=== PATIENT | female | born 1960 | race Caucasian/White ===

== ENCOUNTER 2024-05-30 23:39 | Outpatient (REF) | payer MEDICARE, SELFPAY ==
[2024-05-31 00:18] LABS: INR 1.21; Prothrombin Time 12.6 sec (9.0-11.6)
== END 2024-05-30 23:40 | disposition home or self-care (01) ==
LOC: LAB 23:39
PROVIDERS: Visit Provider Student in an Organized Health Care Education/Training Program
DX: Z79.01 Long term (current) use of anticoagulants (principal)
CPT/HCPCS: 36415; 85610

== ENCOUNTER 2024-06-17 12:08 | Outpatient (REF) | payer MEDICARE, SELFPAY ==
--- OUTSIDE RECORDS SUMMARY | 2024-06-17 12:13 | XMS_ITS | CCD ---
Author Organization [facility] Care Team Providers Care Final Expense Agent Name Role Phone Agustin, Robert Primary Care Provider DEJON BRUSH Referring Unavailable NARRA, ROBERT Primary Care Unavailable FRANNY APONTE Referring Unavailable NARRA, ROBERT Primary Care Unavailable Agustin CHOWDHURY, [facility] Primary Care Provider Agustin CHOWDHURY, Robert Primary Care Provider [phone] NARRA, ROBERT Primary Care Unavailable DYLAN, AFSER Admitting Unavailable DYLAN, AFSER Attending Unavailable DYLAN, AFSER Referring Unavailable NARRA, ROBERT Primary Care Unavailable CONSUELO MEDINA Attending Unavailable NARRA, ROBERT Referring Unavailable NARRA, ROBERT Primary Care Unavailable CONSUELO MEDINA Attending Unavailable NARRA, ROBERT Referring Unavailable NARRA, ROBERT Primary Care Unavailable Agustin CHOWDHURY, [facility] Primary Care Provider [phone] CONSUELO MEDINA Referring Unavailable NARRA, ROBERT Primary Care Unavailable NARRA, ROBERT Primary Care Unavailable DENIS CORBIN Attending Unavailable NARRA, ROBERT Admitting Unavailable DENISE SANTIAGO Consulting Unavailable DEANNE FORD Consulting Unavailable DENIS CORBIN Attending Unavailable DENIS CORBIN Referring Unavailable NARRA, ROBERT Primary Care Unavailable CONSUELO MEDINA Referring Unavailable NARRA, ROBERT Primary Care Unavailable CONSUELO MEDINA Referring Unavailable NARRA, ROBERT Primary Care Unavailable HAJA ALBA Attending Unavailable NARRA, ROBERT Referring Unavailable NARRA, ROBERT Primary Care Unavailable HAJA ALBA Referring Unavailable NARRA, ROBERT Primary Care Unavailable STEPHAN AGUILAR Attending Unavailable NARRA, ROBERT Referring Unavailable NARRA, ROBERT Primary Care Unavailable JOSE GUADALUPE MERCADO Referring Unavailable NARRA, ROBERT Primary Care Unavailable NARRA, ROBERT Referring Unavailable NARRA, ROBERT Primary Care Unavailable CHLOE KELLY Attending Unavailable HAYES WALSH Referring Unavailable NARRA, ROBERT Primary Care Unavailable NARRA, ROBERT Referring Unavailable NARRA, ROBERT Primary Care Unavailable NARRA, ROBERT Referring Unavailable NARRA, ROBERT Primary Care Unavailable NARRA, ROBERT Referring Unavailable NARRA, ROBERT Primary Care Unavailable HAYES WALSH Admitting Unavailable HAYSE WALSH Attending Unavailable NARRA, ROBERT Primary Care Unavailable SHUN PITTMAN Consulting Unavailable SERVICE, JOBST Referring Unavailable NARRA, ROBERT Primary Care Unavailable SERVICE, JOBST Referring Unavailable NARRA, ROBERT Primary Care Unavailable SERVICE, JOBST Referring Unavailable NARRA, ROBERT Primary Care Unavailable SERVICE, JOBST Referring Unavailable NARRA, ROBERT Primary Care Unavailable TYSON PANDA Referring Un available NARRA, ROBERT Primary Care Unavailable NARRA, ROBERT Referring Unavailable NARRA, ROBERT Primary Care Unavailable SERVICE, JOBST Referring Unavailable NARRA, ROBERT Primary Care Unavailable SERVICE, JOBST Referring Unavailable NARRA, ROBERT Primary Care Unavailable SERVICE, JOBST Referring Unavailable NARRA, ROBERT Primary Care Unavailable SERVICE, JOBST Referring Unavailable NARRA, ROBERT Primary Care Unavailable SERVICE, JOBST Referring Unavailable NARRA, ROBERT Primary Care Unavailable CONSUELO MEDINA Referring Unavailable NARRA, ROBERT Primary Care Unavailable SERVICE, JOBST Referring Unavailable NARRA, ROBERT Primary Care Unavailable SERVICE, JOBST Referring Unavailable NARRA, ROBERT Primary Care Unavailable YOSSI CHEATHAM Referring Unavailable NARRA, ROBERT Primary Care Unavailable NARRA, ROBERT Primary Care Unavailable LOTTIE FERNANDES Attending Unavailable MEKA MENDEZ Attending Unavailable MEKA MENDEZ Referring Unavailable NARRA, ROBERT Primary Care Unavailable SERVICE, JOBST Referring Unavailable NARRA, ROBERT Primary Care Unavailable SERVICE, JOBST Referring Unavailable NARRA, ROBERT Primary Care Unavailable SERVICE, JOBST Referring Unavailable NARRA, ROBERT Primary Care Unavailable SERVICE, JOBST Referring Unavailable NARRA, ROBERT Primary Care Unavailable SERVICE, JOBST Referring Unavailable NARRA, ROBERT Primary Care Unavailable SERVICE, JOBST Referring Unavailable NARRA, ROBERT Primary Care Unavailable SERVICE, JOBST Referring Unavailable NARRA, ROBERT Primary Care Unavailable SERVICE, JOBST Referring Unavailable NARRA, ROBERT Primary Care Unavailable NARRA, ROBERT Primary Care Unavailable SERGIO VILLALBA Attending Unavailable NARRA, ROBERT Primary Care Unavailable LOVELY PAZ Attending Unavailable SERVICE, JOBST Referring Unavailable NARRA, ROBERT Primary Care Unavailable ROBERT VELEZ Primary Care Unavailable DORITA MARINELLI Attending Unavailable YOUSUF OLIVA Consulting Unavailable TRISTIAN MARCH Admitting Unavailable ROBERT VELEZ Primary Care Unavailable LOTTIE ACOSTA Attending Unavailable DEVIN GOLDEN Consulting Unavailable MORGAN ARDON Admitting Unavailable BIB ODOM JR Consulting Unavailabl e Allergies Allergy Classification Reported Allergen(s) Allergy Type Date of Onset Reaction(s) Facility (3 sources) atorvastatin Drug Allergy 2 Other (See Comments) [place], [place] (20 sources) Cefaclor; Translations: [CEFACLOR] Drug Allergy 2 Rash, [place], [place] (3 sources) hydrOXYzine Drug Allergy 5 Itching [place], [place] (20 sources) Latex; Translations: [LATEX] Propensity to adverse reactions to drug 2 [place], [place] (6 sources) Penicillins; Translations: [PENICILLINS] Propensity to adverse reactions to drug 2 [place] (20 sources) Warfarin; Translations: [WARFARIN] Drug Allergy 2 Other (See Comments), [place] (3 sources) Clindamycin/Linc omycin Propensity to adverse reactions to drug 4 [place] (20 sources) Adhesive agent; Translations: [ADHESIVE] Propensity to adverse reactions to drug 6 Dermatitis [facility] (20 sources) atorvastatin; Translations: [ATORVASTATIN] Drug Allergy 6 [facility] (20 sources) Clindamycin; Translations: [CLINDAMYCIN] Drug Allergy 6 [facility] (20 sources) Dicloxacillin; Translations: [DICLOXACILLIN SODIUM] Drug Allergy 6 [facility] (20 sources) hydrOXYzine; Translations: [HYDROXYZINE HCL] Drug Allergy 6 Itching [facility] (20 sources) hydrOXYzine; Translations: [HYDROXYZINE PAMOATE] Drug Allergy 6 Itching [facility] (20 sources) Latex; Translations: [LATEX, NATURAL RUBBER] Propensity to adverse reactions to drug 6 Itching [facility] (20 sources) Lincomycin; Translations: [LINCOMYCIN HCL] Drug Allergy 6 Hives [facility] (20 sources) Penicillins Propensity to adverse reactions to drug 2 [facility] (1 source) Silicone adhesive tape Propensity to adverse reactions to drug 6 Dermatitis [facility] Medications Current Medications Medication Drug Class(es) Dates Sig (Normalized) Sig (Original) acetaminophen 500 mg oral tablet (1 source) Start: 06-02-2024 take 2 tablets by mouth every eight hours acetaminophen (TYLENOL EXTRA STRENGTH) 500 mg tablet Take 2 tablets (1,000 mg total) by mouth every 8 (eight) hours. 06/02/2024 Active acetaminophen 300 mg / codeine phosphate 30 mg oral tablet (9 sources) Opioid Agonist Start: 01-14-2024 End: 04-05-2024 take 1 tablet by mouth every four hours as needed for pain acetaminophen-code ine (TYLENOL #3) 300-30 mg per tablet Indications: Frequent falls Take 1 tablet by mouth every 4 (four) hours as needed for pain for up to 7 days. 20 tablet 03/29/2024 04/05/2024 Active amLODIPine 5 mg oral tablet (3 sources) Dihydropyridine Calcium Channel Shayy Start: 02-17-2016 take 1 tablet by mouth once daily amLODIPine (NORVASC) 5 MG tablet TAKE 1 TABLET BY MOUTH DAILY 90 tablet 2 02/17/2016 Active atorvastatin 40 mg oral tablet (20 sources) HMG-CoA Reductase Inhibitor Start: 12-27-2023 take 1 tablet by mouth once daily atorvastatin (LIPITOR) 40 mg tablet take 1 tablet by mouth every day 90 tablet 3 12/27/2023 Active Start: 08-26-2015 take 1 tablet by devin th once daily atorvastatin (LIPITOR) 40 mg tablet TAKE 1 TABLET BY MOUTH EVERY DAY 90 tablet 3 12/26/2022 Active betamethasone 1 mg/ml topical cream (3 sources) Corticosteroid Start: 04-27-2015 betamethasone valerate (VALISONE) 0.1 % cream Apply topically 2 times daily 45 g 4 04/27/2015 Active bisacodyl 5 mg delayed release oral tablet (1 source) Stimulant Laxative Start: 04-03-2019 bisacodyl ( DULCOLAX) 5 MG EC tablet TAKE 2 TABS AT 9 AM DAY PRIOR TO COLONOSCOPY 2 tablet 0 04/03/2019 Active Blood Glucose Monitoring Suppl (BLOOD GLUCOSE METER) KIT (3 sources) Start: 01-21-2014 Blood Glucose Monitoring Suppl (BLOOD GLUCOSE METER) KIT Indications: Diabetes type 2, uncontrolled Test daily. Dx. DM 2 1 kit 0 01/21/2014 Active Start: 01-21-2014 Blood Glucose Monitoring Suppl (BLOOD GLUCOSE METER) KIT Indications: Diabetes type 2, uncontrolled (HCC) Test daily. Dx. DM 2 1 kit 0 01/21/2014 Active budesonide 0.25 mg/ml inhalation suspension (1 source) Corticosteroid Start: 04-25-2023 budesonide (PULMICORT) 0.5 MG/2ML nebulizer suspension RINSE TWICE A DAY USING 1 VIAL INTO A SINUS RINSE BOTTLE. 0 04/25/2023 Active calcium citrate 950 mg oral tablet (1 source) Start: 06-02-2024 take 2 tablets by mouth three times daily calcium citrate (CALCITRATE) 200 mg (950 mg) tablet Take 2 tablets (400 mg total) by mouth 3 (three) times a day. 06/02/2024 Active calcium citrate 1500 mg / cholecalciferol 250 unt oral tablet (2 sources) Vitamin D take 1 tablet by mouth twice daily at mealtime calcium citrate-vitamin D (CITRICAL + D) 315-250 MG-UNIT TABS per tablet Take 1 tablet by mouth 2 times daily (with meals) 0 Active Calcium Citrate / Vitamin D (1 source) take 1 tablet by mouth twice daily at mealtime calcium citrate-vitamin D (CITRICAL + D) 315-250 MG-UNIT TABS per tablet Take 1 tablet by mouth 2 times daily (with meals) 0 Active calcium citrate/vitamin D3 (CALCIUM CITRATE + D ORAL) (20 sources) End: 03-29-2024 take 1 tablet by mouth once in the morning calcium citrate/vitamin D3 (CALCIUM CITRATE + D ORAL) Take 1 tablet by mouth in the morning and 1 tablet before bedtime. 03/29/2024 Discontinued (Stop Taking at Discharge) take 1 tablet by devin once in the morning calcium citrate/vitamin D3 (CALCIUM CITR ATE + D ORAL) Take 1 tablet by mouth in the morning and 1 tablet before bedtime. Suspended take 1 tablet by mouth once vega y calcium citrate/vitamin D3 (CALCIUM CITRATE + D ORAL) Take 1 tablet by mouth daily. 0 Active carvedilol 3.125 mg oral tablet (20 sources) alpha-Adrenergic Shayy, beta-Adrenergic Shayy Start: 11-08-2023 take 1 tablet by mouth in the morning, then take 1 tablet by mouth at bedtime carvediloL (COREG) 3.125 mg tablet TAKE 1 TABLET (3.125 MG TOTAL) BY MOUTH IN THE MORNING AND 1 TABLET (3.125 MG TOTAL) BEFORE BEDTIME. 180 tablet 1 11/08/2023 Active Start: 05-10-2023 take 1 tablet by devin th in the morning, then take 1 tablet by mouth at bedtime carvediloL (COREG) 3.125 mg tablet TAKE 1 TABLET (3.125 MG TOTAL) BY MOUTH IN THE MORNING AND 1 TABLET (3.125 MG TOTAL) BEFORE BEDTIME. 180 tablet 1 05/10/2023 Active cephalexin 500 mg oral capsule (1 source) Cephalosporin Antibacterial Start: 07-12-2023 End: 07-19-2023 CEPHalexin (KEFLEX) 500 mg capsule Take 1 capsule (500 mg total) by mouth in the morning and 1 capsule (500 mg total) at noon and 1 capsule (500 mg total) in the evening and 1 capsule (500 mg total) before bedtime. Do all this for 7 days. 28 capsule 0 07/12/2023 07/19/2023 Active cholecalciferol 0.025 mg oral capsule (1 source) Vitamin D Start: 06-02-2024 End: 06-02-2025 take 1 capsule by mouth in the morning, then take 1 capsule by mouth at mealtime cholecalciferol, vitamin D3, 25 mcg (1,000 unit) capsule Take 1 capsule (1,000 Units total) by mouth in the morning and 1 capsule (1,000 Units total) in the evening. Take with meals. 06/02/2024 06/02/2025 Active desoximetasone 2.5 mg/ml topical cream (3 sources) Corticosteroid Start: 02-22-2016 desoximetasone (TOPICORT) 0.25 % cream Apply topically 2 times daily. 15 g 1 02/22/2016 Active 1 ml diphenhydrAMINE hydrochloride 50 mg/ml cartridge (1 source) Histamine-1 Receptor Antagonist Start: 04-13-2019 End: 04-13-2019 diphenhydrAMINE (BENADRYL) injection 12.5 mg docosahexanoic acid/epa (FISH OIL ORAL) (20 sources) End: 03-29-2024 take 2 tablets by mouth once daily docosahexanoic acid/epa (FISH OIL ORAL) Take 2 tablets by mouth nightly. 03/29/2024 Discontinued (Stop Taking at Discharge) take 2 tablets by mouth once alondra ly docosahexanoic acid/epa (FISH OIL ORAL) Take 2 tablets by mouth nightly. Suspended take 2 tablets by mouth once alondra ly docosahexanoic acid/epa (FISH OIL ORAL) Take 2 tablets by mouth daily. 0 Active docusate sodium 50 mg / sennosides, half-way 8.6 mg oral tablet (1 source) Start: 06-03-2024 End: 07-03-2024 take 1 tablet by mouth once as needed sennosides-docusate sodium (SENOKOT-S) 8.6-50 mg Take 1 tablet by mouth every 12 (twelve) hours as needed for constipation for up to 30 days. 06/03/2024 07/03/2024 Active ergocalciferol 1.25 mg oral capsule (20 sources) Provitamin D2 Compound Start: 02-04-2024 ergocalciferol (DRISDOL) 1,250 mcg (50,000 unit) capsule Take 1 tablet two times weekly: on Saturday and Saturday 24 capsule 3 02/04/2024 Active Start: 05-08-2023 ergocalciferol (DRISDOL) 1,250 mcg (50,000 unit) capsule Take 1 capsule (50,000 Units total) by mouth as needed (Take on Saturday and Saturday). 24 capsule 3 05/08/2023 Active ferrous sulfate 325 mg oral tablet (20 sources) Start: 03-28-2024 take 325 mg by mouth once daily at breakfast 325 mg, oral, Daily with breakfast, First dose on 03/28/24 at 1000, Give ferrous sulfate 2 hours before or 4 hours after antacids. Start: 03-25-2024 End: 03-25-2024 take 1 tablet by mouth once daily in the morning 325 mg, oral, Daily with breakfast, First dose on Sat03/25/24 at 0800, TAKE 1 TABLET (325 MG TOTAL) BY MOUTH IN THE MORNING Give ferrous sulfate 2 hours before or 4 hours after antacids. Start: 09-06-2023 take 1 tablet by devin th in the morning ferrous sulfate 325 (65 FE) mg EC tablet Indications: Iron deficiency TAKE 1 TABLET (325 MG TOTAL) BY MOUTH IN THE MORNING 90 tablet 1 09/06/2023 Active Start: 02-15-2023 End: 03-24-2024 take 1 tablet by mouth every other day ferrous sulfate 325 (65 FE) mg tablet Indications: Iron deficiency TAKE 1 TABLET BY MOUTH EVERY OTHER DAY 45 tablet 2 02/15/2023 03/24/2024 Discontinued (Therapy completed) Start: 03-03-2020 take 1 tablet by devin th twice daily ferrous sulfate (IRON 325) 325 (65 Fe) MG tablet TAKE 1 TABLET BY MOUTH TWICE A DAY 180 tablet 1 03/03/2020 Active folic acid 1 mg oral tablet (20 sources) Start: 03-25-2024 take 1000 ug by mouth once daily 1,000 mcg, oral, Daily, First dose on Sat03/25/24 at 0900, Look-alike/sound-alike medication - verify indication for use. Start: 09-12-2015 End: 09-12-2023 take 1 tablet by mouth once daily folic acid (FOLVITE) 1 mg tablet take 1 tablet by mouth every day 90 tablet 1 09/12/2023 Active furosemide 20 mg oral tablet (20 sources) Loop Diuretic Start: 12-09-2023 take 1 tablet by mouth once daily furosemide (LASIX) 20 mg tablet take 1 tablet by mouth every day 90 tablet 1 12/09/2023 Active Start: 12-20-2022 End: 06-14-2023 take 1 tablet by mouth once daily furosemide (LASIX) 20 mg tablet TAKE 1 TABLET BY MOUTH EVERY DAY 90 tablet 1 06/14/2023 Active glucagon (rdna) 1 mg injecti on (1 source) Antihypoglycemic Agent Start: 03-24-2024 150 ml glucose 50 mg/ml inje ction (3 sources) Start: 03-24-2024 Start: 03-24-2024 Start: 10-01-2024 1 ml hydrALAZINE hydrochloride 20 mg/ml injection (1 source) Arteriolar Vasodilator Start: 04-13-2019 hydrALAZINE (APRESOLINE) injection 5 mg 3 ml insulin lispro 100 unt/ml pen injector (2 sources) Insulin Analog Start: 03-26-2024 inject 400 mg by subcutaneous injection once daily, then inject 2 [IU] by subcutaneous injection 15 minutes after mealtime 1-4 Units, subcutaneous, Nightly, First dose on [facility] 03/26/24 at 2200, Bedtime hyperglycemia dosing. For blood glucose 201-250 mg/dL, give 1 unit. For blood glucose 251-300 mg/dL, give 2 units. For blood glucose 301-350 mg/dL, give 3 units. For blood glucose 351-400 mg/dL, give 4 units. Give even if NPO or meals skipped. Do NOT give more often than every 4 hours when NPO. Notify prescriber if blood glucose greater than 400 mg/dL. Look-alike/sound-a like medication - verify indication for use. Prime with 2 units of insulin prior to administration. Prandial/supplemen ananya Insulin. Pre-filled pens stable 28 days at room temperature. Insulin lispro should be administered within 15 minutes before or immediately after a meal. Start: 03-26-2024 inject 400 mg by sub cutaneous injection three times daily at mealtime, then inject 2 [IU] by subcutaneous injection 15 minutes after mealtime 1-5 Units, subcutaneous, 3 times daily with meals, First dose (after last modification) on [facility] 03/26/24 at 1200, Daytime hyperglycemia dosing. For blood glucose 151-200 mg/dL, give 1 unit. For blood glucose 201-250 mg/dL, give 2 units. For blood glucose 251-300 mg/dL, give 3 units. For blood glucose 301-350 mg/dL, give 4 units. For blood glucose 351-400 mg/dL, give 5 units. Give even if NPO or meals skipped. Do NOT give more often than every 4 hours when NPO. Notify prescriber if blood glucose greater than 400 mg/dL. Look-alike/sound-alike medication - verify indication for use. Prime with 2 units of insulin prior to administration. Prandial/supplemental Insulin. Pre-filled pens stable 28 days at room temperature. Insulin lispro should be administered within 15 minutes before or immediately after a meal. labetalol (NORMODYNE;TRANDATE) injection syringe 5 mg (1 source) Start: 04-13-2019 labetalol (NORMODYNE;TRANDATE) injection syringe 5 mg levothyroxine sodium 0.075 m g oral tablet (20 sources) l-Thyrox ine Start: 03-25-2024 150 mcg, oral, Daily , First dose on Sat03/25/24 at 0600, Look-alike/sound-alike medication. Verify indication for use Administer on empty stomach at least ONE hour before or TWO hours after food Enteral Feeding: For 7 days or less of tube feeding- do NOT hold tube feedings, after 7 days- hold tube feedings ONE hour before and ONE hour after administration DOES NOT APPLY TO NEONATES Monitor thyroid function tests weekly Start: 01-10-2024 take 1 tablet by devin th once daily levothyroxine (SYNTHROID, LEVOTHROID) 150 MCG tablet Indications: Hypothyroidism, unspecified type take 1 tablet by mouth every day 90 tablet 1 01/10/2024 Active Start: 01-11-2023 End: 07-11-2023 take 1 tablet by mouth once daily levothyroxine (SYNTHROID, LEVOTHROID) 150 MCG tablet Indications: Hypothyroidism, unspecified type TAKE 1 TABLET BY MOUTH EVERY DAY 90 tablet 1 07/11/2023 Active Start: 06-14-2015 End: 06-19-2023 take 1 tablet by mouth once daily levothyroxine (SYNTHROID) 100 MCG tablet Take 1 tablet by mouth Daily 90 tablet 3 06/14/2015 06/19/2023 Discontinued (LIST CLEANUP) losartan potassium 25 mg oral tablet (20 sources) Angiotensin 2 Receptor Shayy Start: 03-26-2024 take 1 tablet by mouth in the morning losartan (COZAAR) 25 mg tablet Take 1 tablet (25 mg total) by mouth in the morning. 30 tablet 1 03/29/2024 Active Start: 01-20-2024 End: 03-29-2024 take 1 tablet by mouth in the morning losartan (COZAAR) 50 mg tablet Indications: Primary hypertension TAKE 1 TABLET (50 MG TOTAL) BY MOUTH IN THE MORNING 90 tablet 1 01/20/2024 03/29/2024 Discontinued (Stop Taking at Discharge) Start: 08-08-2023 End: 03-24-2024 take 1 tablet by mouth once daily losartan (COZAAR) 100 mg tablet Indications: Primary hypertension TAKE 1 TABLET BY MOUTH EVERY DAY 90 tablet 1 08/08/2023 03/24/2024 Discontinued (Therapy completed) Start: 06-14-2023 take 1 tablet by devin th in the morning losartan (COZAAR) 50 mg tablet Indications: Primary hypertension Take 1 tablet (50 mg total) by mouth in the morning. 30 tablet 3 06/14/2023 Active Start: 05-03-2023 take 0.5 tablet by m outh once daily losartan (COZAAR) 100 MG tablet Take 0.5 tablets by mouth daily 0 05/03/2023 Active metFORMIN hydrochloride 1000 mg oral tablet (20 sources) Biguanide Start: 03-27-2023 take 1 tablet by mouth in the morning, then take 1 tablet by mouth at bedtime metFORMIN (GLUCOPHAGE) 1000 mg tablet Indications: Type 2 diabetes mellitus with microalbuminuria, without long-term current use of insulin ([facility]) Take 1 tablet (1,000 mg total) by mouth in the morning and 1 tablet (1,000 mg total) before bedtime. 180 tablet 3 03/27/2023 Active Start: 11-16-2015 End: 06-19-2023 take 1 tablet by mouth twice daily at mealtime metFORMIN (GLUCOPHAGE) 500 MG tablet TAKE 1 TABLET BY MOUTH 2 TIMES DAILY (WITH MEALS) 180 tablet 1 11/16/2015 06/19/2023 Discontinued (LIST CLEANUP) omega 6-jrq-hlg-fish oil (Fish OiL) 300-1,000 mg capsule (6 sources) omega 3-dha-epa- fish oil (Fish OiL) 300-1,000 mg capsule Take 1,000 mg by mouth in the morning. Active omega-3 acid ethyl esters (half-way) 1000 mg oral capsule (1 source) take 1 capsule by mouth twice daily Kenner-3 Fatty Acids (FISH OIL) 1000 MG CAPS Take 1,000 mg by mouth 2 times daily. 0 Active Kenner-3 Fatty Acids (FISH OIL ULTRA) 1400 MG CAPS (1 source) take 1 capsule by mouth once daily Ken[place]-3 Fatty Acids (FISH OIL ULTRA) 1400 MG CAPS Take 1 capsule by mouth daily 0 Active 2 ml ondansetron 2 mg/ml injection (1 source) Serotonin-3 Receptor Antagonist Start: 04-13-20 End: 04-13-20 ondansetron (ZOFRAN) injection 4 mg oxyCODONE hydrochloride 5 mg oral tablet (2 sources) Opioid Agonist Start: 04-15-20 End: 04-22-20 take 1 tablet by mouth every six hours as needed for pain oxyCODONE (ROXICODONE) 5 mg immediate release tablet Indications: Closed displaced fracture of surgical neck of left humerus, unspecified fracture morphology, initial encounter Take 1 tablet (5 mg total) by mouth every 6 (six) hours as needed for pain for up to 7 days. Max Daily Amount: 20 mg 28 tablet 04/15/2024 04/22/2024 Active pantoprazole 40 mg delayed release oral tablet (16 sources) Proton Pump Inhibitor Start: 03-26-20 take 1 tablet by mouth in the morning, then take 1 tablet by mouth before mealtime pantoprazole (PROTONIX) 40 mg EC tablet Take 1 tablet (40 mg total) by mouth in the morning and 1 tablet (40 mg total) in the evening. Take before meals. 60 tablet 1 03/29/2024 Active Start: 03-25-2024 End: 03-26-2024 take 40 mg intravenously every twelve hours 40 mg, intravenous, Every 12 hours, First dose on Sat03/25/24 at 0600, Look-alike/sound-alike medication - verify indication for use., Indication: Upper GI bleed Start: 03-24-2024 End: 03-24-2024 80 mg, intravenous, Once, On Sat03/24/24 at 1650, For 1 dose, Look-alike/sound-alike medication - verify indication for use., Indication: Upper GI bleed polyethylene glycol 3350 46498 mg powder for oral solution (1 source) Osmotic Laxative Start: 04-06-2019 End: 05-06-2019 polyethylene glycol (GLYCOLAX) powder Use as directed by following your patient instructions given by office. 238 g 0 04/06/2019 05/06/2019 Active promethazine (PHENERGAN) 6.25 mg in sodium chloride 0.9 % 50 mL IVPB (1 source) Start: 04-13-2019 End: 04-13-2019 promethazine (PHENERGAN) 6.25 mg in sodium chloride 0.9 % 50 mL IVPB rOPINIRole 1 mg oral tablet (20 sources) Nonergot Dopamine Agonist Start: 03-24-2024 take 2 mg by mouth once daily 2 mg, oral, Nightly, First dose on Sat03/24/24 at 2200, Look-alike/sound-al kayla medication - verify indication for use. Start: 10-03-2018 take 2 tablets by mo uth once daily rOPINIRole (REQUIP) 1 mg tablet Take 2 tablets (2 mg total) by mouth nightly. 3 10/03/2018 Active Start: 10-03-2018 take 7 tablets by mo uth in the morning, then take 3 tablets by mouth in the morning, then take 4 tablets by mouth at bedtime rOPINIRole (REQUIP) 1 mg tablet Take 7 tablets (7 mg total) by mouth in the morning. Takes 3 in the am, 4 hs. 3 10/03/2018 Active Start: 11-02-2015 End: 06-19-2023 take 1 tablet by mouth twice daily rOPINIRole (REQUIP) 0.5 MG tablet Take 1 tablet by mouth 2 times daily 180 tablet 3 11/02/2015 06/19/2023 Discontinued (LIST CLEANUP) take 1 tablet by devin once daily rOPINIRole (REQUIP) 2 MG tablet Take 1 tablet by mouth nightly 0 Active sertraline 50 mg oral tablet (20 sources) Serotonin Reuptake Inhibitor Start: 03-25-2024 take 100 mg by mouth once daily 100 mg, oral, Daily, First dose on Sat03/25/24 at 0900, Look-alike/sound-alike medication - verify indication for use. Start: 01-28-2016 End: 06-24-2023 take 1 tablet by mouth once daily sertraline (ZOLOFT) 100 mg tablet TAKE 1 TABLET BY MOUTH EVERY DAY 90 tablet 2 06/24/2023 Active triamcinolone acetonide 0.001 mg/mg oral paste (14 sources) Corticosteroid Start: 03-12-2024 triamcinolone (KENALOG) 0.1 % paste Apply 1 Application to teeth in the morning and 1 Application before bedtime. 03/12/2024 Active TRUE METRIX GLUCOSE METER misc (20 sources) Start: 01-12-2021 TRUE METRIX GL UCOSE METER misc See Admin Instructions. 01/12/2021 Active Start: 01-12-2021 TRUE METRIX GL UCOSE METER misc See Admin Instructions. 01/12/2021 Start: 01-12-2021 TRUE METRIX GL UCOSE METER misc See Admin Instructions. 01/12/2021 Suspended Start: 01-12-2021 TRUE METRIX GL UCOSE METER misc See Admin Instructions. 0 01/12/2021 Active warfarin sodium 7.5 mg oral tablet (20 sources) Vitamin K Antagonist Start: 03-27-2024 7.5 mg, oral, User S pecified (Once per day on Saturday), First dose (after last modification) on Sat03/27/24 at 1600, To be given on SPECIFIC DAYS Food-Drug Interaction Education Required Look-alike/sound-alike medication - verify indication for use Avoid intake of foods with large amounts of vitamin K Enteral Feeding: If patient is on tube feedings, avoid formulas containing soy protein Transition to oral diet may require decrease in warfarin dose, Target INR: Other, Hold warfarin & notify prescriber if INR greater than: 3 Start: 02-19-2023 End: 03-25-2024 take 1-1.5 tablets by mouth in the evening JANTOVEN 5 mg tablet Indications: Cerebrovascular accident (CVA), unspecified mechanism (CMS-HCC) Take 1-1.5 tablets (5-7.5 mg total) by mouth in the evening. As directed by Aimee DALY. 135 tablet 1 03/25/2024 Active Start: 05-23-2015 End: 06-19-2023 COUMADIN 5 MG tablet As dire cted 90 tablet 3 05/23/2015 06/19/2023 Discontinued (LIST CLEANUP) Completed/Discontinued Medications Medication Drug Class(es) Dates Sig (Normalized) Sig (Original) [id number] 200 actuat albuterol 0.09 mg/actuat metered dose inhaler (20 sources) beta2-Adrenergic Agonist Start: 12-06-2022 End: 05-13-2024 take 2 puff(s) by inhalation every four hours as needed for wheezing albuterol (PROVENTIL HFA;VENTOLIN HFA) 90 mcg/actuation inhaler Indications: Bronchitis INHALE 2 PUFFS EVERY 4 HOURS NEEDED FOR WHEEZING OR SHORTNESS OF BREATH 8.5 g 3 12/06/2022 05/13/2024 Discontinued (Discontinued by another clinician) Start: 12-06-2022 take 2 puff(s) by inhalation every four hours as needed for wheezing albuterol sulfate HFA (PROVENTIL;VENTOLIN;PROAIR) 108 (90 Base) MCG/ACT inhaler INHALE 2 PUFFS EVERY 4 HOURS NEEDED FOR WHEEZING OR SHORTNESS OF BREATH 0 12/06/2022 Active alendronic acid 70 mg oral tablet (1 source) Bisphosphonate Start: 03-01-2015 End: 04-13-2019 alendronate (FOSAMAX) 70 MG tablet Take 70 mg by mouth every 7 days 9 03/01/2015 04/13/2019 Discontinued (DISCONTINUED BY ANOTHER CLINICIAN) ALPRAZolam 0.5 mg oral tablet (3 sources) Benzodiazepine Start: 03-22-2016 End: 06-19-2023 take 1 tablet by mouth three times daily as needed ALPRAZolam (XANAX) 0.5 MG tablet TAKE 1 TABLET BY MOUTH THREE TIMES DAILY NEEDED 90 tablet 1 03/22/2016 06/19/2023 Discontinued (LIST CLEANUP) aspirin 81 mg oral tablet (1 source) Platelet Aggregation Inhibitor, Nonsteroidal Anti-inflammatory Drug End: 04-13-2019 take 1 tablet by mouth once daily aspirin 81 MG tablet Take 81 mg by mouth daily. 0 04/13/2019 Discontinued (Patient Choice) barium sulfate (VARIBAR NECTAR) 40 % (w/v) suspension 10 mL (1 source) Start: 03-26-2024 End: 03-26-2024 10 mL, oral, Once in imaging, contrast, barium sulfate (VARIBAR NECTAR) 40 % (w/v) suspension, Starting on Mi 03/26/24 at 1329, For 1 dose barium sulfate (VARIBAR PUDDING) 40 % (w/v), 30% (w/w) oral paste 60 mL (1 source) Start: 03-26-2024 End: 03-26-2024 60 mL, oral, Once in imaging, contrast, barium sulfate (VARIBAR PUDDING) 40 % (w/v), 30% (w/w) oral paste, Starting on Mi 03/26/24 at 1329, For 1 dose barium sulfate (VARIBAR THIN HONEY) 40 %(w/v), 29% (w/w)(1500 CPS) suspension 20 mL (1 source) Start: 03-26-2024 End: 03-26-2024 take 20 mL by mouth once 20 mL, oral, Once in imaging, contrast, Radiology, Starting on Mi 03/26/24 at 1329, For 1 dose barium sulfate (VARIBAR THIN) 81 % (w/w) powder 148 g (1 source) Start: 03-26-2024 End: 03-26-2024 148 g, oral, Once in imaging, contrast, barium sulfate (VARIBAR THIN) 40 % (w/v) powder, Starting on Mi 03/26/24 at 1329, For 1 dose chlorhexidine gluconate 1.2 mg/ml mouthwash (4 sources) Start: 02-10-2024 End: 03-24-2024 take 15 mL by mouth in the morning chlorhexidine (PERIDEX) 0.12 % solution Apply 15 mL to the mouth or throat in the morning and 15 mL before bedtime. 02/10/2024 03/24/2024 Discontinued (Therapy completed) clindamycin 150 mg oral capsule (4 sources) Lincosamide Antibacterial Start: 02-10-2024 End: 03-24-2024 clindamycin (CLEOCIN) 150 mg capsule TAKE 1 CAP ONE HOUR PRIOR TO PROCEDURE THEN TAKE ONE CAP EVERY 8 HOURS UNTIL GONE. 02/10/2024 03/24/2024 Discontinued (Therapy completed) docosahexaenoic acid 120 mg / eicosapentaenoic acid 180 mg oral capsule (2 sources) End: 06-19-2023 take 1 capsule by mouth twice daily Kenner-3 Fatty Acids (FISH OIL) 1000 MG CAPS Take 1,000 mg by mouth 2 times daily. 0 06/19/2023 Discontinued (LIST CLEANUP) 1 ml enoxaparin sodium 100 mg/ml prefilled syringe (20 sources) Low Molecular Weight Heparin Start: 03-26-2024 End: 03-28-2024 100 mg (rounded from 102.4 mg = 1 mg/kg 102.4 kg), subcutaneous, Every 12 hours, First dose on Mi 03/26/24 at 1800, Discontinue when INR=2 or greater Look-alike/sound-a like medication - verify indication for use. 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 Patient to take 110 mg Q12 (not 111 mg); qty 10 pens = 1 box 8 mL 0 08/02/2023 Active enoxaparin (LOVE NOX) 30 mg/0.3 mL syringe Inject 0.3 mL (30 mg total) under the skin daily as needed. For INR less than 2 Active famotidine 20 mg oral tablet (20 sources) Histamine-2 Receptor Antagonist Start: 03-14-2023 End: 03-24-2024 take 1 tablet by mouth at bedtime famotidine (PEPCID) 20 mg tablet TAKE 1 TABLET (20 MG TOTAL) BY MOUTH IN THE MORNING AND BEFORE BEDTIME 180 tablet 1 09/12/2023 03/24/2024 Discontinued (Therapy completed) fenofibrate 48 mg oral tablet (20 sources) Peroxisome Proliferator Receptor alpha Agonist Start: 03-24-2023 End: 03-24-2024 take 1 tablet by mouth once daily fenofibrate (TRICOR) 48 mg tablet TAKE 1 TABLET BY MOUTH EVERY DAY 90 tablet 3 03/24/2023 03/24/2024 Discontinued (Therapy completed) Start: 09-20-2015 End: 04-13-2019 take 1 capsule by mouth once daily Choline Fenofibrate (FENOFIBRIC ACID) 135 MG CPDR Take 1 capsule by mouth Daily 90 capsule 1 09/20/2015 04/13/2019 Discontinued (Patient Choice) fluticasone propionate 0.05 mg/actuat metered dose nasal spray (20 sources) Corticosteroid Start: 02-06-2016 End: 03-24-2024 fluticasone propionate (FLONASE) 50 mcg/actuation nasal spray 04/01/2023 03/24/2024 Discontinued (Therapy completed) iohexoL (OMNIPAQUE) 300 mg iodine/mL 100 mL (1 source) Start: 03-24-2024 End: 03-24-2024 100 mL, intravenous, Once in imaging, contrast, Starting on Sat03/24/24 at 1711, For 1 dose, VESICANT (RED) iron sucrose (VENOFER) IVPB 200 mg/110 mL in sodium chloride 0.9% (CMPD premix) (1 source) Start: 03-25-2024 End: 03-29-2024 200 mg, intravenous, at 440 mL/hr, Administer over 15 Minutes, Daily, First dose on Sat03/25/24 at 1500, For 5 doses, Monitor patient for hypersensitivity reactions for at least 30 minutes after the infusion. AVOID the use of H1 antihistamines, such as diphenhydramine, as this may worsen hypersensitivity reactions. Have resuscitation equipment and medications available. 24 hr isosorbide mononitrate 30 mg extended release oral tablet (3 sources) Nitrate Vasodilator Start: 09-12-2015 End: 06-19-2023 take 1 tablet by mouth once daily isosorbide mononitrate (IMDUR) 30 MG CR tablet Take 1 tablet by mouth daily 90 tablet 3 09/12/2015 06/19/2023 Discontinued (LIST CLEANUP) nitroglycerin 0.4 mg/actuat mucosal spray (1 source) Nitrate Vasodilator Start: 02-17-2016 End: 04-13-2019 nitroGLYCERIN (NITROLINGUAL) 0.4 MG/SPRAY 0.[address] 1 SPRAY UNDER THE TONGUE EVERY 5 MINUTES NEEDED. 1 Bottle 0 02/17/2016 04/13/2019 Discontinued (DISCONTINUED BY ANOTHER CLINICIAN) nystatin [id number] unt/ml topical cream (20 sources) Polyene Antifungal Start: 03-27-2023 End: 03-24-2024 nystatin (MYCOSTATIN) cream Apply 1 Application topically in the morning and 1 Application before bedtime. 30 g 5 03/27/2023 03/24/2024 Discontinued (Therapy completed) Start: 10-20-2015 nystatin (MYCO STATIN) [id number] UNIT/GM powder Indications: Candidiasis of breast Apply 3 times daily. 60 g 1 10/20/2015 Active microencapsulated potassium chloride 20 meq extended release oral tablet (1 source) Start: 03-27-2024 End: 03-27-2024 40 mEq, oral, Once, On Sat03/27/24 at 1315, For 1 dose, Do not crush or chew. 1000 ml sodium chloride 9 mg/ml injection (7 sources) Start: 03-24-2024 End: 03-26-2024 take 100 mL intravenously every hour 100 mL/hr, intravenous, Continuous, Starting on Sat03/24/24 at 2045 Start: 03-24-2024 take 20 mL intraveno usly every hour as needed 20 mL/hr, intravenous, Continuous PRN, to maintain patency of lines, Starting on Sat03/24/24 at 2033 Start: 03-24-2024 take 25 mL intraveno usly every hour as needed 25 mL, intravenous, at 100 mL/hr, Administer over 15 Minutes, As needed, line care, line care after IVPB administration, Starting on Sat03/24/24 at 2033 Start: 03-24-2024 10 mL, intrave nous, As needed, line care, Starting on Sat03/24/24 at 1711 Start: 03-24-2024 End: 03-24-2024 80 mL, intravenous, Once in imaging, pre/post contrast, Starting on Sat03/24/24 at 1711, For 1 dose Start: 04-13-2019 End: 04-13-2019 0.9 % sodium chloride bolus Start: 04-13-2019 0.9 % sodium c hloride infusion Problems Active Problems Problem Classification Problem Date Documented Date Episodic/Chronic Acute cerebrovascular disease (20 sources) Cerebrovascular accident; Translations: [Cerebral infarction, unspecified] Onset: 9 07-01-2018 Chronic Coagulation and hemorrhagic disorders (20 sources) Hypercoagulability state; 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] Onset: 3 07-12-2014 Chronic Conditions associated with dizziness or vertigo (4 sources) Postural dizziness; Translations: [Dizziness and giddiness] Onset: 4 03-24-2024 Episodic Coronary atherosclerosis and other heart disease (20 sources) Old myocardial infarction; Translations: [Old myocardial infarction] 12-09-2017 Chronic Deficiency and other anemia (15 sources) Anemia due to blood loss; Translations: [Iron deficiency anemia secondary to blood loss (chronic)] Onset: 4 03-25-2024 Chronic Deficiency and other anemia (1 source) Iron deficiency anemia due to blood loss; Translations: [Iron deficiency anemia secondary to blood loss (chronic)] 03-25-2024 Chronic Deficiency and other anemia (1 source) Iron deficiency anemia secondary to blood loss (chronic); Translations: [Iron deficiency anemia secondary to blood loss (chronic)] Onset: 4 Chronic Diabetes mellitus without complication (20 sources) Type 2 diabetes mellitus; Translations: [Type 2 diabetes mellitus without complications] Onset: 4 Resolved: 4 02-18-2014 Chronic Disorders of lipid metabolism (20 sources) Hyperlipidemia; Translations: [Hyperlipidemia, unspecified] Onset: 3 07-12-2014 Chronic E Codes: Fall (12 sources) Fall in home; Translations: [Unspecified fall, initial encounter] Onset: 3 03-24-2024 Episodic E Codes: Fall (1 source) Fall Onset: 4 Essential hypertension (20 sources) Hypertensive disorder; Translations: [Essential (primary) hypertension] Onset: 3 07-12-2014 Chronic Fracture of upper limb (18 sources) Closed fracture of surgical neck of humerus; Translations: [Unspecified displaced fracture of surgical neck of left humerus, initial encounter for closed fracture] Onset: 4 04-13-2024 Episodic Fracture of upper limb (1 source) Other nondisplaced fracture of upper end of right humerus, initial encounter for closed fracture; Translations: [Other nondisplaced fracture of upper end of right humerus, initial encounter for closed fracture] Onset: 4 Episodic Gastrointestinal hemorrhage (20 sources) Melena; Translations: [Melena] Onset: 4 03-24-2024 Episodic Malaise and fatigue (20 sources) Fatigue; Translations: [Chronic fatigue, unspecified] Onset: 9 04-09-2019 Chronic Mood disorders (20 sources) Major depressive disorder, single episode, in full remission; Translations: [Chronic depression] Onset: 4 Resolved: 4 03-25-2024 Chronic Nutritional deficiencies (1 source) Iron deficiency; Translations: [Iron deficiency] 09-02-2023 Episodic Open wounds of head; neck; and trunk (10 sources) Facial laceration ; Translations: [Laceration without foreign body of other part of head, initial encounter] Onset: 4 04-13-2024 Episodic Osteoporosis (20 sources) Senile osteoporosis; Translations: [Age-related osteoporosis without current pathological fracture] Onset: 3 04-02-2023 Chronic Other aftercare (1 source) longterm (current) use of anticoagulants; Translations: [longterm (current) use of anticoagulants] Onset: 4 Episodic Other and ill-defined cerebrovascular disease (1 source) Other hereditary cerebrovascular disease; Translations: [Other hereditary cerebrovascular disease] Onset: 3 Chronic Other bone disease and musculoskeletal deformities (1 source) Disorder of bone; Translations: [Disorder of bone, unspecified] 05-11-2024 Episodic Other bone disease and musculoskeletal deformities (1 source) Disorder of bone, unspecified; Translations: [Disorder of bone, unspecified] Onset: 4 Episodic Other congenital anomalies (20 sources) Familial benign pemphigus; Translations: [Other specified congenital malformations of skin] Onset: 4 07-12-2014 Chronic Other connective tissue disease (15 sources) Recurrent falls ; Translations: [Repeated falls] Onset: 4 03-25-2024 Episodic Other connective tissue disease (1 source) Repeated falls; Translations: [Repeated falls] Onset: 4 Episodic Other diseases of veins and lymphatics (20 sources) Lymphedema; Translations: [Lymphedema, not elsewhere classified] Onset: 2 09-01-2021 Chronic Other gastrointestinal disorders (20 sources) Malabsorption - iron; Translations: [Intestinal malabsorption, unspecified] Onset: 1 02-10-2021 Chronic Other hereditary and degenerative nervous system conditions (20 sources) Cerebral atrophy; Translations: [Degenerative disease of nervous system, unspecified] Onset: 2 09-01-2021 Chronic Other lower respiratory disease (2 sources) Dyspnea; Translations: [Shortness of breath] Onset: 4 03-24-2024 Episodic Other lower respiratory disease (1 source) Shortness of breath; Translations: [Shortness of breath] Onset: 4 Episodic Other nervous system disorders (3 sources) Neuropathy of lower limb; Translations: [Unspecified mononeuropathy of unspecified lower limb] Onset: 4 07-12-2014 Chronic Other nervous system disorders (1 source) Other acute postprocedural pain; Translations: [Other acute postprocedural pain] Onset: 4 Episodic Other nutritional; endocrine; and metabolic disorders (3 sources) Morbid obesity; Translations: [Morbid (severe) obesity due to excess calories] Onset: 3 07-12-2014 Chronic Other nutritional; endocrine; and metabolic disorders (20 sources) Body mass index 40+ - severely obese; Translations: [Body mass index (BMI) 45.0-49.9, adult] Onset: 8 09-12-2020 Chronic Other screening for suspected conditions (not mental disorders or infectious disease) (4 sources) Raised TSH level; Translations: [Other specified abnormal findings of blood chemistry] Onset: 4 07-12-2014 Episodic Other upper respiratory disease (1 source) Nasal congestion; Translations: [Nasal congestion] Onset: 4 Episodic Other upper respiratory infections (5 sources) Chronic maxillary sinusitis; Translations: [Chronic frontal sinusitis] Onset: 3 Chronic Residual codes; unclassified (20 sources) Obstructive sleep apnea syndrome; Translations: [Obstructive sleep apnea (adult) (pediatric)] Onset: 1 Chronic Residual codes; unclassified (1 source) Obstructive sleep apnea (adult) (pediatric); Translations: [Obstructive sleep apnea (adult) (pediatric)] Onset: 7 Chronic Residual codes; unclassified (15 sources) H/O: respiratory disease; Translations: [Personal history of other specified conditions] Onset: 4 03-25-2024 Episodic Residual codes; unclassified (1 source) Pain; Translations: [Pain, unspecified] 05-08-2024 Episodic Residual codes; unclassified (1 source) Personal history of other specified conditions; Translations: [Personal history of other specified conditions] Onset: 4 Episodic Residual codes; unclassified (1 source) Pain, unspecified; Translations: [Pain, unspecified] Onset: 4 Episodic Syncope (1 source) Syncope and collapse; Translations: [Syncope and collapse] Onset: 4 Episodic Thyroid disorders (20 sources) Katelyn thyroiditis; Translations: [Autoimmune thyroiditis] Onset: 4 07-12-2014 Chronic Unclassified (1 source) Dizziness; Shortness of Breath Onset: 4 Unclassified (1 source) Pre-op Exam Onset: 3 Unclassified (1 source) Closed fracture of proximal end of left humerus with delayed healing, unspecified fracture morphology, subsequent encounter [S42.202G] Onset: 4 Unclassified (1 source) New Patient Onset: 4 Unclassified (1 source) Fall - major Onset: 4 Unclassified (1 source) Injection Onset: 4 Unclassified (1 source) Nose Bleed Onset: 4 Unclassified (1 source) EMS Onset: 4 Past or Other Problems Problem Classification Problem Date Documented Date Episodic/Chronic Abdominal hernia (3 sources) Hernia of anterior abdominal wall; Translations: [Ventral hernia without obstruction or gangrene] Onset: 01-21-2014 07-12-2014 Episodic Deficiency and other anemia (20 sources) Anemia; Translations: [Anemia, unspecified] Onset: 02-03-2021 04-13-2019 Episodic Deficiency and other anemia (20 sources) Iron deficiency anemia; Translations: [Iron deficiency anemia, unspecified] Onset: 02-10-2021 02-10-2021 Episodic Diabetes mellitus with complications (3 sources) Type II diabetes mellitus uncontrolled; Translations: [Type 2 diabetes mellitus with hyperglycemia] Onset: 01-26-2014 Resolved: 02-18-2014 02-18-2014 Chronic Mood disorders (20 sources) Mood disorders Onset: 03-27-2023 Resolved: 03-24-2024 03-27-2023 Nonspecific chest pain (20 sources) Chest pain; Translations: [Chest pain, unspecified] Resolved: 07-01-2018 07-01-2018 Episodic Other aftercare (20 sources) Long-term current use of anticoagulant; Translations: [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] Onset: 10-03-2016 10-03-2016 Episodic Other bone disease and musculoskeletal deformities (20 sources) Osteopenia; Translations: [Other specified disorders of bone density and structure, right thigh] Onset: 09-24-2022 09-24-2022 Episodic Other circulatory disease (20 sources) History of cerebrovascular accident; Translations: [Personal history of transient ischemic attack (TIA), and cerebral infarction without residual deficits] Onset: 01-21-2014 07-12-2014 Episodic Other circulatory disease (3 sources) Low blood pressure; Translations: [Hypotension, unspecified] Onset: 01-26-2014 Resolved: 02-18-2014 02-18-2014 Episodic Other injuries and conditions due to external causes (3 sources) Abrasion and/or friction burn of skin; Translations: [Other injury of unspecified body region, initial encounter] Onset: 01-26-2014 07-12-2014 Episodic Other lower respiratory disease (20 sources) Dyspnea on exertion; Translations: [Shortness of breath] Onset: 07-01-2018 07-01-2018 Episodic Other nervous system disorders (2 sources) Other abnormalities of gait and mobility; Translations: [Other abnormalities of gait and mobility] Onset: 11-20-2023 Episodic Other upper respiratory disease (1 source) Epistaxis; Translations: [Epistaxis] Onset: 07-04-2023 Episodic Peripheral and visceral atherosclerosis (20 sources) Atherosclerosis of aorta; Translations: [Atherosclerosis of aorta] Onset: 03-31-2008 Resolved: 08-21-2022 08-21-2022 Chronic Residual codes; unclassified (1 source) Other amnesia; Translations: [Other amnesia] Onset: 11-20-2023 Episodic Residual codes; unclassified (1 source) Other specified postprocedural states; Translations: [Other specified postprocedural states] Onset: 07-12-2023 Episodic Superficial injury; contusion (20 sources) Injury of buttock; Translations: [Contusion of lower back and pelvis, initial encounter] Onset: 02-07-2021 02-10-2021 Episodic Urinary tract infections (3 sources) Urinary tract infectious disease; Translations: [Urinary tract infection, site not specified] Onset: 01-26-2014 Resolved: 04-21-2018 04-21-2018 Episodic Results Test Name Value Interpretation Reference Range Facility CBC AND AUTO DIFFon 24-20 24 ABSOLUTE BASOPHIL 0.1 X10E9/L Normal 0.0-0.2 [facility] Comment on above: Performed By: #### 1 7861-6, 1750-12, , 1 #### [facility] ([id number]) [address] [place] [address] #### [id number] #### [facility] ([id number]) [address], [address] [place] [address] ABSOLUTE NEUTROPHIL 6.4 X10E9/L Normal 1.5-6.[address] [facility] Comment on above: Performed By: #### 1 7861-6, 1750-7, , 1 #### [facility] ([id number]) [address] [place] [address]1823 #### [id number] #### [facility] ([id number]) [address] [place] [address], [address] [place] [address] Basophils/100 WBC (Bld) 0.7 % Normal [facility] Comment on above: Performed By: #### 1 7861-6, 175-7, , 1 #### [facility] ([id number]) [address] [place] [address] 13347 #### [id number] #### [facility] ([id number]) [address] [place] [address], [address] [place] [address] Eosinophils (Bld) [#/Vol] 0.2 10*3/uL Normal 0.0-0.4 [facility] Comment on above: Performed By: #### 1 7861-6, 17506-30, , 1 #### [facility] ([id number]) [address] [place] [address] 41256 #### [id number] #### [facility] ([id number]) [address], [address] [place] [address] Eosinophils/100 WBC (Bld) 2.0 % Normal [facility] Comment on above: Performed By: #### 1 7861-6, 1751-7, 46775-6, 2777-1 #### [facility] ([id number]) [address] [place] [address] 61895 #### [id number] #### [facility] ([id number]) [address], [address] [place] [address] Erythrocyte distribution width (RBC) [Ratio] 19.8 % High 11.5-15.0 [facility] Comment on above: Performed By: #### 1 7861-6, 1751-7, , 2777-1 #### [facility] ([id number]) [address] [place] [address] 00516 #### [id number] #### [facility] ([id number]) [address], [address] [place] [address] Hematocrit (Bld) [Volume fraction] 29.1 % Low 35-47 [facility] Comment on above: Performed By: #### 1 7861-6, 1751-7, , 2777-1 #### [facility] ([id number]) [address] [place] [address] 55067 #### [id number] #### [facility] ([id number]) [address], [address] [place] [address] Hemoglobin (Bld) [Mass/Vol] 9.0 g/dL Low 11.7-15.5 [facility] Comment on above: Performed By: #### 1 7861-6, 1751-7, , 2777-1 #### [facility] ([id number]) [address] [place] [address] #### [id number] #### [facility] ([id number]) [address], [address] [place] [address] Lymphocytes (Bld) [#/Vol] 1.2 10*3/uL Normal 1.0-3.5 [facility] Comment on above: Performed By: #### 1 7861-6, 1751-7, 82812-0, 2777-1 #### [facility] ([id number]) [address] [place] [address] 90542 #### 77638-5 #### [facility] ([id number]) [address], [address] [place] [address] Lymphocytes/100 WBC (Bld) 13.6 % Normal [facility] Comment on above: Performed By: #### 1 7861-6, 1751-7, , 2777-1 #### [facility] ([id number]) [address] [place] [address] 59999 #### 50790-0 #### [facility] ([id number]) [address], [address] [place] [address] MCH (RBC) [Entitic mass] 19.6 pg Low 27-34 [facility] Comment on above: Performed By: #### 1 7861-6, 1751-7, 31048-2, 2777-1 #### [facility] ([id number]) [address] [place] [address] 46678 #### 61420-2 #### [facility] ([id number]) [address], [address] [place] [address] MCHC (RBC) [Mass/Vol] 30.9 g/dL Low 32-36 [facility] Comment on above: Performed By: #### 1 7861-6, 7, , 1 #### [facility] ([id number]) [address] [place] [address] 49227 #### 16979-9 #### [facility] ([id number]) [address], [address] [place] [address] MCV (RBC) [Entitic vol] 63 fL Low 80-100 [facility] Comment on above: Performed By: #### 1 7861-6, 1750-7, , 1 #### [facility] ([id number]) [address] [place] [address] 80477 #### 25600-5 #### [facility] ([id number]) [address], [address] [place] [address] Monocytes (Bld) [#/Vol] 0.8 10*3/uL Normal 0-0.9 [facility] Comment on above: Performed By: #### 1 7861-6, 1757, , 2771 #### [facility] ([id number]) [address] [place] [address] 74800 #### 09471-7 #### [facility] ([id number]) [address], [address] [place] [address] Monocytes/100 WBC (Bld) 9.7 % Normal [facility] Comment on above: Performed By: #### 1 7861-6, 1750-7, , 2771 #### [facility] ([id number]) [address] [place] [address] 42875 #### 89479-0 #### [facility] ([id number]) [address], [address] [place] [address] Neutrophils/100 WBC (Bld) 74.0 % Normal [facility] Comment on above: Performed By: #### 1 7861-6, 175-7, 07156-8, 2777-1 #### [facility] ([id number]) [address] [place] [address] 78035 #### 85767-9 #### [facility] ([id number]) [address], [address] [place] [address] OVALOCYTE 2+ Abnormal NONE [facility] Comment on above: Performed By: #### 1 7861-6, 1750-7, , 2777-1 #### [facility] ([id number]) [address] [place] [address] 34148 #### 34622-2 #### [facility] ([id number]) [address] [facility], [address] [place] [address] Platelet mean volume (Bld) [Entitic vol] 6.7 fL Low 7-12 [facility] Comment on above: Performed By: #### 1 7861-6, 175-7, , 2777-1 #### [facility] ([id number]) [address] [place] [address] 50770 #### 24028-4 #### [facility] ([id number]) [address], [address] [place] [address] Platelets (Bld) [#/Vol] 375 10*3/uL Normal 150-450 [facility] Comment on above: Performed By: #### 1 7861-6, 175-7, 48755-8, 2777-1 #### [facility] ([id number]) [address] [place] [address] 87280 #### 07373-8 #### [facility] ([id number]) [address], [address] [place] [address] POLYCHROMASIA 1+ Abnormal NONE [facility] Comment on above: Performed By: #### 1 7861-6, 7, , 2776-06 #### [facility] ([id number]) [address] [place] [address] 70156 #### 94541-4 #### [facility] ([id number]) [address], [address] [place] [address] RBC COUNT 4.58 X10E12/L Normal 3.80-5.20 [facility] Comment on above: Performed By: #### 1 7861-6, 1750-12, , 1 #### [facility] ([id number]) [address] [place] [address] 26938 #### 43048-7 #### [facility] ([id number]) [address] [facility], [address] [place] [address] WBC (Bld) [#/Vol] 8.6 10*3/uL Normal 4.0-11.0 [facility] Comment on above: Performed By: #### 1 7861-6, 1750-12, , 1 #### [facility] ([id number]) [address] [place] [address] 97438 #### 67646-2 #### [facility] ([id number]) [address], [address] [place] [address] COMPREHENSIVE METABOLIC PANE Wolfgang 06-16-2024 Albumin [Mass/Vol] 3.2 g/dL Normal 3.2-5.3 [facility] Comment on above: Performed By: #### 1 7861-6, 1750-7, , 2776-06 #### [facility] ([id number]) [address] [place] [address] 17190 #### 72602-6 #### [facility] ([id number]) [address], [address] [place] [address] ALP [Catalytic activity/Vol] 118 U/L Normal 39-130 [facility] Comment on above: Performed By: #### 1 7861-6, 1751-7, 34872-6, 2777-1 #### [facility] ([id number]) [address] [place] [address] 19064 #### 39206-5 #### [facility] ([id number]) [address] [facility], [address] [place] [address] ALT [Catalytic activity/Vol] 14 U/L Normal 0-31 [facility] Comment on above: Performed By: #### 1 7861-6, 1751-7, , 2777-1 #### [facility] ([id number]) [address] [place] [address] 78445 #### 12011-0 #### [facility] ([id number]) [address] [facility], [address] [place] [address] Anion gap [Moles/Vol] 10 mmol/L Normal 5-15 [facility] Comment on above: Performed By: #### 1 7861-6, 1751-7, 06155-3, 2777-1 #### [facility] ([id number]) [address] [place] [address] 33528 #### 74027-2 #### [facility] ([id number]) [address], [address] [place] [address] AST [Catalytic activity/Vol] 14 U/L Normal 0-41 [facility] Comment on above: Performed By: #### 1 7861-6, 175-7, 78755-6, 2777-1 #### [facility] ([id number]) [address] [place] [address] 63912 #### 86711-5 #### [facility] ([id number]) [address], [address] [place] [address] Bilirubin [Mass/Vol] 0.3 mg/dL Normal 0.3-1.[address] [facility] Comment on above: Performed By: #### 1 7861-6, 1751-7, 29404-0, 2777-1 #### [facility] ([id number]) [address] [place] [address] 59834 #### 30277-7 #### [facility] ([id number]) [address], [address] [place] [address] Calcium [Mass/Vol] 8.6 mg/dL Normal 8.5-10.5 [facility] Comment on above: Performed By: #### 1 7861-6, 175-7, , 2777-1 #### [facility] ([id number]) [address] [place] [address] 96784 #### 38995-2 #### [facility] ([id number]) [address], [address] [place] [address] Chloride [Moles/Vol] 101 mmol/L Normal 98-[address] [facility] Comment on above: Performed By: #### 1 7861-6, 1751-7, , 2777-1 #### [facility] ([id number]) [address] [place] [address] 39347 #### 93918-2 #### [facility] ([id number]) [address], [address] [place] [address] CO2 [Moles/Vol] 26 mmol/L Normal 22-32 [facility] Comment on above: Performed By: #### 1 7861-6, 1751-7, , 2777-1 #### [facility] ([id number]) [address] [place] [address] 23944 #### 40410-1 #### [facility] ([id number]) [address], [address] [place] [address] Creatinine [Mass/Vol] 0.76 mg/dL Normal 0.40-1.00 [facility] Comment on above: Result Comment: METH OD TRACEABLE TO IDMS STANDARD Performed By: #### 1 7861-6, 1750-7, , 1 #### [facility] ([id number]) [address] [place] [address] 96220 #### 08363-4 #### [facility] ([id number]) [address] [facility], [address] [place] [address] GFR/1.73 sq M.predicted among non-blacks MDRD (S/P/Bld) [Vol rate/Area] 87 mL/min/{1.73_m2} Normal >59 [facility] Comment on above: Result Comment: Reported eGFR is based on the CKD-EPI 2020 equation that does not use a race coefficient. Performed By: #### 1 7861-6, 1750-12, , 1 #### [facility] ([id number]) [address] [place] [address] 04253 #### 17629-4 #### [facility] ([id number]) [address], [address] [place] [address] Glucose [Mass/Vol] 145 mg/dL High 65-99 [facility] Comment on above: Performed By: #### 1 7861-6, 1750-7, , 1 #### [facility] ([id number]) [address] [place] [address] 61895 #### 82607-8 #### [facility] ([id number]) [address], [address] [place] [address] Potassium [Moles/Vol] 3.5 mmol/L Normal 3.5-5.0 [facility] Comment on above: Performed By: #### 1 7861-6, 1751-7, 98075-8, 2777-1 #### [facility] ([id number]) [address] [place] [address] 88049 #### 12578-6 #### [facility] ([id number]) [address], [address] [place] [address] Protein [Mass/Vol] 6.8 g/dL Normal 6.0-8.0 [facility] Comment on above: Performed By: #### 1 7861-6, 175-7, , 2777-1 #### [facility] ([id number]) [address] [place] [address] 04301 #### 89629-0 #### [facility] ([id number]) [address], [address] [place] [address] Sodium [Moles/Vol] 137 mmol/L Normal 134-146 [facility] Comment on above: Performed By: #### 1 7861-6, 1751-7, , 2777-1 #### [facility] ([id number]) [address] [place] [address] 05453 #### 54406-2 #### [facility] ([id number]) [address], [address] [place] [address] Urea nitrogen [Mass/Vol] 13 mg/dL Normal 5-27 [facility] Comment on above: Performed By: #### 1 7861-6, 175-7, , 2777-1 #### [facility] ([id number]) [address] [place] [address] 06152 #### 59550-4 #### [facility] ([id number]) [address], [address] [place] [address] Glucose Glucometer (BldC) [M ass/Vol]on 06-16-2024 Glucose [Mass/Vol] 183 mg/dL High 65-99 [facility] MAGNESIUMon 06-16-2024 Magnesium [Mass/Vol] 1.8 mg/dL Normal 1.8-2.[address] [facility] Comment on above: Performed By: #### 1 7861-6, 1750-7, , 2777-1 #### [facility] ([id number]) [address] [place] [address] 72094 #### 96108-1 #### [facility] ([id number]) [address], [address] [place] [address] PHOSPHORUSon 06-16-2024 Phosphate [Mass/Vol] 4.4 mg/dL Normal 2.4-4.[address] [facility] Comment on above: Performed By: #### 1 7861-6, 1750-7, , 2777-1 #### [facility] ([id number]) [address] [place] [address] 49660 #### 60674-8 #### [facility] ([id number]) [address], [address] [place] [address] PROTIME AND INRon 06-16-2024 INR Coag (PPP) [Relative time] 3.8 {INR} High 0.8-1.1 [facility] Comment on above: Performed By: #### 1 7861-6, 1750-7, , 2777-1 #### [facility] ([id number]) [address] [place] [address] 42658 #### 90319-2 #### [facility] ([id number]) [address] [place] [address], [address] [place] [address] PT Coag (PPP) [Time] 42.6 s High 9.8-13.[address] [facility] Comment on above: Result Comment: NEW REFERENCE RANGE Performed By: #### 1 7861-6, 1750-7, , 1 #### [facility] ([id number]) [address] [place] [address] #### 78674-8 #### [facility] ([id number]) [address] [facility], [address] [place] [address] Troponin I.cardiac High sens itivity method [Mass/Vol]on 06-16-2024 3 HOUR TROP I, HIGH SENSITIVITY 61 ng/L High <16 [facility] Comment on above: Result Comment: Elevations of hs-Troponin may be due to causes other than myocardial ischemia. Recommend serial hs-Troponin testing be performed. For the initial evaluation and management of chest pain patients, refer to the algorithms linked below. Emergency Patient: [email or web address] Inpatient: [email or web address] Performed By: #### 1 7861-6, 1750-7, , 2776-06 #### [facility] ([id number]) [address] [place] [address] 06078 #### 92954-6 #### [facility] ([id number]) [address] [facility] [facility] [address] [place] [address] CBC AND AUTO DIFFon 06-15-20 24 ABSOLUTE BASOPHIL 0.1 X10E9/L Normal 0.0-0.2 [facility] Comment on above: Performed By: #### 1 7861-6, 1750-7, , 2776-06 #### [facility] ([id number]) [address] [place] [address] 10603 #### 40477-4 #### [facility] ([id number]) [address], [address] [place] [address] ABSOLUTE NEUTROPHIL 9.9 X10E9/L High 1.5-6.[address] [facility] Comment on above: Performed By: #### 1 7861-6, 1751-7, 79728-8, 2777-1 #### [facility] ([id number]) [address] [place] [address] 66615 #### 74361-4 #### [facility] ([id number]) [address] [facility], [address] [place] [address] Basophils/100 WBC (Bld) 0.5 % Normal [facility] Comment on above: Performed By: #### 1 7861-6, 175-7, , 2777-1 #### [facility] ([id number]) [address] [place] [address] 17026 #### 84327-0 #### [facility] ([id number]) [address], [address] [place] [address] Eosinophils (Bld) [#/Vol] 0.3 10*3/uL Normal 0.0-0.4 [facility] Comment on above: Performed By: #### 1 7861-6, 1751-7, , 2777-1 #### [facility] ([id number]) [address] [place] [address] 97375 #### 68086-0 #### [facility] ([id number]) [address], [address] [place] [address] Eosinophils/100 WBC (Bld) 2.6 % Normal [facility] Comment on above: Performed By: #### 1 7861-6, 1750-7, , 7-1 #### [facility] ([id number]) [address] [place] [address] 56102 #### 20946-8 #### [facility] ([id number]) [address], [address] [place] [address] Erythrocyte distribution width (RBC) [Ratio] 19.9 % High 11.5-15.0 [facility] Comment on above: Performed By: #### 1 7861-6, 1750-7, , 2777-1 #### [facility] ([id number]) [address] [place] [address] 52835 #### 99640-8 #### [facility] ([id number]) [address], [address] [place] [address] Hematocrit (Bld) [Volume fraction] 33.2 % Low 35-47 [facility] Comment on above: Performed By: #### 1 7861-6, 175-7, , 2777-1 #### [facility] ([id number]) [address] [place] [address] 53660 #### 72142-7 #### [facility] ([id number]) [address], [address] [place] [address] Hemoglobin (Bld) [Mass/Vol] 9.6 g/dL Low 11.7-15.5 [facility] Comment on above: Performed By: #### 1 7861-6, 1750-7, , 2777-1 #### [facility] ([id number]) [address] [place] [address] 30859 #### 65314-4 #### [facility] ([id number]) [address], [address] [place] [address] HYPOCHROMIA 2+ Abnormal NONE [facility] Comment on above: Performed By: #### 1 7861-6, 7, , 1 #### [facility] ([id number]) [address] [place] [address] 23250 #### 94999-9 #### [facility] ([id number]) [address] [facility], [address] [place] [address] Lymphocytes (Bld) [#/Vol] 1.6 10*3/uL Normal 1.0-3.5 [facility] Comment on above: Performed By: #### 1 7861-6, 1750-12, , 2776-06 #### [facility] ([id number]) [address] [place] [address] 50682 #### 09264-1 #### [facility] ([id number]) [address] [place] [address], [address] [place] [address] Lymphocytes/100 WBC (Bld) 12.2 % Normal [facility] Comment on above: Performed By: #### 1 7861-6, 1750-12, , 2776-06 #### [facility] ([id number]) [address] [place] [address] 66889 #### 20429-1 #### [facility] ([id number]) [address] [facility], [address] [place] [address] MCH (RBC) [Entitic mass] 18.7 pg Low 27-34 [facility] Comment on above: Performed By: #### 1 7861-6, 1750-12, , 1 #### [facility] ([id number]) [address] [place] [address] 04504 #### 01232-6 #### [facility] ([id number]) [address], [address] [place] [address] MCHC (RBC) [Mass/Vol] 29.0 g/dL Low 32-36 [facility] Comment on above: Performed By: #### 1 7861-6, 1750-12, , 2776-06 #### [facility] ([id number]) [address] [place] [address] 03600 #### 78567-9 #### [facility] ([id number]) [address], [address] [place] [address] MCV (RBC) [Entitic vol] 65 fL Low 80-100 [facility] Comment on above: Performed By: #### 1 7861-6, 1750-12, , 2776-06 #### [facility] ([id number]) [address] [place] [address] 87709 #### 21082-9 #### [facility] ([id number]) [address], [address] [place] [address] Monocytes (Bld) [#/Vol] 1.0 10*3/uL High 0-0.9 [facility] Comment on above: Performed By: #### 1 7861-6, 1750-12, , 2776-06 #### [facility] ([id number]) [address] [place] [address] 20759 #### 88551-1 #### [facility] ([id number]) [address], [address] [place] [address] Monocytes/100 WBC (Bld) 7.8 % Normal [facility] Comment on above: Performed By: #### 1 7861-6, 1750-12, , 2776-06 #### [facility] ([id number]) [address] [place] [address] 94558 #### 07655-8 #### [facility] ([id number]) [address], [address] [place] [address] Neutrophils/100 WBC (Bld) 76.9 % Normal [facility] Comment on above: Performed By: #### 1 7861-6, 1751-7, 40241-3, 2777-1 #### [facility] ([id number]) [address] [place] [address] 69564 #### 81006-1 #### [facility] ([id number]) [address], [address] [place] [address] OVALOCYTE 1+ Abnormal NONE [facility] Comment on above: Performed By: #### 1 7861-6, 1750-7, , 2777-1 #### [facility] ([id number]) [address] [place] [address] 75339 #### 81297-7 #### [facility] ([id number]) [address], [address] [place] [address] Platelet mean volume (Bld) [Entitic vol] 6.8 fL Low 7-12 [facility] Comment on above: Performed By: #### 1 7861-6, 175-7, 33859-5, 2777-1 #### [facility] ([id number]) [address] [place] [address] 34562 #### 03306-5 #### [facility] ([id number]) [address], [address] [place] [address] Platelets (Bld) [#/Vol] 435 10*3/uL Normal 150-450 [facility] Comment on above: Performed By: #### 1 7861-6, 1750-7, 38117-1, 2777-1 #### [facility] ([id number]) [address] [place] [address] 07373 #### 16997-7 #### [facility] ([id number]) [address] [facility], [address] [place] [address] POLYCHROMASIA 1+ Abnormal NONE [facility] Comment on above: Performed By: #### 1 7861-6, 1751-7, 52073-0, 2777-1 #### [facility] ([id number]) [address] [place] [address] 76987 #### 78656-9 #### [facility] ([id number]) [address] [facility], [address] [place] [address] RBC COUNT 5.14 X10E12/L Normal 3.80-5.20 [facility] Comment on above: Performed By: #### 1 7861-6, 175-7, , 2777-1 #### [facility] ([id number]) [address] [place] [address] 89780 #### 34255-8 #### [facility] ([id number]) [address] [place] [address], [address] [place] [address] TEARDROP 1+ Abnormal NONE [facility] Comment on above: Performed By: #### 1 7861-6, 1751-7, , 2777-1 #### [facility] ([id number]) [address] [place] [address] #### 24355-4 #### [facility] ([id number]) [address] [facility], [address] [place] [address] WBC (Bld) [#/Vol] 12.8 10*3/uL High 4.0-11.0 [facility] Comment on above: Performed By: #### 1 7861-6, 1751-7, , 2777-1 #### [facility] ([id number]) [address] [place] [address]7074 #### 66070-1 #### [facility] ([id number]) [address], [address] [place] [address] COMPREHENSIVE METABOLIC PANE Wolfgang 06-15-2024 Albumin [Mass/Vol] 3.5 g/dL Normal 3.2-5.3 [facility] Comment on above: Performed By: #### [place], 18196-9, 20697-8, CBCA, PINR, 31279-8, 2777-1 ####[facility] ([id number])[address] [place] [address]90#### HA1C ####[facility] ([id number])[address], [address] [place] [address] ALP [Catalytic activity/Vol] 128 U/L Normal 39-130 [facility] Comment on above: Performed By: #### C MP, 00742-5, 23667-8, CBCA, PINR, 06851-9, 2777-1 ####[facility] ([id number])[address] [place] [address] 62184#### HA1C ####[facility] ([id number])[address], [address] [place] [address]671 ALT [Catalytic activity/Vol] 16 U/L Normal 0-31 [facility] Comment on above: Performed By: #### C MP, 77350-7, 69136-2, CBCA, PINR, 22276-0, 2777-1 ####[facility] ([id number])[address] [place] [address] 81320#### HA1C ####[facility] ([id number])[address], [address], [place] [address] Anion gap [Moles/Vol] 12 mmol/L Normal 5-15 [facility] Comment on above: Performed By: #### C MP, 52591-0, 73120-0, CBCA, PINR, 21788-0, 2776- ####[facility] ([id number])[address] [place] [address] 90624#### HA1C ####[facility] ([id number])[address], [address] [place] [address] AST [Catalytic activity/Vol] 18 U/L Normal 0-41 [facility] Comment on above: Performed By: #### C MP, 25173-5, 53159-7, CBCA, PINR, 48785-6, 277- ####[facility] ([id number])[address] [place] [address] 49638#### HA1C ####[facility] ([id number])[address] [facility], [address] [place] [address] Bilirubin [Mass/Vol] 0.6 mg/dL Normal 0.3-1.[address] [facility] Comment on above: Performed By: #### C MP, 96655-0, 13950-9, CBCA, PINR, 00926-1, 2776- ####[facility] ([id number])[address] [place] [address] 34487#### HA1C ####[facility] ([id number])[address], [address] [place] [address] Calcium [Mass/Vol] 9.4 mg/dL Normal 8.5-10.5 [facility] Comment on above: Performed By: #### [place], 32153-6, 61895-0, CBCA, PINR, 91695-8, 277-1 ####[facility] ([id number])[address] [place] [address] 55780#### HA1C ####[facility] ([id number])[address] [facility], [address] [place] [address] Chloride [Moles/Vol] 101 mmol/L Normal 98-[address] [facility] Comment on above: Performed By: #### C MP, 96333-1, 79630-1, CBCA, PINR, 24275-9, 2777-1 ####[facility] ([id number])[address] [place] [address] 15743#### HA1C ####[facility] ([id number])[address] [facility] [address] [place] [address] CO2 [Moles/Vol] 24 mmol/L Normal 22-32 [facility] Comment on above: Performed By: #### C MP, 75129-6, 36059-0, CBCA, PINR, 16445-3, 2777-1 ####[facility] ([id number])[address] [place] [address] 98194#### HA1C ####[facility] ([id number])[address] [address] Creatinine [Mass/Vol] 0.81 mg/dL Normal 0.40-1.00 [facility] Comment on above: Result Comment: METH OD TRACEABLE TO IDMS STANDARD Performed By: #### C MP, 91380-4, 73269-4, CBCA, PINR, 07065-1, 2777-1 ####[facility] ([id number])[address] [place] [address] 05883#### HA1C ####[facility] ([id number])[address] [address] GFR/1.73 sq M.predicted among non-blacks MDRD (S/P/Bld) [Vol rate/Area] 81 mL/min/{1.73_m2} Normal >59 [facility] Comment on above: Result Comment: Reported eGFR is based on the CKD-EPI 2020 equation that does not use a race coefficient. Performed By: #### C MOHIT, 40531-3, 39071-3, CBCA, PINR, 39160-0, 2776-1 ####[facility] ([id number])[address] [place] [address] 30550#### HA1C ####[facility] ([id number])[address], [address] [place] [address] Glucose [Mass/Vol] 173 mg/dL High 65-99 [facility] Comment on above: Performed By: #### C MOHIT, 56581-1, 44236-7, CBCA, PINR, 47300-0, 2776- ####[facility] ([id number])[address] [place] [address] 18234#### HA1C ####[facility] ([id number])[address], [address] [place] [address] Potassium [Moles/Vol] 4.2 mmol/L Normal 3.5-5.0 [facility] Comment on above: Performed By: #### C MOHIT, 58612-7, 01148-9, CBCA, PINR, 24170-9, 2777- ####[facility] ([id number])[address] [place] [address] 93768#### HA1C ####[facility] ([id number])[address], [address], [place] [address] Protein [Mass/Vol] 7.7 g/dL Normal 6.0-8.0 [facility] Comment on above: Performed By: #### C MOHIT, 23442-1, 13291-2, CBCA, PINR, 00841-5, 2777-1 ####[facility] ([id number])[address] [place] [address] 65653#### HA1C ####[facility] ([id number])[address], [address] [place] [address] Sodium [Moles/Vol] 137 mmol/L Normal 134-146 [facility] Comment on above: Performed By: #### C MP, 64521-2, 26143-4, CBCA, PINR, 82005-8, 2777-1 ####[facility] ([id number])[address] [place] [address] 84950#### HA1C ####[facility] ([id number])[address] [facility], [address] [address] Urea nitrogen [Mass/Vol] 14 mg/dL Normal 5-27 [facility] Comment on above: Performed By: #### C [place], 55155-4, 90415-4, CBCA, PINR, 55656-0, 2777-1 ####[facility] ([id number])[address] [place] [address] 28276#### HA1C ####[facility] ([id number])[address] [facility], [address] [place] [address] BRAIN WO CONTon CT BRAIN WO CONT CT BRAIN WO CONT CT HEAD WITHOUT IV CONTRAST CLINICAL STATEMENT: Syncope/presyncope, cerebrovascular cause suspected Comparison study: 04/13/2024 TECHNIQUE: Axial views were obtained at 2.5 mm interval through the head without IV contrast. Automatic dose exposure reduction technique utilized. FINDINGS: The midline structures are not deviated. The ventricular system is within normal limits. The aguilar and white matter show normal attenuation. The posterior fossa is unremarkable. No features of raised intracranial pressure.No intracranial bleed. The IACs are unremarkable. The cerebellopontine angles are unremarkable. The temporomandibular joints show no abnormality. The osseous structures in the skull base and in the calvarium show no definite abnormality. The orbits are normal. The paranasal sinuses are clear. The mastoid air cells are clear. IMPRESSION: 1. Unremarkable study. All CT scans at this facility use dose modulation, iterative reconstruction, and/or weight based dosing when appropriate to reduce radiation dose to as low as reasonably achievable. Finalized by Guy Rubio MD on 06/15/2024 4:01 PM Normal [facility] HGB A1C (GLYCO-HGB)on 2023 Glucose [Mass/Vol] 148 mg/dL Normal [facility] Comment on above: Performed By: #### 1 7861-6, 7, , 2776-06 #### [facility] ([id number]) [address] [place] [address] #### 11615-0 #### [facility] ([id number]) [address], [address] [place] [address] HbA1c (Bld) [Mass fraction] 6.8 % High 4.4-5.6 [facility] Comment on above: Result Comment: NOTE ADA Guidelines Result HgbA1c Normal : less than 5.7 % Prediabetes : 5.7 % to 6.4 % Diabetes : > 6.4 % Use with caution in patients with abnormal hemoglobin variants as the half-life of red blood cells and in vivo glycation rates are affected. Performed By: #### 1 7861-6, 7, , 1 #### [facility] ([id number]) [address] [place] [address] #### 95445-0 #### [facility] ([id number]) [address], [address] [place] [address] Lipid 1996 panelon 4 Cholesterol [Mass/Vol] 122 mg/dL Low 150-200 [facility] Comment on above: Performed By: #### 1 7861-6, 1750-12, , 2777-1 #### [facility] ([id number]) [address] [place] [address] 46249 #### 06771-8 #### [facility] ([id number]) [address], [address] [place] [address] Cholesterol in HDL [Mass/Vol] 31 mg/dL Low >39 [facility] Comment on above: Result Comment: HDL <40 mg/dL - High Risk HDL > or = 40mg/dL- Desirable HDL >60 mg/dL - Negative Risk Performed By: #### 1 7861-6, 1750-7, , 2777-1 #### [facility] ([id number]) [address] [place] [address] 87998 #### 76531-6 #### [facility] ([id number]) [address], [address] [place] [address] Cholesterol in LDL [Mass/Vol] 26 mg/dL Normal <130 [facility] Comment on above: Result Comment: LDL <100 mg/dL - Desirable LDL >160 mg/dL - High Risk Performed By: #### 1 7861-6, 1-7, 92742-7, 2777-1 #### [facility] ([id number]) [address] [place] [address]13 #### 77159-2 #### [facility] ([id number]) [address], [address] [place] [address] Cholesterol in VLDL [Mass/Vol] 65 mg/dL High 0-30 [facility] Comment on above: Performed By: #### 1 7861-6, 1751-7, 34257-7, 2777-1 #### [facility] ([id number]) [address] [place] [address] #### 18338-3 #### [facility] ([id number]) [address] [place] [address], [facility] [address] [place] [address] CHOLESTEROL:HDL 3.9 Normal 1.0-5.0 [facility] Comment on above: Performed By: #### 1 7861-6, 1751-7, 90713-4, 2777-1 #### [facility] ([id number]) [address] [place] [address] 44188 #### 24639-7 #### [facility] ([id number]) [address] [place] [address], [address] [address] Triglyceride [Mass/Vol] 325 mg/dL High 27-150 [facility] Comment on above: Performed By: #### 1 7861-6, 1751-7, , 2777-1 #### [facility] ([id number]) [address] [place] [address] 95496 #### 27440-1 #### [facility] ([id number]) [address] [place] [address], [facility] [address] [place] [address] MAGNESIUMon 06-15-2024 Magnesium [Mass/Vol] 1.8 mg/dL Normal 1.8-2.[address] [facility] Comment on above: Performed By: #### C MP, 36297-5, 65690-0, CBCA, PINR, 37184-9, 2777-1 ####[facility] ([id number])[address] [place] [address]#### HA1C ####[facility] ([id number])[address] [place] [address], [address], [place] [address] Natriuretic peptide B [Mass/ Vol]on 06-15-2024 Natriuretic peptide B (Bld) [Mass/Vol] 33 pg/mL Normal <100.0 [facility] Comment on above: Performed By: #### 1 7861-6, 175-7, 39155-4, 277-1 #### [facility] ([id number]) [address] [place] [address] #### 34124-0 #### [facility] ([id number]) [address], [address] [place] [address] PHOSPHORUSon 06-15-2024 Phosphate [Mass/Vol] 4.5 mg/dL Normal 2.4-4.[address] [facility] Comment on above: Performed By: #### 1 7861-6, 1750-7, , 1 #### [facility] ([id number]) [address] [place] [address] #### 42594-2 #### [facility] ([id number]) [address], [address] [place] [address] PROTIME AND INRon 06-15-2024 INR Coag (PPP) [Relative time] 4.1 {INR} Critically high 0.8-1.1 [facility] Comment on above: Performed By: #### 1 7861-6, 175-7, , 2771 #### [facility] ([id number]) [address] [place] [address] 33852 #### 61695-4 #### [facility] ([id number]) [address], [address] [place] [address] PT Coag (PPP) [Time] 45.2 s High 9.8-13.[address] [facility] Comment on above: Result Comment: NEW REFERENCE RANGE Performed By: #### 1 7861-6, 1751-7, 15556-0, 2777-1 #### [facility] ([id number]) [address] [place] [address] 23099 #### 59737-8 #### [facility] ([id number]) [address] [facility], [address] [place] [address] Troponin I.cardiac High sens itivity method [Mass/Vol]on 06-15-2024 3 HOUR TROP I, HIGH SENSITIVITY 194 ng/L High <16 [facility] Comment on above: Result Comment: Elevations of hs-Troponin may be due to causes other than myocardial ischemia. Recommend serial hs-Troponin testing be performed. For the initial evaluation and management of chest pain patients, refer to the algorithms linked below. Emergency Patient: https://www.1-4 All/dv/dl.aspx?[email or web address]&dh=1cc5a&a=73818&uh =acaea Inpatient: [email or web address]://www.[email or web address] All/dv/dl.aspx?z=[email or web address]&dh=f72e7&b=94084&uh =acaea Performed By: #### 1 7861-6, 1751-7, 77286-3, 2777-1 #### [facility] ([id number]) [address] [place] [address] 63502 #### 52173-5 #### [facility] ([id number]) [address], [address] [place] [address] 1 HOUR TROP I, HIGH SENSITIVITY 123 ng/L High <16 [facility] Comment on above: Result Comment: Elevations of hs-Troponin may be due to causes other than myocardial ischemia. Recommend serial hs-Troponin testing be performed. For the initial evaluation and management of chest pain patients, refer to the algorithms linked below. Emergency Patient: https://www.1-4 All/dv/dl.aspx?o=[email or web address]&dh=1cc5a&s=95428&uh =acaea Inpatient: https://www.1-4 All/dv/dl.aspx?i=9619893&dh=f72e7&g=68355&uh =acaea Performed By: #### 1 7861-6, 1751-7, 77189-4, 2777-1 #### [facility] ([id number]) [address] [place] [address] 11712 #### 41409-5 #### [facility] ([id number]) [address] [facility], [address] [place] [address] TROPONIN I, HIGH SENSITIVITY 34 ng/L High <16 [facility] Comment on above: Result Comment: Elevations of hs-Troponin may be due to causes other than myocardial ischemia. Recommend serial hs-Troponin testing be performed. For the initial evaluation and management of chest pain patients, refer to the algorithms linked below. Emergency Patient: https://www.iovation.com/dv/dl.aspx?c=[email or web address]&dh=1cc5a&p=96425&uh =acaea Inpatient: [email or web address]://www.iovation.com/dv/dl.aspx?n=7661806&dh=f72e7&w=88529&uh =acaea Performed By: #### 1 7861-6, 1751-7, 57164-2, 2777-1 #### [facility] ([id number]) [address] [place] [address] 50846 #### 05210-3 #### [facility] ([id number]) [address] [facility], [address] [place] [address] URINALYSISon 06-15-2024 Bilirubin Ql (U) Negative Normal NEG [facility] Comment on above: Performed By: #### U A ####[facility] ([id number])[address] [place] [address] BLOOD/HGB Negative Normal NEG [facility] Comment on above: Performed By: #### U A ####[facility] ([id number])[address] [place] [address], [place] [address] Color (U) YELLOW Normal YELLOW [facility] Comment on above: Performed By: #### U A ####[facility] ([id number])[address] [place] [address], [place] [address] Glucose Ql (U) Negative Normal NEG [facility] Comment on above: Performed By: #### U A ####[facility] ([id number])[address] [place] [address] [place] [address] Ketones Ql (U) Negative Normal NEG [facility] Comment on above: Performed By: #### U A ####[facility] ([id number])[address] [place] [address], [place] [address] Leukocyte esterase Test strip Ql (U) Negative Normal NEG [facility] Comment on above: Performed By: #### U A ####[facility] ([id number])[address] [place] [address] [place] [address] Nitrite Ql (U) Negative Normal NEG [facility] Comment on above: Performed By: #### U A ####[facility] ([id number])[address] [place] [address] [place] [address] pH (U) 6.0 [pH] Normal 5.0-8.5 [facility] Comment on above: Performed By: #### U A ####[facility] ([id number])[address] [place] [address] [place] [address] Protein Ql (U) Negative Normal NEG [facility] Comment on above: Performed By: #### U A ####[facility] ([id number])[address] [place] [address], [place] [address] Specific gravity (U) [Rel density] 1.015 Normal 1.003-1.035 [facility] Comment on above: Performed By: #### U A ####[facility] ([id number])[address] [place] [address] TURBIDITY CLEAR Normal CLEAR [facility] Comment on above: Performed By: #### U A ####[facility] ([id number])[address] [place] [address] Urobilinogen Qn (U) 0.2 {Ramona'U}/dL Normal <1.1 [facility] Comment on above: Performed By: #### U A ####[facility] ([id number])[address] [place] [address] XR SHOULDER RT MIN 2 VWSon 1 08-16-2023 XR SHOULDER RT MIN 2 VWS XR SHOULDER RT MIN 2 VWS HISTORY: A 63-year-old female with the history of the fall and complaining of the right shoulder pain. TECHNIQUE: Right shoulder: 3 views COMPARISON: No relevant prior studies are available for comparison. FINDINGS: There is a comminuted fracture of the neck of the right humerus with involvement of the greater tuberosity. There is a mild deformity at the fracture site. Glenohumeral and acromioclavicular joints are intact. IMPRESSION: * There is a comminuted fracture of the neck of the right humerus with involvement of the greater tuberosity. Mild deformity is seen. Finalized by Hilario Tsai MD on 06/15/2024 11:35 AM Normal [facility] aPTT Coag (PPP) [Time]on aPTT Coag (Bld) [Time] 43 s High 26-37 [facility] Comment on above: Result Comment: NEW REFERENCE RANGE Performed By: #### 1 7861-6, 1751-7, 99692-3, 2777-1 #### [facility] ([id number]) [address] [place] [address] 08476 #### 44868-2 #### [facility] ([id number]) [address] [facility], [address] [place] [address] Glucose Glucometer (BldC) [M ass/Vol]on 06-03-2024 Glucose [Mass/Vol] 162 mg/dL High 65-99 [facility] Glucose [Mass/Vol] 133 mg/dL High 65-99 [facility] Glucose [Mass/Vol] 132 mg/dL High 65-99 [facility] PROTIME AND INRon 06-03-2024 INR Coag (PPP) [Relative time] 1.2 {INR} High 0.8-1.1 [facility] Comment on above: Performed By: #### P INR #### [facility] ([id number]) [address], [address] [place] [address] PT Coag (PPP) [Time] 14.0 s High 9.8-13.2 [facility] Comment on above: Performed By: #### P INR #### [facility] ([id number]) [address], [address] [place] [address] Glucose Glucometer (BldC) [M ass/Vol]on 06-02-2024 Glucose [Mass/Vol] 276 mg/dL High 65-99 [facility] Glucose [Mass/Vol] 181 mg/dL High 65-99 [facility] Glucose [Mass/Vol] 164 mg/dL High 65-99 [facility] PORTABLE PROTIMEon PORTABLE INR 1.1 Normal 0.8-1.2 [facility] Comment on above: Performed By: #### I PRO #### [facility] ([id number]) [address] [place] [address] XR SHOULDER LT 1 VWon 2023 XR SHOULDER LT 1 VW XR SHOULDER LT 1 VW XR SHOULDER LT 1 VW HISTORY: Postoperative assessment, total shoulder arthroplasty COMPARISON: Shoulder radiograph 05/11/2024 IMPRESSION: * Expected post procedural changes following placement of left reverse shoulder arthroplasty. * No evidence of acute hardware complication or adjacent osseous abnormality given single view technique. Approved by Resident Tripp Waters DO on 06/02/2024 5:18 PM I, Deangelo Mendoza MD have personally reviewed the image(s) and agree with and/or edited the report Finalized by Deangelo Mendoza MD on 06/02/2024 5:39 PM Normal [facility] XR ELBOW LT 2 VWSon 05-12-20 24 XR ELBOW LT 2 VWS XR ELBOW LT 2 VWS XR ELBOW LT 2 VWS HISTORY: Pain. COMPARISON: 04/13/2024. IMPRESSION: Plate and screw fixation of distal humerus with multiple cannulated screws, well-corticated osseous irregularity is without acute fracture plane visualized. Sequelae nonacute radial head fracture with impaction. Degenerative changes of the elbow. Substantial soft tissue swelling about the dorsum of the forearm and visualized lower arm, possibly infectious. Finalized by Marvin Mathews MD on 05/12/2024 9:37 AM Normal [facility] XR SHOULDER LT MIN 2 VWSon 1 07-12-2023 XR SHOULDER LT MIN 2 VWS XR SHOULDER LT MIN 2 VWS XR SHOULDER LT MIN 2 VWS HISTORY: Pain. COMPARISON: 04/13/2024. IMPRESSION: Nonacute appearing comminuted proximal humeral fracture involving the intertubercular groove, surgical neck, substantial apex anterior angulation with one shaft width anteromedial displacement. Osseous resorption, minimal immature callus. Consider possibility for underlying pathologic fracture. Osteopenia. Congruent, clavicular joint. Finalized by Marvin Mathews MD on 05/12/2024 9:35 AM Normal [facility] Prothrombin Timeon 4 INR Coag (PPP) [Relative time] 2.2 {INR} Normal [facility] Comment on above: Order Comment: CALL doctor LB832 tel. [phone], FAX [phone] CALL doctor LB832 tel. [phone], FAX [phone] Performed By: #### P T #### [facility] [address] [place] [id number] PT Coag (PPP) [Time] 24.4 s Critically high 12.3-14.9 [facility] Comment on above: Order Comment: CALL doctor LB832 tel. [phone], FAX [phone] CALL doctor LB832 tel. [phone], FAX [phone] Performed By: #### P T #### [facility] [address] [place] [address] CBC AND AUTO DIFFon 20 24 ABSOLUTE BASOPHIL 0.0 X10E9/L Normal 0.0-0.2 [facility] Comment on above: Performed By: #### C RACHEL, CMP, , PINR ####[facility] ([id number])[address] [place] [address] ABSOLUTE NEUTROPHIL 6.8 X10E9/L High 1.5-6.[address] [facility] Comment on above: Performed By: #### Concha RAMOS, CMP, , PINR ####[facility] ([id number])[address] [place] [address]78[address] Anisocytosis Ql (Bld) 2+ Abnormal NONE [facility] Comment on above: Performed By: #### Concha RAMOS, CMP, , PINR ####[facility] ([id number])[address] [place] [address]692 Basophils/100 WBC (Bld) 0.5 % Normal [facility] Comment on above: Performed By: #### Concha BCA, CMP, , PINR ####[facility] ([id number])[address] [place] [address]05 Eosinophils (Bld) [#/Vol] 0.1 10*3/uL Normal 0.0-0.4 [facility] Comment on above: Performed By: #### Concha BCA, CMP, , PINR ####[facility] ([id number])[address] [place] [address] 13870 Eosinophils/100 WBC (Bld) 0.9 % Normal [facility] Comment on above: Performed By: #### Concha RAMOS CMP, , PINR ####[facility] ([id number])[address] [place] [address]3495 Erythrocyte distribution width (RBC) [Ratio] 28.7 % High 11.5-15.0 [facility] Comment on above: Performed By: #### Concha RAMOS CMP, , PINR ####[facility] ([id number])[address] [place] [address]4925 Hematocrit (Bld) [Volume fraction] 26.1 % Low 35-47 [facility] Comment on above: Performed By: #### Concha RAMOS CMP, , PINR ####[facility] ([id number])[address] [place] [address]32 Hemoglobin (Bld) [Mass/Vol] 7.9 g/dL Low 11.7-15.5 [facility] Comment on above: Performed By: #### Concha RAMOS CMP, , PINR ####[facility] ([id number])[address] [place] [address] 77334 Lymphocytes (Bld) [#/Vol] 1.6 10*3/uL Normal 1.0-3.5 [facility] Comment on above: Performed By: #### Concha RAMOS CMP, , PINR ####[facility] ([id number])[address] [place] [address] 91573 Lymphocytes/100 WBC (Bld) 16.6 % Normal [facility] Comment on above: Performed By: #### Concha RAMOS CMP, , PINR ####[facility] ([id number])[address] [place] [address]1983 MCH (RBC) [Entitic mass] 21.1 pg Low 27-34 [facility] Comment on above: Performed By: #### C JENNA RAMOS, , PINR ####[facility] ([id number])[address] [place] [address] 92461 MCHC (RBC) [Mass/Vol] 30.2 g/dL Low 32-36 [facility] Comment on above: Performed By: #### Concha RAMOS CMP, , PINR ####[facility] ([id number])[address] [place] [address] 66488 MCV (RBC) [Entitic vol] 70 fL Low 80-100 [facility] Comment on above: Performed By: #### Concha RAMOS CMP, , PINR ####[facility] ([id number])[address] [place] [address]9638 Monocytes (Bld) [#/Vol] 0.9 10*3/uL Normal 0-0.9 [facility] Comment on above: Performed By: #### Concha RAMOS CMP, , PINR ####[facility] ([id number])[address] [place] [address] 65154 Monocytes/100 WBC (Bld) 9.7 % Normal [facility] Comment on above: Performed By: #### Concha RAMOS CMP, , PINR ####[facility] ([id number])[address] [place] [address] 32495 Neutrophils/100 WBC (Bld) 72.3 % Normal [facility] Comment on above: Performed By: #### Concha RAMOS CMP, , PINR ####[facility] ([id number])[address] [place] [address] [place] [address] OVALOCYTE 2+ Abnormal NONE [facility] Comment on above: Performed By: #### Concha RAMOS CMP, , PINR ####[facility] ([id number])[address] [place] [address] 41324 Platelet mean volume (Bld) [Entitic vol] 7.7 fL Normal 7-12 [facility] Comment on above: Performed By: #### C BCA, CMP, , PINR ####[facility] ([id number])[address] [place] [address] 23571 Platelets (Bld) [#/Vol] 332 10*3/uL Normal 150-450 [facility] Comment on above: Performed By: #### C RACHEL, CMP, , PINR ####[facility] ([id number])[address] [place] [address] 57420 POLYCHROMASIA 1+ Abnormal NONE [facility] Comment on above: Performed By: #### Concha RAMOS, CMP, , PINR ####[facility] ([id number])[address] [place] [address] [id number] RBC COUNT 3.74 X10E12/L Low 3.80-5.20 [facility] Comment on above: Performed By: #### C RACHEL, CMP, , PINR ####[facility] ([id number])[address] [place] [address] [id number] WBC (Bld) [#/Vol] 9.4 10*3/uL Normal 4.0-11.0 [facility] Comment on above: Performed By: #### C BCA, CMP, , PINR ####[facility] ([id number])[address] [place] [address] 23838 COMPREHENSIVE METABOLIC PANE Wolfgang 04-15-2024 Albumin [Mass/Vol] 2.8 g/dL Low 3.2-5.3 [facility] Comment on above: Performed By: #### C BCA, CMP, , PINR ####[facility] ([id number])[address] [place] [address], [place] [address] ALP [Catalytic activity/Vol] 75 U/L Normal 39-130 [facility] Comment on above: Performed By: #### C BCA, CMP, , PINR ####[facility] ([id number])[address] [place] [address] [place] [address] ALT [Catalytic activity/Vol] 26 U/L Normal 0-31 [facility] Comment on above: Performed By: #### C BCA, CMP, , PINR ####[facility] ([id number])[address] [place] [address] 57[address] Anion gap [Moles/Vol] 7 mmol/L Normal 5-15 [facility] Comment on above: Performed By: #### C BCA, CMP, , PINR ####[facility] ([id number])[address] [place] [address] [place] [address] AST [Catalytic activity/Vol] 33 U/L Normal 0-41 [facility] Comment on above: Performed By: #### C BCA, CMP, , PINR ####[facility] ([id number])[address] [place] [address] [place] [address] Bilirubin [Mass/Vol] 0.3 mg/dL Normal 0.3-1.[address] [facility] Comment on above: Performed By: #### C BCA, CMP, , PINR ####[facility] ([id number])[address] [place] [address] [place] [address] Calcium [Mass/Vol] 8.5 mg/dL Normal 8.5-10.5 [facility] Comment on above: Performed By: #### C BCA, CMP, , PINR ####[facility] ([id number])[address] [place] [address] [place] [address] Chloride [Moles/Vol] 104 mmol/L Normal 98-[address] [facility] Comment on above: Performed By: #### C JENNA RAMOS, , PINR ####[facility] ([id number])[address] [place] [address] 32283 CO2 [Moles/Vol] 28 mmol/L Normal 22-32 [facility] Comment on above: Performed By: #### C JENNA RAMOS, , PINR ####[facility] ([id number])[address] [place] [address] 48977 Creatinine [Mass/Vol] 0.71 mg/dL Normal 0.40-1.00 [facility] Comment on above: Result Comment: METH OD TRACEABLE TO IDMS STANDARD Performed By: #### C JENNA RAMOS, , PINR ####[facility] ([id number])[address] [place] [address] 49094 eGFR (CKD-EPI) NON-RACE DEPENDENT >90 Normal >59 [facility] Comment on above: Result Comment: Reported eGFR is based on the CKD-EPI 2020 equation that does not use a race coefficient. Performed By: #### C JENNA RAMOS, , PINR ####[facility] ([id number])[address] [place] [address] 50807 Glucose [Mass/Vol] 186 mg/dL High 65-99 [facility] Comment on above: Performed By: #### C JENNA RAMOS, , PINR ####[facility] ([id number])[address] [place] [address] 40218 Potassium [Moles/Vol] 3.7 mmol/L Normal 3.5-5.0 [facility] Comment on above: Performed By: #### C JENNA RAMOS, , PINR ####[facility] ([id number])[address] [place] [address] 05737 Protein [Mass/Vol] 5.8 g/dL Low 6.0-8.0 [facility] Comment on above: Performed By: #### C JENNA RAMOS, , PINR ####[facility] ([id number])[address] [place] [address] 87998 Sodium [Moles/Vol] 139 mmol/L Normal 134-146 [facility] Comment on above: Performed By: #### C JENNA RAMOS, , PINR ####[facility] ([id number])[address] [place] [address] 38946 Urea nitrogen [Mass/Vol] 12 mg/dL Normal 5-27 [facility] Comment on above: Performed By: #### C JENNA RAMOS, , PINR ####[facility] ([id number])[address] [place] [address] 02862 Glucose Glucometer (BldC) [M ass/Vol]on 04-15-2024 Glucose [Mass/Vol] 194 mg/dL High 65-99 [facility] MAGNESIUMon 04-15-2024 Magnesium [Mass/Vol] 1.7 mg/dL Low 1.8-2.[address] [facility] Comment on above: Performed By: #### C JENNA RAMOS, , PINR ####[facility] ([id number])[address] [place] [address] 79403 PROTIME AND INRon 04-15-2024 INR Coag (PPP) [Relative time] 3.7 {INR} High 0.8-1.1 [facility] Comment on above: Performed By: #### C JENNA RAMOS, , PINR ####[facility] ([id number])[address] [place] [address] 84154 PT Coag (PPP) [Time] 40.7 s High 9.8-13.[address] [facility] Comment on above: Result Comment: NEW REFERENCE RANGE Performed By: #### C RACHEL, CMP, 60853-7, PINR ####[facility] ([id number])[address] [place] [address] 92062 CBC AND AUTO DIFFon 04-14-20 24 ABSOLUTE BASOPHIL 0.1 X10E9/L Normal 0.0-0.2 [facility] Comment on above: Performed By: #### C RACHEL, PINR, 03503-6, BMP #### [facility] ([id number]) [address] [place] [address] 34517 ABSOLUTE NEUTROPHIL 13.4 X10E9/L High 1.5-6.6 [facility] Comment on above: Performed By: #### Concha RAMOS, PINR, 04540-8, BMP #### [facility] ([id number]) [address] [place] [address] 18284 Anisocytosis Ql (Bld) 2+ Abnormal NONE [facility] Comment on above: Performed By: #### Concha RAMOS, PINR, 70440-6, BMP #### [facility] ([id number]) [address] [place] [address] 38278 Basophils/100 WBC (Bld) 0.4 % Normal [facility] Comment on above: Performed By: #### Concha RAMOS, PINR, 88194-4, BMP #### [facility] ([id number]) [address] [place] [address] 71484 Eosinophils (Bld) [#/Vol] 0.0 10*3/uL Normal 0.0-0.4 [facility] Comment on above: Performed By: #### Concha RAMOS, PINR, 62096-1, BMP #### [facility] ([id number]) [address] [place] [address] 49068 Eosinophils/100 WBC (Bld) 0.0 % Normal [facility] Comment on above: Performed By: #### JAIRO Kern BCA, 60031-4, BMP #### [facility] ([id number]) [address] [place] [address] 56347 Erythrocyte distribution width (RBC) [Ratio] 29.8 % High 11.5-15.0 [facility] Comment on above: Performed By: #### JAIRO Kern BCA, 83017-3, BMP #### [facility] ([id number]) [address] [place] [address] 93190 Hematocrit (Bld) [Volume fraction] 29.4 % Low 35-47 [facility] Comment on above: Performed By: #### JAIRO Kern BCA, 70447-6, BMP #### [facility] ([id number]) [address] [place] [address] 56473 Hemoglobin (Bld) [Mass/Vol] 8.7 g/dL Low 11.7-15.5 [facility] Comment on above: Performed By: #### JAIRO Kern BCA, 44780-1, BMP #### [facility] ([id number]) [address] [place] [address] 86847 Lymphocytes (Bld) [#/Vol] 1.0 10*3/uL Normal 1.0-3.5 [facility] Comment on above: Performed By: #### JUSTIN Kern BCAR, 07688-7, BMP #### [facility] ([id number]) [address] [place] [address] 28280 Lymphocytes/100 WBC (Bld) 6.4 % Normal [facility] Comment on above: Performed By: #### Concha RAMOS PINR, 85884-8, BMP #### [facility] ([id number]) [address] [place] [address] 65281 MCH (RBC) [Entitic mass] 20.4 pg Low 27-34 [facility] Comment on above: Performed By: #### C RACHEL, PINR, 33872-7, BMP #### [facility] ([id number]) [address] [place] [address] 52097 MCHC (RBC) [Mass/Vol] 29.6 g/dL Low 32-36 [facility] Comment on above: Performed By: #### Concha RAMOS, PINR, 79555-8, BMP #### [facility] ([id number]) [address] [place] [address] 39349 MCV (RBC) [Entitic vol] 69 fL Low 80-100 [facility] Comment on above: Performed By: #### Concha RAMOS, PINR, 20006-4, BMP #### [facility] ([id number]) [address] [place] [address] 21847 Monocytes (Bld) [#/Vol] 1.1 10*3/uL High 0-0.9 [facility] Comment on above: Performed By: #### Concha RAMOS, PINR, 41448-7, BMP #### [facility] ([id number]) [address] [place] [address] 04919 Monocytes/100 WBC (Bld) 7.2 % Normal [facility] Comment on above: Performed By: #### Concha RAMOS, PINR, 16416-8, BMP #### [facility] ([id number]) [address] [place] [address] 76942 Neutrophils/100 WBC (Bld) 86.0 % Normal [facility] Comment on above: Performed By: #### Concha RAMOS, PINR, 60261-9, BMP #### [facility] ([id number]) [address] [place] [address] [place] [address] OVALOCYTE 1+ Abnormal NONE [facility] Comment on above: Performed By: #### Concha RAMOS, PINR, 56684-6, BMP #### [facility] ([id number]) [address] [place] [address] 39975 Platelet mean volume (Bld) [Entitic vol] 7.8 fL Normal 7-12 [facility] Comment on above: Performed By: #### C RACHEL, PINR, 68626-6, BMP #### [facility] ([id number]) [address] [place] [address] 60470 Platelets (Bld) [#/Vol] 469 10*3/uL High 150-450 [facility] Comment on above: Performed By: #### C RACHEL PINR, 92113-9, BMP #### [facility] ([id number]) [address] [place] [address] 99516 RBC COUNT 4.27 X10E12/L Normal 3.80-5.20 [facility] Comment on above: Performed By: #### C RACHEL, PINR, 43747-0, BMP #### [facility] ([id number]) [address] [place] [address] 41616 WBC (Bld) [#/Vol] 15.6 10*3/uL High 4.0-11.0 [facility] Comment on above: Performed By: #### C RACHEL, PINR, 05222-3, BMP #### [facility] ([id number]) [address] [place] [address] 07671 COMPREHENSIVE METABOLIC PANE Wolfgang 04-14-2024 Albumin [Mass/Vol] 3.1 g/dL Low 3.2-5.3 [facility] Comment on above: Performed By: #### Concha RAMOS, PINR, 83755-0, BMP #### [facility] ([id number]) [address] [place] [address] 66603 ALP [Catalytic activity/Vol] 85 U/L Normal 39-130 [facility] Comment on above: Performed By: #### C RACHEL, PINR, 06381-7, BMP #### [facility] ([id number]) [address] [place] [address] 43426 ALT [Catalytic activity/Vol] 23 U/L Normal 0-31 [facility] Comment on above: Performed By: #### C BCA, PINR, 68615-0, BMP #### [facility] ([id number]) [address] [place] [address] 85656 Anion gap [Moles/Vol] 11 mmol/L Normal 5-15 [facility] Comment on above: Performed By: #### C BCA, PINR, 51671-4, BMP #### [facility] ([id number]) [address] [place] [address] 28964 AST [Catalytic activity/Vol] 26 U/L Normal 0-41 [facility] Comment on above: Performed By: #### C BCA, PINR, 19407-9, BMP #### [facility] ([id number]) [address] [place] [address] 79398 Bilirubin [Mass/Vol] 0.3 mg/dL Normal 0.3-1.[address] [facility] Comment on above: Performed By: #### C BCA, PINR, 14925-2, BMP #### [facility] ([id number]) [address] [place] [address] 90374 Calcium [Mass/Vol] 8.9 mg/dL Normal 8.5-10.5 [facility] Comment on above: Performed By: #### C BCA, PINR, 88956-8, BMP #### [facility] ([id number]) [address] [place] [address] 97616 Chloride [Moles/Vol] 105 mmol/L Normal 98-[address] [facility] Comment on above: Performed By: #### C BCA, PINR, 51485-1, BMP #### [facility] ([id number]) [address] [place] [address] 80381 CO2 [Moles/Vol] 25 mmol/L Normal 22-32 [facility] Comment on above: Performed By: #### C JAIRO RAMOS, 44942-8, BMP #### [facility] ([id number]) [address] [place] [address] 71382 Creatinine [Mass/Vol] 0.76 mg/dL Normal 0.40-1.00 [facility] Comment on above: Result Comment: METH OD TRACEABLE TO IDMS STANDARD Performed By: #### C JAIRO RAMOS, 13044-8, BMP #### [facility] ([id number]) [address] [place] [address] 49809 GFR/1.73 sq M.predicted among non-blacks MDRD (S/P/Bld) [Vol rate/Area] 87 mL/min/{1.73_m2} Normal >59 [facility] Comment on above: Result Comment: Reported eGFR is based on the CKD-EPI 2020 equation that does not use a race coefficient. Performed By: #### C JAIRO RAMOS, 55094-6, BMP #### [facility] ([id number]) [address] [place] [address] 94996 Glucose [Mass/Vol] 204 mg/dL High 65-99 [facility] Comment on above: Performed By: #### C JAIRO RAMOS, 72872-4, BMP #### [facility] ([id number]) [address] [place] [address] 87606 Potassium [Moles/Vol] 3.9 mmol/L Normal 3.5-5.0 [facility] Comment on above: Performed By: #### C JUSTIN RAMOSR, 65478-9, BMP #### [facility] ([id number]) [address] [place] [address] 70969 Protein [Mass/Vol] 6.3 g/dL Normal 6.0-8.0 [facility] Comment on above: Performed By: #### C RACHEL PINR, 47227-2, BMP #### [facility] ([id number]) [address] [place] [address] 63481 Sodium [Moles/Vol] 141 mmol/L Normal 134-146 [facility] Comment on above: Performed By: #### Concha RAMOS PINR, 78655-7, BMP #### [facility] ([id number]) [address] [place] [address] 95735 Urea nitrogen [Mass/Vol] 13 mg/dL Normal 5-27 [facility] Comment on above: Performed By: #### Concha RAMOS PINR, 56187-9, BMP #### [facility] ([id number]) [address] [place] [address] 36274 Glucose Glucometer (BldC) [M ass/Vol]on 04-14-2024 Glucose [Mass/Vol] 180 mg/dL High 65-99 [facility] Glucose [Mass/Vol] 198 mg/dL High 65-99 [facility] Glucose [Mass/Vol] 203 mg/dL High 65-99 [facility] Glucose [Mass/Vol] 193 mg/dL High 65-99 [facility] Glucose [Mass/Vol] 189 mg/dL High 65-99 [facility] HGB AND HCTon 04-14-2024 Hematocrit (Bld) [Volume fraction] 26.3 % Low 35-47 [facility] Comment on above: Performed By: #### Concha RAMOS, PINR, 89915-9, BMP #### [facility] ([id number]) [address] [place] [address] 34328 Hemoglobin (Bld) [Mass/Vol] 7.9 g/dL Low 11.7-15.5 [facility] Comment on above: Performed By: #### Concha RAMOS, PINR, 81754-2, BMP #### [facility] ([id number]) [address] [place] [address] 31717 Hematocrit (Bld) [Volume fraction] 29.6 % Low 35-47 [facility] Comment on above: Performed By: #### JAIRO Kern BCA, 22925-1, BMP #### [facility] ([id number]) [address] [place] [address] 39673 Hemoglobin (Bld) [Mass/Vol] 9.0 g/dL Low 11.7-15.5 [facility] Comment on above: Performed By: #### JAIRO Kern BCA, 95057-8, BMP #### [facility] ([id number]) [address] [place] [address] 56975 MAGNESIUMon 04-14-2024 Magnesium [Mass/Vol] 1.8 mg/dL Normal 1.8-2.[address] [facility] Comment on above: Performed By: #### JAIRO eKrn BCA, 78255-7, BMP #### [facility] ([id number]) [address] [place] [address] 09206 PROTIME AND INRon 04-14-2024 INR Coag (PPP) [Relative time] 3.6 {INR} High 0.8-1.1 [facility] Comment on above: Performed By: #### JAIRO Kern BCA, 74659-2, BMP #### [facility] ([id number]) [address] [place] [address] 77302 PT Coag (PPP) [Time] 39.8 s High 9.8-13.[address] [facility] Comment on above: Result Comment: NEW REFERENCE RANGE Performed By: #### JAIRO Kern BCA, 14827-3, BMP #### [facility] ([id number]) [address] [place] [address] 16233 CBC AND AUTO DIFFon 04-13-20 ABSOLUTE BASOPHIL 0.1 X10E9/L Normal 0.0-0.2 [facility] Comment on above: Performed By: #### JUSTIN Kern BCAR, 59451-0, BMP #### [facility] ([id number]) [address] [place] [address] 80813 ABSOLUTE NEUTROPHIL 11.4 X10E9/L High 1.5-6.6 [facility] Comment on above: Performed By: #### JAIRO Kern BCA, 01984-0, BMP #### [facility] ([id number]) [address] [place] [address] 05653 Anisocytosis Ql (Bld) 2+ Abnormal NONE [facility] Comment on above: Performed By: #### JAIRO Kern BCA, 70163-4, BMP #### [facility] ([id number]) [address] [place] [address] 53600 Basophils/100 WBC (Bld) 0.8 % Normal [facility] Comment on above: Performed By: #### JAIRO Kern BCA, 67537-4, BMP #### [facility] ([id number]) [address] [place] [address] 68748 Eosinophils (Bld) [#/Vol] 0.3 10*3/uL Normal 0.0-0.4 [facility] Comment on above: Performed By: #### JUSTIN Kern BCAR, 53000-5, BMP #### [facility] ([id number]) [address] [place] [address] 21900 Eosinophils/100 WBC (Bld) 2.1 % Normal [facility] Comment on above: Performed By: #### JUSTIN Kern BCAR, 77640-5, BMP #### [facility] ([id number]) [address] [place] [address] 66226 Erythrocyte distribution width (RBC) [Ratio] 29.7 % High 11.5-15.0 [facility] Comment on above: Performed By: #### Concha RAMOS PINR, 78407-8, BMP #### [facility] ([id number]) [address] [place] [address] 71085 Hematocrit (Bld) [Volume fraction] 34.3 % Low 35-47 [facility] Comment on above: Performed By: #### C RACHEL PINR, 91851-6, BMP #### [facility] ([id number]) [address] [place] [address] 71928 Hemoglobin (Bld) [Mass/Vol] 10.1 g/dL Low 11.7-15.5 [facility] Comment on above: Performed By: #### C JUSTIN RAMOSR, 03972-4, BMP #### [facility] ([id number]) [address] [place] [address] 54099 Lymphocytes (Bld) [#/Vol] 1.7 10*3/uL Normal 1.0-3.5 [facility] Comment on above: Performed By: #### JUSTIN Kern BCAR, 19813-4, BMP #### [facility] ([id number]) [address] [place] [address] 90995 Lymphocytes/100 WBC (Bld) 11.9 % Normal [facility] Comment on above: Performed By: #### JUSTIN eKrn BCAR, 62678-0, BMP #### [facility] ([id number]) [address] [place] [address] 53447 MCH (RBC) [Entitic mass] 20.2 pg Low 27-34 [facility] Comment on above: Performed By: #### Concha RAMOS PINR, 90075-1, BMP #### [facility] ([id number]) [address] [place] [address] 80515 MCHC (RBC) [Mass/Vol] 29.5 g/dL Low 32-36 [facility] Comment on above: Performed By: #### C RACHEL PINR, 74862-1, BMP #### [facility] ([id number]) [address] [place] [address] 07083 MCV (RBC) [Entitic vol] 68 fL Low 80-100 [facility] Comment on above: Performed By: #### C BCA, PINR, 98219-8, BMP #### [facility] ([id number]) [address] [place] [address] 64923 Monocytes (Bld) [#/Vol] 0.8 10*3/uL Normal 0-0.9 [facility] Comment on above: Performed By: #### C BCA, PINR, 30806-5, BMP #### [facility] ([id number]) [address] [place] [address] 33319 Monocytes/100 WBC (Bld) 5.9 % Normal [facility] Comment on above: Performed By: #### C BCA, PINR, 04782-0, BMP #### [facility] ([id number]) [address] [place] [address] 40815 Neutrophils/100 WBC (Bld) 79.3 % Normal [facility] Comment on above: Performed By: #### C BCA, PINR, 38518-2, BMP #### [facility] ([id number]) [address] [place] [address] 90603 OVALOCYTE 2+ Abnormal NONE [facility] Comment on above: Performed By: #### C BCA, PINR, 43256-7, BMP #### [facility] ([id number]) [address] [place] [address] 62700 Platelet mean volume (Bld) [Entitic vol] 7.4 fL Normal 7-12 [facility] Comment on above: Performed By: #### C BCA, PINR, 33467-5, BMP #### [facility] ([id number]) [address] [place] [address] 28182 Platelets (Bld) [#/Vol] 562 10*3/uL High 150-450 [facility] Comment on above: Performed By: #### C BCA, PINR, 53453-1, BMP #### [facility] ([id number]) [address] [place] [address] 25941 RBC COUNT 5.02 X10E12/L Normal 3.80-5.20 [facility] Comment on above: Performed By: #### C BCA, PINR, 61288-8, BMP #### [facility] ([id number]) [address] [place] [address] 44882 TEARDROP 1+ Abnormal NONE [facility] Comment on above: Performed By: #### C BCA, PINR, 19589-4, BMP #### [facility] ([id number]) [address] [place] [address] 67310 WBC (Bld) [#/Vol] 14.4 10*3/uL High 4.0-11.0 [facility] Comment on above: Performed By: #### C BCA, PINR, 69638-8, BMP #### [facility] ([id number]) [address] [place] [address] 90496 COMPREHENSIVE METABOLIC PANE Wolfgang 04-13-2024 Albumin [Mass/Vol] 3.2 g/dL Normal 3.2-5.3 [facility] Comment on above: Performed By: #### C BCA, PINR, 75827-9, BMP #### [facility] ([id number]) [address] [place] [address] 81055 ALP [Catalytic activity/Vol] 97 U/L Normal 39-130 [facility] Comment on above: Performed By: #### C BCA, PINR, 84624-6, BMP #### [facility] ([id number]) [address] [place] [address], [place] [address] ALT [Catalytic activity/Vol] 21 U/L Normal 0-31 [facility] Comment on above: Performed By: #### C RACHEL, PINR, 89695-4, BMP #### [facility] ([id number]) [address] [place] [address] 34688 Anion gap [Moles/Vol] 10 mmol/L Normal 5-15 [facility] Comment on above: Performed By: #### C BCA, PINR, 92122-9, BMP #### [facility] ([id number]) [address] [place] [address] 73897 AST [Catalytic activity/Vol] 20 U/L Normal 0-41 [facility] Comment on above: Performed By: #### C RACHEL, PINR, 27745-3, BMP #### [facility] ([id number]) [address] [place] [address] 56361 Bilirubin [Mass/Vol] 0.4 mg/dL Normal 0.3-1.[address] [facility] Comment on above: Performed By: #### C RACHEL, PINR, 00899-2, BMP #### [facility] ([id number]) [address] [place] [address] 47370 Calcium [Mass/Vol] 8.8 mg/dL Normal 8.5-10.5 [facility] Comment on above: Performed By: #### C RACHEL, PINR, 17894-2, BMP #### [facility] ([id number]) [address] [place] [address] 40806 Chloride [Moles/Vol] 105 mmol/L Normal 98-[address] [facility] Comment on above: Performed By: #### C BCA, PINR, 71842-2, BMP #### [facility] ([id number]) [address] [place] [address] 79643 CO2 [Moles/Vol] 24 mmol/L Normal 22-32 [facility] Comment on above: Performed By: #### C BCA, PINR, 01339-5, BMP #### [facility] ([id number]) [address] [place] [address] 20014 Creatinine [Mass/Vol] 0.79 mg/dL Normal 0.40-1.00 [facility] Comment on above: Result Comment: METH OD TRACEABLE TO IDMS STANDARD Performed By: #### C BCA, PINR, 41487-5, BMP #### [facility] ([id number]) [address] [place] [address] GFR/1.73 sq M.predicted among non-blacks MDRD (S/P/Bld) [Vol rate/Area] 83 mL/min/{1.73_m2} Normal >59 [facility] Comment on above: Result Comment: Reported eGFR is based on the CKD-EPI 2020 equation that does not use a race coefficient. Performed By: #### C BCA, PINR, 49220-7, BMP #### [facility] ([id number]) [address] [place] [address] Glucose [Mass/Vol] 262 mg/dL High 65-99 [facility] Comment on above: Performed By: #### C BCA, PINR, 70754-5, BMP #### [facility] ([id number]) [address] [place] [address] Potassium [Moles/Vol] 3.9 mmol/L Normal 3.5-5.0 [facility] Comment on above: Performed By: #### C BCA, PINR, 53726-6, BMP #### [facility] ([id number]) [address] [place] [address] Protein [Mass/Vol] 6.7 g/dL Normal 6.0-8.0 [facility] Comment on above: Performed By: #### C BCA, PINR, 20802-7, BMP #### [facility] ([id number]) [address] [place] [address] Sodium [Moles/Vol] 139 mmol/L Normal 134-146 [facility] Comment on above: Performed By: #### C BCA, PINR, 44408-6, BMP #### [facility] ([id number]) [address] [place] [address] Urea nitrogen [Mass/Vol] 9 mg/dL Normal 5-27 [facility] Comment on above: Performed By: #### C BCA, PINR, 24513-4, BMP #### [facility] ([id number]) [address] [place] [address] BRAIN WO CONTon CT BRAIN WO CONT CT BRAIN WO CONT Nonenhanced CT of the brain dated 04/13/2024 at 8:57 AM INDICATION: Head trauma, laceration in the head, pain. PROCEDURE: Automatic radiation exposure lowering techniques were utilized. All CT scans at this facility use dose modulation, iterative reconstruction, and/or weight based dosing when appropriate to reduce radiation dose to as low as reasonably achievable.. A nonenhanced CT of the brain and sagittal and coronal reformats obtained. FINDINGS: Comparison is 03/24/2024. The head is tilted. No intracranial bleed. No mass, mass effect, or midline shift. No abnormal extra-axial fluid collections. No depressed skull fractures. Mucosal thickening in the paranasal sinuses and left ethmoid air cells. IMPRESSION: 1. No acute intracranial abnormality seen. Finalized by Valentin Kendrick MD on 04/13/2024 9:16 AM Normal [facility] CT CERVICAL SPINE WO CONTon 04-13-2024 CT CERVICAL SPINE WO CONT CT CERVICAL SPINE WO CONT CLINICAL INFORMATION: Initial encounter for traumatic injury of the cervical spine. Laceration to head. Status post fall. Neck trauma, dangerous injury mechanism (Age 16-64y) TECHNIQUE: CT of the cervical spine without IV contrast. Sagittal, coronal, reformats were performed. Automated exposure control. All CT scans at this facility use dose modulation, iterative reconstruction, and/or weight based dosing when appropriate to reduce radiation dose to as low as reasonably achievable. COMPARISON: 02/20/2023 FINDINGS: There is preservation of the vertebral body heights. No fractures or dislocations are seen. The alignment of the cervical spine is normal. Multilevel degenerative changes. The craniocervical junction and atlantoaxial alignments are within normal limits. The prevertebral soft tissues are within normal limits. The paraspinous soft tissues are within normal limits. The lung apices are unremarkable. IMPRESSION: * No CT evidence of acute cervical spine injury. Finalized by Isaiah Dolan MD on 04/13/2024 9:17 AM Normal [facility] CT SHOULDER LT WO CONTon CT SHOULDER LT WO CONT CT SHOULDER LT WO CONT History: Shoulder trauma, fracture of humerus or scapula PROCEDURE: Automated exposure control was utilized. CT performed through the left shoulder Findings/Impression: * Severely comminuted fractures of left shoulder similar to x-ray from earlier today with 100% medial displacement. Fracture involves the humeral head and neck and spares the glenoid. Finalized by Jack Gonzalez MD on 04/13/2024 11:10 AM Normal [facility] Glucose Glucometer (BldC) [M ass/Vol]on 04-13-2024 Glucose [Mass/Vol] 202 mg/dL High 65-99 [facility] HGB AND HCTon 04-13-2024 Hematocrit (Bld) [Volume fraction] 31.8 % Low 35-47 [facility] Comment on above: Performed By: #### C JAIRO RAMOS, 93167-0, BMP #### [facility] ([id number]) [address] [place] [address] 98709 Hemoglobin (Bld) [Mass/Vol] 9.4 g/dL Low 11.7-15.5 [facility] Comment on above: Performed By: #### C JAIRO RAMOS, 63312-2, BMP #### [facility] ([id number]) [address] [place] [address] 34397 Hematocrit (Bld) [Volume fraction] 33.7 % Low 35-47 [facility] Comment on above: Performed By: #### JAIRO Kern BCA, 45421-5, BMP #### [facility] ([id number]) [address] [place] [address] 36807 Hemoglobin (Bld) [Mass/Vol] 9.9 g/dL Low 11.7-15.5 [facility] Comment on above: Performed By: #### JAIRO Kern BCA, 90980-6, BMP #### [facility] ([id number]) [address] [place] [address] 25811 LIVER PANELon 04-13-2024 Bilirubin.indirect [Mass/Vol] mg/dL Normal 0.0-0.4 [facility] Comment on above: Performed By: #### JAIRO Kern BCA, 17285-2, BMP #### [facility] ([id number]) [address] [place] [address] 29716 MAGNESIUMon 04-13-2024 Magnesium [Mass/Vol] 1.7 mg/dL Low 1.8-2.[address] [facility] Comment on above: Performed By: #### JAIRO Kern BCA, 43235-8, BMP #### [facility] ([id number]) [address] [place] [address] 25116 Natriuretic peptide B [Mass/ Vol]on 04-13-2024 Natriuretic peptide B (Bld) [Mass/Vol] 45 pg/mL Normal <100.0 [facility] Comment on above: Performed By: #### JAIRO Kern BCA, 69462-0, BMP #### [facility] ([id number]) [address] [place] [address] 99934 PROTIME AND INRon 04-13-2024 INR Coag (PPP) [Relative time] 3.6 {INR} High 0.8-1.1 [facility] Comment on above: Performed By: #### JAIRO Kern BCA, 37188-7, BMP #### [facility] ([id number]) [address] [place] [address] 39848 PT Coag (PPP) [Time] 39.6 s High 9.8-13.[address] [facility] Comment on above: Result Comment: NEW REFERENCE RANGE Performed By: #### C BCA, PINR, 61589-2, BMP #### [facility] ([id number]) [address] [place] [address] 98784 THYROID PROFILEon 04-13-2024 Free T4 [Mass/Vol] 1.18 ng/dL Normal 0.61-1.60 [facility] Comment on above: Performed By: #### C RACHEL, PINR, 56295-2, BMP #### [facility] ([id number]) [address] [place] [address] 84105 TSH 1.78 uIU/mL Normal 0.49-4.67 [facility] Comment on above: Performed By: #### C RACHEL, PINR, 91581-2, BMP #### [facility] ([id number]) [address] [place] [address] 27911 URN MACROSCOPIC NURon 2023 BILIRUBIN STEPH Negative Normal NEG [facility] Comment on above: Performed By: #### C BCA, PINR, 92278-5, BMP #### [facility] ([id number]) [address] [place] [address] [place] [address] BLOOD/HGB STEPH Negative Normal NEG [facility] Comment on above: Performed By: #### C BCA, PINR, 50001-5, BMP #### [facility] ([id number]) [address] [place] [address] 43480 GLUCOSE STEPH Negative Normal NEG [facility] Comment on above: Performed By: #### C BCA, PINR, 70225-1, BMP #### [facility] ([id number]) [address] [place] [address] 95608 KETONES STEPH Negative Normal NEG [facility] Comment on above: Performed By: #### C BCA, PINR, 23044-8, BMP #### [facility] ([id number]) [address] [place] [address] 16947 LEUKOCYTE ESTERASE STEPH Negative Normal NEG [facility] Comment on above: Performed By: #### C BCA, PINR, 52022-2, BMP #### [facility] ([id number]) [address] [place] [address] 50168 NITRITE STEPH Negative Normal NEG [facility] Comment on above: Performed By: #### C BCA, PINR, 30059-6, BMP #### [facility] ([id number]) [address] [place] [address] 07889 PH STEPH 5.5 Normal 5.0-8.5 [facility] Comment on above: Performed By: #### C RACHEL, PINR, 10802-8, BMP #### [facility] ([id number]) [address] [place] [address] 84360 PROTEIN STEPH Trace Abnormal NEG [facility] Comment on above: Performed By: #### C BCA, PINR, 34289-3, BMP #### [facility] ([id number]) [address] [place] [address] 96061 SPECIFIC GRAVITY STEPH 1.020 Normal 1.003-1.035 [facility] Comment on above: Performed By: #### C BCA, PINR, 44833-3, BMP #### [facility] ([id number]) [address] [place] [address] 07577 UROBILINOGEN STEPH 0.2 eu/dL Normal <1.1 [facility] Comment on above: Performed By: #### C BCA, PINR, 05263-9, BMP #### [facility] ([id number]) [address] [facility], [place] [address] XR CHEST 1 VWon 04-13-2024 XR CHEST 1 VW XR CHEST 1 VW XR CHEST 1 VW CLINICAL INDICATION: fall COMPARISON STUDY: None available IMPRESSION: 1. No focal consolidation. 2. No pleural effusion or pneumothorax. 3. Normal cardiomediastinal silhouette. 4. Displaced left humerus fracture, incompletely evaluated. Old right rib fractures. Finalized by Jesus Alberto Humphries on 04/13/2024 9:39 AM Normal [facility] XR ELBOW LT MIN 3 VWSon 03-25 XR ELBOW LT MIN 3 VWS XR ELBOW LT MIN 3 VWS CLINICAL HISTORY: Injury Comparison: 07/09/2013 Views: 2 views FINDINGS: * Prior ORIF of the distal humerus and epicondylar region. There are severe osteopenia likely from disuse. There is deformity of the radial head likely from prior injury. Suspect small anterior joint effusion. IMPRESSION: * Severe chronic deformity as above. Finalized by Ramiro Alvarado MD on 04/13/2024 9:38 AM Normal [facility] XR PELVIS 1 OR 2 VWSon 04-13 XR PELVIS 1 OR 2 VWS XR PELVIS 1 OR 2 VW S CLINICAL HISTORY: Fall and injury Comparison: None Views: 1 view FINDINGS: * No fracture, dislocation, erosion, nor periostitis. * Alignment satisfactory. * No radiopaque foreign body * Pelvic alignment satisfactory IMPRESSION: * Unremarkable single view pelvis Finalized by Ramiro Alvarado MD on 04/13/2024 9:39 AM Normal [facility] XR SHOULDER LT MIN 2 VWSon 1 XR SHOULDER LT MIN 2 VWS XR SHOULDER LT MIN 2 VWS HISTORY: Pain, fall, decreased range of motion COMPARISON: None FINDINGS: Multiple views of the left shoulder were obtained. Comminuted fracture of the proximal humerus with significant inferior and medial displacement of the dominant distal fracture fragment. There also appears to be subluxation of the humeral head. IMPRESSION: * Comminuted fracture of the surgical neck of the humerus with significant displacement and suspected subluxation/dislocatio n of the humeral head. 1 Finalized by Deangelo Mendoza MD on 04/13/2024 9:35 AM Normal [facility] aPTT Coag (PPP) [Time]on aPTT Coag (Bld) [Time] 40 s High 26-37 [facility] Comment on above: Result Comment: NEW REFERENCE RANGE Performed By: #### C BCA, PINR, 72849-4, BMP #### [facility] ([id number]) [address] [place] [address], [place] [address] Glucose Glucometer (BldC) [M ass/Vol]on 03-29-2024 Glucose [Mass/Vol] 186 mg/dL High 65 - 99 mg/dL [facility] Interpretation and review of laboratory results Abnormal [facility] Glucose [Mass/Vol] 186 mg/dL High 65-99 [facility] Glucose [Mass/Vol] 129 mg/dL High 65 - 99 mg/dL [facility] Interpretation and review of laboratory results Abnormal [facility] Glucose [Mass/Vol] 129 mg/dL High 65-99 [facility] BASIC METABOLIC PANLon 03-28 Anion gap [Moles/Vol] 6 mmol/L Normal 5-15 [facility] Comment on above: Performed By: #### P INR, BMP, 72984-2, 90527-8, CBCA #### [facility] ([id number]) [address] [place] [address] Calcium [Mass/Vol] 8.4 mg/dL Low 8.5-10.5 [facility] Comment on above: Performed By: #### P INR, BMP, 49598-4, 19963-3, CBCA #### [facility] ([id number]) [address] [place] [address] Chloride [Moles/Vol] 110 mmol/L High 98-109 [facility] Comment on above: Performed By: #### P INR, BMP, 54839-3, 78437-4, CBCA #### [facility] ([id number]) [address] [place] [address] CO2 [Moles/Vol] 22 mmol/L Normal 22-32 [facility] Comment on above: Performed By: #### P INR, BMP, 11774-9, 87096-9, CBCA #### [facility] ([id number]) [address] [place] [address] Creatinine [Mass/Vol] 0.87 mg/dL Normal 0.40-1.00 [facility] Comment on above: METHOD TRACEABLE TO IDMS STANDARD Result Comment: METH OD TRACEABLE TO IDMS STANDARD Performed By: #### P INR, BMP, 80574-7, 11279-7, CBCA #### [facility] ([id number]) [address] [place] [address] Glucose [Mass/Vol] 158 mg/dL High 65-99 [facility] Comment on above: Performed By: #### P INR, BMP, 72840-0, 25312-3, CBCA #### [facility] ([id number]) [address] [place] [address] Potassium [Moles/Vol] 3.9 mmol/L Normal 3.5-5.0 [facility] Comment on above: Performed By: #### P INR, BMP, 27097-9, 86319-6, CBCA #### [facility] ([id number]) [address] [place] [address] Sodium [Moles/Vol] 138 mmol/L Normal 134-146 [facility] Comment on above: Performed By: #### P INR, BMP, 03450-2, 74224-9, CBCA #### [facility] ([id number]) [address] [place] [address] Urea nitrogen [Mass/Vol] 6 mg/dL Normal 5-27 [facility] Comment on above: Performed By: #### P INR, BMP, 36465-5, 62438-8, CBCA #### [facility] ([id number]) [address] [place] [address] GFR/1.73 sq M.predicted among non-blacks MDRD (S/P/Bld) [Vol rate/Area] 74 mL/min/{1.73_m2} Normal >59 [facility] Comment on above: Result Comment: Reported eGFR is based on the CKD-EPI 2020 equation that does not use a race coefficient. Performed By: #### P INR, BMP, 32361-4, 20731-2, CBCA #### [facility] ([id number]) [address] [place] [address] Basic Metabolic Panelon eGFR (CKD-EPI)non-race dependent 74 - PINF [facility] Comment on above: Reported eGFR is based on the CKD-EPI 2020 equation that does not use a race coefficient. Interpretation and review of laboratory results Abnormal [facility] CBC without diffon Interpretation and review of laboratory results Abnormal [facility] RBC (Bld) [#/Vol] 4.11 10*6/uL [facility] WBC corrected for nucl RBC Auto (Bld) [#/Vol] 8.3 [facility] COMPLETE BLOOD COUNTon 03-28 Erythrocyte distribution width (RBC) [Ratio] 19.6 % High 11.5-15.0 [facility] Comment on above: Performed By: #### P INR, BMP, 83201-7, 06807-0, CBCA #### [facility] ([id number]) [address] [place] [address] Hematocrit (Bld) [Volume fraction] 24.9 % Low 35-47 [facility] Comment on above: Performed By: #### P INR, BMP, 34799-0, 47500-9, CBCA #### [facility] ([id number]) [address] [place] [address] Hemoglobin (Bld) [Mass/Vol] 7.6 g/dL Low 11.7-15.5 [facility] Comment on above: Performed By: #### P INR, BMP, 65283-9, 69561-9, CBCA #### [facility] ([id number]) [address] [place] [address] MCH (RBC) [Entitic mass] 18.4 pg Low 27-34 [facility] Comment on above: Performed By: #### P INR, BMP, 15926-8, 59371-2, CBCA #### [facility] ([id number]) [address] [facility] [place] [address] MCHC (RBC) [Mass/Vol] 30.4 g/dL Low 32-36 [facility] Comment on above: Performed By: #### P INR, BMP, 77999-2, 68215-0, CBCA #### [facility] ([id number]) [address] [facility] [place] [address] MCV (RBC) [Entitic vol] 61 fL Low 80-100 [facility] Comment on above: Performed By: #### P INR, BMP, 02864-0, 74197-7, CBCA #### [facility] ([id number]) [address] [place] [address] Platelet mean volume (Bld) [Entitic vol] 8.3 fL Normal 7-12 [facility] Comment on above: Performed By: #### P INR, BMP, 23346-0, 61741-1, CBCA #### [facility] ([id number]) [address] [facility] [place] [address] Platelets (Bld) [#/Vol] 249 10*3/uL Normal 150-450 [facility] Comment on above: Performed By: #### P INR, BMP, 03119-7, 17402-8, CBCA #### [facility] ([id number]) [address] [facility] [place] [address] RBC COUNT 4.11 X10E12/L Normal 3.80-5.20 [facility] Comment on above: Performed By: #### P INR, BMP, 01687-4, 87619-4, CBCA #### [facility] ([id number]) [address] [facility] [place] [address] WBC (Bld) [#/Vol] 8.3 10*3/uL Normal 4.0-11.0 [facility] Comment on above: Performed By: #### P INR, BMP, 91593-9, 03219-2, CBCA #### [facility] ([id number]) [address] [place] [address] Glucose Glucometer (dC) [M ass/Vol]on 03-28-2024 Glucose [Mass/Vol] 162 mg/dL High 65 - 99 mg/dL [facility] Interpretation and review of laboratory results Abnormal [facility] Glucose [Mass/Vol] 162 mg/dL High 65-99 [facility] Glucose [Mass/Vol] 153 mg/dL High 65 - 99 mg/dL [facility] Interpretation and review of laboratory results Abnormal [facility] Glucose [Mass/Vol] 153 mg/dL High 65-99 [facility] Glucose [Mass/Vol] 160 mg/dL High 65 - 99 mg/dL [facility] Interpretation and review of laboratory results Abnormal [facility] Glucose [Mass/Vol] 160 mg/dL High 65-99 [facility] Glucose [Mass/Vol] 147 mg/dL High 65 - 99 mg/dL [facility] Interpretation and review of laboratory results Abnormal [facility] Glucose [Mass/Vol] 147 mg/dL High 65-99 [facility] PROTIME AND INRon 03-28-2024 INR Coag (PPP) [Relative time] 2.0 {INR} High 0.8-1.1 [facility] Comment on above: Performed By: #### P INR, BMP, 62227-7, 58262-9, CBCA #### [facility] ([id number]) [address] [place] [address] PT Coag (PPP) [Time] 22.3 s High 9.8-13.2 [facility] Comment on above: Performed By: #### P INR, BMP, 56186-4, 12414-3, CBCA #### [facility] ([id number]) [address] [place] [address] Protime & INRon 03-28-2024 Interpretation and review of laboratory results Abnormal [facility] BASIC METABOLIC PANLon 03-27 Anion gap [Moles/Vol] 7 mmol/L Normal 5-15 [facility] Comment on above: Performed By: #### P INR, BMP, 17578-8, 24808-3, CBCA #### [facility] ([id number]) [address] [place] [address] Calcium [Mass/Vol] 8.7 mg/dL Normal 8.5-10.5 [facility] Comment on above: Performed By: #### P INR, BMP, 69902-2, 02706-7, CBCA #### [facility] ([id number]) [address] [place] [address] Chloride [Moles/Vol] 109 mmol/L Normal 98-109 [facility] Comment on above: Performed By: #### P INR, BMP, 47338-6, 53217-1, CBCA #### [facility] ([id number]) [address] [place] [address] CO2 [Moles/Vol] 23 mmol/L Normal 22-32 [facility] Comment on above: Performed By: #### P INR, BMP, 37165-1, 63764-5, CBCA #### [facility] ([id number]) [address] [place] [address] Creatinine [Mass/Vol] 0.76 mg/dL Normal 0.40-1.00 [facility] Comment on above: Result Comment: METH OD TRACEABLE TO IDMS STANDARD Performed By: #### P INR, BMP, 09640-0, 44590-0, CBCA #### [facility] ([id number]) [address] [place] [address] GFR/1.73 sq M.predicted among non-blacks MDRD (S/P/Bld) [Vol rate/Area] 87 mL/min/{1.73_m2} Normal >59 [facility] Comment on above: Result Comment: Reported eGFR is based on the CKD-EPI 2021 equation that does not use a race coefficient. Performed By: #### P INR, BMP, 25560-9, 37893-6, CBCA #### [facility] ([id number]) [address] [place] [address] Glucose [Mass/Vol] 169 mg/dL High 65-99 [facility] Comment on above: Performed By: #### P INR, BMP, 74278-9, 08782-2, CBCA #### [facility] ([id number]) [address] [place] [address] Potassium [Moles/Vol] 3.2 mmol/L Low 3.5-5.0 [facility] Comment on above: Performed By: #### P INR, BMP, 27905-9, 01999-8, CBCA #### [facility] ([id number]) [address] [place] [address] Sodium [Moles/Vol] 139 mmol/L Normal 134-146 [facility] Comment on above: Performed By: #### P INR, BMP, 19230-4, 26327-8, CBCA #### [facility] ([id number]) [address] [place] [address] Urea nitrogen [Mass/Vol] 6 mg/dL Normal 5-27 [facility] Comment on above: Performed By: #### P INR, BMP, 27156-6, 97102-0, CBCA #### [facility] ([id number]) [address] [place] [address] Basic Metabolic Panelon 10-0 Anion gap [Moles/Vol] 7 mmol/L 5 - 15 mmol/L [facility] Calcium [Mass/Vol] 8.7 mg/dL 8.5 - 10. 5 mg/dL [facility] Chloride [Moles/Vol] 109 mmol/L 98 - 10 9 mmol/L [facility] CO2 [Moles/Vol] 23 mmol/L 22 - 32 mmol/L [facility] Creatinine [Mass/Vol] 0.76 mg/dL 0.40 - 1.00 mg/dL [facility] Comment on above: METHOD TRACEABLE TO IDSD STANDARD eGFR (CKD-EPI)non-race dependent 87 - PINF [facility] Comment on above: Reported eGFR is based on the CKD-EPI 2020 equation that does not use a race coefficient. Glucose [Mass/Vol] 169 mg/dL High 65 - 99 mg/dL [facility] Interpretation and review of laboratory results Abnormal [facility] Potassium [Moles/Vol] 3.2 mmol/L Low 3.5 - 5.0 mmol/L [facility] Sodium [Moles/Vol] 139 mmol/L 134 - 146 mmol/L [facility] Urea nitrogen [Mass/Vol] 6 mg/dL 5 - 27 mg/dL [facility] CBC AND AUTO DIFFon 03-27-20 24 ABSOLUTE BASOPHIL 0.1 X10E9/L Normal 0.0-0.2 [facility] Comment on above: Performed By: #### P INR, BMP, 50307-0, 84216-6, CBCA #### [facility] ([id number]) [address] [place] [address] ABSOLUTE NEUTROPHIL 5.1 X10E9/L Normal 1.5-6.6 [facility] Comment on above: Performed By: #### P INR, BMP, 93886-7, 14184-1, CBCA #### [facility] ([id number]) [address] [place] [address] Basophils/100 WBC (Bld) 0.7 % Normal [facility] Comment on above: Performed By: #### P INR, BMP, 56873-9, 57035-1, CBCA #### [facility] ([id number]) [address] [place] [address] Eosinophils (Bld) [#/Vol] 0.3 10*3/uL Normal 0.0-0.4 [facility] Comment on above: Performed By: #### P INR, BMP, 48113-0, 92309-1, CBCA #### [facility] ([id number]) [address] [place] [address] Eosinophils/100 WBC (Bld) 4.4 % Normal [facility] Comment on above: Performed By: #### P INR, BMP, 97340-5, 86149-2, CBCA #### [facility] ([id number]) [address] [place] [address] Erythrocyte distribution width (RBC) [Ratio] 19.3 % High 11.5-15.0 [facility] Comment on above: Performed By: #### P INR, BMP, 86999-4, 72500-3, CBCA #### [facility] ([id number]) [address] [place] [address] Hematocrit (Bld) [Volume fraction] 24.3 % Low 35-47 [facility] Comment on above: Performed By: #### P INR, BMP, 73335-8, 92668-3, CBCA #### [facility] ([id number]) [address] [place] [address] Hemoglobin (Bld) [Mass/Vol] 7.4 g/dL Low 11.7-15.5 [facility] Comment on above: Performed By: #### P INR, BMP, 78697-7, 24618-3, CBCA #### [facility] ([id number]) [address] [place] [address] HYPOCHROMIA 1+ Abnormal NONE [facility] Comment on above: Performed By: #### P INR, BMP, 28946-0, 92066-5, CBCA #### [facility] ([id number]) [address] [place] [address] Lymphocytes (Bld) [#/Vol] 1.3 10*3/uL Normal 1.0-3.5 [facility] Comment on above: Performed By: #### P INR, BMP, 35868-4, 59307-5, CBCA #### [facility] ([id number]) [address] [place] [address] Lymphocytes/100 WBC (Bld) 17.6 % Normal [facility] Comment on above: Performed By: #### P INR, BMP, 75810-4, 32005-5, CBCA #### [facility] ([id number]) [address] [facility] [place] [address] MCH (RBC) [Entitic mass] 18.2 pg Low 27-34 [facility] Comment on above: Performed By: #### P INR, BMP, 87817-6, 75009-9, CBCA #### [facility] ([id number]) [address] [facility] [place] [address] MCHC (RBC) [Mass/Vol] 30.6 g/dL Low 32-36 [facility] Comment on above: Performed By: #### P INR, BMP, 65027-4, 81541-6, CBCA #### [facility] ([id number]) [address] [facility] [place] [address] MCV (RBC) [Entitic vol] 59 fL Low 80-100 [facility] Comment on above: Performed By: #### P INR, BMP, 86189-4, 76731-0, CBCA #### [facility] ([id number]) [address] [facility] [place] [address] Monocytes (Bld) [#/Vol] 0.6 10*3/uL Normal 0-0.9 [facility] Comment on above: Performed By: #### P INR, BMP, 74339-0, 85812-1, CBCA #### [facility] ([id number]) [address] [place] [address] Monocytes/100 WBC (Bld) 8.3 % Normal [facility] Comment on above: Performed By: #### P INR, BMP, 98436-0, 68376-4, CBCA #### [facility] ([id number]) [address] [place] [address] Neutrophils/100 WBC (Bld) 69.0 % Normal [facility] Comment on above: Performed By: #### P INR, BMP, 67855-0, 46831-2, CBCA #### [facility] ([id number]) [address] [place] [address] Platelet mean volume (Bld) [Entitic vol] 8.2 fL Normal 7-12 [facility] Comment on above: Performed By: #### P INR, BMP, 94235-7, 17585-1, CBCA #### [facility] ([id number]) [address] [place] [address] Platelets (Bld) [#/Vol] 274 10*3/uL Normal 150-450 [facility] Comment on above: Performed By: #### P INR, BMP, 20840-5, 69544-9, CBCA #### [facility] ([id number]) [address] [place] [address] RBC COUNT 4.09 X10E12/L Normal 3.80-5.20 [facility] Comment on above: Performed By: #### P INR, BMP, 53766-1, 08594-1, CBCA #### [facility] ([id number]) [address] [place] [address] WBC (Bld) [#/Vol] 7.4 10*3/uL Normal 4.0-11.0 [facility] Comment on above: Performed By: #### P INR, BMP, 03350-2, 83206-3, CBCA #### [facility] ([id number]) [address] [place] [address] CBC auto differentialon 10-0 -2023 Basophils (Bld) [#/Vol] 0.1 10*3/uL [facility] Basophils/100 WBC (Bld) 0.7 % [facility] Eosinophils (Bld) [#/Vol] 0.3 10*3/uL [facility] Eosinophils/100 WBC (Bld) 4.4 % [facility] Erythrocyte distribution width (RBC) [Ratio] 19.3 % High 11.5 - 15.0 % [facility] Hematocrit (Bld) [Volume fraction] 24.3 % Low 35 - 47 % [facility] Hemoglobin (Bld) [Mass/Vol] 7.4 g/dL Low 11.7 - 15.5 g/dL [facility] Hypochromia Ql (Bld) 1+ Abnormal NONE^NONE [facility] System Interpretation and review of laboratory results Abnormal [facility] Lymphocytes (Bld) [#/Vol] 1.3 10*3/uL [facility] Lymphocytes/100 WBC (Bld) 17.6 % [facility] MCH (RBC) [Entitic mass] 18.2 pg Low 27 - 34 pg [facility] MCHC (RBC) [Mass/Vol] 30.6 g/dL Low 32 - 36 g/dL [facility] MCV (RBC) [Entitic vol] 59 fL Low 80 - 100 fL [facility] Monocytes (Bld) [#/Vol] 0.6 10*3/uL [facility] Monocytes/100 WBC (Bld) 8.3 % [facility] Neutrophils (Bld) [#/Vol] 5.1 10*3/uL [facility] Neutrophils/100 WBC (Bld) 69.0 % [facility] Platelet mean volume (Bld) [Entitic vol] 8.2 fL 7 - 12 fL [facility] Platelets (Bld) [#/Vol] 274 10*3/uL [facility] RBC (Bld) [#/Vol] 4.09 10*6/uL [facility] WBC corrected for nucl RBC Auto (Bld) [#/Vol] 7.4 [facility] Glucose Glucometer (dC) [M ass/Vol]on 03-27-2024 Glucose [Mass/Vol] 146 mg/dL High 65 - 99 mg/dL [facility] Interpretation and review of laboratory results Abnormal [facility] Glucose [Mass/Vol] 199 mg/dL High 65 - 99 mg/dL [facility] Interpretation and review of laboratory results Abnormal [facility] Glucose [Mass/Vol] 146 mg/dL High 65-99 [facility] Glucose [Mass/Vol] 199 mg/dL High 65-99 [facility] Glucose [Mass/Vol] 186 mg/dL High 65 - 99 mg/dL [facility] Interpretation and review of laboratory results Abnormal [facility] Glucose [Mass/Vol] 186 mg/dL High 65-99 [facility] Glucose [Mass/Vol] 146 mg/dL High 65 - 99 mg/dL [facility] Interpretation and review of laboratory results Abnormal [facility] Glucose [Mass/Vol] 146 mg/dL High 65-99 [facility] Glucose [Mass/Vol] 148 mg/dL High 65 - 99 mg/dL [facility] Interpretation and review of laboratory results Abnormal [facility] Glucose [Mass/Vol] 148 mg/dL High 65-99 [facility] HGB AND HCTon 03-27-2024 Hematocrit (Bld) [Volume fraction] 25.1 % Low 35-47 [facility] Comment on above: Performed By: #### P INR, BMP, 96185-8, 95770-2, CBCA #### [facility] ([id number]) [address] [facility] [place] [address] Hemoglobin (Bld) [Mass/Vol] 7.7 g/dL Low 11.7-15.5 [facility] Comment on above: Performed By: #### P INR, BMP, 13699-9, 23595-6, CBCA #### [facility] ([id number]) [address] [facility] [place] [address] Hemoglobin and hematocrit, b loodon 03-27-2024 Hematocrit (Bld) [Volume fraction] 25.1 % Low 35 - 47 % [facility] Hemoglobin (Bld) [Mass/Vol] 7.7 g/dL Low 11.7 - 15.5 g/dL [facility] Interpretation and review of laboratory results Abnormal [facility] PROTIME AND INRon 03-27-2024 INR Coag (PPP) [Relative time] 1.9 {INR} High 0.8-1.1 [facility] Comment on above: Performed By: #### P INR, BMP, 75419-6, 66660-6, CBCA #### [facility] ([id number]) [address] [facility] [place] [address] PT Coag (PPP) [Time] 21.1 s High 9.8-13.2 [facility] Comment on above: Performed By: #### P INR, BMP, 83908-8, 59173-7, CBCA #### [facility] ([id number]) [address] [facility] [place] [address] Protime & INRon 03-27-2024 INR Coag (PPP) [Relative time] 1.9 {INR} High [facility] Interpretation and review of laboratory results Abnormal [facility] PT Coag (PPP) [Time] 21.[address] [facility] [employer] FFP setup:Number of Units: 1 on 03-26-2024 Blood component type [id number] [facility] Blood component type [id number] [facility] Status of unit /RELEASED [facility] [employer] Status of unit [facility]SF[facility] Unit number [id number] Unit number [id number] [facility] FL SWALLOW MOTILITY FUNCTION on 03-26-2024 FL SWALLOW MOTILITY FUNCTION FL SWALLOW MOTILITY FUNCTION History: difficulty swallowing. dysphagia Oral pharyngeal dysphagia flouro time Chief complaint: dysphagia Pertinent Cancers and Surgical Hx: na Tech Note: dysphagia Number of Images: 7 cine runs Fluoro Time: 0.9 minutes Dose: 4.10 mGy dose in mGy reference air kerma Exam: Dynamic swallowing study under fluoroscopy. Procedure: Patient was examined under fluoroscopy while speech pathology gave contrast of varying consistencies. . Impression: No aspiration or significant penetration into the airway was seen 1 transient episode of penetration was noted with thin liquid contrast but not on a repetitive testing Thin and thick liquids, puree, fruit and crackers tested Please refer to the speech pathologist report regarding formal recommendations Finalized by Justino Eldridge MD on 03/26/2024 3:23 PM Normal [facility] Glucose Glucometer (BldC) [M ass/Vol]on 03-26-2024 Glucose [Mass/Vol] 151 mg/dL High 65 - 99 mg/dL [facility] Interpretation and review of laboratory results Abnormal [facility] Glucose [Mass/Vol] 151 mg/dL High 65-99 [facility] Glucose [Mass/Vol] 148 mg/dL High 65 - 99 mg/dL [facility] Interpretation and review of laboratory results Abnormal [facility] Glucose [Mass/Vol] 148 mg/dL High 65-99 [facility] Glucose [Mass/Vol] 224 mg/dL High 65 - 99 mg/dL [facility] Interpretation and review of laboratory results Abnormal [facility] Glucose [Mass/Vol] 224 mg/dL High 65-99 [facility] Glucose [Mass/Vol] 143 mg/dL High 65 - 99 mg/dL [facility] Interpretation and review of laboratory results Abnormal [facility] Glucose [Mass/Vol] 143 mg/dL High 65-99 [facility] Glucose [Mass/Vol] 139 mg/dL High 65 - 99 mg/dL [facility] Interpretation and review of laboratory results Abnormal [facility] Glucose [Mass/Vol] 139 mg/dL High 65-99 [facility] HGB AND HCTon 03-26-2024 Hematocrit (Bld) [Volume fraction] 25.0 % Low 35-47 [facility] Comment on above: Performed By: #### P INR, BMP, 88630-2, 83832-1, CBCA #### [facility] ([id number]) [address] [place] [address] Hemoglobin (Bld) [Mass/Vol] 7.6 g/dL Low 11.7-15.5 [facility] Comment on above: Performed By: #### P INR, BMP, 89047-7, 48731-7, CBCA #### [facility] ([id number]) [address] [place] [address] Hematocrit (Bld) [Volume fraction] 25.4 % Low 35-47 [facility] Comment on above: Performed By: #### P INR, BMP, 40205-2, 82773-2, CBCA #### [facility] ([id number]) [address] [place] [address] Hemoglobin (Bld) [Mass/Vol] 7.8 g/dL Low 11.7-15.5 [facility] Comment on above: Performed By: #### P INR, BMP, 61972-5, 68184-7, CBCA #### [facility] ([id number]) [address] [place] [address] Hematocrit (Bld) [Volume fraction] 24.7 % Low 35-47 [facility] Comment on above: Performed By: #### P INR, BMP, 39707-3, 20496-6, CBCA #### [facility] ([id number]) [address] [address] Hemoglobin (Bld) [Mass/Vol] 7.5 g/dL Low 11.7-15.5 [facility] Comment on above: Performed By: #### P INR, BMP, 47982-3, 84369-2, CBCA #### [facility] ([id number]) [address] [place] [address] Hemoglobin and hematocrit, b [facility] 03-26-2024 Hematocrit (Bld) [Volume fraction] 25.0 % Low 35 - 47 % [facility] Hemoglobin (Bld) [Mass/Vol] 7.6 g/dL Low 11.7 - 15.5 g/dL [facility] Interpretation and review of laboratory results Abnormal [facility] Hematocrit (Bld) [Volume fraction] 25.4 % Low 35 - 47 % [facility] Hemoglobin (Bld) [Mass/Vol] 7.8 g/dL Low 11.7 - 15.5 g/dL [facility] Interpretation and review of laboratory results Abnormal [facility] Hematocrit (Bld) [Volume fraction] 24.7 % Low 35 - 47 % [facility] Hemoglobin (Bld) [Mass/Vol] 7.5 g/dL Low 11.7 - 15.5 g/dL [facility] Interpretation and review of laboratory results Abnormal [facility] No Panel Informationon 03-26 BB Type Barcode 7300 [facility] Expiration Date [facility] Unit ABO B [facility] Unit RH Positive [facility] PROTIME AND INRon 03-26-2024 INR Coag (PPP) [Relative time] 1.8 {INR} High 0.8-1.1 [facility] Comment on above: Performed By: #### P INR, BMP, 94902-5, 57985-5, CBCA #### [facility] ([id number]) [address] [facility] [place] [address] PT Coag (PPP) [Time] 20.6 s High 9.8-13.2 [facility] Comment on above: Performed By: #### P INR, BMP, 85494-9, 86027-3, CBCA #### [facility] ([id number]) [address] [facility] [place] [address] Protime & INRon 03-26-2024 INR Coag (PPP) [Relative time] 1.8 {INR} High [facility] Interpretation and review of laboratory results Abnormal [facility] PT Coag (PPP) [Time] 20.6 s High [facility] RF videography Hypopharynx a nd Esophagus Viewson 03-26-2024 History: difficulty swallowing. dysphagia Oral pharyngeal dysphagia flouro time Chief complaint: dysphagia Pertinent Cancers and Surgical Hx: na Tech Note: dysphagia Number of Images: 7 cine runs Fluoro Time: 0.9 minutes Dose: 4.10 mGy dose in mGy reference air kerma Exam: Dynamic swallowing study under fluoroscopy. Procedure: Patient was examined under fluoroscopy while speech pathology gave contrast of varying consistencies. . Impression: No aspiration or significant penetration into the airway was seen 1 transient episode of penetration was noted with thin liquid contrast but not on a repetitive testing Thin and thick liquids, puree, fruit and crackers tested Please refer to the speech pathologist report regarding formal recommendations Finalized by Justino Eldridge MD on 03/26/2024 3:23 PM SECTRAPA Justino Eldridge MD - 03/26/2024 History: difficulty swallowing. dysphagia Oral pharyngeal dysphagia flouro time Chief complaint: dysphagia Pertinent Cancers and Surgical Hx: na Tech Note: dysphagia Number of Images: 7 cine runs Fluoro Time: 0.9 minutes Dose: 4.10 mGy dose in mGy reference air kerma Exam: Dynamic swallowing study under fluoroscopy. Procedure: Patient was examined under fluoroscopy while speech pathology gave contrast of varying consistencies. . Impression: No aspiration or significant penetration into the airway was seen 1 transient episode of penetration was noted with thin liquid contrast but not on a repetitive testing Thin and thick liquids, puree, fruit and crackers tested Please refer to the speech pathologist report regarding formal recommendations --------- - Finalized by Justino Eldridge MD on 03/26/2024 3:23 PM [facility] Study observation (narrative) [facility] RF videography Hypopharynx a nd Esophagus ViewsOrdered By: Justino Eldridge on 03-26-2024 [facility] Work Phone: APTTon 03-25-2024 aPTT Coag (PPP) [Time] 33 s [facility] BASIC METABOLIC PANLon 03-25 Anion gap [Moles/Vol] 6 mmol/L Normal 5-15 [facility] Comment on above: Performed By: #### P INR, BMP, 46762-4, 46290-3, CBCA #### [facility] ([id number]) [address] [place] [address] Calcium [Mass/Vol] 8.4 mg/dL Low 8.5-10.5 [facility] Comment on above: Performed By: #### P INR, BMP, 31279-3, 07764-1, CBCA #### [facility] ([id number]) [address] [place] [address] Chloride [Moles/Vol] 107 mmol/L Normal 98-109 [facility] Comment on above: Performed By: #### P INR, BMP, 97345-5, 87595-9, CBCA #### [facility] ([id number]) [address] [place] [address] CO2 [Moles/Vol] 25 mmol/L Normal 22-32 [facility] Comment on above: Performed By: #### P INR, BMP, 93228-4, 28642-7, CBCA #### [facility] ([id number]) [address] [place] [address] Creatinine [Mass/Vol] 0.90 mg/dL Normal 0.40-1.00 [facility] Comment on above: Result Comment: METH OD TRACEABLE TO IDMS STANDARD Performed By: #### P INR, BMP, 96961-1, 53097-9, CBCA #### [facility] ([id number]) [address] [place] [address] GFR/1.73 sq M.predicted among non-blacks MDRD (S/P/Bld) [Vol rate/Area] 71 mL/min/{1.73_m2} Normal >59 [facility] Comment on above: Result Comment: Reported eGFR is based on the CKD-EPI 2020 equation that does not use a race coefficient. Performed By: #### P INR, BMP, 00719-5, 34670-8, CBCA #### [facility] ([id number]) [address] [place] [address] Glucose [Mass/Vol] 151 mg/dL High 65-99 [facility] Comment on above: Performed By: #### P INR, BMP, 27369-9, 84806-0, CBCA #### [facility] ([id number]) [address] [place] [address] Potassium [Moles/Vol] 3.5 mmol/L Normal 3.5-5.0 [facility] Comment on above: Performed By: #### P INR, BMP, 87495-0, 64525-4, CBCA #### [facility] ([id number]) [address] [place] [address] Sodium [Moles/Vol] 138 mmol/L Normal 134-146 [facility] Comment on above: Performed By: #### P INR, BMP, 84407-4, 81944-9, CBCA #### [facility] ([id number]) [address] [place] [address] Urea nitrogen [Mass/Vol] 11 mg/dL Normal 5-27 [facility] Comment on above: Performed By: #### P INR, BMP, 02753-7, 65690-1, CBCA #### [facility] ([id number]) [address] [place] [address] Basic Metabolic Panelon 10-0 Anion gap [Moles/Vol] 6 mmol/L 5 - 15 mmol/L [facility] Calcium [Mass/Vol] 8.4 mg/dL Low 8.5 - 10. 5 mg/dL [facility] Chloride [Moles/Vol] 107 mmol/L 98 - 10 9 mmol/L [facility] CO2 [Moles/Vol] 25 mmol/L 22 - 32 mmol/L [facility] Creatinine [Mass/Vol] 0.90 mg/dL 0.40 - 1.00 mg/dL [facility] Comment on above: METHOD TRACEABLE TO IDMS STANDARD eGFR (CKD-EPI)non-race dependent 71 - PINF [facility] Comment on above: Reported eGFR is based on the CKD-EPI 2020 equation that does not use a race coefficient. Glucose [Mass/Vol] 151 mg/dL High 65 - 99 mg/dL [facility] Interpretation and review of laboratory results Abnormal [facility] Potassium [Moles/Vol] 3.5 mmol/L 3.5 - 5.0 mmol/L [facility] Sodium [Moles/Vol] 138 mmol/L 134 - 146 mmol/L [facility] Urea nitrogen [Mass/Vol] 11 mg/dL 5 - 27 mg/dL [facility] CBC AND AUTO DIFFon 03-25-20 24 ABSOLUTE BASOPHIL 0.1 X10E9/L Normal 0.0-0.2 [facility] Comment on above: Performed By: #### P INR, BMP, 07617-9, 48934-9, CBCA #### [facility] ([id number]) [address] [facility] [place] [address] ABSOLUTE NEUTROPHIL 6.1 X10E9/L Normal 1.5-6.6 [facility] Comment on above: Performed By: #### P INR, BMP, 88784-0, 28571-7, CBCA #### [facility] ([id number]) [address] [facility] [place] [address] Basophils/100 WBC (Bld) 0.6 % Normal [facility] Comment on above: Performed By: #### P INR, BMP, 37749-3, 36867-2, CBCA #### [facility] ([id number]) [address] [facility] [place] [address] Eosinophils (Bld) [#/Vol] 0.3 10*3/uL Normal 0.0-0.4 [facility] Comment on above: Performed By: #### P INR, BMP, 75033-4, 05025-1, CBCA #### [facility] ([id number]) [address] [facility] [place] [address] Eosinophils/100 WBC (Bld) 3.6 % Normal [facility] Comment on above: Performed By: #### P INR, BMP, 02870-9, 97966-8, CBCA #### [facility] ([id number]) [address] [facility] [place] [address] Erythrocyte distribution width (RBC) [Ratio] 19.2 % High 11.5-15.0 [facility] Comment on above: Performed By: #### P INR, BMP, 66157-1, 87374-5, CBCA #### [facility] ([id number]) [address] [address] Hematocrit (Bld) [Volume fraction] 24.6 % Low 35-47 [facility] Comment on above: Performed By: #### P INR, BMP, 84205-1, 85559-4, CBCA #### [facility] ([id number]) [address] [facility] [place] [address] Hemoglobin (Bld) [Mass/Vol] 7.4 g/dL Low 11.7-15.5 [facility] Comment on above: Performed By: #### P INR, BMP, 05995-0, 58038-8, CBCA #### [facility] ([id number]) [address] [facility] [place] [address] HYPOCHROMIA 1+ Abnormal NONE [facility] Comment on above: Performed By: #### P INR, BMP, 32312-6, 18432-1, CBCA #### [facility] ([id number]) [address] [address] Lymphocytes (Bld) [#/Vol] 1.4 10*3/uL Normal 1.0-3.5 [facility] Comment on above: Performed By: #### P INR, BMP, 25929-8, 18891-2, CBCA #### [facility] ([id number]) [address] [place] [address] Lymphocytes/100 WBC (Bld) 16.9 % Normal [facility] Comment on above: Performed By: #### P INR, BMP, 07767-8, 12218-2, CBCA #### [facility] ([id number]) [address] [place] [address] MCH (RBC) [Entitic mass] 17.9 pg Low 27-34 [facility] Comment on above: Performed By: #### P INR, BMP, 64808-5, 87556-2, CBCA #### [facility] ([id number]) [address] [place] [address] MCHC (RBC) [Mass/Vol] 30.2 g/dL Low 32-36 [facility] Comment on above: Performed By: #### P INR, BMP, 80833-6, 50022-8, CBCA #### [facility] ([id number]) [address] [place] [address] MCV (RBC) [Entitic vol] 59 fL Low 80-100 [facility] Comment on above: Performed By: #### P INR, BMP, 72930-6, 66693-2, CBCA #### [facility] ([id number]) [address] [facility] [place] [address] Monocytes (Bld) [#/Vol] 0.7 10*3/uL Normal 0-0.9 [facility] Comment on above: Performed By: #### P INR, BMP, 37903-0, 27149-3, CBCA #### [facility] ([id number]) [address] [place] [address] Monocytes/100 WBC (Bld) 7.8 % Normal [facility] Comment on above: Performed By: #### P INR, BMP, 49640-5, 70528-2, CBCA #### [facility] ([id number]) [address] [place] [address] Neutrophils/100 WBC (Bld) 71.1 % Normal [facility] Comment on above: Performed By: #### P INR, BMP, 36130-5, 86736-9, CBCA #### [facility] ([id number]) [address] [place] [address] Platelet mean volume (Bld) [Entitic vol] 8.1 fL Normal 7-12 [facility] Comment on above: Performed By: #### P INR, BMP, 57894-2, 21527-8, CBCA #### [facility] ([id number]) [address] [facility] [place] [address] Platelets (Bld) [#/Vol] 270 10*3/uL Normal 150-450 [facility] Comment on above: Performed By: #### P INR, BMP, 15613-0, 06574-4, CBCA #### [facility] ([id number]) [address] [facility] [place] [address] RBC COUNT 4.16 X10E12/L Normal 3.80-5.20 [facility] Comment on above: Performed By: #### P INR, BMP, 58986-4, 90154-9, CBCA #### [facility] ([id number]) [address] [place] [address] WBC (Bld) [#/Vol] 8.5 10*3/uL Normal 4.0-11.0 [facility] Comment on above: Performed By: #### P INR, BMP, 25056-6, 07340-9, CBCA #### [facility] ([id number]) [address] [place] [address] CBC auto differentialon 10-0 2 Basophils (Bld) [#/Vol] 0.1 10*3/uL [facility] Basophils/100 WBC (Bld) 0.6 % [facility] Eosinophils (Bld) [#/Vol] 0.3 10*3/uL [facility] Eosinophils/100 WBC (Bld) 3.6 % [facility] Erythrocyte distribution width (RBC) [Ratio] 19.2 % High 11.5 - 15.0 % [facility] Hematocrit (Bld) [Volume fraction] 24.6 % Low 35 - 47 % [facility] Hemoglobin (Bld) [Mass/Vol] 7.4 g/dL Low 11.7 - 15.5 g/dL [facility] Hypochromia Ql (Bld) 1+ Abnormal NONE^NONE [facility] Interpretation and review of laboratory results Abnormal [facility] Lymphocytes (Bld) [#/Vol] 1.4 10*3/uL [facility] Lymphocytes/100 WBC (Bld) 16.9 % [facility] MCH (RBC) [Entitic mass] 17.9 pg Low 27 - 34 pg [facility] MCHC (RBC) [Mass/Vol] 30.2 g/dL Low 32 - 36 g/dL [facility] MCV (RBC) [Entitic vol] 59 fL Low 80 - 100 fL [facility] Monocytes (Bld) [#/Vol] 0.7 10*3/uL [facility] Monocytes/100 WBC (Bld) 7.8 % [facility] Neutrophils (Bld) [#/Vol] 6.1 10*3/uL [facility] Neutrophils/100 WBC (Bld) 71.1 % [facility] Platelet mean volume (Bld) [Entitic vol] 8.1 fL 7 - 12 fL [facility] Platelets (Bld) [#/Vol] 270 10*3/uL [facility] RBC (Bld) [#/Vol] 4.16 10*6/uL [facility] WBC corrected for nucl RBC Auto (Bld) [#/Vol] 8.5 [facility] FERRITINon 03-25-2024 Ferritin [Mass/Vol] 4 ng/mL Low 11-307 [facility] Comment on above: Performed By: #### P INR, BMP, 25541-2, 77801-3, CBCA #### [facility] ([id number]) [address] [facility] [place] [address] Ferritinon 03-25-2024 Ferritin [Mass/Vol] 4 ng/mL Low 11 - 307 ng/mL [facility] Ferritin [Mass/Vol]on 2023 Interpretation and review of laboratory results Abnormal [facility] System Glucose Glucometer (BldC) [M ass/Vol]on 03-25-2024 Glucose [Mass/Vol] 140 mg/dL High 65 - 99 mg/dL [facility] Interpretation and review of laboratory results Abnormal [facility] Glucose [Mass/Vol] 140 mg/dL High 65-99 [facility] Glucose [Mass/Vol] 154 mg/dL High 65 - 99 mg/dL [facility] Interpretation and review of laboratory results Abnormal [facility] Glucose [Mass/Vol] 154 mg/dL High 65-99 [facility] Glucose [Mass/Vol] 158 mg/dL High 65 - 99 mg/dL [facility] Interpretation and review of laboratory results Abnormal [facility] Glucose [Mass/Vol] 158 mg/dL High 65-99 [facility] Glucose [Mass/Vol] 137 mg/dL High 65 - 99 mg/dL [facility] Glucose [Mass/Vol] 137 mg/dL High 65-99 [facility] HGB AND HCTon 03-25-2024 Hematocrit (Bld) [Volume fraction] 23.4 % Low 35-47 [facility] Comment on above: Performed By: #### P INR, BMP, 58021-2, 37971-3, CBCA #### [facility] ([id number]) [address] [facility] [place] [address] Hemoglobin (Bld) [Mass/Vol] 7.1 g/dL Low 11.7-15.5 [facility] Comment on above: Performed By: #### P INR, BMP, 95675-7, 76160-8, CBCA #### [facility] ([id number]) [address] [place] [address] Hematocrit (Bld) [Volume fraction] 25.0 % Low 35-47 [facility] Comment on above: Performed By: #### P INR, BMP, 87462-9, 20890-4, CBCA #### [facility] ([id number]) [address] [facility] [place] [address] Hemoglobin (Bld) [Mass/Vol] 7.6 g/dL Low 11.7-15.5 [facility] Comment on above: Performed By: #### P INR, BMP, 35649-3, 62386-3, CBCA #### [facility] ([id number]) [address] [place] [address] Hemoglobin and hematocrit, b loodon 03-25-2024 Hematocrit (Bld) [Volume fraction] 23.4 % Low 35 - 47 % [facility] Hemoglobin (Bld) [Mass/Vol] 7.1 g/dL Low 11.7 - 15.5 g/dL [facility] Interpretation and review of laboratory results Abnormal [facility] Hematocrit (Bld) [Volume fraction] 25.0 % Low 35 - 47 % [facility] Hemoglobin (Bld) [Mass/Vol] 7.6 g/dL Low 11.7 - 15.5 g/dL [facility] Interpretation and review of laboratory results Abnormal [facility] IRON PROFILEon 03-25-2024 Iron [Mass/Vol] ug/dL Low 50-170 [facility] Comment on above: Performed By: #### P INR, BMP, 31468-9, 86336-7, CBCA #### [facility] ([id number]) [address] [place] [address] IRON BINDING 524 ug/dL High 250-425 [facility] Comment on above: Performed By: #### P INR, BMP, 59866-9, 29232-7, CBCA #### [facility] ([id number]) [address] [place] [address] IRON SATURATION <2 Low 15-50 [facility] Comment on above: Performed By: #### P INR, BMP, 57465-6, 18973-0, CBCA #### [facility] ([id number]) [address] [place] [address] Iron and TIBCon 03-25-2024 Interpretation and review of laboratory results Abnormal [facility] Iron [Mass/Vol] ug/dL Low 50 - 170 ug/dL [facility] Iron binding capacity [Mass/Vol] 524 ug/dL High 250 - 425 ug/dL [facility] Iron saturation [Mass fraction] Low [facility] Lactate (P manuela) [Moles/Vol]o n 03-25-2024 [facility] LACTATE W/REFLEX 1.2 mmol/L Normal 0.4-2.0 [facility] Comment on above: Result Comment: Result did not trigger repeat Lactate, re-order if needed. Performed By: #### P INR, BMP, 33455-7, 13120-2, CBCA #### [facility] ([id number]) [address] [place] [address] Lactate w/ Reflexon 03-25-20 24 Lactate (P manuela) [Moles/Vol] 1.2 mmol/L 0.4 - 2.0 mmol/L [facility] Comment on above: Result did not trigger repeat Lactate, re-order if needed. No Panel Informationon 03-25 [facility] Interpretation and review of laboratory results Abnormal [facility] PROTIME AND INRon 03-25-2024 INR Coag (PPP) [Relative time] 1.9 {INR} High 0.8-1.1 [facility] Comment on above: Performed By: #### P INR, BMP, 30152-4, 56199-1, CBCA #### [facility] ([id number]) [address] [place] [address] PT Coag (PPP) [Time] 21.1 s High 9.8-13.2 [facility] Comment on above: Performed By: #### P INR, BMP, 41679-6, 09043-5, CBCA #### [facility] ([id number]) [address] [place] [address] INR Coag (PPP) [Relative time] 2.2 {INR} High 0.8-1.1 [facility] Comment on above: Performed By: #### P INR, BMP, 77740-6, 04322-3, CBCA #### [facility] ([id number]) [address] [place] [address] PT Coag (PPP) [Time] 24.9 s High 9.8-13.2 [facility] Comment on above: Performed By: #### P INR, BMP, 67564-9, 51925-7, CBCA #### [facility] ([id number]) [address] [place] [address] Protime & INRon 03-25-2024 INR Coag (PPP) [Relative time] 1.9 {INR} High [facility] Interpretation and review of laboratory results Abnormal [facility] PT Coag (PPP) [Time] 21.1 s High [facility] INR Coag (PPP) [Relative time] 2.2 {INR} High [facility] Interpretation and review of laboratory results Abnormal [facility] PT Coag (PPP) [Time] 24.9 s High [facility][note 3] System XR CHEST 2 VWSon 03-25-2024 XR CHEST 2 VWS XR CHEST 2 VWS CLINICAL HISTORY: Shortness of breath Comparison: 01/28/2023 Views: 2 view FINDINGS: * No acute infiltrate. No volume loss nor consolidation. There is no pleural effusion, pneumothorax, nor volume loss. Heart and mediastinal structures are unremarkable. Pulmonary vasculature stable. Degenerative changes thoracic spine. Old right rib fractures. IMPRESSION: * No active disease nor significant interval change Finalized by Ramiro Alvarado MD on 03/25/2024 5:38 AM Normal [facility] XR Chest PA and Lateralon CLINICAL HISTORY: Shortness of breath Comparison: 01/28/2023 Views: 2 view FINDINGS: * No acute infiltrate. No volume loss nor consolidation. There is no pleural effusion, pneumothorax, nor volume loss. Heart and mediastinal structures are unremarkable. Pulmonary vasculature stable. Degenerative changes thoracic spine. Old right rib fractures. IMPRESSION: * No active disease nor significant interval change Finalized by Ramiro Alvarado MD on 03/25/2024 5:38 AM SE[facility] Ramiro Alvarado MD - 03/25/2024 CLINICAL HISTORY: Shortness of breath Comparison: 01/28/2023 Views: 2 view FINDINGS: * No acute infiltrate. No volume loss nor consolidation. There is no pleural effusion, pneumothorax, nor volume loss. Heart and mediastinal structures are unremarkable. Pulmonary vasculature stable. Degenerative changes thoracic spine. Old right rib fractures. IMPRESSION: * No active disease nor significant interval change Finalized by Ramiro Alvarado MD on 03/25/2024 5:38 AM [facility] Radiology Study observation (narrative) [facility] XR Chest PA and LateralOrder ed By: Ramiro Alvarado on 03-25-2024 [facility] Work Phone: aPTT Coag (PPP) [Time]on aPTT Coag (Bld) [Time] 33 s Normal 26-37 [facility] Comment on above: Performed By: #### P INR, BMP, 48417-8, 89940-3, CBCA #### [facility] ([id number]) [address] [facility] [place] [address] ABO Rh Repeaton 03-24-2024 ABO B [facility] Rh Nom (Bld) Positive [facility] BASIC METABOLIC PANLon 03-24 Anion gap [Moles/Vol] 10 mmol/L Normal 5-15 [facility] Comment on above: Performed By: #### P INR, BMP, 10823-0, 11377-4, CBCA #### [facility] ([id number]) [address] [place] [address] Calcium [Mass/Vol] 9.2 mg/dL Normal 8.5-10.5 [facility] Comment on above: Performed By: #### P INR, BMP, 37838-6, 30489-7, CBCA #### [facility] ([id number]) [address] [place] [address] Chloride [Moles/Vol] 105 mmol/L Normal 98-109 [facility] Comment on above: Performed By: #### P INR, BMP, 19682-6, 48316-4, CBCA #### [facility] ([id number]) [address] [place] [address] CO2 [Moles/Vol] 22 mmol/L Normal 22-32 [facility] Comment on above: Performed By: #### P INR, BMP, 33582-9, 52665-4, CBCA #### [facility] ([id number]) [address] [place] [address] Creatinine [Mass/Vol] 0.99 mg/dL Normal 0.40-1.00 [facility] Comment on above: Result Comment: METH OD TRACEABLE TO IDMS STANDARD Performed By: #### P INR, BMP, 57857-7, 21452-0, CBCA #### [facility] ([id number]) [address] [facility] [place] [address] GFR/1.73 sq M.predicted among non-blacks MDRD (S/P/Bld) [Vol rate/Area] 64 mL/min/{1.73_m2} Normal >59 [facility] Comment on above: Result Comment: Reported eGFR is based on the CKD-EPI 2020 equation that does not use a race coefficient. Performed By: #### P INR, BMP, 53027-9, 55435-5, CBCA #### [facility] ([id number]) [address] [place] [address] Glucose [Mass/Vol] 157 mg/dL High 65-99 [facility] Comment on above: Performed By: #### P INR, BMP, 61885-7, 78228-2, CBCA #### [facility] ([id number]) [address] [place] [address] Potassium [Moles/Vol] 3.8 mmol/L Normal 3.5-5.0 [facility] Comment on above: Performed By: #### P INR, BMP, 23268-1, 60508-4, CBCA #### [facility] ([id number]) [address] [place] [address] Sodium [Moles/Vol] 137 mmol/L Normal 134-146 [facility] Comment on above: Performed By: #### P INR, BMP, 19785-1, 12102-4, CBCA #### [facility] ([id number]) [address] [place] [address] Urea nitrogen [Mass/Vol] 12 mg/dL Normal 5-27 [facility] Comment on above: Performed By: #### P INR, BMP, 67173-2, 77118-8, CBCA #### [facility] ([id number]) [address] [facility] [place] [address] Basic Metabolic Panelon 10-0 Anion gap [Moles/Vol] 10 mmol/L 5 - 15 mmol/L [facility] Calcium [Mass/Vol] 9.2 mg/dL 8.5 - 10. 5 mg/dL [facility] Chloride [Moles/Vol] 105 mmol/L 98 - 10 9 mmol/L [facility] CO2 [Moles/Vol] 22 mmol/L 22 - 32 mmol/L [facility] Creatinine [Mass/Vol] 0.99 mg/dL 0.40 - 1.00 mg/dL [facility] Comment on above: METHOD TRACEABLE TO IDSD STANDARD eGFR (CKD-EPI)non-race dependent 64 - PINF [facility] Comment on above: Reported eGFR is based on the CKD-EPI 2020 equation that does not use a race coefficient. Glucose [Mass/Vol] 157 mg/dL High 65 - 99 mg/dL [facility] Potassium [Moles/Vol] 3.8 mmol/L 3.5 - 5.0 mmol/L [facility] Sodium [Moles/Vol] 137 mmol/L 134 - 146 mmol/L [facility] Urea nitrogen [Mass/Vol] 12 mg/dL 5 - 27 mg/dL [facility] CBC AND AUTO DIFFon 03-24-20 24 Eosinophils (Bld) [#/Vol] 0.4 10*3/uL Normal 0.0-0.4 [facility] Comment on above: Performed By: #### P INR, BMP, 86510-7, 52883-0, CBCA #### [facility] ([id number]) [address] [facility] [place] [address] Eosinophils/100 WBC (Bld) 3.8 % Normal [facility] Comment on above: Performed By: #### P INR, BMP, 38230-9, 46958-8, CBCA #### [facility] ([id number]) [address] [place] [address] Erythrocyte distribution width (RBC) [Ratio] 19.7 % High 11.5-15.0 [facility] Comment on above: Performed By: #### P INR, BMP, 38688-2, 34965-1, CBCA #### [facility] ([id number]) [address] [place] [address] Hematocrit (Bld) [Volume fraction] 28.1 % Low 35-47 [facility] Comment on above: Performed By: #### P INR, BMP, 80622-6, 95688-3, CBCA #### [facility] ([id number]) [address] [place] [address] Hemoglobin (Bld) [Mass/Vol] 8.6 g/dL Low 11.7-15.5 [facility] Comment on above: Performed By: #### P INR, BMP, 01075-7, 62743-4, CBCA #### [facility] ([id number]) [address] [place] [address] HYPOCHROMIA 1+ Abnormal NONE [facility] Comment on above: Performed By: #### P INR, BMP, 17660-4, 62592-5, CBCA #### [facility] ([id number]) [address] [place] [address] Lymphocytes (Bld) [#/Vol] 2.2 10*3/uL Normal 1.0-3.5 [facility] Comment on above: Performed By: #### P INR, BMP, 72329-8, 67460-2, CBCA #### [facility] ([id number]) [address] [place] [address] Lymphocytes/100 WBC (Bld) 19.2 % Normal [facility] Comment on above: Performed By: #### P INR, BMP, 61290-5, 62478-5, CBCA #### [facility] ([id number]) [address] [place] [address] MCH (RBC) [Entitic mass] 18.1 pg Low 27-34 [facility] Comment on above: Performed By: #### P INR, BMP, 72200-9, 65405-8, CBCA #### [facility] ([id number]) [address] [place] [address] MCHC (RBC) [Mass/Vol] 30.5 g/dL Low 32-36 [facility] Comment on above: Performed By: #### P INR, BMP, 41460-0, 15804-0, CBCA #### [facility] ([id number]) [address] [place] [address] MCV (RBC) [Entitic vol] 60 fL Low 80-100 [facility] Comment on above: Performed By: #### P INR, BMP, 40793-5, 05654-7, CBCA #### [facility] ([id number]) [address] [place] [address] Neutrophils (Bld) [#/Vol] 8.6 10*3/uL High 1.5-6.6 [facility] Comment on above: Performed By: #### P INR, BMP, 33250-6, 04400-6, CBCA #### [facility] ([id number]) [address] [place] [address] Platelet mean volume (Bld) [Entitic vol] 8.2 fL Normal 7-12 [facility] Comment on above: Performed By: #### P INR, BMP, 86167-5, 95598-2, CBCA #### [facility] ([id number]) [address] [place] [address] Platelets (Bld) [#/Vol] 361 10*3/uL Normal 150-450 [facility] Comment on above: Performed By: #### P INR, BMP, 12493-1, 58700-8, CBCA #### [facility] ([id number]) [address] [place] [address] POLYCHROMASIA 1+ Abnormal NONE [facility] Comment on above: Performed By: #### P INR, BMP, 08275-7, 36224-0, CBCA #### [facility] ([id number]) [address] [place] [address] RBC COUNT 4.71 X10E12/L Normal 3.80-5.20 [facility] Comment on above: Performed By: #### P INR, BMP, 30026-5, 54047-6, CBCA #### [facility] ([id number]) [address] [place] [address] SEG NEUTROPHIL 77.0 % Normal [facility] Comment on above: Performed By: #### P INR, BMP, 71599-3, 40614-6, CBCA #### [facility] ([id number]) [address] [place] [address] WBC (Bld) [#/Vol] 11.2 10*3/uL High 4.0-11.0 [facility] Comment on above: Performed By: #### P INR, BMP, 28201-6, 53837-1, CBCA #### [facility] ([id number]) [address] [place] [address] CBC auto differentialon 10-0 Eosinophils (Bld) [#/Vol] 0.4 10*3/uL [facility] Eosinophils/100 WBC (Bld) 3.8 % [facility] Erythrocyte distribution width (RBC) [Ratio] 19.7 % High 11.5 - 15.0 % [facility] Hematocrit (Bld) [Volume fraction] 28.1 % Low 35 - 47 % [facility] Hemoglobin (Bld) [Mass/Vol] 8.6 g/dL Low 11.7 - 15.5 g/dL [facility] Hypochromia Ql (Bld) 1+ Abnormal NONE^NONE [facility] Lymphocytes (Bld) [#/Vol] 2.2 10*3/uL [facility] Lymphocytes/100 WBC (Bld) 19.2 % [facility] MCH (RBC) [Entitic mass] 18.1 pg Low 27 - 34 pg [facility] MCHC (RBC) [Mass/Vol] 30.5 g/dL Low 32 - 36 g/dL [facility] MCV (RBC) [Entitic vol] 60 fL Low 80 - 100 fL [facility] Neutrophils (Bld) [#/Vol] 8.6 10*3/uL High [facility] Platelet mean volume (Bld) [Entitic vol] 8.2 fL 7 - 12 fL [facility] Platelets (Bld) [#/Vol] 361 10*3/uL [facility] Polychromasia LM Ql (Bld) 1+ Abnormal NONE^NONE [facility] RBC (Bld) [#/Vol] 4.71 10*6/uL [facility] Segmented neutrophils/100 WBC (Bld) 77.0 % [facility] WBC corrected for nucl RBC Auto (Bld) [#/Vol] 11.2 High [facility] ABD[facility]EN AND PELVIS W CONT on 03-24-2024 CT ABDOMEN AND PELVIS W CONT CT ABDOMEN AND PELVIS W CONT CLINICAL HISTORY: Lower GI bleeding. CT ABDOMEN AND PELVIS WITH CONTRAST: 03/24/2024 COMPARISON: 10/20/2015 PROCEDURE: Axial images were obtained through the abdomen and pelvis after oral contrast ingestion and 100 mL Omnipaque 300 intravenously. Coronal and sagittal reconstructions were performed. All CT scans at this facility use dose modulation, iterative reconstruction, and/or weight based dosing when appropriate to reduce radiation dose to as low as reasonably achievable. FINDINGS : The visualized lower lungs and pleural spaces are clear. No focal hepatic or splenic abnormality is evident. The pancreas, gallbladder, and biliary tree are within normal limits. The kidneys enhance symmetrically. A right superior pole lesion contains fat and is compatible with an angiomyolipoma. This measures up to 1.8 cm. There is no ureteral dilation or urinary bladder irregularity. No dilated bowel loops are present. Diverticula are present within the descending colon and sigmoid region with no acute inflammatory changes. There is some heterogeneous density within the cecum with areas of slightly hyperdense appearance at the lateral cecum on axial image 46 and coronal image 45. This is near the ileocecal valve. No focal bowel lesion is evident. Vascular structures enhance normally. Mild atherosclerotic calcification is present within the abdominal aorta. L4 superior endplate fracture appears subacute. Degenerative changes are present throughout the [place] spine. Some narrowing of the spinal canal is present at the thoracolumbar region with ossification of posterior longitudinal ligament. IMPRESSION: No definite cause of GI bleeding is present but there is some hyperdensity in the cecal region which could represent acute intra-abdominal contrast/blood. No other acute intra-abdominal or pelvic abnormality on CT evaluation. Lumbar degenerative and posttraumatic findings without a definite acute abnormality. 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 Finalized by Ulysses Pérez MD on 03/24/2024 6:12 PM Normal [facility] CT Abdomen and Pelvis W cont rast [place] 03-24-2024 CLINICAL HISTORY: Lower GI bleeding. CT ABDOMEN AND PELVIS WITH CONTRAST: 03/24/2024 COMPARISON: 10/20/2015 PROCEDURE: Axial images were obtained through the abdomen and pelvis after oral contrast ingestion and 100 mL Omnipaque 300 intravenously. Coronal and sagittal reconstructions were performed. All CT scans at this facility use dose modulation, iterative reconstruction, and/or weight based dosing when appropriate to reduce radiation dose to as low as reasonably achievable. FINDINGS : The visualized lower lungs and pleural spaces are clear. No focal hepatic or splenic abnormality is evident. The pancreas, gallbladder, and biliary tree are within normal limits. The kidneys enhance symmetrically. A right superior pole lesion contains fat and is compatible with an angiomyolipoma. This measures up to 1.8 cm. There is no ureteral dilation or urinary bladder irregularity. No dilated bowel loops are present. Diverticula are present within the descending colon and sigmoid region with no acute inflammatory changes. There is some heterogeneous density within the cecum with areas of slightly hyperdense appearance at the lateral cecum on axial image 46 and coronal image 45. This is near the ileocecal valve. No focal bowel lesion is evident. Vascular structures enhance normally. Mild atherosclerotic calcification is present within the abdominal aorta. L4 superior endplate fracture appears subacute. Degenerative changes are present throughout the [place] spine. Some narrowing of the spinal canal is present at the thoracolumbar region with ossification of posterior longitudinal ligament. IMPRESSION: No definite cause of GI bleeding is present but there is some hyperdensity in the cecal region which could represent acute intra-abdominal contrast/blood. No other acute intra-abdominal or pelvic abnormality on CT evaluation. Lumbar degenerative and posttraumatic findings without a definite acute abnormality. 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 Finalized by Ulysses Pérez MD on 03/24/2024 6:12 PM [facility] Ulysses Pérez MD - 03/24/2024 CLINICAL HISTORY: Lower GI bleeding. CT ABDOMEN AND PELVIS WITH CONTRAST: 03/24/2024 COMPARISON: 10/20/2015 PROCEDURE: Axial images were obtained through the abdomen and pelvis after oral contrast ingestion and 100 mL Omnipaque 300 intravenously. Coronal and sagittal reconstructions were performed. All CT scans at this facility use dose modulation, iterative reconstruction, and/or weight based dosing when appropriate to reduce radiation dose to as low as reasonably achievable. FINDINGS : The visualized lower lungs and pleural spaces are clear. No focal hepatic or splenic abnormality is evident. The pancreas, gallbladder, and biliary tree are within normal limits. The kidneys enhance symmetrically. A right superior pole lesion contains fat and is compatible with an angiomyolipoma. This measures up to 1.8 cm. There is no ureteral dilation or urinary bladder irregularity. No dilated bowel loops are present. Diverticula are present within the descending colon and sigmoid region with no acute inflammatory changes. There is some heterogeneous density within the cecum with areas of slightly hyperdense appearance at the lateral cecum on axial image 46 and coronal image 45. This is near the ileocecal valve. No focal bowel lesion is evident. Vascular structures enhance normally. Mild atherosclerotic calcification is present within the abdominal aorta. L4 superior endplate fracture appears subacute. Degenerative changes are present throughout the [place] spine. Some narrowing of the spinal canal is present at the thoracolumbar region with ossification of posterior longitudinal ligament. IMPRESSION: No definite cause of GI bleeding is present but there is some hyperdensity in the cecal region which could represent acute intra-abdominal contrast/blood. No other acute intra-abdominal or pelvic abnormality on CT evaluation. Lumbar degenerative and posttraumatic findings without a definite acute abnormality. 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 Finalized by Ulysses Pérez MD on 03/24/2024 6:[address] [facility] [facility] (narrative) [facility] Abdomen and Pelvis W cont rast IVOrdered By: Ulysses Pérez on 03-24-2024 [facility] Work Phone: CT BRAIN WO CONTon CT BRAIN WO CONT CT BRAIN WO CONT CT BRAIN WITHOUT CONTRAST COMPARISON: 07/12/2023 HISTORY: Transient alteration of awareness. Dizziness TECHNIQUE: Unenhanced axial images of the brain were obtained. Automatic exposure control (AEC) was utilized. FINDINGS: There is no evidence for acute intracranial hemorrhage. There is no hydrocephalus, mass effect, or midline shift. Aguilar-white differentiation is preserved with no CT evidence for an acute infarct. IMPRESSION: No evidence for an acute intracranial process. All CT scans at this facility use dose modulation, iterative reconstruction, and/or weight based dosing when appropriate to reduce radiation dose to as low as reasonably achievable. Finalized by Kori Robert DO on 03/24/2024 5:54 PM Normal [facility] CT Head WO contraston 2023 CT BRAIN WITHOUT CONTRAST COMPARISON: 07/12/2023 HISTORY: Transient alteration of awareness. Dizziness TECHNIQUE: Unenhanced axial images of the brain were obtained. Automatic exposure control (AEC) was utilized. FINDINGS: There is no evidence for acute intracranial hemorrhage. There is no hydrocephalus, mass effect, or midline shift. Aguilar-white differentiation is preserved with no CT evidence for an acute infarct. IMPRESSION: No evidence for an acute intracranial process. All CT scans at this facility use dose modulation, iterative reconstruction, and/or weight based dosing when appropriate to reduce radiation dose to as low as reasonably achievable. Finalized by Kori Robert DO on 03/24/2024 5:54 PM SE[facility]RAPACS Kori Robert DO - 03/24/2024 CT BRAIN WITHOUT CONTRAST COMPARISON: 07/12/2023 HISTORY: Transient alteration of awareness. Dizziness TECHNIQUE: Unenhanced axial images of the brain were obtained. Automatic exposure control (AEC) was utilized. FINDINGS: There is no evidence for acute intracranial hemorrhage. There is no hydrocephalus, mass effect, or midline shift. Aguilar-white differentiation is preserved with no CT evidence for an acute infarct. IMPRESSION: No evidence for an acute intracranial process. All CT scans at this facility use dose modulation, iterative reconstruction, and/or weight based dosing when appropriate to reduce radiation dose to as low as reasonably achievable. Finalized by Kori Robert DO on 03/24/2024 5:54 PM [facility] Radiology Study observation (narrative) [facility] CT Head WO contrastOrdered B y: Kori Robert on 03-24-2024 [facility] Work Phone: Er Extra Urineon 03-24-2024 Urine collection device ER EXTRA URINE ORDER IN PROCESS [facility] HGB AND HCTon 03-24-2024 Hematocrit (Bld) [Volume fraction] 25.1 % Low 35-47 [facility] Comment on above: Performed By: #### P INR, BMP, 54167-7, 64752-3, CBCA #### [facility] ([id number]) [address] [place] [address] Hemoglobin (Bld) [Mass/Vol] 7.6 g/dL Low 11.7-15.5 [facility] Comment on above: Performed By: #### P INR, BMP, 12890-3, 37386-7, CBCA #### [facility] ([id number]) [address] [place] [address] Hemoglobin and hematocrit, b loodon 03-24-2024 Hematocrit (Bld) [Volume fraction] 25.1 % Low 35 - 47 % [facility] Hemoglobin (Bld) [Mass/Vol] 7.6 g/dL Low 11.7 - 15.5 g/dL [facility] Lactateon 03-24-2024 Lactate (P manuela) [Moles/Vol] 2.9 mmol/L High 0.4 - 2.0 mmol/L [facility] Lactate (P manuela) [Moles/Vol]o n 03-24-2024 Lactate [Moles/Vol] 2.9 mmol/L High 0.4-2.0 [facility] Comment on above: Performed By: #### P INR, BMP, 15122-9, 62159-6, CBCA #### [facility] ([id number]) [address] [place] [address] LACTATE W/REFLEX 3.7 mmol/L High 0.4-2.0 [facility] Comment on above: Performed By: #### P INR, BMP, 03786-5, 85309-0, CBCA #### [facility] ([id number]) [address] [place] [address] Lactate w/ Reflexon 03-24-20 24 Lactate (P manuela) [Moles/Vol] 3.7 mmol/L High 0.4 - 2.0 mmol/L [facility] Natriuretic peptide B [Mass/ Vol]on 03-24-2024 Natriuretic peptide B (Bld) [Mass/Vol] 51 pg/mL NINF - 100.0 pg/mL [facility] Natriuretic peptide B (Bld) [Mass/Vol] 51 pg/mL Normal <100.0 [facility] Comment on above: Performed By: #### 3 0934-4 #### [facility] ([id number]) [address] [place] [address] POCT Nursing Urine Macroscop ic UAon 03-24-2024 Bilirubin Ql (U) Negative Negative^Ne ga tive [facility] Glucose [Mass/Vol] Negative Negative^ Nega tive mg/dL [facility] Hemoglobin Ql (U) Negative Negative^N ega tive [facility] Ketones (U) [Mass/Vol] Negative Negative^Nega tive mg/dL [facility] Leukocyte esterase Test strip Ql (U) Trace Abnormal Negative^Nega tive [facility] Nitrite Ql (U) Negative Negative^Nega tive [facility] pH (U) 5.5 [pH] 5.0 - 8.5 [facility] Protein Ql (U) Negative Negative^Nega tive mg/dL [facility] Specific gravity (U) [Rel density] 1.020 1.003 - 1.035 [facility] Urobilinogen Qn (U) 0.2 NINF [facility] POCT Protime / INRon 024 INR Coag (PPP) [Relative time] 1.9 {INR} Abnormal 0.8 - 1.2 [facility] PROTIME AND INRon 03-24-2024 INR Coag (PPP) [Relative time] 2.0 {INR} High 0.8-1.1 [facility] Comment on above: Performed By: #### P INR, BMP, 06395-3, 80208-9, CBCA #### [facility] ([id number]) [address] [place] [address] PT Coag (PPP) [Time] 22.7 s High 9.8-13.2 [facility] Comment on above: Performed By: #### P INR, BMP, 93871-8, 31458-3, CBCA #### [facility] ([id number]) [address] [place] [address] Protime & INRon 03-24-2024 INR Coag (PPP) [Relative time] 2.0 {INR} High [facility] PT Coag (PPP) [Time] 22.7 s High [facility] Troponin I, High Sensitivity on 03-24-2024 Troponin I.cardiac High sensitivity method [Mass/Vol] 3 ng/L [facility] ng/L [facility] Troponin I, High Sensitivity 1 Houron 03-24-2024 Troponin I.cardiac High sensitivity method [Mass/Vol] 3 ng/L [facility] - 16 ng/L [facility] Troponin I.cardiac High sens itivity method [Mass/Vol]on 03-24-2024 1 HOUR TROP I, HIGH SENSITIVITY 3 ng/L Normal <16 [facility] Comment on above: Performed By: #### 8 9579-7 #### [facility] ([id number]) [address] [place] [address] TROPONIN I, HIGH SENSITIVITY 3 ng/L Normal <16 [facility] Comment on above: Performed By: #### P INR, BMP, 07392-5, 77900-2, CBCA #### [facility] ([id number]) [address] [place] [address] Type and screen(includes ind irect armen)on 03-24-2024 ABO B [facility] Rh Nom (Bld) Positive [facility] URINE CULTUREon 03-24-2024 Bacteria identified Cx Nom (U) CULTURE RESULTS 50,000 to 100,000 ORGANISMS/mL NORMAL URO GENITAL ELVIN Normal [facility] Comment on above: Performed By: #### P INR, BMP, 61951-8, 00582-7, CBCA #### [facility] ([id number]) [address] [place] [address] URN MACROSCOPIC NURon 2023 BILIRUBIN STEPH Negative Normal NEG [facility] Comment on above: Performed By: #### N UM #### [facility] ([id number]) [address] [place] [address] BLOOD/HGB STEPH Negative Normal NEG [facility] Comment on above: Performed By: #### N UM #### [facility] ([id number]) [address] [place] [address] GLUCOSE STEPH Negative Normal NEG [facility] Comment on above: Performed By: #### N UM #### [facility] ([id number]) [address] [place] [address] KETONES STEPH Negative Normal NEG [facility] Comment on above: Performed By: #### N UM #### [facility] ([id number]) [address] [place] [address] LEUKOCYTE ESTERASE STEPH Trace Abnormal NEG [facility] Comment on above: Performed By: #### N UM #### [facility] ([id number]) [address] [place] [address] NITRITE STEPH Negative Normal NEG [facility] Comment on above: Performed By: #### N UM #### [facility] ([id number]) [address] [place] [address] PH STEPH 5.5 Normal 5.0-8.5 [facility] Comment on above: Performed By: #### N UM #### [facility] ([id number]) [address] [place] [address] PROTEIN STEPH Negative Normal NEG [facility] Comment on above: Performed By: #### N UM #### [facility] ([id number]) [address] [place] [address] SPECIFIC GRAVITY STEPH 1.020 Normal 1.003-1.035 [facility] Comment on above: Performed By: #### N UM #### [facility] ([id number]) [address] [place] [address] UROBILINOGEN STEPH 0.2 eu/dL Normal <1.1 [facility] Comment on above: Performed By: #### N UM #### [facility] ([id number]) [address] [place] [address] Urine collection deviceon ER EXTRA URINES ER EXTRA URINE ORDER IN PROCESS Normal [facility] Comment on above: Performed By: #### P INR, BMP, 26791-8, 39947-1, CBCA #### [facility] ([id number]) [address] [place] [address] BASIC METABOLIC PANLon 03-03 Anion gap [Moles/Vol] 8 mmol/L Normal 5-15 [facility] Comment on above: Performed By: #### C BCA, PINR, 23612-5, BMP #### [facility] ([id number]) [address] [place] [address] Calcium [Mass/Vol] 8.9 mg/dL Normal 8.5-10.5 [facility] Comment on above: Performed By: #### C BCA, PINR, 68681-2, BMP #### [facility] ([id number]) [address] [place] [address]25 Chloride [Moles/Vol] 105 mmol/L Normal 98-[address] [facility] Comment on above: Performed By: #### C BCA, PINR, 16107-3, BMP #### [facility] ([id number]) [address] [place] [address] 67878 CO2 [Moles/Vol] 25 mmol/L Normal 22-32 [facility] Comment on above: Performed By: #### C BCA, PINR, 60430-0, BMP #### [facility] ([id number]) [address] [place] [address] 27325 Creatinine [Mass/Vol] 0.76 mg/dL Normal 0.40-1.00 [facility] Comment on above: Result Comment: METH OD TRACEABLE TO IDMS STANDARD Performed By: #### C BCA, PINR, 34861-6, BMP #### [facility] ([id number]) [address] [place] [address] 55249 GFR/1.73 sq M.predicted among non-blacks MDRD (S/P/Bld) [Vol rate/Area] 87 mL/min/{1.73_m2} Normal >59 [facility] Comment on above: Result Comment: Reported eGFR is based on the CKD-EPI 2020 equation that does not use a race coefficient. Performed By: #### C BCA, PINR, 04793-3, BMP #### [facility] ([id number]) [address] [place] [address]1319 Glucose [Mass/Vol] 183 mg/dL High 65-99 [facility] Comment on above: Performed By: #### C BCA, PINR, 21201-6, BMP #### [facility] ([id number]) [address] [place] [address] 81785 Potassium [Moles/Vol] 3.4 mmol/L Low 3.5-5.0 [facility] Comment on above: Performed By: #### C BCA, PINR, 20069-3, BMP #### [facility] ([id number]) [address] [place] [address] 32107 Sodium [Moles/Vol] 138 mmol/L Normal 134-146 [facility] Comment on above: Performed By: #### C BCA, PINR, 15549-7, BMP #### [facility] ([id number]) [address] [place] [address] 57586 Urea nitrogen [Mass/Vol] 7 mg/dL Normal 5-27 [facility] Comment on above: Performed By: #### Concha RAMOS, PINR, 72053-2, BMP #### [facility] ([id number]) [address] [place] [address] 95545 CBC AND AUTO DIFFon 03-03-20 24 ABSOLUTE BASOPHIL 0.1 X10E9/L Normal 0.0-0.2 [facility] Comment on above: Performed By: #### Concha RAMOS, PINR, 82287-9, BMP #### [facility] ([id number]) [address] [place] [address] 10364 ABSOLUTE NEUTROPHIL 6.0 X10E9/L Normal 1.5-6.[address] [facility] Comment on above: Performed By: #### Concha RAMOS, PINR, 11260-1, BMP #### [facility] ([id number]) [address] [place] [address] 70661 Basophils/100 WBC (Bld) 0.9 % Normal [facility] Comment on above: Performed By: #### Concha RAMOS, PINR, 23143-7, BMP #### [facility] ([id number]) [address] [place] [address] 88385 Eosinophils (Bld) [#/Vol] 0.4 10*3/uL Normal 0.0-0.4 [facility] Comment on above: Performed By: #### Concha BCA, PINR, 35897-2, BMP #### [facility] ([id number]) [address] [place] [address] 10259 Eosinophils/100 WBC (Bld) 4.6 % Normal [facility] Comment on above: Performed By: #### Concha RAMOS, PINR, 65766-1, BMP #### [facility] ([id number]) [address] [place] [address] 29602 Erythrocyte distribution width (RBC) [Ratio] 20.4 % High 11.5-15.0 [facility] Comment on above: Performed By: #### JUSTIN Kern BCAR, 11063-4, BMP #### [facility] ([id number]) [address] [place] [address] 71686 Hematocrit (Bld) [Volume fraction] 33.2 % Low 35-47 [facility] Comment on above: Performed By: #### Concha RAMOS PINR, 35669-7, BMP #### [facility] ([id number]) [address] [place] [address] 47584 Hemoglobin (Bld) [Mass/Vol] 10.2 g/dL Low 11.7-15.5 [facility] Comment on above: Performed By: #### JUSTIN Kern BCAR, 72180-0, BMP #### [facility] ([id number]) [address] [place] [address] 95100 Lymphocytes (Bld) [#/Vol] 2.3 10*3/uL Normal 1.0-3.5 [facility] Comment on above: Performed By: #### Concha RAMOS, PINR, 90553-9, BMP #### [facility] ([id number]) [address] [place] [address] 16861 Lymphocytes/100 WBC (Bld) 24.0 % Normal [facility] Comment on above: Performed By: #### Concha RAMOS PINR, 97880-8, BMP #### [facility] ([id number]) [address] [place] [address] 00829 MCH (RBC) [Entitic mass] 18.7 pg Low 27-34 [facility] Comment on above: Performed By: #### Concha RAMOS, PINR, 32112-2, BMP #### [facility] ([id number]) [address] [place] [address] 08359 MCHC (RBC) [Mass/Vol] 30.7 g/dL Low 32-36 [facility] Comment on above: Performed By: #### JAIRO Kern BCA, 51993-4, BMP #### [facility] ([id number]) [address] [place] [address] 48874 MCV (RBC) [Entitic vol] 61 fL Low 80-100 [facility] Comment on above: Performed By: #### JAIRO Kern BCA, 76982-6, BMP #### [facility] ([id number]) [address] [place] [address] 47131 Monocytes (Bld) [#/Vol] 0.7 10*3/uL Normal 0-0.9 [facility] Comment on above: Performed By: #### JAIRO Kern BCA, 38639-7, BMP #### [facility] ([id number]) [address] [place] [address] 62048 Monocytes/100 WBC (Bld) 7.5 % Normal [facility] Comment on above: Performed By: #### JUSITN Kern BCAR, 66246-6, BMP #### [facility] ([id number]) [address] [place] [address] 58579 Neutrophils/100 WBC (Bld) 63.0 % Normal [facility] Comment on above: Performed By: #### JSUTIN Kern BCAR, 64166-5, BMP #### [facility] ([id number]) [address] [place] [address] 29608 Platelet mean volume (Bld) [Entitic vol] 8.3 fL Normal 7-12 [facility] Comment on above: Performed By: #### JUSTIN Kern BCAR, 71969-1, BMP #### [facility] ([id number]) [address] [place] [address] 35357 Platelets (Bld) [#/Vol] 332 10*3/uL Normal 150-450 [facility] Comment on above: Performed By: #### JAIRO Kern BCA, 98899-9, BMP #### [facility] ([id number]) [address] [place] [address] 17019 POLYCHROMASIA 1+ Abnormal NONE [facility] Comment on above: Performed By: #### JAIRO Kern BCA, 81744-8, BMP #### [facility] ([id number]) [address] [place] [address] 78056 RBC COUNT 5.45 X10E12/L High 3.80-5.20 [facility] Comment on above: Performed By: #### JAIRO Kern BCA, 45866-0, BMP #### [facility] ([id number]) [address] [place] [address] 00987 WBC (Bld) [#/Vol] 9.6 10*3/uL Normal 4.0-11.0 [facility] Comment on above: Performed By: #### JAIRO Kern BCA, 59419-2, BMP #### [facility] ([id number]) [address] [place] [address] 42923 HEMOGLOBINon 03-03-2024 Hemoglobin (Bld) [Mass/Vol] 9.5 g/dL Low 11.7-15.5 [facility] Comment on above: Performed By: #### JUSTIN Kern BCAR, 87851-2, BMP #### [facility] ([id number]) [address] [place] [address] 73251 Hematocrit Auto (Bld) [Volum e fraction]on 03-03-2024 Hematocrit (Bld) [Volume fraction] 31.1 % Low 35-47 [facility] Comment on above: Performed By: #### JUSTIN Kern BCAR, 15020-4, BMP #### [facility] ([id number]) [address] [place] [address], [place] [address] PROTIME AND INRon 03-03-2024 INR Coag (PPP) [Relative time] 2.4 {INR} High 0.8-1.1 [facility] Comment on above: Performed By: #### C BCA, PINR, 56306-3, BMP #### [facility] ([id number]) [address] [place] [address] 90041 PT Coag (PPP) [Time] 26.9 s High 9.8-13.[address] [facility] Comment on above: Result Comment: NEW REFERENCE RANGE Performed By: #### C RACHEL, PINR, 63943-5, BMP #### [facility] ([id number]) [address] [place] [address] 27705 INR Coag (PPP) [Relative time] 1.9 {INR} High 0.8-1.1 [facility] Comment on above: Performed By: #### C BCA, PINR, 44835-4, BMP #### [facility] ([id number]) [address] [place] [address] 45170 PT Coag (PPP) [Time] 21.3 s High 9.8-13.[address] [facility] Comment on above: Result Comment: NEW REFERENCE RANGE Performed By: #### C BCA, PINR, 97759-7, BMP #### [facility] ([id number]) [address] [place] [address] 75113 aPTT Coag (PPP) [Time]on aPTT Coag (Bld) [Time] 39 s High 26-37 [facility] Comment on above: Result Comment: NEW REFERENCE RANGE Performed By: #### C BCA, PINR, 99040-8, BMP #### [facility] ([id number]) [address] [place] [address] 61306 aPTT Coag (Bld) [Time] 47 s High 26-37 [facility] Comment on above: Result Comment: NEW REFERENCE RANGE Performed By: #### C BCA, PINR, 28129-5, [facility] #### [facility] ([id number]) [address] [place] [address], [place] [address] XR SPINE CERVICAL FLEXION/EX TENSION ONLYon 12-24-2023 XR SPINE CERVICAL FLEXION/EXTENSION ONLY XR SPINE CERVICAL FLEXION/EXTENSION ONLY XR SPINE CERVICAL FLEXION/EXTENSION ONLY Clinical history:Imbalance cervical neck pain Comparison: 01/14/2017 Findings: Evaluation is compromise by underpenetration. The cervical spine is not fully visualized. There is multilevel degenerative disc disease. No synovial flexion or extension. Impression: Multilevel degenerative disc disease without definitive acute process identified. Incomplete visualization of the cervical spine. Finalized by Yousuf Rabago MD on 12/24/2023 11:53 AM Normal [facility] MR CERVICAL SPINE W WO CONTo n 10-29-2023 MR CERVICAL SPINE W WO CONT MR CERVICAL SPINE W WO CONT STUDY: MR CERVICAL SPINE W WO CONT HISTORY: Imbalance; Frequent falls; Ataxia TECHNIQUE: * Routine multiplanar multisequence MR imaging of the cervical spine was performed with and without intravenous contrast. FINDINGS: Vertebral body heights and alignment are maintained. Minimal intervertebral disc space narrowing at C5-C6 and C6-C7 with minimal degenerative endplate changes. Overall this is not significantly disproportionate for age. Otherwise no suspicious marrow signal changes. No pathologic enhancement. Mild mucosal thickening of the maxillary and sphenoid sinuses. C2-C3: Mild bilateral facet arthropathy and minimal central disc osteophyte complex without significant spinal canal narrowing. Minimal neuroforaminal narrowing bilaterally. C3-C4: No significant spinal canal or neural foraminal narrowing. C4-C5: Mild diffuse disc osteophyte complex and mild facet arthropathy results in [id number]-[id number] bilateral neuroforaminal narrowing. No significant spinal canal narrowing. C5-C6: Mild broad-based disc osteophyte complex and facet and uncovertebral arthropathy results in moderate right and mild to moderate left neuroforaminal narrowing. No significant spinal canal narrowing. C6-C7: Mild to moderate broad-based disc osteophyte complex and facet arthropathy results in moderate spinal canal narrowing. Moderate right and severe left neuroforaminal narrowing. C7-T1: No significant spinal canal or neural foraminal narrowing. IMPRESSION: * Multilevel degenerative changes most significant at C6-C7 where there is moderate spinal canal narrowing with moderate right and severe left neuroforaminal narrowing. * No convincing cord signal abnormality. * Paranasal sinus mucosal thickening. Finalized by Flash Herzog on 10/29/2023 11:28 AM Normal [facility] ALBUMINon 10-15-2023 Albumin [Mass/Vol] 3.8 g/dL Normal 3.2-5.3 [facility] Comment on above: Performed By: #### 1 7861-6, 1751-7, 20724-4, 2777-1 #### [facility] ([id number]) [address] [place] [address] 89393 #### 55415-4 #### [facility] ([id number]) [address], [address] [place] [address] CALCIUMon 10-15-2023 Calcium [Mass/Vol] 8.9 mg/dL Normal 8.5-10.5 [facility] Comment on above: Performed By: #### 1 7861-6, 1751-7, 18456-8, 2777-1 #### [facility] ([id number]) [address] [place] [address] 84113 #### 27178-1 #### [facility] ([id number]) [address], [address] [place] [address] Collagen crosslinked N-telop eptide/Creatinine (U) [Molar ratio]on 10-15-2023 CREATININE,UR,VOL 133 mg/dL Normal [facility] Comment on above: Result Comment: NOTE Performed By: [employer] [address] [place] [address] [employer]: Justino Collier MD, PhD CLIA Number: [id number] Performed By: #### C BCA, PINR, 35780-2, BMP #### [facility] ([id number]) [address] [place] [address] 10304 NTX,URINE 61 Normal [facility] Comment on above: Result Comment: NOTE Normal adult female: Premenopausal: 17-94 nM BCE/mM creatinine Postmenopausal: 26-124 nM BCE/mM creatinine INTERPRETIVE INFORMATION: N-Telopeptide, Cross Linked, Urine NTx Units = nM BCE/mM creatinine A decrease of 30-40% from the NTx baseline after 3 months of therapy is a typical response to anti-resorptive therapy. NTx = Cross-linked N-telopeptide of Type I Collagen BCE = Bone Collagen Equivalent Access complete set of age- and/or gender-specific reference intervals for this test in the [email or web address] [facility] Test Directory ([employer]). Performed By: #### C BCA, PINR, 81901-0, BMP #### [facility] ([id number]) [address] [place] [address] 72833 MAGNESIUMon 10-15-2023 Magnesium [Mass/Vol] 1.9 mg/dL Normal 1.8-2.[address] [facility] Comment on above: Performed By: #### 1 7861-6, 1751-7, 07517-2, 2777-1 #### [facility] ([id number]) [address] [place] [address] 31103 #### 35306-7 #### [facility] ([id number]) [address], [address] [place] [address] PHOSPHORUSon 10-15-2023 Phosphate [Mass/Vol] 3.6 mg/dL Normal 2.4-4.[address] [facility] Comment on above: Performed By: #### 1 7861-6, 1751-7, 62801-3, 2777-1 #### [facility] ([id number]) [address] [place] [address] 92210 #### 68501-0 #### [facility] ([id number]) [address], [address] [place] [address] Vitamin D+Metabolites [Mass/ Vol]on 10-15-2023 VITAMIN D 25 HYD TOT 88.7 ng/mL Normal 30-[address] [facility] Comment on above: Result Comment: Vitamin D status 25 [place] Vitamin D Deficiency <20 ng/mL Insufficiency 20-29 ng/mL Sufficiency 30-100 ng/mL Toxicity >100 ng/mL NOTE: A pediatric reference range has not been established by the sole leveling machine operator of this kit. The [place] [employer] recommends a Vitamin D level of = or >20ng/mL in infants and children. Performed By: #### C JAIRO RAMOS, 99899-1, [facility] #### [facility] ([id number]) [address] [place] [address], [place] [address] POCT Protime / INRon 09-05-2 024 INR Coag (PPP) [Relative time] 3.0 {INR} Abnormal 0.8 - 1.2 [facility] Interpretation and review of laboratory results Abnormal [facility] POCT Protime / INRon 08-14-2 024 INR Coag (PPP) [Relative time] 2.2 {INR} Abnormal 0.8 - 1.2 [facility] Interpretation and review of laboratory results Abnormal [facility] POCT Protime / INRon 08-05-2 024 INR Coag (PPP) [Relative time] 1.9 {INR} Abnormal 0.8 - 1.2 [facility] Interpretation and review of laboratory results Abnormal [facility] POCT Protime / INRon 08-02-2 024 INR Coag (PPP) [Relative time] 1.5 {INR} Abnormal 0.8 - 1.2 [facility] Interpretation and review of laboratory results Abnormal [facility] POCT Protime / INRon 07-22-2 024 INR Coag (PPP) [Relative time] 1.5 {INR} Abnormal 0.8 - 1.2 [facility] Interpretation and review of laboratory results Abnormal [facility] BASIC METABOLIC PANLon 07-12 Anion gap [Moles/Vol] 8 mmol/L Normal 5-15 [facility] Comment on above: Performed By: #### C BCA, PINR, 00649-3, BMP #### [facility] ([id number]) [address] [place] [address] 18421 Calcium [Mass/Vol] 9.1 mg/dL Normal 8.5-10.5 [facility] Comment on above: Performed By: #### C BCA, PINR, 26891-8, BMP #### [facility] ([id number]) [address] [place] [address] 13833 Chloride [Moles/Vol] 103 mmol/L Normal 98-[address] [facility] Comment on above: Performed By: #### C BCA, PINR, 21589-5, BMP #### [facility] ([id number]) [address] [place] [address] 29231 CO2 [Moles/Vol] 26 mmol/L Normal 22-32 [facility] Comment on above: Performed By: #### C BCA, PINR, 02418-5, BMP #### [facility] ([id number]) [address] [place] [address] 53647 Creatinine [Mass/Vol] 1.13 mg/dL High 0.40-1.00 [facility] Comment on above: Result Comment: METH OD TRACEABLE TO IDMS STANDARD Performed By: #### C BCA, PINR, 72221-2, BMP #### [facility] ([id number]) [address] [place] [address] 90696 GFR/1.73 sq M.predicted among non-blacks MDRD (S/P/Bld) [Vol rate/Area] 55 mL/min/{1.73_m2} Low >59 [facility] Comment on above: Result Comment: Reported eGFR is based on the CKD-EPI 2020 equation that does not use a race coefficient. Performed By: #### C RACHEL, PINR, 43528-3, BMP #### [facility] ([id number]) [address] [place] [address] 05587 Glucose [Mass/Vol] 144 mg/dL High 65-99 [facility] Comment on above: Performed By: #### C RACHEL, PINR, 34937-4, BMP #### [facility] ([id number]) [address] [place] [address] 76197 Potassium [Moles/Vol] 3.6 mmol/L Normal 3.5-5.0 [facility] Comment on above: Performed By: #### C RACHEL, PINR, 48797-8, BMP #### [facility] ([id number]) [address] [place] [address] 96070 Sodium [Moles/Vol] 137 mmol/L Normal 134-146 [facility] Comment on above: Performed By: #### C RACHEL, PINR, 20473-6, BMP #### [facility] ([id number]) [address] [place] [address] 30962 Urea nitrogen [Mass/Vol] 15 mg/dL Normal 5-27 [facility] Comment on above: Performed By: #### C RACHEL, PINR, 61261-9, BMP #### [facility] ([id number]) [address] [place] [address] 21075 CBC AND AUTO DIFFon 07-12-19 24 ABSOLUTE BASOPHIL 0.1 X10E9/L Normal 0.0-0.2 [facility] Comment on above: Performed By: #### C RACHEL, PINR, 35317-7, BMP #### [facility] ([id number]) [address] [place] [address] 06549 ABSOLUTE NEUTROPHIL 11.7 X10E9/L High 1.5-6.6 [facility] Comment on above: Performed By: #### C RACHEL, PINR, 38280-1, BMP #### [facility] ([id number]) [address] [place] [address] 66117 Basophils/100 WBC (Bld) 0.6 % Normal [facility] Comment on above: Performed By: #### C RACHEL, PINR, 83718-9, BMP #### [facility] ([id number]) [address] [place] [address] 55662 Eosinophils (Bld) [#/Vol] 0.2 10*3/uL Normal 0.0-0.4 [facility] Comment on above: Performed By: #### C RACHEL, PINR, 33945-7, BMP #### [facility] ([id number]) [address] [place] [address] 01866 Eosinophils/100 WBC (Bld) 1.2 % Normal [facility] Comment on above: Performed By: #### C RACHEL, PINR, 40719-2, BMP #### [facility] ([id number]) [address] [place] [address] 21436 Erythrocyte distribution width (RBC) [Ratio] 18.8 % High 11.5-15.0 [facility] Comment on above: Performed By: #### Concha RAMOS, PINR, 38980-9, BMP #### [facility] ([id number]) [address] [place] [address] 94385 Hematocrit (Bld) [Volume fraction] 38.4 % Normal 35-47 [facility] Comment on above: Performed By: #### C RACHEL, PINR, 23564-5, BMP #### [facility] ([id number]) [address] [place] [address] 75916 Hemoglobin (Bld) [Mass/Vol] 11.9 g/dL Normal 11.7-15.5 [facility] Comment on above: Performed By: #### C RACHEL, PINR, 13617-2, BMP #### [facility] ([id number]) [address] [place] [address] 79273 Lymphocytes (Bld) [#/Vol] 1.4 10*3/uL Normal 1.0-3.5 [facility] Comment on above: Performed By: #### C RACHEL, PINR, 34794-3, BMP #### [facility] ([id number]) [address] [place] [address] 60544 Lymphocytes/100 WBC (Bld) 10.1 % Normal [facility] Comment on above: Performed By: #### C RACHEL, PINR, 14875-6, BMP #### [facility] ([id number]) [address] [place] [address] 97943 MCH (RBC) [Entitic mass] 21.5 pg Low 27-34 [facility] Comment on above: Performed By: #### C RACHEL, PINR, 59700-7, BMP #### [facility] ([id number]) [address] [place] [address] [place] [address] MCHC (RBC) [Mass/Vol] 31.0 g/dL Low 32-36 [facility] Comment on above: Performed By: #### C RACHEL, PINR, 61413-4, BMP #### [facility] ([id number]) [address] [place] [address] [place] [address] MCV (RBC) [Entitic vol] 70 fL Low 80-100 [facility] Comment on above: Performed By: #### C RACHEL, PINR, 40280-6, BMP #### [facility] ([id number]) [address] [place] [address] 95848 Monocytes (Bld) [#/Vol] 0.9 10*3/uL Normal 0-0.9 [facility] Comment on above: Performed By: #### C RACHEL, PINR, 12563-9, BMP #### [facility] ([id number]) [address] [place] [address] 01830 Monocytes/100 WBC (Bld) 6.5 % Normal [facility] Comment on above: Performed By: #### Concha RAMOS, PINR, 12452-2, BMP #### [facility] ([id number]) [address] [place] [address] 81966 Neutrophils/100 WBC (Bld) 81.6 % Normal [facility] Comment on above: Performed By: #### C RACHEL, PINR, 10946-1, BMP #### [facility] ([id number]) [address] [place] [address] 10537 OVALOCYTE 1+ Abnormal NONE [facility] Comment on above: Performed By: #### Concha RAMOS, PINR, 92711-8, BMP #### [facility] ([id number]) [address] [place] [address] 59891 Platelet mean volume (Bld) [Entitic vol] 7.6 fL Normal 7-12 [facility] Comment on above: Performed By: #### Concha RAMOS, PINR, 39967-4, BMP #### [facility] ([id number]) [address] [place] [address] 44431 Platelets (Bld) [#/Vol] 298 10*3/uL Normal 150-450 [facility] Comment on above: Performed By: #### Concha RAMOS, PINR, 96894-1, BMP #### [facility] ([id number]) [address] [place] [address] 90080 RBC COUNT 5.53 X10E12/L High 3.80-5.20 [facility] Comment on above: Performed By: #### Concha RAMOS, PINR, 43006-7, BMP #### [facility] ([id number]) [address] [place] [address] 44071 WBC (Bld) [#/Vol] 14.4 10*3/uL High 4.0-11.0 [facility] Comment on above: Performed By: #### C JAIRO RAMOS, 75552-6, [facility] #### [facility] ([id number]) [address] [place] [address], [place] [address] CT BRAIN WO CONTon CT BRAIN WO CONT CT BRAIN WO CONT CT BRAIN WO CONT 07/12/2023 11:54 AM INDICATION: Headache, new or worsening (Age >= 50y), nosebleed COMPARISON: None TECHNIQUE: Noncontrast CT images of the head were obtained. All CT scans at this facility use dose modulation, iterative reconstruction, and/or weight based dosing when appropriate to reduce radiation dose to as low as reasonably achievable. FINDINGS: BRAIN: No intraparenchymal or extra-axial hemorrhage. Patent basal cisterns. No mass effect or midline shift. Aguilar-white differentiation is preserved. Mild prominent extra-axial spaces over the anterior cerebral convexities, similar compared to prior. VENTRICLES: No hydrocephalus. VASCULATURE: No hyperdense major artery or major dural venous sinus. PARANASAL SINUSES: Opacification of the maxillary sinuses with some high attenuation secretions. Heterogeneous material within the nasal passages with questionable pledgets in place. Similar absence of the middle nasal turbinates. Near complete opacification of sphenoid sinuses. Partial opacification of frontal sinuses. Near-complete opacification of remnant ethmoidal air cells. TEMPORAL BONE: Well-aerated middle ears and visualized mastoid air cells. ORBITS: Unremarkable. SOFT TISSUES: Heterogeneous material within the nasopharynx. OSSEOUS STRUCTURES: No displaced facture. Unremarkable skull base. Dental caries and periapical lucencies present. IMPRESSION: 1. No definite acute intracranial abnormality. 2. Heterogeneous material within the nasopharynx and nasal passages, possibly due to nosebleed and pledgets. 3. Paranasal sinus disease as described. Finalized by Lottie Whatley DO on 07/12/2023 12:17 PM Normal [facility] PROTIME AND INRon 07-12-2023 INR Coag (PPP) [Relative time] 1.3 {INR} High 0.8-1.1 [facility] Comment on above: Performed By: #### C RACHEL, PINR, 61302-4, BMP #### [facility] ([id number]) [address] [place] [address] 22650 PT Coag (PPP) [Time] 15.2 s High 9.8-13.[address] [facility] Comment on above: Result Comment: NEW REFERENCE RANGE Performed By: #### C RACHEL, PINR, 82323-2, BMP #### [facility] ([id number]) [address] [place] [address] 82603 aPTT Coag (PPP) [Time]on aPTT Coag (Bld) [Time] 40 s High 26-37 [facility] Comment on above: Result Comment: NEW REFERENCE RANGE Performed By: #### C RACHEL, PINR, 93013-6, BMP #### [facility] ([id number]) [address] [place] [address] 36950 APTTon 07-05-2023 aPTT Coag (Bld) [Time] 29.1 s Normal 23.9-33.8 [facility] Comment on above: Result Comment: IV Heparin Therapy Range: 62.0-94.0 Performed By: #### P T, PTT #### [facility] [address] [place] [address] Fryer Line Helper: Drake Mancia MD PTon 07-05-2023 INR Coag (PPP) [Relative time] 1.1 {INR} Normal [facility] Comment on above: Result Comment: Therapeutic Range: Moderate Anticoagulant Intensity: INR = 2.0-3.0 High Anticoagulant Intensity: INR = 2.5-3.5 Performed By: #### P T, PTT #### [facility] [address] [place] [address] Fryer Line Helper: Drake Mancia MD PT Coag (PPP) [Time] 13.5 s Normal 11.5-14.2 [facility] Comment on above: Performed By: #### P T, PTT #### [facility] [address] [place] [address] Fryer Line Helper: Drake Mancia MD Surgical Pathology Reporton 07-05-2023 Surgical Pathology Report (NOTE) Path Number: [id number] -- Diagnosis -- Sinus contents, bilateral, sinusectomy: Fragments of bone and respiratory mucosa with histologic changes of chronic sinusitis. Jean Gaston. Electronically Signed Out sf/07/09/2023 Clinical Information Pre-Op Diagnosis: CHRONIC MAXILLARY SINUSITIS; CHRONIC FRONTAL SINUSITIS; CHRONIC PANSINUSITIS; NASAL CONGESTION Operative Findings: BILATERAL SINUS CONTENTS Operation Performed: FESS W/ VINNIE ETHMOIDECTOMY, MAX ANT, FRONTAL SINUS, SPHENOIDOTOMY kb Source of Specimen A: SINUS CONTENTS BILATERAL Gross Description ROBB CRYSTAL, BILATERAL SINUS CONTENTS Received in formalin is a 5.5 x 3.0 x 1.5 cm aggregate of red, frothy material. Senior Research Associate sections 1c. tm SM/kb2:07/05/2023 Microscopic Description 1 QUINCY reviewed. Microscopic examination performed. Processing Lab: [address] [address] Interpretation Performed at [facility] [address] [place] [address] SURGICAL PATHOLOGY CONSULTATION Patient Name: ROBB CRYSTAL [facility] Rec: [id number] [facility] [employer] [facility] ANATOMIC PATHOLOGY [address]. [place], [place] [address] Normal [facility] PROTIME AND INRon 07-04-2023 INR Coag (PPP) [Relative time] 1.1 {INR} Normal 0.8-1.1 [facility] Comment on above: Performed By: #### P INR #### [facility] ([id number]) [address], [address] [place] [address] PT Coag (PPP) [Time] 13.0 s Normal 9.8-13.[address] [facility] Comment on above: Performed By: #### P INR #### [facility] ([id number]) [address], [address] [place] [address] POCT Protime / INRon 024 INR Coag (PPP) [Relative time] 2.3 {INR} Abnormal 0.8 - 1.2 [facility] Interpretation and review of laboratory results Abnormal [facility] Basic Metabolic Panelon -2 Anion gap [Moles/Vol] 13 mmol/L 9 - 17 mmol/L [employer] Calcium [Mass/Vol] 9.3 mg/dL 8.6 - 10. 4 mg/dL [facility] Chloride [Moles/Vol] 100 mmol/L 98 - 10 7 mmol/L [employer] CO2 [Moles/Vol] 25 mmol/L 20 - 31 mmol/L [employer] [facility] Creatinine [Mass/Vol] 0.8 mg/dL 0.5 - 0.9 mg/dL [employer] [facility] GFR/1.73 sq M.predicted MDRD (S/P/Bld) [Vol rate/Area] - PINF [facility] Comment on above: These results are not intended for use in patients <18 years of age. eGFR results are calculated without a race factor using the 2020 CKD-EPI equation. Careful clinical correlation is recommended, particularly when comparing to results calculated using previous equations. The CKD-EPI equation is less accurate in patients with extremes of muscle mass, extra-renal metabolism of creatine, excessive creatine ingestion, or following therapy that affects renal tubular secretion. Glucose [Mass/Vol] 105 mg/dL High 70 - 99 mg/dL [facility] Interpretation and review of laboratory results Abnormal [facility] Potassium [Moles/Vol] 4.0 mmol/L 3.7 - 5.3 mmol/L [facility] [facility] Sodium [Moles/Vol] 138 mmol/L 135 - 144 mmol/L [facility] Urea nitrogen [Mass/Vol] 14 mg/dL 8 - 23 mg/dL [employer] Urea nitrogen/Creatinine [Mass ratio] 18 mg/mg 9 - 20 [facility] Basic Metabolic Profon 06-19 Anion gap [Moles/Vol] 13 mmol/L Normal - [facility] Comment on above: Performed By: #### G LYHGB #### [facility] [address] [place] [address] Fryer Line Helper: Merrick Osei MD #### BMP, CBC #### [facility] [address] [place] [address] Fryer Line Helper: Drake Mancia MD BUN/CRE Ratio 18 Normal - [facility] Comment on above: Performed By: #### G LYHGB #### [address] [address] Fryer Line Helper: Merrick Osei MD #### BMP, CBC #### [facility] [address] [place] [address] Fryer Line Helper: Drake Mancia MD Calcium [Mass/Vol] 9.3 mg/dL Normal 8.6-10.4 [facility] Comment on above: Performed By: #### G LYHGB #### [address] [address] Fryer Line Helper: Merrick Osei MD #### BMP, CBC #### [facility] [address] [place] [address] Fryer Line Helper: Drake Mancia MD Chloride [Moles/Vol] 100 mmol/L Normal 98-107 [facility] Comment on above: Performed By: #### G LYHGB #### [address] [address] Fryer Line Helper: Merrick Osei MD #### BMP, CBC #### [facility] [address] [place] [address] Fryer Line Helper: Drake Mancia MD CO2 [Moles/Vol] 25 mmol/L Normal 20-31 [facility] Comment on above: Performed By: #### G LYHGB #### [place] [address] [place] [address] Fryer Line Helper: Merrick Osei MD #### BMP, CBC #### [facility] [address] [place] [address] Fryer Line Helper: Drake Mancia MD Creatinine [Mass/Vol] 0.8 mg/dL Normal 0.5-0.9 [facility] Comment on above: Performed By: #### G LYHGB #### [address] [address] Fryer Line Helper: Merrick Osei MD #### BMP, CBC #### [facility] [address] [place] [address] Fryer Line Helper: Drake Mancia MD GFR/1.73 sq M.predicted among non-blacks MDRD (S/P/Bld) [Vol rate/Area] mL/min/{1.73_m2} Normal >60 [facility] Comment on above: Result Comment: These results are not intended for use in patients <18 years of age. eGFR results are calculated without a race factor using the 2020 CKD-EPI equation. Careful clinical correlation is recommended, particularly when comparing to results calculated using previous equations. The CKD-EPI equation is less accurate in patients with extremes of muscle mass, extra-renal metabolism of creatine, excessive creatine ingestion, or following therapy that affects renal tubular secretion. Performed By: #### G LYHGB #### [address] [address] Fryer Line Helper: Merrick Osei MD #### BMP, CBC #### [facility] [address] [place] [address] Fryer Line Helper: Drake Mancia MD Glucose [Mass/Vol] 105 mg/dL High 70-99 [facility] Comment on above: Performed By: #### G LYHGB #### [address] [address] Fryer Line Helper: Merrick Osei MD #### BMP, CBC #### [facility] [address] [place] [address] Fryer Line Helper: Drake Mancia MD Potassium [Moles/Vol] 4.0 mmol/L Normal 3.7-5.3 [facility] Comment on above: Performed By: #### G LYHGB #### [address] [address] Fryer Line Helper: Merrick Osei MD #### BMP, CBC #### [facility] [address] [place] [address] Fryer Line Helper: Drake Mancia MD Sodium [Moles/Vol] 138 mmol/L Normal 135-144 [facility] Comment on above: Performed By: #### G LYHGB #### [address] [address] Fryer Line Helper: Merrick Osei MD #### BMP, CBC #### [facility] [address] [place] [address] Fryer Line Helper: Drake Mancia MD Urea nitrogen [Mass/Vol] 14 mg/dL Normal 8-23 [facility] Comment on above: Performed By: #### G LYHGB #### [address] [address] Fryer Line Helper: Merrick Osei MD #### BMP, CBC #### [facility] [address] [place] [address] Fryer Line Helper: Drake Mancia MD CBCon 06-19-2023 Erythrocyte distribution width (RBC) [Ratio] 18.3 % High 11.8-14.4 [facility] Comment on above: Performed By: #### G LYHGB #### [address] [address] Fryer Line Helper: Merrick Osei MD #### BMP, CBC #### [facility] [address] [place] [address] Fryer Line Helper: Drake Mancia MD Hematocrit (Bld) [Volume fraction] 45.5 % Normal 36.3-47.1 [facility] Comment on above: Performed By: #### G LYHGB #### [address] [address] Fryer Line Helper: Merrick Osei MD #### BMP, CBC #### [facility] [address] [place] [address] Fryer Line Helper: Drake Mancia MD Hemoglobin (Bld) [Mass/Vol] 13.5 g/dL Normal 11.9-15.1 [facility] Comment on above: Performed By: #### G LYHGB #### [address] [address] Fryer Line Helper: Merrick Osei MD #### BMP, CBC #### [facility] [address] [place] [address] Fryer Line Helper: Drake Mancia MD MCH (RBC) [Entitic mass] 21.5 pg Low 25.2-33.5 [facility] Comment on above: Performed By: #### G LYHGB #### [address] [address] Fryer Line Helper: Merrick Osei MD #### BMP, CBC #### [facility] [address] [place] [address] Fryer Line Helper: Drake Mancia MD MCHC (RBC) [Mass/Vol] 29.7 g/dL Normal 28.4-34.8 [facility] Comment on above: Performed By: #### G LYHGB #### [address] [address] Fryer Line Helper: Merrick Osei MD #### BMP, CBC #### [facility] [address] [place] [address] Fryer Line Helper: Drake Mancia MD MCV (RBC) [Entitic vol] 72.5 fL Low 82.6-102.9 [facility] Comment on above: Performed By: #### G LYHGB #### [address] [id number] Fryer Line Helper: Merrick Osei MD #### BMP, CBC #### [facility] [address] [place] [address] Fryer Line Helper: Drake Mancia MD NRBC Automated 0.0 per 100 WBC Normal 0.0 [facility] Comment on above: Performed By: #### G LYHGB #### [address] [id number] Fryer Line Helper: Merrick Osei MD #### BMP, CBC #### [facility] [address] [place] [address] Fryer Line Helper: Drake Mancia MD Platelet mean volume (Bld) [Entitic vol] 9.0 fL Normal 8.1-13.5 [facility] Comment on above: Performed By: #### G LYHGB #### [address] [phone] Fryer Line Helper: Merrick Osei MD #### BMP, CBC #### [facility] [address] [place] [address] Fryer Line Helper: Drake Mancia MD Platelets (Bld) [#/Vol] 325 10*3/uL Normal 138-453 [facility] Comment on above: Performed By: #### G LYHGB #### [address] [address] Fryer Line Helper: Merrick Osei MD #### BMP, CBC #### [facility] [address] [place] [address] Fryer Line Helper: Drake Mancia MD RBC (Bld) [#/Vol] 6.28 10*6/uL High 3.95-5.11 [facility] Comment on above: Performed By: #### G LYHGB #### [address] [address] Fryer Line Helper: Merrick Osei MD #### BMP, CBC #### [facility] [address] [place] [address] Fryer Line Helper: Drake Mancia MD WBC (Bld) [#/Vol] 11.6 10*3/uL High 3.5-11.3 [facility] Comment on above: Performed By: #### G LYHGB #### [address] [address] Fryer Line Helper: Merrick Osei MD #### BMP, CBC #### [facility] [address] [place] [address] Fryer Line Helper: Drake Mancia MD Erythrocyte distribution width (RBC) [Ratio] 18.3 % High 11.8 - 14.4 % [facility] Hematocrit (Bld) [Volume fraction] 45.5 % 36.3 - 47.1 % [facility] Hemoglobin (Bld) [Mass/Vol] 13.5 g/dL 11.9 - 15.1 g/dL [facility] Interpretation and review of laboratory results Abnormal [facility] MCH (RBC) [Entitic mass] 21.5 pg Low 25.2 - 33.5 pg [facility] MCHC (RBC) [Mass/Vol] 29.7 g/dL 28.4 - 34.8 g/dL [facility] MCV (RBC) [Entitic vol] 72.5 fL Low 82.6 - 102.9 fL [facility] Nucleated RBC/100 WBC (Bld) [Ratio] 0.0 % 0.0 per 100 WBC [facility] Platelet mean volume (Bld) [Entitic vol] 9.0 fL 8.1 - 13.5 fL [facility] Platelets (Bld) [#/Vol] 325 10*3/uL [facility] RBC (Bld) [#/Vol] 6.28 10*6/uL High 3.95 - 5.1 1 m/uL [facility] WBC other (Bld) [#/Vol] 11.6 High [facility] Hemoglobin A1Con 06-19-2023 Glucose [Mass/Vol] 157 mg/dL Normal [facility] Comment on above: Result Comment: The ADA and AACC recommend providing the estimated average glucose result to permit better patient understanding of their HBA1c result. Performed By: #### G LYHGB #### [facility] [employer] [facility] [place], [place] [id number] Fryer Line Helper: Merrick Osei MD #### BMP, CBC #### [facility] [address] [place], [place] [id number] Fryer Line Helper: Drake Mancia MD HbA1c (Bld) [Mass fraction] 7.1 % High 4.0-6.0 [facility] Comment on above: Performed By: #### G LYHGB #### [facility] [employer] [address] [place] [address] Fryer Line Helper: Merrick Osei MD #### BMP, CBC #### [facility] [address] [place], [place] [id number] Fryer Line Helper: Drake Mancia MD Average glucose Estimated from glycated hemoglobin (Bld) [Mass/Vol] 157 mg/dL [facility] Comment on above: The ADA and AACC rec ommend providing the estimated average glucose result to permit better patient understanding of their HBA1c result. HbA1c (Bld) [Mass fraction] 7.1 % High 4.0 - 6.0 % [facility] Interpretation and review of laboratory results Abnormal [facility] [id number] 04-22-2021 SARS-CoV-2 (COVID-19) RNA RAFAEL+probe Ql (Unsp spec) Normal [facility] Comment on above: Performed By: #### C OVID #### [facility] [address] [place], [place] [id number] Fryer Line Helper: Merrick Osei MD SARS-CoV-2 (COVID-19) RNA RAFAEL+probe Ql (Unsp spec) Not detected Normal NOTDET [facility] Comment on above: Result Comment: The specimen is NEGATIVE for SARS-CoV-2, the novel coronavirus associated with COVID-19. A negative result does not rule out COVID-19. Javy SARS-CoV-2 for use on the Javy 6800/8800 Systems is a real-time RT-PCR test intended for the qualitative detection of nucleic acids from SARS-CoV-2 in clinician-collected nasal, nasopharyngeal, and oropharyngeal swab specimens from individuals who meet COVID-19 clinical and/or epidemiological criteria. Javy SARS-CoV-2 is for use only under Emergency Use Authorization (EUA) in laboratories certified under Clinical Laboratory Improvement Amendments of 1988 (CLIA), 42 U.S.C. ?263a, that meet requirements to perform high or moderate complexity tests. An individual without symptoms of COVID-19 and who is not shedding SARS-CoV-2 virus would expect to have a negative (not detected) result in this assay. Fact sheet for Healthcare Providers: https://www.fda.gov/media/929792/download Fact sheet for Patients: https://www.fda.gov/media/231857/download METHODOLOGY: RT-PCR Performed By: #### C OVID #### [facility] [address] [place] [address] Fryer Line Helper: Merrick Osei MD [id number] 04-21-2021 SARS-CoV-2 (COVID-19) RNA RAFAEL+probe Ql (Unsp spec) .NASOPHARYNGEAL SWAB Normal [facility] Comment on above: Performed By: #### C OVID #### [facility] [address] [place] [address] Fryer Line Helper: Merrick Osei MD POC Glucose Fingerstickon Glucose [Mass/Vol] 111 mg/dL High 65 - 105 mg/dL [place], [place] Interpretation and review of laboratory results Abnormal [place] Glucose [Mass/Vol] 113 mg/dL High 65 - 105 mg/dL [place] Interpretation and review of laboratory results Abnormal [place] Protime-INRon 04-13-2019 INR Coag (PPP) [Relative time] 1.0 {INR} [place], [place] Comment on above: Non-therapeutic Range: INR = 0.9-1.2 Therapeutic Range: Moderate Anticoagulant Intensity: INR = 2.0-3.0 High Anticoagulant Intensity: INR = 2.5-3.5 PT Coag (PPP) [Time] 12.9 s [place] Reticulocyteson 04-13-2019 Absolute Retic # [id number] [place], [place] Immature Retic Fract NOT REPORTED % Me [place], [place] Retic % 1.3 % 0.5 - 2 % [place], [place] Retic Hemoglobin NOT REPORTED 28.2 - 35.7 pg [place], [place] Vital Signs Date Time Vital Sign Value Performing Clinician Facility 05-29-2024 14:26-0500 Body height 162.[address] 05-29-2024 14:22-0500 Body mass index (BMI) [Ratio] 38.48 kg/m2 [address] 05-29-2024 14:22-0500 Body weight 101.7 kg [facility] Comment on above: 05/26/2024 05-13-2024 12:13-0500 Body height 162.6 cm Stephan Aguilar SUPERVISOR SMOKE CONTROL-INSTALLATION SERVICE REPRESENTATIVE Work Phone: [facility] [employer] [facility] 05-13-2024 12:13-0500 Body mass index (BMI) [Ratio] 37.42 kg/m2 Stephan Aguilar SUPERVISOR SMOKE CONTROL-INSTALLATION SERVICE REPRESENTATIVE Work Phone: [facility] 05-13-2024 12:13-0500 Body weight 98.88 kg Stephan Aguilar SUPERVISOR SMOKE CONTROL-INSTALLATION SERVICE REPRESENTATIVE Work Phone: [facility] [employer] [facility] 05-13-2024 12:13-0500 Diastolic blood pressure 76 mm[Hg] Stephan Aguilar SUPERVISOR SMOKE CONTROL-INSTALLATION SERVICE REPRESENTATIVE Work Phone: [facility] [employer] [facility] 05-13-2024 12:13-0500 Heart rate 77 /min Stephan Aguilar SUPERVISOR SMOKE CONTROL-INSTALLATION SERVICE REPRESENTATIVE Work Phone: [facility] [employer] [facility] 05-13-2024 12:13-0500 Systolic blood pressure 124 mm[Hg] Stephan Aguilar SUPERVISOR SMOKE CONTROL-INSTALLATION SERVICE REPRESENTATIVE Work Phone: [facility] [employer] [facility] 05-11-2024 15:06-0500 Body height 162.6 cm Chloe Kelly PA-C Work Phone: [facility] [employer] [facility] 05-11-2024 15:06-0500 Body mass index (BMI) [Ratio] 37.56 kg/m2 Chloe Kelly PA-C Work Phone: [facility] [employer] [facility] 05-11-2024 15:06-0500 Body temperature 97.3 [degF] Chloe Kelly PA-C Work Phone: [facility] [employer] [facility] 05-11-2024 15:06-0500 Body weight 99.25 kg Chloe Kelly PA-C Work Phone: [facility] [employer] [facility] 03-29-2024 08:49-0400 Body temperature 97.81 [degF] Robert Velez MD Work Phone: [facility] 03-29-2024 08:49-0400 Diastolic blood pressure 77 mm[Hg] Robert Velez MD Work Phone: [facility] 03-29-2024 08:49-0400 Heart rate 66 /min Robert Velez MD Work Phone: [facility] 03-29-2024 08:49-0400 Respiratory rate 16 /min Robert Velez MD Work Phone: [facility] 03-29-2024 08:49-0400 SaO2% (BldA) [Mass fraction] 97 % Robert Velez MD Work Phone: [facility] 03-29-2024 08:49-0400 Systolic blood pressure 157 mm[Hg] Robert Velez MD Work Phone: [facility] 03-28-2024 05:00-0400 Body mass index (BMI) [Ratio] 38.45 kg/m2 Robert Velez MD Work Phone: [facility] 03-28-2024 05:00-0400 Body weight 101.61 kg Robert Velez MD Work Phone: [facility] 03-24-2024 20:26-0400 Body height 162.6 cm Robert Velez MD Work Phone: [facility] 03-24-2024 14:07-0400 Body height 162.6 cm Consuelo Medina SUPERVISOR SMOKE CONTROL-INSTALLATION SERVICE REPRESENTATIVE Work Phone: [facility] 03-24-2024 14:07-0400 Body mass index (BMI) [Ratio] 38.28 kg/m2 Consuelo Medina APRN-INSTALLATION SERVICE REPRESENTATIVE Work Phone: [facility] 03-24-2024 14:07-0400 Body temperature 98.1 [degF] Consuelo Medina APRN-INSTALLATION SERVICE REPRESENTATIVE Work Phone: [facility] 03-24-2024 14:07-0400 Body weight 101.15 kg Consuelo LUCIANO Work Phone: [employer] 03-24-2024 14:07-0400 Diastolic blood pressure 74 mm[Hg] Consuelo LUCIANO Work Phone: [facility] 03-24-2024 14:07-0400 Heart rate 96 /min Consuelo LUCIANO Work Phone: [facility] 03-24-2024 14:07-0400 Respiratory rate 18 /min Consuelo LUCIANO Work Phone: [facility] 03-24-2024 14:07-0400 SaO2% (BldA) [Mass fraction] 97 % Consuel[facility]ANO [facility] 03-24-2024 14:07-0400 Systolic blood pressure 120 mm[Hg] Consuelo Medina APRNCopiunINSTALLATION SERVICE REPRESENTATIVE Work Phone: [facility] [employer] [facility] 06-19-2023 15:42-0500 Body height 162.6 cm [employer] [facility] [employer] 06-19-2023 15:42-0500 Body mass index (BMI) [Ratio] 40.51 kg/m2 [employer] 06-19-2023 15:42-0500 Body temperature 98.2 [degF] Sta 2 [facility] [employer] 06-19-2023 15:42-0500 Body weight 107.05 kg Sta 2 [employer] 06-19-2023 15:42-0500 Diastolic blood pressure 85 mm[Hg] Sta 2 [facility] [employer] 06-19-2023 15:42-0500 Heart rate 78 /min Sta 2 [employer] 06-19-2023 15:42-0500 Respiratory rate 14 /min Sta 2 [facility] [employer] 06-19-2023 15:42-0500 SaO2% (BldA) [Mass fraction] 99 % [employer] 06-19-2023 15:42-0500 Systolic blood pressure 170 mm[Hg] Sta [employer] 04-26-2021 05:50-0400 Body height 162.6 cm [facility] [employer] Phone: 04-26-2021 05:50-0400 Body mass index (BMI) [Ratio] 44.63 kg/m2 [facility] [employer] Phone: 04-26-2021 05:50-0400 Body weight 117.94 kg [facility] [employer] Phone: 04-26-2021 05:50-0400 Heart rate 66 /min [facility] [employer] Phone: 04-26-2021 05:50-0400 Respiratory rate 22 /min [facility] [employer] Phone: 04-26-2021 05:50-0400 SaO2% (BldA) [Mass fraction] 95 % [facility] [employer] Phone: 04-13-2019 09:50-0400 BP Diastolic 81 mm[Hg] [facility] 04-13-2019 09:50-0400 BP Systolic 142 mm[Hg] [facility] 04-13-2019 09:50-0400 Pulse (Heart Rate) 79 /min [facility] 04-13-2019 09:50-0400 Pulse Oximetry 95 % [facility] 04-13-2019 09:50-0400 Respiratory Rate 19 /min [facility] 04-13-2019 09:40-0400 Body Temperature 97.81 [degF] [facility] 04-13-2019 07:01-0400 BMI (Body Mass Index) 42.23 kg/m2 [facility] 04-13-2019 07:01-0400 Body weight 111.58 kg [facility] 04-13-2019 07:01-0400 Height 162.6 cm [facility] [place] Encounters Encounter Date Encounter Type Care Provider Facility Start: 06-15-2024 End: 06-15-2024 Orders Only Rory Sanderson RN [facility] Comment on above: Closed fracture of p roximal end of left humerus with delayed healing, unspecified fracture morphology, subsequent encounter (Primary Dx) Start: 06-15-2024 End: 06-16-2024 Evaluation and management of inpatient [facility] Start: 06-02-2024 End: 06-03-2024 ambulatory [facility] Start: 05-29-2024 End: 05-29-2024 ambulatory [facility] Start: 05-29-2024 End: 05-29-2024 Admission to [facility] Phone Call Provider 5 [facility] Start: 05-26-2024 End: 05-26-2024 Telephone encounter [facility] Cruz [facility]Robert Velez [facility] Start: 05-18-2024 End: 05-18-2024 ambulatory [facility] Start: 05-13-2024 End: 05-13-2024 Office outpatient visit 15 minutes Stephan Aguilar SUPERVISOR SMOKE CONTROL-INSTALLATION SERVICE REPRESENTATIVE Work Phone: [facility] Comment on above: Essential hypertensi on (Primary Dx); Hypercholesteremia Start: 05-13-2024 End: 05-13-2024 ambulatory STEPHAN AGUILAR [facility] Start: 05-12-2024 End: 05-12-2024 Telephone encounter Kristina Mcdowell CMA [facility] Start: 05-11-2024 End: 05-11-2024 ambulatory [facility] Start: 05-11-2024 Encounter for other preprocedural examination CHLOE Sims [facility] Start: 05-11-2024 End: 05-11-2024 Office outpatient new 60 minutes Chloe Kelly PA-C Work Phone: [facility] Comment on above: Other closed displac ed fracture of proximal end of left humerus, initial encounter (Primary Dx); Disorder of bone; Pre-op testing; Type 2 diabetes mellitus without complication, unspecified whether truck terminal manager insulin use ([facility]) Start: 05-11-2024 End: 05-11-2024 Patient encounter status Chloe Bethany Kelly PA-C Work Phone: [facility] Start: 05-08-2024 End: 05-08-2024 Orders Only Rory Sanderson RN [facility] Comment on above: Pain (Primary Dx) Start: 04-21-2024 End: 04-21-2024 ambulatory JOSE GUADALUPE Agrawal [facility] Start: 04-16-2024 End: 04-16-2024 Documentation procedure Consuelo Arreola [facility] Work Phone: [facility] Medication Therapy Management Start: 04-15-2024 End: 04-15-2024 Telephone encounter Jyothi pisano [facility] Start: 04-13-2024 Preoperative state Jyothi [facility] Start: 04-13-2024 End: 04-15-2024 ambulatory [facility] Start: 03-31-2024 End: 03-31-2024 Documentation procedure Christen asher [facility] Start: 03-30-2024 End: 03-30-2024 Follow-up encounter Consuelo Arreola [facility] Work Phone: [facility] Medication Therapy Management Comment on above: 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 [Z79.01] (Primary Dx) Start: 03-26-2024 End: 03-30-2024 Evaluation and management of inpatient [facility] Start: 03-25-2024 End: 03-30-2024 ambulatory [facility] Start: 03-24-2024 End: 03-30-2024 [facility] Start: 03-24-2024 End: 03-29-2024 Evaluation and management of inpatient Denis Corbin DO Work Phone: [facility] Comment on above: Melena (Primary Dx); Iron deficiency anemia due to chronic blood loss; History of epistaxis; Frequent falls; Blood loss anemia Start: 03-24-2024 End: 03-24-2024 Office outpatient visit 40 minutes [facility] SUPERVISOR SMOKE CONTROL-INSTALLATION SERVICE REPRESENTATIVE Work Phone: [facility]/Robert Velez MD Comment on above: Melena (Primary Dx); Orthostatic dizziness; Shortness of breath; Fall in home, initial encounter; Factor V Leiden [place] Current use of longterm anticoagulation Start: 03-24-2024 End: 03-25-2024 Telephone encounter Lakeshia Marinelli [facility] Call Tyreee r Start: 03-24-2024 End: 03-24-2024 ambulatory [facility] Start: 03-24-2024 End: 03-24-2024 Follow-up encounter [facility] Jonelle [facility] 1 [facility] Medication Therapy Management Comment on above: longterm (current) use of anticoagulants [Z79.01] (Primary Dx); Cerebrovascular accident (CVA), unspecified mechanism ([facility]) Start: 03-24-2024 End: 03-24-2024 ambulatory [facility] Start: 03-03-2024 End: 03-03-2024 Emergency department patient visit [facility] Start: 03-03-2024 End: 03-03-2024 Emergency department patient visit [facility] Start: 02-05-2024 End: 02-05-2024 ambulatory [facility] Start: 01-20-2024 End: 01-20-2024 ambulatory [facility] Start: 01-17-2024 End: 01-17-2024 ambulatory [facility] Start: 12-20-2023 End: 12-20-2023 ambulatory [facility] Start: 11-20-2023 End: 11-20-2023 ambulatory [facility] Start: 11-15-2023 End: 11-15-2023 ambulatory [facility] Start: 11-08-2023 End: 11-23-2023 [facility] Start: 10-28-2023 End: 10-28-2023 ambulatory [facility] Start: 2023 End: 2023 ambulatory [facility] Start: 10-15-2023 End: 10-15-2023 ambulatory TYSON METZ [facility] Start: 10-11-2023 End: 10-11-2023 [facility] Start: 10-04-2023 End: 10-23-2023 ambulatory [facility] Start: 09-18-2023 Telephone encounter Consuelo rao SUPERVISOR SMOKE CONTROL-INSTALLATION SERVICE REPRESENTATIVE Work Phone: [facility]/Robert Velez MD Start: 09-10-2023 Refill Consuelo DUCKWORTH RN-INSTALLATION SERVICE REPRESENTATIVE Work Phone: [facility]/Robert Velez MD Start: 09-06-2023 End: 09-06-2023 [facility] Start: 09-06-2023 End: 09-06-2023 Follow-up encounter [facility] [facility] Medication Therapy Management Comment on above: longterm (current) use of anticoagulants [Z79.01] (Primary Dx) Start: 09-04-2023 End: 09-23-2023 ambulatory [facility] Start: 09-02-2023 Refill Consuelo DUCKWORTH RN-INSTALLATION SERVICE REPRESENTATIVE Work Phone: [facility]/Robert Velez MD Comment on above: Iron deficiency Start: 08-24-2023 Refill Trey Bautista MD Work Phone: [facility] Comment on above: Med Refill Start: 08-14-2023 End: 08-14-2023 Follow-up encounter [facility] 1 [facility] Medication Therapy Management Comment on above: longterm (current) use of anticoagulants [Z79.01] (Primary Dx) Start: 08-14-2023 End: 08-14-2023 ambulatory [facility] Start: 08-05-2023 End: 08-05-2023 Follow-up encounter [facility] 1 [facility] Medication Therapy Management Comment on above: longterm (current) use of anticoagulants [Z79.01] (Primary Dx) Start: 08-05-2023 End: 08-05-2023 ambulatory [facility] Start: 08-03-2023 Refill Consuelo DUCKWORTH RN-INSTALLATION SERVICE REPRESENTATIVE Work Phone: [facility]/Robert Velez MD Comment on above: Primary hypertension Start: 08-02-2023 End: 08-02-2023 [facility] Start: 08-02-2023 End: 08-02-2023 [facility] Med[facility] Therapy Management Comment on above: 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 [Z79.01] (Primary Dx); CVA (cerebral vascular accident) ([facility]) 1994 - [place] Start: 07-31-2023 End: 08-23-2023 ambulatory [facility] Start: 07-24-2023 End: 07-24-2023 ambulatory [facility] Start: 07-22-2023 End: 07-22-2023 ambulatory [facility] Start: 07-22-2023 End: 07-22-2023 Follow-up encounter [facility] 1 [facility] Medication Therapy Management Comment on above: 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 [Z79.01] (Primary Dx) Start: 07-17-2023 End: 07-25-2023 ambulatory [facility] Start: 07-15-2023 Telephone encounter Gin Kern MA [facility]/Robert Velez MD Comment on above: Er Follow-up Start: 07-15-2023 End: 07-25-2023 [facility] Start: 07-12-2023 Documentation procedure Elizabeth Stephens MD Work Phone: [facility] Start: 07-12-2023 End: 07-13-2023 Emergency department patient visit MEKA MENDEZ [facility] Start: 07-12-2023 End: 07-12-2023 Emergency department patient visit [facility] Start: 07-05-2023 End: 07-05-2023 ambulatory [facility] Start: 07-04-2023 End: 07-04-2023 [facility] Start: 06-28-2023 End: 06-28-2023 ambulatory [facility] Start: 06-28-2023 End: 06-28-2023 Follow-up encounter [facility]elle [facility]tm 1 [facility] Medication Therapy Management Comment on above: longterm (current) use of anticoagulants [Z79.01] (Primary Dx) Start: 06-27-2023 Telephone encounter [facility] Work Phone: [facility] Medication Therapy Management Start: 06-19-2023 End: 06-24-2023 ambulatory [facility] Start: 06-19-2023 End: 06-23-2023 Subsequent hospital visit by physician Delfino Wong 2 [facility] Start: 06-19-2023 Telephone encounter Consuelo rao SUPERVISOR SMOKE CONTROL-INSTALLATION SERVICE REPRESENTATIVE Work Phone: [facility]/Robert Velez MD Start: 06-14-2023 Preoperative state Consuelo Medina SUPERVISOR SMOKE CONTROL-INSTALLATION SERVICE REPRESENTATIVE Work Phone: [facility] [employer] [facility] Start: 06-14-2023 Refill Consuelo DUCKWORTH RN-INSTALLATION SERVICE REPRESENTATIVE Work Phone: [facility]/Robert Velez MD Start: 06-14-2023 End: 07-17-2023 ambulatory [facility] Start: 06-14-2023 Encounter for preprocedural cardiovascular examination [facility] Start: 04-25-2021 End: 04-28-2021 ambulatory FRANNY APONTE [facility] Start: 04-25-2021 End: 04-27-2021 Subsequent hospital visit by physician Fariha Sleep Rm 3 [facility] Comment on above: IMELDA (obstructive sle ep apnea) (Primary Dx) Start: 04-21-2021 End: 04-22-2021 ambulatory R[facility] Start: 04-13-2019 End: 04-13-2019 Subsequent hospital visit by physician Arthur Renteria Work Phone: [facility] Start: 07-01-2018 End: 10-14-2020 Patient encounter status Consuelo Medina APRN-INSTALLATION SERVICE REPRESENTATIVE Work Phone: [facility] Procedures Date Procedure Procedure Detail Performing Clinician Start: 03-29-2024 Gluc bld gluc mntr d ev cleared fda spec home use Robert Velez MD Work Phone: Start: 03-29-2024 Gluc bld gluc mntr d ev cleared fda spec home use Robert Velez MD Work Phone: Start: 03-28-2024 End: 03-28-2024 Basic metabolic panel calcium total Robert Velez MD Work Phone: Start: 03-27-2024 Gluc bld gluc mntr d ev cleared fda spec home use Robert Velez MD Work Phone: Start: 03-27-2024 Gluc bld gluc mntr d ev cleared fda spec home use Robert Velez MD Work Phone: Start: 03-27-2024 Gluc bld gluc mntr d ev cleared fda spec home use Robert Velez MD Work Phone: Start: 03-27-2024 Blood count hematocrit Robert Velez MD Work Phone: Start: 03-27-2024 Gluc bld gluc mntr d ev cleared fda spec home use Robert Velez MD Work Phone: Start: 03-27-2024 Gluc bld gluc mntr d ev cleared fda spec home use Robert Velez MD Work Phone: Start: 03-27-2024 Basic metabolic pane l calcium total Consuelo Medina SUPERVISOR SMOKE CONTROL-INSTALLATION SERVICE REPRESENTATIVE Work Phone: Start: 03-26-2024 End: 03-26-2024 Gluc bld gluc mntr dev cleared fda spec home use Robert Velez MD Work Phone: Start: 03-26-2024 Gluc bld gluc mntr d ev cleared fda spec home use Robert Velez MD Work Phone: Start: 03-26-2024 Radiologic exam swal low function contrast study Consuelo Medina SUPERVISOR SMOKE CONTROL-INSTALLATION SERVICE REPRESENTATIVE Work Phone: Start: 03-26-2024 End: 03-26-2024 Gluc bld gluc mntr dev cleared fda spec home use Robert Velez MD Work Phone: Start: 03-26-2024 Gluc bld gluc mntr d ev cleared fda spec home use Robert Velez MD Work Phone: Start: 03-26-2024 Prothrombin time Consuelo Medina SUPERVISOR SMOKE CONTROL-INSTALLATION SERVICE REPRESENTATIVE Work Phone: Start: 03-26-2024 Plasma, frz between 8-24hour Consuelo Medina SUPERVISOR SMOKE CONTROL-INSTALLATION SERVICE REPRESENTATIVE Work Phone: Start: 7 End: 03-26-2024 Gluc bld gluc mntr dev cleared fda spec home use Robert Velez MD Work Phone: Start: 03-25-2024 Gluc bld gluc mntr d ev cleared fda spec home use Robert Velez MD Work Phone: Start: 03-25-2024 Prothrombin time Consuelo LUCIANO Work Phone: Start: 03-25-2024 End: 03-25-2024 TRANSFUSE FRESH FROZEN PLASMA Consuelo LUCIANO Work Phone: Start: 03-25-2024 Gluc bld gluc mntr d ev cleared fda spec home use Robert Velez MD Work Phone: Start: 03-25-2024 Assay of lactate Consuelo ARCHERINSTALLATION SERVICE REPRESENTATIVE Work Phone: Start: 03-25-2024 Gluc bld gluc mntr d ev cleared fda spec home use Robert Velez MD Work Phone: Start: 03-25-2024 Radiologic exam ches t 2 views Consuelo ARCHERINSTALLATION SERVICE REPRESENTATIVE Work Phone: Start: 03-25-2024 Basic metabolic pane l calcium total Consuelo ARCHERINSTALLATION SERVICE REPRESENTATIVE Work Phone: Start: 03-24-2024 Antibody screen Robert quinonez MD Work Phone: Start: 03-24-2024 Ct abdomen & pelvis w/contrast material Denis Corbin DO Work Phone: Start: 03-24-2024 Ct head/brain w/o co ntrast material Denis Corbin DO Work Phone: Start: 03-24-2024 Urnls dip stick/tabl et rgnt auto w/o microscopy Denis Corbin DO Work Phone: Start: 03-24-2024 Culture bacterial quanttative colony count urine Consuelo LUCIANO Work Phone: Start: 03-24-2024 ER EXTRA URINE Denis Corbin DO Work Phone: Start: 03-24-2024 Blood typing serologic abo Denis Corbin DO Work Phone: Start: 03-24-2024 REPEATED JESSICA Corbin DO Work Phone: Start: 03-24-2024 End: 03-24-2024 Prothrombin time Jobst Service Work Phone: Start: 03-24-2024 Adult depression scr eening assessment Consuelo Medina SUPERVISOR SMOKE CONTROL-INSTALLATION SERVICE REPRESENTATIVE Work Phone: Start: 11-20-2023 Follow-up visit Follow-up CONSUELO MEDINA Start: 09-06-2023 Prothrombin time Jobst Service Work Phone: Start: 08-14-2023 Prothrombin time Jobst Service Work Phone: Start: 08-05-2023 Prothrombin time Jobst Service Work Phone: Start: 08-02-2023 Prothrombin time Jobst Service Work Phone: Start: 07-22-2023 Prothrombin time Jobst Service Work Phone: Start: 06-28-2023 Prothrombin time Jobst Service Work Phone: Start: 06-19-2023 Basic metabolic pane l calcium total Ndal M Charles CHOWDHURY Work Phone: Start: 03-27-2023 Adult depression scr eening assessment Consuelo Medina SUPERVISOR SMOKE CONTROL-[facility] Work Phone: Start: 08-06-2022 Microalbumin [Mass/v olume] in Urine by Test strip Consuelo Medina [facility] Work Phone: Start: 04-13-2019 Blood count reticulo cyte automated Arthur N Pangulur Work Phone: Start: 04-13-2019 Glucose blood reagen t strip Arthur N Pangulur Work Phone: Start: 04-13-2019 Glucose blood reagen t strip Arthur N Pangulur Work Phone: Start: 04-13-2019 Prothrombin time Sudhak ar N Pangulur Work Phone: Start: 04-13-2019 Colonoscopy Sta 2 Plan of Treatment Date Care Activity Detail Author Start: 04-13-2029 Colon cancer screen colonoscopy Colon cancer [facility] [place] Start: 04-13-2029 Screening for malignant neoplasm of colon Printed Piece Start: 06-03-2028 Pneumococcal 0-64 years Vaccine (3 - PPSV23 or PCV20) Pneumococcal 0-64 years Vaccine (3 - PPSV23 or PCV20) [facility] [employer] Start: 06-02-2025 Tobacco Screening Tobacco Screening [facility] Start: 05-29-2025 Adult BMI Screening Adult BMI Screening [facility] Start: 05-13-2025 Adult BMI Screening Adult BMI Screening [facility] Start: 05-13-2025 Tobacco Screening Tobacco Screening [facility] Start: 05-11-2025 Adult BMI Screening Adult BMI Screening [facility] Start: 04-15-2025 Adult BMI Screening Adult BMI Screening [facility] Start: 04-13-2025 Tobacco Screening Tobacco Screening [facility] Start: 03-28-2025 Adult BMI Screening Adult BMI Screening [facility] Start: 03-24-2025 Adult BMI Screening Adult BMI Screening [facility] Start: 03-24-2025 Depression Screening Depression Screening [facility] Start: 03-24-2025 Tobacco Screening Tobacco Screening [facility] Start: 10-15-2024 Pneumococcal 0-64 years Vaccine (2 of 2 - PPSV23) Pneumococcal 0-64 years Vaccine (2 of 2 - PPSV23) [employer] Work Phone: Start: 07-12-2024 Tobacco Screening Tobacco Screening [facility] Start: 06-22-2024 End: 06-22-2024 Patient encounter procedure [facility] Start: 06-19-2024 GFR test (Diabetes, CKD 3-4, OR last GFR 15-59) GFR test (Diabetes, CKD 3-4, OR last GFR 15-59) Printed Piece Start: 06-19-2024 Hemoglobin A1c measurement A1C test (Diabetic or Prediabetic) [facility] [employer] Start: 06-15-2024 End: 06-15-2025 XR Shoulder - left 2 Views X-ray shoulder left minimum 2 views Imaging Routine Closed fracture of proximal end of left humerus with delayed healing, unspecified fracture morphology, subsequent encounter Expected: 06/15/2024, Expires: 06/15/2025 [employer] Work Phone: Comment on above: Expected: 06/15/2024, Expires: Start: 06-14-2024 Adult BMI Screening Adult BMI Screening [facility] Start: 06-14-2024 Tobacco Screening Tobacco Screening [facility] Start: 06-02-2024 End: 06-02-2024 Admission to same day surgery center 06/02/2024 7:30 AM EST - 06/02/2024 11:00 AM EST Surgery [facility] Surgery [address] [place] [phone] Hayes Walsh MD [address] [place] [address] REPLACEMENT TOTAL JOINT SHOULDER [47586 (CPT )] [facility] Comment on above: REPLACEMENT TOTAL JOINT SHOULDER [05282 (CPT )] Start: 06-02-2024 End: 06-02-2024 Arthroplasty glenohumeral joint total shoulder REPLACEMENT TOTAL JOINT SHOULDER Closed fracture of proximal end of left humerus with delayed healing, unspecified fracture morphology, subsequent encounter 06/02/2024 7:30 AM EST [facility] Start: 06-02-2024 Subsequent hospital visit by physician 06/02/2024 7:30 AM EST Hospital Encounter [facility] Surgery [address] [place] [phone] Hayes Walsh MD [address] [place] [address] [facility] Start: 05-29-2024 End: 05-29-2024 Admission to establishment 05/29/2024 8:00 AM EST Support Visit [facility] [place] [address] [place] [address] [facility] Start: 05-13-2024 End: 05-13-2024 Patient encounter procedure 05/13/2024 12:30 PM EST Office Visit [facility] [address] [place] [address] Stephan Aguilar, SUPERVISOR SMOKE CONTROL-INSTALLATION SERVICE REPRESENTATIVE [address] [place] [address] [facility] Start: 05-11-2024 End: 05-11-2024 Patient encounter procedure 05/11/2024 1:45 PM EST Office Visit [facility] [address] [place] [phone] Hayes Walsh MD [address] [place] [address] [facility] Start: 05-08-2024 End: 05-08-2025 XR Elbow - left 2 Views X-ray elbow left 2 views Imaging Routine Pain Expected: 05/08/2024, Expires: 05/08/2025 [facility] [employer] [facility] Comment on above: Expected: 05/08/2024, Expires: Start: 05-08-2024 End: 05-08-2025 XR Shoulder - left 2 Views X-ray shoulder left minimum 2 views Imaging Routine Pain Expected: 05/08/2024, Expires: 05/08[facility] Work Phone: Comment on above: Expected: 05/08/2024, Expires: Start: 04-21-2024 End: 04-21-2024 Follow-up encounter 04/21/2024 11:00 AM EDT Follow Up Anticoagulation [facility] Medication Therapy Management [address] [place] [address] [facility] Start: 04-16-2024 End: 04-16-2024 Patient encounter procedure 04/16/2024 2:30 PM EDT Office Visit Kaitlyn Cunha [facility] - Medical Oncology [address] [place] [phone] Raul Escobar MD [address] [facility] [address] [place] [phone] Kaitlyn C[facility] Start: 04-09-2024 End: 04-09-2024 Patient encounter procedure 04/09/2024 10:45 AM EDT Office Visit [facility] Adult Endocrinology [address] [place] [phone] Deedee Ferrara, SUPERVISOR SMOKE CONTROL-INSTALLATION SERVICE REPRESENTATIVE [address] [place] [address] [facility] Start: 03-27-2024 [facility] Start: 02-23-2024 Influenza vaccination Influenza Vaccine [facility] Start: 02-19-2024 DTaP,Tdap and Td Vaccines (3 - Td or Tdap) DTaP,Tdap and Td Vaccines (3 - Td or Tdap) [facility] Start: 2023 End: 2023 ambulatory 2023 1:00 PM EDT Infusion Kaitlyn Cunha [facility] - [facility] Oncology [address] [place] [phone] Kaitlynana lilia Cunha [facility] Start: 10-15-2023 End: 10-15-2023 ambulatory 10/15/2023 2:30 PM EDT Support Visit Kaitlyn Cunha [facility] - [facility] Oncology [address] [place] [phone] Kaitlynana lilia Cunha [facility] Start: 10-04-2023 End: 10-04-2023 Follow-up encounter 10/04/2023 1:30 PM EDT Follow Up Anticoagulation [facility] Medication Therapy Management [address] [place] [address] [facility] Therapy Management Start: 10-02-2023 End: 10-02-2023 Patient encounter procedure 10/02/2023 11:30 AM EDT Office Visit [facility] [address] [place] [address] Tyson Panda MD [address] [place] [address] [facility] Start: 10-01-2023 End: 10-01-2023 Patient encounter procedure 10/01/2023 10:30 AM EDT Office Visit [facility] [address] [facility] [address] [place] [address] Trey Bautista MD [address] [facility] [place] [address] [facility] Start: 09-19-2023 End: 09-19-2023 Patient encounter procedure 09/19/2023 11:20 AM EDT Office Visit [facility]/Robert Velez MD [address] [place] [phone] Consuelo Medina, PETE-INSTALLATION SERVICE REPRESENTATIVE [address] [facility] [address] [place] [address] [facility]/Robert Velez MD Start: 09-16-2023 End: 09-16-2023 Patient encounter procedure 09/16/2023 6:45 PM EDT Appointment [facility] [address] [place] [phone] [facility] Start: 09-06-2023 End: 09-06-2023 Follow-up encounter 09/06/2023 1:30 PM EDT Follow Up Anticoagulation [facility] Medication Therapy Management [address] [place] [address] [facility] Start: 09-04-2023 End: 09-04-2023 Follow-up encounter 09/04/2023 11:45 AM EDT Follow Up Anticoagulation [facility] Medication Therapy Management [address] [place] [address] [facility] Start: 09-02-2023 End: 09-02-2023 Patient encounter procedure 09/02/2023 9:20 AM EDT Office Visit [facility]/Robert Velez MD [address] [place] [phone] Consuelo Medina APRN-INSTALLATION SERVICE REPRESENTATIVE [address] [facility] [address] [place] [address] [facility]/Robert Velez MD Start: 08-15-2023 End: 08-15-2023 Patient encounter procedure 08/15/2023 12:00 PM EST Office Visit [facility] [address] [facility] [address] [place] [phone] Trey Bautista MD [address] [facility] [place], [place] [phone] [facility] Start: 08-14-2023 End: 08-14-2023 Follow-up encounter 08/14/2023 11:45 AM EST Follow Up Anticoagulation [facility] Medication Therapy Management [address] [place] [address] [facility] Start: 08-06-2023 Urine screening for protein Urine Microalbumin [facility] Start: 08-05-2023 End: 08-05-2023 Follow-up encounter 08/05/2023 11:00 AM EST Follow Up Anticoagulation [facility] Medication Therapy Management [address] [place] [address] [facility] Start: 07-24-2023 End: 07-24-2023 Follow-up encounter 07/24/2023 11:00 AM EST Follow Up Anticoagulation [facility] Medication Therapy Management [address] [place] [address] [facility] Start: 07-17-2023 End: 07-17-2023 Follow-up encounter 07/17/2023 10:30 AM EST Follow Up Anticoagulation [facility] Medication Therapy Management [address] [place] [address] [facility] Start: 07-15-2023 End: 07-15-2023 Follow-up encounter 07/15/2023 10:30 AM EST Follow Up Anticoagulation [facility] Medication Therapy Management [address] [place] [address] [facility] Start: 07-05-2023 End: 07-05-2023 Admission to same day surgery center 07/05/2023 10:00 AM EST - 07/05/2023 11:55 AM EST Surgery [facility] [address] [phone] Yossi Cheatham MD [address] [place] [address] FESS- W/ VINNIE ETHMOIDECTOMY, MAX ANT, FRONTAL SINUS, SPHENOIDOTOMY [facility] Comment on above: FESS- W/ VINNIE ETHMOIDECTOMY, MAX ANT, FRO NTAL SINUS, SPHENOIDOTOMY Start: 07-05-2023 End: 07-05-2023 Nasal/sinus ndsc surg w/bx polypect/dbrdmt spx SINUS ENDOSCOPY FUNCTIONAL SURGERY IMAGE GUIDED Chronic maxillary sinusitis Chronic frontal sinusitis Chronic pansinusitis Nasal congestion 07/05/2023 10:00 AM EST [facility] Start: 07-05-2023 Subsequent hospital visit by physician 07/05/2023 10:00 AM EST Hospital Encounter [facility] [address] [place] [address] Yossi Cheatham MD [address] [place] [address] [facility] Start: 06-28-2023 End: 06-28-2023 Follow-up encounter 06/28/2023 9:45 AM EST Follow Up Anticoagulation [facility] Medication Therapy Management [address] [place] [address] [facility] Start: 06-19-2023 Annual Wellness Visit (AWV) Annual Wellness Visit (AWV) [facility] Start: 02-22-2021 Influenza vaccination Flu vaccine (#1) [facility] Work Phone: Start: 2019 Respiratory Syncytial Virus (RSV) or age 60 yrs+ (1 - 1-dose 60+ series) Respiratory Syncytial Virus (RSV) or age 60 yrs+ (1 - 1-dose 60+ series) [facility] Start: 07-12-2019 Cervical cancer screen Cervical cancer screen [place], [place] Start: 07-12-2019 Screening for malignant neoplasm of breast Breast cancer screen [facility] Start: 05-11-2019 End: 05-11-2019 Office Visit 05/11/2019 Office Visit Gastroenterology Arthur Renteria MD [address] [address] [phone] [facility] G[facility]enterology Start: 04-03-2019 Annual Wellness Visit (AWV) Annual Wellness Visit (AWV) [place], [place] Start: 02-22-2019 Influenza vaccination Flu vaccine (#1) [place] Start: 08-27-2015 A1C test (Diabetic or Prediabetic) A1C test (Diabetic or Prediabetic) [place] Start: 08-27-2015 Hemoglobin A1c measurement A1C test (Diabetic or Prediabetic) [facility] Phone: Start: 05-07-2015 [facility] Start: 05-07-2015 Lipid screen Lipid screen [place], [place] Start: 02-18-2015 [object Object] Diabetic foot exam [place], [place] Start: 02-18-2015 Diabetic foot examination Diabetic foot exam [facility] Start: 02-19-2014 DTaP/Tdap/Td vaccine (1 - Tdap) DTaP/Tdap/Td vaccine (1 - Tdap) [facility] [employer] [facility] Start: 10-15-2009 Administration of varicella zoster vaccine Zoster (Shingles) Vaccine (1 of 2) [facility] Start: 10-15-2009 Breast cancer screen Breast cancer screen [place], [place] Start: 10-15-2009 Screening for malignant neoplasm of breast Breast cancer screen [facility] Phone: Start: 10-15-2009 Shingles Vaccine (1 of 2) Shingles Vaccine (1 of 2) [facility] Start: 10-15-2004 Screening for malignant neoplasm of colon [facility] Start: 10-15-1978 Hepatitis B Vaccine (1 of 3 - Risk 3-dose series) Hepatitis B Vaccine (1 of 3 - Risk 3-dose series) [place] Start: 10-15-1977 Adult BMI Follow Up Plan Adult BMI Follow [facility] Plan [facility] Start: 10-15-1977 Diabetic foot examination Diabetic Foot Exam [facility] Start: 10-15-1977 Diabetic microalbuminuria test Diabetic microalbuminuria test [place], [place] Start: 10-15-1977 Glaucoma screening Diabetic retinal exam [facility] Start: 10-15-1977 Hepatitis C screening Hepatitis C screen [facility] [employer] Start: 10-15-1977 Urine screening for protein Diabetic Alb to Cr ratio (uACR) test [facility] Start: 10-15-1974 HIV screen HIV screen [place], [place] Start: 10-15-1974 HIV screening HIV screen [facility] [employer] Start: 1971 COVID-19 Vaccine (1) COVID-19 Vaccine (1) [employer] Phone: Start: 1971 Depression Screen Depression Screen [facility] [employer] Start: 10-15-1969 Diabetic retinal exam Diabetic retinal exam [place], [place] Start: 04-16-1960 COVID-19 Vaccine (#1) COVID-19 Vaccine (#1) [facility] Start: 1959 Glaucoma screening Diabetic Ophthalmology Exam [facility] Start: 1959 Hepatitis C screen Hepatitis C screen [place], [place] Start: 1959 Hepatitis C screening Hepatitis C screen [facility] Phone: Bacteria identified in Urine by Culture Urine culture Microbiology Routine 03/24/2024 5:20 PM EDT [facility] End: 03-29-2025 Basic metabolic 2000 panel - Serum or Plasma Basic Metabolic Panel Lab Routine Blood loss anemia 1 Occurrences starting 03/29/2024 until 03/29/2025 [facility] Comment on above: 1 Occurrences starting 03/29/2024 until 03/29/2025 Bedside Glucose *Place/Obtain serum glucose if >500(>600 [facility]) per glucometer. Bedside Glucose *Place/Obtain serum glucose if >500(>600 [facility]) per glucometer. Point of Care Testing Routine 4X Daily (AC and at bedtime) until discontinued starting 03/26/2024, 13 completed [facility] Comment on above: 4X Daily (AC and at bedtime) until disco ntinued starting 03/26/2024, 13 completed End: 03-29-2025 CBC panel - Blood by Automated count CBC without diff Lab Routine Blood loss anemia 1 Occurrences starting 03/29/2024 until 03/29/2025 [employer] Phone: Comment on above: 1 Occurrences starting 03/29/2024 until 03/29/2025 End: 05-11-2025 Hemoglobin A1c/Hemoglobin.total in Blood Hemoglobin A1c Lab Routine Type 2 diabetes mellitus without complication, unspecified whether truck terminal manager insulin use ([facility]) 1 Occurrences starting 05/11/2024 until 05/11/2025 [facility] Comment on above: 1 Occurrences starting 05/11/2024 until 05/11/2025 Initiate Oxygen Ther apy Protocol Initiate Oxygen Therapy Protocol Respiratory Care Routine Daily until discontinued starting 04/13/[address] [facility] [place] Comment on above: Daily until discontinued starting 2018 End: 04-13-2019 Iron and TIBC Iron and TIBC Lab Routine One Time for 1 Occurrences starting 04/13/2019 until 04/13/[address] [facility] [place] Comment on above: One Time for 1 Occurrences starting 03/25 until 04/13/2019 Iron and TIBC Iron and TIBC La b Routine 04/13/2019 9:25 AM EDT [place], [place] End: 03-29-2025 Magnesium [Mass/volume] in Serum or Plasma Magnesium Lab Routine Blood loss anemia 1 Occurrences starting 03/29/2024 until 03/29/2025 [facility] Comment on above: 1 Occurrences starting 03/29/2024 until 03/29/2025 End: 03-25-2024 Occult blood x 1, stool Occult blood x 1, stool Lab Routine Once for 1 Occurrences starting 03/25/2024 until 03/25/2024 [facility] Comment on above: Once for 1 Occurrences starting 03/25/20 24 until 03/25/2024 Oxygen Therapy - Maintain SpO2: 90%; *ELECTRIC MELT OPERATOR Guidelines for O2: Yes; Document: \[email or web address]\epi c\EPIC_Reference\Orders\ Respiratory Care Guidelines\CPG Oxygen 2022.pdf Oxygen Therapy - Maintain SpO2: 90%; *ELECTRIC MELT OPERATOR Guidelines for O2: Yes; Document: \[email or web address]\ep ic\EPIC_Reference\Order s\Respiratory Care Guidelines\CPG Oxygen 2022.pdf Respiratory Care Routine As Needed until discontinued starting 03/24/2024 [facility] Comment on above: As Needed until discontinued starting Phase I & II - meter ed glucose Phase I & II - metered glucose Point of Care Testing Routine As Needed until discontinued starting 04/13/2019 [place], [place] Comment on above: As Needed until discontinued starting End: 03-24-2024 Pulse oximetry, spot On current oxygen flow Pulse oximetry, spot On current oxygen flow Respiratory Care Routine Once for 1 Occurrences starting 03/24/2024 until 03/24/2024 [employer] Work Phone: Comment on above: Once for 1 Occurrences starting 03/24/20 24 until 03/24/2024 End: 04-25-2021 Sleep Study with PAP Titration Sleep Study with PAP Titration Sleep Center Routine IMELDA (obstructive sleep apnea) One Time for 1 Occurrences starting 04/25/2021 until 04/25/2021 [employer] Work Phone: Comment on above: One Time for 1 Occurrences starting 07/2020 until 04/25/2021 End: 04-13-2019 Tissue Transglutaminase, IgA Tissue Transglutaminase, IgA Lab Routine One Time for 1 Occurrences starting 04/13/2019 until 04/13/2019 [place] Comment on above: One Time for 1 Occurrences starting 03/25 until 04/13/2019 Tissue Transglutamin ase, IgA Tissue Transglutaminase, IgA Lab Routine 04/13/2019 9:25 AM EDT [place] End: 03-24-2024 Type and screen Type and screen Blood Bank Routine Once for 1 Occurrences starting 03/24/2024 until 03/24/2024 [facility] Comment on above: Once for 1 Occurrences starting 03/24/20 24 until 03/24/2024 End: 05-11-2025 Vitamin D 25 hydroxy Vitamin D 25 hydroxy Lab Routine Disorder of bone 1 Occurrences starting 05/11/2024 until 05/11/2025 [employer] Work Phone: Comment on above: 1 Occurrences starting 05/11/2024 until 05/11/2025 Immunizations Immunization Date Immunization Notes Care Provider Madison townsend 06-03-2023 pneumococcal polysaccharide vaccine, 23 valent Consuelo Medina SUPERVISOR SMOKE CONTROL-INSTALLATION SERVICE REPRESENTATIVE Work Phone: [facility] 03-27-2023 influenza, injectabl e, quadrivalent, preservative free Consuelo Medina SUPERVISOR SMOKE CONTROL-INSTALLATION SERVICE REPRESENTATIVE Work Phone: [facility] 03-27-2023 influenza virus vacc ine, unspecified formulation Consuelo Medina SUPERVISOR SMOKE CONTROL-INSTALLATION SERVICE REPRESENTATIVE Work Phone: [facility] 05-29-2018 influenza, injectabl e, quadrivalent, contains preservative Consuelo Medina SUPERVISOR SMOKE CONTROL-INSTALLATION SERVICE REPRESENTATIVE Work Phone: [facility] 05-24-2017 influenza, seasonal, injectable Consuelo Medina SUPERVISOR SMOKE CONTROL-INSTALLATION SERVICE REPRESENTATIVE Work Phone: [facility] 05-24-2017 pneumococcal conjuga te vaccine, 13 valent Consuelo Medina SUPERVISOR SMOKE CONTROL-INSTALLATION SERVICE REPRESENTATIVE Work Phone: [facility] 05-20-2017 influenza, injectabl e, quadrivalent, preservative free Consuelo Medina SUPERVISOR SMOKE CONTROL-INSTALLATION SERVICE REPRESENTATIVE Work Phone: [facility] 05-20-2017 pneumococcal polysaccharide vaccine, 23 valent Consuelo Medina SUPERVISOR SMOKE CONTROL-INSTALLATION SERVICE REPRESENTATIVE Work Phone: [facility] 02-18-2014 TD(adult) unspecifie d formulation Consuelo Medina SUPERVISOR SMOKE CONTROL-INSTALLATION SERVICE REPRESENTATIVE Work Phone: [facility] 02-18-2014 Td, unspecified formulation [place], [place] 02-18-2014 tetanus and diphther ia toxoids, adsorbed, preservative free, for adult use (5 Lf of tetanus toxoid and 2 Lf of diphtheria toxoid) Consuelo Medina SUPERVISOR SMOKE CONTROL-INSTALLATION SERVICE REPRESENTATIVE Work Phone: [facility] 04-03-2013 tetanus toxoid, adsorbed Quincy Medina SUPERVISOR SMOKE CONTROL-INSTALLATION SERVICE REPRESENTATIVE Work Phone: [facility] 03-30-2010 influenza, seasonal, injectable Consuelo Medina SUPERVISOR SMOKE CONTROL-INSTALLATION SERVICE REPRESENTATIVE Work Phone: [facility] Payers Date Payer Category Payer Private Health Insurance [id number] 2021 Private Health Insurance [id number] 2020 Managed Care Other (unspecified) [facility] [id number] 2020 Private Health Insurance [facility] [id number] 2020-Present [phone] [address] [address] [place] [address] [id number] .[id number] 2020 Private Health Insurance [id number] 2014 Medicare xxxxxxxxxx [id number] 2014 Private Health Insurance [id number] 2012 Medicare [id number]. [id number] .[id number] 2012 Medicare [id number] 1.2.840.237098.1.13.239.2 .7.3.431519.315 1959 Unknown [id number] 2.16.840.1.968832.3.579.2 .176 1959 Unknown [id number] 2.16.840.1.836297.3.579.2 .176 1959 Unknown [id number] 2.16.840.1.869600.3.579.2 .177 1959 Unknown [id number] 2.16.840.1.418489.3.579.2 .177 1959 Unknown [id number] 2.16.840.1.323163.3.579.2 .1285 1959 Unknown [id number] 2.16.840.1.433677.3.579.2 .1285 1959 Unknown [id number] 2.16.840.1.673951.3.579.2 .1285 1959 Unknown [id number] 2.16.840.1.885961.3.579.2 .1285 1959 Unknown [id number] 2.16.840.1.831390.3.579.2 .1285 1959 Unknown [id number] 2.16.840.1.628635.3.579.2 .1285 1959 Unknown [id number] 2.16.840.1.351086.3.579.2 .1285 1959 Unknown [id number] 2.16.840.1.275558.3.579.2 .1285 1959 Unknown [id number] 2.16.840.1.117979.3.579.2 .1285 1959 Unknown [id number] 2.16.840.1.549877.3.579.2 .1285 1959 Unknown [id number] 2.16.840.1.870233.3.579.2 .1285 1959 Unknown [id number] 2.16.840.1.749493.3.579.2 .1285 1959 Unknown [id number] 2.16.840.1.330409.3.579.2 .1285 1959 Unknown [id number] 2.16.840.1.995580.3.579.2 .1285 1959 Unknown [id number] 2.16.840.1.252104.3.579.2 .1285 1959 Unknown [id number] 2.16.840.1.317652.3.579.2 .1285 1959 Unknown [id number] 2.16.840.1.076621.3.579.2 .1285 1959 Unknown [id number] 2.16.840.1.563917.3.579.2 .1285 1959 Unknown [id number] 2.16.840.1.853278.3.579.2 .1285 1959 Unknown [id number] 2.16.840.1.943556.3.579.2 .1285 1959 Unknown [id number] 2.16.840.1.800874.3.579.2 .1285 1959 Unknown [id number] 2.16.840.1.418036.3.579.2 .1285 1959 Unknown [id number] 2.16.840.1.791075.3.579.2 .1285 1959 Unknown [id number] 2.840.1.783311.3.579.2 .1285 1959 Unknown [id number] 2.16.840.1.468951.3.579.2 .1285 1959 Unknown [id number] 2.16.840.1.625936.3.579.2 .1285 1959 Unknown [id number] 2.16.840.1.353299.3.579.2 .1285 1959 Unknown [id number] 2.16.840.1.466692.3.579.2 .1285 1959 Unknown [id number] 2.16.840.1.473920.3.579.2 .1285 1959 Unknown [id number] 2.16.840.1.880856.3.579.2 .1285 1959 Unknown [id number] 2.16.840.1.640608.3.579.2 .1285 1959 Unknown [id number] 2.16.840.1.097823.3.579.2 .1285 1959 Unknown [id number] 2.16.840.1.280915.3.579.2 .1285 1959 Unknown [id number] 2.16840.1.281422.3.579.2 .1285 1959 Unknown [id number] 2.16.840.1.807064.3.579.2 .1285 1959 Unknown [id number] 2.16840.1.354047.3.579.2 .1285 1959 Unknown [id number] 2.16840.1.547104.3.579.2 .1285 1959 Unknown [id number] 2.840.1.512311.3.579.2 .1285 1959 Unknown [id number] 2.840.1.776643.3.579.2 .1285 1959 Unknown [id number] 2.840.1.732386.3.579.2 .1285 1959 Unknown [id number] 2.840.1.685197.3.579.2 .1285 1959 Unknown [id number] 2.840.1.799200.3.579.2 .1285 1959 Unknown [id number] 2.840.1.754996.3.579.2 .1285 1959 Unknown [id number] 2.840.1.665374.3.579.2 .1285 1959 Unknown [id number] 2.840.1.015004.3.579.2 .1285 1959 Unknown [id number] 2.16840.1.030958.3.579.2 .1285 1959 Unknown [id number] 2.16840.1.562670.3.579.2 .1285 1959 Unknown [id number] 2.16840.1.144859.3.579.2 .1286 Social History Date Type Detail Facility Start: 04-13-2019 End: 09-24-2022 Tobacco smoking status NHIS Never smoker [facility] [employer] [facility] Start: 04-13-2019 End: 07-08-2020 Alcohol intake No [place], [place] Start: 1960 Sex Assigned At Not on file M [place], [place] Start: 05-11-2019 End: 09-24-2022 [facility] use and exposure [facility] Start: 05-11-2019 Alcohol intake Current non-dr borematic operator of alcohol (finding) [facility] Start: 05-11-2019 End: 07-08-2020 [facility]: Exposure to SARS-CoV -2 (event) Not sure [facility] Start: 06-14-2023 End: 07-12-2023 Alcohol intake Current drinker of alcohol (finding) [facility] Adolescent depressio n screening assessment 0 [facility] Start: 09-24-2022 Tobacco Comment Been around [place] never have smoked [facility] Start: 06-08-2020 Alcohol Comment occ [facility] Start: 06-19-2023 Alcohol Comment rarely [facility] [employer] Start: 03-24-2024 End: 06-03-2024 Alcoholic beverage intake Ex-drinker (finding) [facility] Has the [employer], [employer], [employer], or water [employer] threatened to shut off services in your home in past 12Mo No [facility] How often to you hav e a drink containing alcohol? Never [facility] Start: 1960 Sex assigned at Female P [facility] Start: 03-24-2024 Gender identity Identifies as female gender (finding) [facility] Start: 01-27-2015 Sex Female (finding) [facility] Medical Equipment Procedure Code Equipment Code Equipment Origin al Text Equipment Identifier Dates Diagnosis code = 250.00 .Fluctuating blood sugars. Test 3 times daily [id number] Start: 03-23-2015 Using one touch ultra glucometer. [id number] Start: 01-22-2014 Check daily and prn E11.9 [id number] Start: 09-17-2022 Check BID [id number] Start: 03-16-2024 End: 03-29-2024 Bearing Hum 36mm Cmprh Std Shldr Prlng Rvrs - [id number] Start: 06-02-2024 Baseplate Dakota C mprh 25mm Mn Shldr Tpr Adpr Rvrs Sys - [id number] Start: 06-02-2024 Component Dakota 3 6mm Std Glenosphere Clr Cd Cmprh Versa-Dial - [id number] Start: 06-02-2024 Stem Hum 83mm 12 mm Cmprh Por Mn Shldr Rvrs Sys - [id number] Start: 06-02-2024 Tray Hum Cmprh + 3mm Std Shldr Rvrs - [id number] Start: 06-02-2024 Screw Bn 30mm 6. 5mm Cntr Hx Hd Ti Cmprh 3.5mm Strl Rvrs - [id number] Start: 06-02-2024 Screw Bn 20mm 4. 75mm Va Hx Hd Ti Cmprh 3.5mm Strl Rvrs Shldr - [id number] Start: 06-02-2024 Screw Bn 20mm 4. 75mm Va Hx Hd Ti Cmprh 3.5mm Strl Rvrs Shldr - [id number] Start: 06-02-2024 Screw Bn 15mm 4. 75mm Lck Fx Ang Hx Hd Ti Cmprh 3.5mm Strl - [id number] Start: 06-02-2024 Screw Bn 15mm 4. 75mm Lck Fx Ang Hx Hd Ti Cmprh 3.5mm Strl - [id number] Start: 06-02-2024 Goals Date Patient Goal Desired Activity /State Personal health goal Comment on above: Formatting of this n ote might be different from the original. Evaluation of progress towards goal: Pt plans on returning home with Home care. Personal health goal Comment on above: Formatting of this n ote might be different from the original. Evaluation of progress towards goal: safe transition to SNF Personal health goal Comment on above: Formatting of this n ote might be different from the original. Evaluation of progress towards goal: Patient and spouse coal to DC to SNF for rehab and eventually return home. Functional Status Date Assessment Result Facility [facility] Clinical Notes 04-26-2021 to 05-29-2024 Pre-Procedure Instructions - Kenya Chery RN - 05/29/2024 8:00 AM ESTPerioperative Nursing Note - Kenya Chery RN - 05/29/2024 8:00 AM ANKITA Finley - 05/13/2024 12:30 PM ESTInstructions Note Date & Type Note Facility 05-29-2024 Instructions Formatting of th is note might be different from the original. Your surgery/procedure is scheduled at [facility] on June 02 at 730 am Arrival Time 530 am [facility] Address: [address] [place] [address] in [address] Parking lot located on [facility]. Report to the Entrance B. Check in at the information desk the surgery. The waiting room located on the second floor. If you have any questions prior to surgery, please call Pre-Admission Clinic at [phone] between 7:30 am and 4:30 pm Saturday through Saturday. If you have questions the morning of surgery, please call the Pre-op Department at [phone]. Notify your SURGEON if you develop any illness such as a cold, cough, fever, sore throat, vomiting or are hospitalized between now and your surgery. Medication Instructions (Do not stop your medications without consulting the prescribing physician). Take the following medications the morning of surgery with a sip of water: carvedilol, zoloft Diabetic or Weight loss medications: HOLD n/a LAST DOSE n/a Take inhalers as prescribed the morning of surgery. Due to the risk associated with these medications. If these medications are not held per instruction below, your surgery is at an increased risk for cancellation. SGLT2 Medications- Hold 3 days prior to surgery: Jardiance, Empagliflozin, Farxiga, Dapagliflozin, Invokana, Canagliflozin, Trijardy, Synjardy GLP-1 Medications (Injection or Pill)- If taken daily hold day of surgery. If taken weekly, hold 1 week prior to surgery: Adlyxin, Byetta, Bydureon, Ozempic, Rybelsus,Trulicity, Victoza, Wegovy, Lixisenatide, Exenatide, Semaglutide, Dulaglutide, Liraglutide GIP/GLP-1(Injection or Pill)- If taken daily hold day of surgery. If taken weekly, hold 1 week prior to surgery: Raj . Blood thinners: Please contact your prescribing physician regarding a stop/hold date for these medications. Medications such as Jantoven Coumadin, Heparin, Aspirin, Plavix, Eliquis, Pradaxa Diabetics: If you take insulin, contact your prescribing doctor for instructions on how to manage this the night before and the morning of surgery. Non-steriodal Anti-Inflammatory Drugs (NSAIDS)- Hold 7 days prior to surgery unless otherwise directed by your surgeon. Vitamins/Herbal Products: You may continue to take your prescribed vitamins such as potassium, iron, vitamin B, vitamin C, or multivitamin unless specifically instructed by your surgeon to hold. STOP taking all herbal products/teas one week prior to your surgery. Marijuana: Stop marijuana 72 hours prior to surgery, stop CBD oil 48 hours prior to surgery. If you have been given bowel prep instructions by your surgeon, please call the surgeon's office with any questions about these instructions. What do I do the day of Surgery? Age 2 through adult - Stop all solids by midnight, You may have clear liquids up to 2 hours before surgery, unless otherwise instructed by your surgeon. Clear liquids are: water, sports drinks such as Gatorade or G2, or apple juice. You may NOT have: tube feedings, dairy products, alcoholic beverages, orange juice, or any liquids with solids or pulp in it. If applicable, shower again with CHG soap the morning of your surgery. If you received a green plastic bracelet, bring it with you the day of surgery and your nurse will put it on you. In order to help prevent infection post-operatively, you may be asked to use a CHG mouthwash when you arrive to the Pre-op area. Your nurse will provide instruction the morning of. What do I need to do to prepare for surgery? If you will be going home the same day as your surgery, arrange for an adult over [address] Riding in a bus or taxi by yourself is not permitted. You should not smoke or drink alcohol 24 hours before your surgery. Alcohol thins the blood and may cause bleeding problems during surgery. Smoking increases the risk of breathing problems after surgery. Do not use lotions, creams, powders, perfume, make up, cologne or after-shaves day of surgery. Remove ALL jewelry including wedding rings, body piercings (including dermal piercings ,hair extensions that contain metal, nail finnish, make-up, and contact lens. You may brush your teeth the morning of surgery, but do not swallow the water. Wear your dentures and partial plates to the hospital (no adhesive). Shower the night the before please use an antibacterial soap such as Dial. What should I bring to the hospital? If you received a green plastic bracelet, bring it with you the day of surgery and your nurse will put it on you. Eyeglass or contact lens case If you will be spending the night, please bring personal care items and leave them in the car until you are taken to your room after surgery. Leave ALL valuables at home. If any of these instructions conflict with those you received from the surgeon, please seek clarification from your surgeon's office. DEEP BREATHING EXERCISES This exercise helps promote good air exchange and helps to prevent pneumonia after surgery. Breathe in slowly and deeply through the nose. Hold your breath for a few seconds and then exhale slowly through the mouth. Repeat this three times and then cough.Coughing helps to clear your lungs. If you have had a surgery with an incision into your abdomen or chest, press gently against your incision with a pillow or a folded blanket when you cough. Please be aware - it may not be corcoran to cough following some types of surgeries involving the eyes, ears, sinuses and throat. Always follow your doctor's instructions. LEG EXERCISE These exercises help promote good circulation and help to prevent blood clots after surgery. Point your toes to the ceiling and then point them to the wall. Do this slowly about 15-20 times. You may also move your feet in circles. Do the exercise that is most comfortable for you. If you have had surgery involving your shoulder or arm, we recommend you move your fingers. PRACTICING We ask that you begin practicing these exercises before your surgery. After surgery try to do both exercises at least every 2 hours during the day and early evening. SURGICAL SITE INFECTION PREVENTION What is a Surgical Site Infection? Infection can happen to the area of the body where surgery is done. This is called a surgical site infection (SSI). A SSI does not happen very often. Can SSIs be treated? Antibiotics are used to treat SSI. Some patients may need another surgery to treat the infection. The doctor will discuss treatment options with you. What are some of the things that hospitals are doing to prevent SSIs? Soap and water or alcohol hand rub are used before and after caring for each patient. Special soap is used to clean surgery workers hands and arms just before the surgery. Masks, gowns, gloves and hair covers are worn during the surgery to keep the area clean. Hair in the surgery area may be removed with clippers (not razors). A special soap that kills germs is used to clean the skin at the surgery site. Antibiotics may be given before the surgery starts. What can you do to prevent SSIs? Before surgery: You may be asked to shower or bathe with a special soap that kills germs the night before and the day of surgery. Use the soap as you were told. If you smoke, stop or cut down. Ask your doctor about ways to quit. Do not shave near where you will have surgery. Shaving can irritate the skin and make it easier to get and infection. After surgery: Be sure that the doctors and nurses clean their hands before and after touching you. Be sure your family and friends clean their hands before and after visiting you. Do not be afraid to remind them. * Care for your wound at home as told by your doctor or nurse * Call your doctor right away if you have fever, redness, increased pain, or drainage at the surgery site. Further questions? Contact the doctor, nurse or the Infection Prevention and Control department if you have any questions. PATIENT RIGHTS AND RESPONSIBILITIES As a patient at [facility], you have the right to: Receive medical care and be informed of who is taking care of you Be treated with dignity and respect Have a family member/sales representative gas service of choice and your physician notified of your admission Receive information and actively participate in decisions about your care and treatment Refuse care, treatment and services Decide who may provide your support and speak for you Access hindu and spiritual services Participate in ethical issues and questions about your care Receive private and confidential care Have appropriate assessment and management of your pain Know guest visitation restrictions or limitations Have an advance directive Access protective services Consent or refuse to participate in research studies or production or recordings, films or other images Have resolution of your complaints Receive information of hospital charges and payment methods Patient/patient sales representative gas service responsibilities are to: Provide information about health status to facilitate care, treatment and services Follow the treatment, plan, keep appointments and speak up when you do not understand the plan Respect the rights of other patients and healthcare personnel Follow organizational rules and regulations that support quality care and a safe environment Fulfill financial obligations as promptly as possible [facility] 05-29-2024 Miscellaneous Notes Preadmission testing fax request of info to facility for surgery on 06/02/2024 at [facility] with confirmation received. Preadmission testing instructions fax to facility for procedure on 06/02/2024 at [facility], with confirmation received. Your surgery/procedure is scheduled at [facility] on June 02 at 730 am Arrival Time 530 am [facility] Address: [address] [place] [address]. [address] Parking lot located on [facility]. Report to the Entrance B. Check in at the information desk the surgery. The waiting room located on the second floor. If you have any questions prior to surgery, please call Pre-Admission Clinic at [phone] between 7:30 am and 4:30 pm Saturday through Saturday. If you have questions the morning of surgery, please call the Pre-op Department at [phone]. Notify your SURGEON if you develop any illness such as a cold, cough, fever, sore throat, vomiting or are hospitalized between now and your surgery. Medication Instructions (Do not stop your medications without consulting the prescribing physician). Take the following medications the morning of surgery with a sip of water: carvedilol, zoloft Diabetic or Weight loss medications: HOLD n/a LAST DOSE n/a Take inhalers as prescribed the morning of surgery. Due to the risk associated with these medications. If these medications are not held per instruction below, your surgery is at an increased risk for cancellation. SGLT2 Medications- Hold 3 days prior to surgery: Jardiance, Empagliflozin, Farxiga, Dapagliflozin, Invokana, Canagliflozin, Trijardy, Synjardy GLP-1 Medications (Injection or Pill)- If taken daily hold day of surgery. If taken weekly, hold 1 week prior to surgery: Adlyxin, Byetta, Bydureon, Ozempic, Rybelsus,Trulicity, Victoza, Wegovy, Lixisenatide, Exenatide, Semaglutide, Dulaglutide, Liraglutide GIP/GLP-1(Injection or Pill)- If taken daily hold day of surgery. If taken weekly, hold 1 week prior to surgery: Mounjaro . Blood thinners: Please contact your prescribing physician regarding a stop/hold date for these medications. Medications such as Jantoven Coumadin, Heparin, Aspirin, Plavix, Eliquis, Pradaxa Diabetics: If you take insulin, contact your prescribing doctor for instructions on how to manage this the night before and the morning of surgery. Non-steriodal Anti-Inflammatory Drugs (NSAIDS)- Hold 7 days prior to surgery unless otherwise directed by your surgeon. Vitamins/Herbal Products: You may continue to take your prescribed vitamins such as potassium, iron, vitamin B, vitamin C, or multivitamin unless specifically instructed by your surgeon to hold. STOP taking all herbal products/teas one week prior to your surgery. Marijuana: Stop marijuana 72 hours prior to surgery, stop CBD oil 48 hours prior to surgery. If you have been given bowel prep instructions by your surgeon, please call the surgeon's office with any questions about these instructions. What do I do the day of Surgery? Age 2 through adult - Stop all solids by midnight, You may have clear liquids up to 2 hours before surgery, unless otherwise instructed by your surgeon. Clear liquids are: water, sports drinks such as Gatorade or G2, or apple juice. You may NOT have: tube feedings, dairy products, alcoholic beverages, orange juice, or any liquids with solids or pulp in it. If applicable, shower again with CHG soap the morning of your surgery. If you received a green plastic bracelet, bring it with you the day of surgery and your nurse will put it on you. In order to help prevent infection post-operatively, you may be asked to use a CHG mouthwash when you arrive to the Pre-op area. Your nurse will provide instruction the morning of. What do I need to do to prepare for surgery? If you will be going home the same day as your surgery, arrange for an adult over [address] Riding in a bus or taxi by yourself is not permitted. You should not smoke or drink alcohol 24 hours before your surgery. Alcohol thins the blood and may cause bleeding problems during surgery. Smoking increases the risk of breathing problems after surgery. Do not use lotions, creams, powders, perfume, make up, cologne or after-shaves day of surgery. Remove ALL jewelry including wedding rings, body piercings (including dermal piercings ,hair extensions that contain metal, nail finnish, make-up, and contact lens. You may brush your teeth the morning of surgery, but do not swallow the water. Wear your dentures and partial plates to the hospital (no adhesive). Shower the night the before please use an antibacterial soap such as Dial. What should I bring to the hospital? If you received a green plastic bracelet, bring it with you the day of surgery and your nurse will put it on you. Eyeglass or contact lens case If you will be spending the night, please bring personal care items and leave them in the car until you are taken to your room after surgery. Leave ALL valuables at home. If any of these instructions conflict with those you received from the surgeon, please seek clarification from your surgeon's office. DEEP BREATHING EXERCISES This exercise helps promote good air exchange and helps to prevent pneumonia after surgery. Breathe in slowly and deeply through the nose. Hold your breath for a few seconds and then exhale slowly through the mouth. Repeat this three times and then cough.Coughing helps to clear your lungs. If you have had a surgery with an incision into your abdomen or chest, press gently against your incision with a pillow or a folded blanket when you cough. Please be aware - it may not be corcoran to cough following some types of surgeries involving the eyes, ears, sinuses and throat. Always follow your doctor's instructions. LEG EXERCISE These exercises help promote good circulation and help to prevent blood clots after surgery. Point your toes to the ceiling and then point them to the wall. Do this slowly about 15-20 times. You may also move your feet in circles. Do the exercise that is most comfortable for you. If you have had surgery involving your shoulder or arm, we recommend you move your fingers. PRACTICING We ask that you begin practicing these exercises before your surgery. After surgery try to do both exercises at least every 2 hours during the day and early evening. SURGICAL SITE INFECTION PREVENTION What is a Surgical Site Infection? Infection can happen to the area of the body where surgery is done. This is called a surgical site infection (SSI). A SSI does not happen very often. Can SSIs be treated? Antibiotics are used to treat SSI. Some patients may need another surgery to treat the infection. The doctor will discuss treatment options with you. What are some of the things that hospitals are doing to prevent SSIs? Soap and water or alcohol hand rub are used before and after caring for each patient. Special soap is used to clean surgery workers hands and arms just before the surgery. Masks, gowns, gloves and hair covers are worn during the surgery to keep the area clean. Hair in the surgery area may be removed with clippers (not razors). A special soap that kills germs is used to clean the skin at the surgery site. Antibiotics may be given before the surgery starts. What can you do to prevent SSIs? Before surgery: You may be asked to shower or bathe with a special soap that kills germs the night before and the day of surgery. Use the soap as you were told. If you smoke, stop or cut down. Ask your doctor about ways to quit. Do not shave near where you will have surgery. Shaving can irritate the skin and make it easier to get and infection. After surgery: Be sure that the doctors and nurses clean their hands before and after touching you. Be sure your family and friends clean their hands before and after visiting you. Do not be afraid to remind them. * Care for your wound at home as told by your doctor or nurse * Call your doctor right away if you have fever, redness, increased pain, or drainage at the surgery site. Further questions? Contact the doctor, nurse or the Infection Prevention and Control department if you have any questions. PATIENT RIGHTS AND RESPONSIBILITIES As a patient at [facility], you have the right to: Receive medical care and be informed of who is taking care of you Be treated with dignity and respect Have a family member/sales representative gas service of choice and your physician notified of your admission Receive information and actively participate in decisions about your care and treatment Refuse care, treatment and services Decide who may provide your support and speak for you Access hindu and spiritual services Participate in ethical issues and questions about your care Receive private and confidential care Have appropriate assessment and management of your pain Know guest visitation restrictions or limitations Have an advance directive Access protective services Consent or refuse to participate in research studies or production or recordings, films or other images Have resolution of your complaints Receive information of hospital charges and payment methods Patient/patient sales representative gas service responsibilities are to: Provide information about health status to facilitate care, treatment and services Follow the treatment, plan, keep appointments and speak up when you do not understand the plan Respect the rights of other patients and healthcare personnel Follow organizational rules and regulations that support quality care and a safe environment Fulfill financial obligations as promptly as possible documented in this encounter [facility] 05-29-2024 Nurse Note Preadmission testing fax request of info to facility for surgery on 06/02/2024 at [facility] with confirmation received. [facility] 05-29-2024 Nurse Note Preadmission testing instructions fax to facility for procedure on 06/02/2024 at [facility], with confirmation received. [facility] 05-26-2024 Miscellaneous Notes PC to patient, spoke with spouse. Advised that patient needs to stop Jantoven three days prior to surgery and hold metformin and losartan morning of surgery. He voiced understanding. documented in this encounter [facility] 05-26-2024 Telephone encounter Note PC to patient, spoke with spouse. Advised that patient needs to stop Jantoven three days prior to surgery and hold metformin and losartan morning of surgery. He voiced understanding. [facility] 05-13-2024 History of Present illness Narrative Robb Crystal Date of visit: 05/13/2024 Date of : 1960 Age: 63 y.o. Patient Active Problem List Diagnosis longterm (current) use of anticoagulants [Z79.01] Essential hypertension History of stroke 1993 Obstructive sleep apnea syndrome CVA (cerebral vascular accident) ([facility]) 1993 - ON [place] WARFARIN Type 2 diabetes mellitus with microalbuminuria, without long-term current use of insulin [place] Hypercholesteremia [place] (myocardial infarction) BMI 45.0-49.9, adult [place] IMELDA on CPAP SOB (shortness of breath) on exertion Deepthi-deepthi disease Chronic fatigue Absolute anemia Chronic lymphocytic thyroiditis Traumatic hematoma of buttock Iron deficiency anemia, unspecified Iron malabsorption Lymphedema Cerebral atrophy [place] 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[facility] Osteopenia of both hips Acquired hypothyroidism Age-related osteoporosis without current pathological fracture Pre-operative clearance Melena Blood loss anemia Frequent falls Chronic depression History of epistaxis Fall, initial encounter Closed displaced fracture of surgical neck of left humerus Facial laceration Allergies Allergen Reactions Adhesive Dermatitis Dicloxacillin Sodium Hives Lincomycin Hcl Hives Lipitor [Atorvastatin] Elevated LFT's Penicillins Hives Atarax [Hydroxyzine Hcl] Itching Exacerbated previous condition Ceclor [Cefaclor] Rash Clindamycin Rash Hydroxyzine Pamoate Itching Severe itching, exacerbated previous condition. No swelling, hives Latex Rash Latex, Natural Rubber Itching Warfarin Hives FATIGUE,CONSTIPATION Current Outpatient Medications Medication Sig Dispense Refill atorvastatin (LIPITOR) 40 mg tablet take 1 tablet by mouth every day 90 tablet 3 carvediloL (COREG) 3.125 mg tablet TAKE 1 TABLET (3.125 MG TOTAL) BY MOUTH IN THE MORNING AND 1 TABLET (3.125 MG TOTAL) BEFORE BEDTIME. 180 tablet 1 ergocalciferol (DRISDOL) 1,250 mcg (50,000 unit) capsule Take 1 tablet two times weekly: on Saturday and Saturday 24 capsule 3 ferrous sulfate 325 (65 FE) mg EC tablet TAKE 1 TABLET (325 MG TOTAL) BY MOUTH IN THE MORNING 90 tablet 1 folic acid (FOLVITE) 1 mg tablet take 1 tablet by mouth every day 90 tablet 1 furosemide (LASIX) 20 mg tablet take 1 tablet by mouth every day 90 tablet 1 JANTOVEN 5 mg tablet Take 1-1.5 tablets (5-7.5 mg total) by mouth in the evening. As directed by Aimee DALY. 135 tablet 1 levothyroxine (SYNTHROID, LEVOTHROID) 150 MCG tablet take 1 tablet by mouth every day 90 tablet 1 losartan (COZAAR) 25 mg tablet Take 1 tablet (25 mg total) by mouth in the morning. 30 tablet 1 metFORMIN (GLUCOPHAGE) 1000 mg tablet Take 1 tablet (1,000 mg total) by mouth in the morning and 1 tablet (1,000 mg total) before bedtime. 180 tablet 3 omega 1-tqu-eeb-fish oil (Fish OiL) 300-1,000 mg capsule Take 1,000 mg by mouth in the morning. pantoprazole (PROTONIX) 40 mg EC tablet Take 1 tablet (40 mg total) by mouth in the morning and 1 tablet (40 mg total) in the evening. Take before meals. 60 tablet 1 rOPINIRole (REQUIP) 1 mg tablet Take 2 tablets (2 mg total) by mouth nightly. 3 sertraline (ZOLOFT) 100 mg tablet TAKE 1 TABLET BY MOUTH EVERY DAY 90 tablet 2 triamcinolone (KENALOG) 0.1 % paste Apply 1 Application to teeth in the morning and 1 Application before bedtime. TRUE METRIX GLUCOSE METER [facility] See Admin Instructions. No current facility-administered medications for this visit. Chief Complaint Patient presents with Pre-op Exam Holter Monitor History of Present Illness Low risk stress test 10/02/2017 Preserved LVEF 55-60% on TTE 09/08/2020 Essential hypertension Dyslipidemia DM II AT III deficiency On Warfarin H/o stroke IMELDA/CPAP Pateint was last seen by Haja Alba APRN on 06/14/2023 for follow up and preop. At that time, there was concern for falls. She denied syncope. Her Losartan was decreased and a 3 week monitor was ordered which showed sinus rhythm, heart rate ranging between 50 and 117. Average heart rate 75. Rare PACs and PVCs were noted. Notably, patient was hospitalized from 04/13/2024 to 04/15/2024 for a fall. She sustained a left shoulder fracture and head lacerations. She f/u with orthopedics outpatient with plans for total left shoulder surgery. Today in the office, patient is accompanied by her . She is in a wheelchair and currently at [facility] for inpatient rehab. Initially patient was sent to inpatient rehab for lower extremity weakness. While there, she fell injuring her left shoulder. She denies a syncopal episode when she fell. States she weak in the legs and fell. She is requesting cardiac clearance for left shoulder surgery. Date has yet to be determined. She denies any chest pain/pressure, new or worsening shortness of breath, palpitations, dizziness, syncope or near syncopal episodes. Patient will intermittently experience lightheadedness upon position changes. This is not new. She has functional limitations from lower extremity weakness. Patient will need bridged with Lovenox since she was on Jantoven for AT III deficiency. Past Medical History: Diagnosis Date Anemia 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 Anxiety Arrhythmia Irregular HB Arthritis Spine Cataract States early Chest pain Chronic lymphocytic thyroiditis CVA (cerebral vascular accident) [place] Left side-mild weakness DDD (degenerative disc disease), lumbar Deep vein thrombosis ([facility] LLE Dental disease Poor teeth Depression Diabetes mellitus type 2, controlled ([facility] Checks glucose [id number] Disease of thyroid gland Diverticulitis of colon Dizziness HARRIS (dyspnea on exertion) Facial weakness Fractures Right wrist, left elbow GERD (gastroesophageal reflux disease) Deepthi-deepthi disease Katelyn's thyroiditis Hypercoagulable state [place] Hyperlipidemia Hypertension Hypothyroidism Memory loss Short + longterm memory problems r/t stroke [place] (myocardial infarction) [place]) Silent-in past Migraine Morbid obesity ([facility] MRSA (methicillin resistant Staphylococcus aureus) 2000s Posterior left neck-treated Neuropathy Feet Numbness Osteoporosis Pneumonia Rash bilat legs lower belly Restless leg syndrome Sinusitis, chronic Sleep apnea CPAP Stress incontinence Stroke ([facility] TIA (transient ischemic attack) Several UTI (urinary tract infection) Years ago Ventral hernia Visual impairment Wears corrective lenses Past Surgical History: Procedure Laterality Date SECTION 1979 + 1980 CHOLECYSTECTOMY 2011 COLONOSCOPY 2015 COLONOSCOPY N/A 10/30/2018 Performed by Lottie Martinez DO at [facility] SURGERY ELBOW SURGERY Left 04/27/2013 Fracture repair has hardware- ORIF distal humeral condylar fx EXAM UNDER ANESTHESIA/EXCISION VUVLAR CYST N/A 06/15/2020 Performed by Rich Montalvo MD at [facility] EXCISION CYST ARM Right 10/30/2018 Performed by Lottie Martinez DO at [facility] FESS (FUNCTIONAL ENDOSCOPIC SINUS SURGERY) WITH NAVIGATION SYSTEM NASAL, FRONTAL SINSUSOTOMY, SPHENEIDOTOMY Bilateral 06/27/2016 Performed by Yossi Cheatham MD at [facility] HERNIA REPAIR 2012 2 seperate surgeries/ abd hernias HYSTERECTOMY 1981 States still has at least one ovary INCISION DRAINAGE BUTTOCKS Left 02/10/2021 Performed by Xiomara Huffman MD at [facility] SURGERY NECK SURGERY 2000s MRSA spot on back of neck OVARIAN CYST REMOVAL Right TUBAL LIGATION 1980 WRIST SURGERY Right 04/27/2013 Has hardware- ORIF distal radius fx Family History Problem Relation Age of Onset Diabetes Mother Hypertension Mother Heart disease Mother Stroke Mother COPD Father Cancer Father Cancer Sister Heart disease Sister Hypertension Sister Diabetes Sister Anesthesia problems Sister Stroke Sister Migraines Sister Cancer Sister Rheumatic fever Brother Social History Socioeconomic History Marital status: Spouse name: Not on file Number of children: Not on file Years of education: Not on file Highest education level: Not on file Occupational History Not on file Tobacco Use Smoking status: Never Smokeless tobacco: Never Tobacco comments: Been around smokers never have smoked Vaping Use Vaping status: Never Used Substance and Sexual Activity Alcohol use: Not Currently Comment: occ Drug use: No Sexual activity: Defer Partners: Male control/protection: None Comment: , Hyst Other Topics Concern Caffeine Use Yes Social History Narrative Not on file Social Drivers of Health Financial Resource Strain: Not on file Food Insecurity: No Food Insecurity (05/13/2024) Hunger Screening Food Insecurity - Worry: Never True Food Insecurity - Inability: Never True Transportation Needs: No Transportation Needs (04/13/2024) PRAPARE - Transportation Lack of Transportation (Medical): No Lack of Transportation (Non-Medical): No Physical Activity: Not on file Stress: Not on file Social Connections: Not on file Interpersonal Safety: Not At Risk (04/13/2024) Humiliation, Afraid, Rape, and Kick questionnaire Fear of Current or Ex-Partner: No Emotionally Abused: No Physically Abused: No Sexually Abused: No Housing Instability: Low Risk (04/13/2024) Housing Instability Housing Instability: No Review of Systems Review of Systems Cardiovascular: Positive for dyspnea on exertion. Negative for chest pain and leg swelling. Respiratory: Negative for cough, shortness of breath and wheezing. Skin: Negative for itching and rash. Musculoskeletal: Positive for arthritis, joint pain and stiffness. Gastrointestinal: Negative for constipation and diarrhea. Neurological: Negative for dizziness, headaches and light-headedness. CARDIOVASCULAR: Please review HPI. Physical Examination General appearance: Alert, oriented and cooperative. In no acute distress. Skin: Warm and dry to touch. Head: Normocephalic, without obvious abnormality, atraumatic. Eyes: Conjunctivae unremarkable, EOM intact. Neck: No JVD, neck supple, trachea midline. Respiratory: Clear to auscultation bilaterally, no use of accessory muscles. Cardiovascular: RRR with normal S1 and S2 with no murmurs. Gastrointestinal: Soft, non-tender. Bowel sounds normal. Musculoskeletal: No peripheral edema. Neurologic: Oriented to time, person and place, affect appropriate. No focal/major motor defects noted. Psychiatric: Appropriate mood, memory and judgement. VITAL SIGNS: BP 124/76 Pulse 77 Ht 162.6 cm (5' 4 ) Wt 98.9 kg (218 lb) BMI 37.42 kg/m No orders of the defined types were placed in this encounter. Medications Discontinued During This Encounter Medication Reason albuterol (PROVENTIL HFA;VENTOLIN HFA) 90 mcg/actuation inhaler Discontinued by another clinician IMPRESSIONS/PLAN 1. Essential hypertension 2. 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 She will need to be bridged with Lovenox prior. She would be an elevated risk Have her return in 3-4 months Patient was evaluated in the office with Dr. Crockett immediately available TODAYS ORDERS No orders of the defined types were placed in this encounter. FOLLOW UP Return in about 3 months (around 08/13/2024). PCP: Robert Velez MD Referring Physician: Robert Velez MD [address] [facility] [address] [place] [id number] ANKITA Coyne 05/13/24 1313 Detailed surgery clearance instructions written for [facility] which is where pt currently is living so they can arrange Lovenox bridging when surgery date is scheduled. This was given to pt and family member to give back to facility. Clearance letter also created and sent to [facility] at [phone]. documented in this encounter [facility] 05-12-2024 Miscellaneous Notes Left message for patient to remind them to bring their most current medication list with them to their appointment. documented in this encounter [facility] 05-12-2024 Telephone encounter Note Left message for patient to remind them to bring their most current medication list with them to their appointment. [facility] 05-11-2024 History of Present illness Narrative CC: Left proximal humerus fracture Subjective: HPI Date of injury: 04/13/2024 Robb Crystal is a 63 y.o. female presents for evaluation of her left proximal humerus fracture. Patient states that she was at a rehab facility recovering from bilateral leg weakness when she fell and sustained a left proximal humerus fracture. Patient was admitted at [facility] where she was seen by an orthopedic physician who discussed operative versus non operative management patient elected to proceed with non operative management. Patient states since then she has been in a swath. Patient states they have not come out of that since the injury. Patient states she continues to have pain in the left shoulder. Patient also reports pain in the left elbow which she reports a history of ORIF over 10 years ago. Patient states that she has numbness and tingling to left upper extremity and feels that her hand is not functioning like it was prior to this injury. Patient is on Coumadin for treatment of DVT. Patient is a diabetic. Patient is a nonsmoker. Past Medical, Surgical, and Family Histories: were reviewed during this visit. Social History Occupational History Not on file Tobacco Use Smoking status: Never Smokeless tobacco: Never Tobacco comments: Been around smokers never have smoked Vaping Use Vaping status: Never Used Substance and Sexual Activity Alcohol use: Not Currently Comment: occ Drug use: No Sexual activity: Defer Partners: Male control/protection: None Comment: , Hyst The patient is not a smoker She was not counseled on smoking cessation Medications & allergies: were reviewed at during this visit. Review of Systems: Negative for Fever/Chills, Numbness/Tingling, Skin changes Objective: Vitals: 05/11/24 1506 Temp: 36.3 C (97.3 F) Body mass index is 37.56 kg/m . Physical Exam General: Well-nourished, Well-developed and Age appropriate LOC: awake and alert Orientation: oriented to person, place, time, and recent events Psych: Pleasant and Cooperative Station: Seated in chair Musculoskeletal: Left Upper Extremity: skin intact, skin irritation from shoulder immobilizer strap present, diminished sensation along the radial nerve, sensation intact over ulnar nerve, patient unable to extend wrist or thumb Compartments soft and compressible Palpable radial pulse with [id number] Imaging: I personally viewed X-ray and CT images of left shoulder which demonstrate comminuted 100% displaced fracture of the left proximal humeral head X-ray left elbow personally reviewed and identify history of ORIF with no acute fracture or bony abnormality Data reviewed ER and orthopedic note CT scan left shoulder and x-ray left shoulder x2 X-ray left elbow x2 Diagnosis: Other closed displaced fracture of proximal end of left humerus, initial encounter Disorder of bone Pre-op testing Type 2 diabetes mellitus without complication, 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 which is likely secondary to her displacement of her fracture Discussed that in his case she may benefit from reverse total shoulder to improve alignment and long-term functional outcome Patient agreeable and elects to proceed with reverse total shoulder Patient will need medical clearance prior to the OR Informed consent obtained today Patient to remain nonweightbearing to left upper extremity Patient was supplied with a simple sling today in the office and orders provided for the facility to obtain a cuff and collar and apply Patient may come out of the sling/cuff and collar to perform elbow range of motion and hygiene Encouraged patient to continue to work on finger and wrist range of motion Will follow up with the patient postoperatively Chloe Kelly PA-C LEVEL OF SERVICE: Ortho MDM Diagnosis Complexity -: [4] MODERATE: 1 NEW problem, uncertain prognosis Ortho Data Level: [5] Ortho Data Moderate/Extensive Level category 1 (need 3): review of external notes and review of results Ortho Tx/Test Risk Level (highest): [5] Ortho High Risk Options: Major Surgery (elective) (90d Global): WITH RISKS LEVEL OF MDM -: [5] HIGH level based on above criteria. Chloe Kelly PA-C 05/11/24 1616 documented in this encounter [facility] 04-16-2024 History of Present illness Narrative Patient admitted to [facility] 04/13/24-04/15/24 after presenting following a fall at [facility]. Imaging revealed L shoulder fracture and patient required stitching for multiple lacerations. Patient was evaluated by ortho team and no surgical intervention recommended. Patent was discharged by to [facility] [facility] [place]. INR was elevated upon admission at 3.6. Warfarin was held but not reversed due to conservative management of fracture vs surgery. [facility] previously noted patient's admission to SNF and had faxed facility requesting our team be notified upon patient discharge home. No change in plan at this time. Anticoagulation episode remains resolved. Consuelo Arreola [facility] 04/16/24 1140 Electronically signed by Consuelo Arreola [facility] at 04/16/2024 11:40 AM EDT documented in this encounter [facility] 04-15-2024 Miscellaneous Notes [facility] WILL CALL BACK TO RESCHEDULED HOSPITAL DISCHARGE FOLLOW UP WITH DR. ESCOBAR AFTER SHE HAS SURGERY FOR HER ARM documented in this encounter [facility] 04-15-2024 Telephone encounter Note [facility] WILL CALL BACK TO RESCHEDULED HOSPITAL DISCHARGE FOLLOW UP WITH DR. ESCOBAR AFTER SHE HAS SURGERY FOR HER ARM [facility] 03-31-2024 History of Present illness Narrative Images from the original note were not included. Lori Cruz, PETE-MICAELA [facility] On[facility] Nurses; P [facility] Onc Scheduling Cc: Raul Escobar MD Patient was admitted with severe epistaxis, melena, sosa with history of antithrombin 3 deficiency with anticoagulation (warfarin) managed by [facility]. Patient will need follow up at our [facility] location to monitor hemoglobin, and establish care. Thank you. Lori Cruz documented in this encounter [facility] 03-30-2024 History of Present illness Narrative Patient admitted to [facility] 03/24/24-03/29/24 after presenting to ED with CC dizziness, SOB, and fatigue. Patient also noted she had been experiencing black stools x 2 days. Hemoglobin in ED resulted low at 8.6 and continued to trend down inpatient (7.4 on 03/25/24). INR 2.0 upon admission. GI consulted and deemed melena, anemia likely d/t recent severe nasal bleeding requiring nasal packing. Patient was not interested in colonoscopy/EGD inpatient and warfarin cleared to be resumed by GI and hematology. Warfarin home regimen resumed on 03/26/24 along with Lovenox bridge. INR back to goal range at 2.0 on 03/28/24. Patient instructed to begin pantoprazole 40 mg BID at discharge. Patient discharged to [facility], [facility] on 03/29/24. Fax sent to facility requesting [facility] receive notification upon patient discharge home. Anticoagulation episode temporarily resolved. Consuelo Arreola RPH 03/30/24 [id number] documented in this encounter [facility] 03-29-2024 Nurse Note Patient discharged per Robert Velez MD , .. Patient will be transported by family, Discharge Instructions reviewed with patient including medications and follow-up appointments. Patient verbalizes understanding. Patients lab work and prescriptions need to be filled by the rehab center in [place] . Belongings were inventoried and returned to patient. Patient signature obtained. Patient denies any {BH Denies Suicidal/Homicidal: thoughts, and mood is stable. Patient safety maintained and escorted off unit by staff. [facility] 03-29-2024 Nurse Note Patient discharged per Robert Velez MD, MD.. Patient will be transported by family, Discharge Instructions reviewed with patient including medications and follow-up appointments. Patient verbalizes understanding. Patients lab work and prescriptions need to be filled by the rehab center in [place] . Belongings were inventoried and returned to patient. Patient signature obtained. Patient denies any {BH Denies Suicidal/Homicidal: thoughts, and mood is stable. Patient safety maintained and escorted off unit by staff. documented in this encounter [facility] 03-29-2024 Hospital course Narrative Images from the original note were not included. 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 Has extensive PMHx above. 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 Has been on longterm coumadin for hx. Of CVA several years ago, and antithrombin III deficiency. INR only 2.0 on admission. Admitted, given IVF's. Started on IV PPI. Warfarin held, and given FFP x 1. Pt. Did stabilize. Hematology also eval'd pt. For appropriateness of longterm A/C. Plan was to resume warfarin, and bridge her until INR back to 2.0. given IV venofer here. no further melena. H/H stabilized. Taking PO. Seen by PT/OT. SNF recommended. Eating breakfast this AM. Looks good, in good spirits. R.O.S. Review of Systems HENT: Positive for nosebleeds. Gastrointestinal: Melena Vital Signs BP 157/77 Pulse 66 Temp 36.6 C (97.8 F) (Oral) Resp 16 Ht 162.6 cm (5' 4 ) Wt 101.6 kg (224 lb) SpO2 97% BMI 38.45 kg/m O2 Device: None (Room air) Physical Exam: Physical Exam Constitutional She is oriented to person, place, and time. She appears well-developed and well-nourished. No distress. Nursing note and vitals reviewed. HENT Head Normocephalic and atraumatic. Mouth/Throat Throat: Oropharynx: oropharynx clear and moist Oropharynx negative for exudate. Eyes: EOM are normal. Pupils are equal, round, and reactive to light. Conjunctiva: Negative for scleral icterus. Neck Normal range of motion. Neck supple. No tracheal deviation present. Negative for thyromegaly. Cardiovascular: Normal rate and regular rhythm. No murmur heard. Heart Sounds: normal heart sounds. no JVDno friction rub and no gallop Pulmonary/Chest: Effort normal and breath sounds normal. She has no wheezes. She has no rales. She exhibits no tenderness. No respiratory distress. Abdominal: Bowel sounds are normal. She exhibits no distension. Soft. There is no abdominal tenderness. Musculoskeletal: General: No tenderness or edema. Normal range of motion. Cervical back: Normal range of motion and neck supple. Neurological She is alert and oriented to person, place, and time. No cranial nerve deficit. She exhibits normal muscle tone. Coordination normal. Skin: Skin is warm and dry. No rash noted. No erythema. There is pallor (improved). Psychiatric: She has a normal mood and affect. Her behavior is normal. Judgment and thought content normal. 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 Collection Time: 03/27/24 11:20 AM Result Value Ref Range Bedside glucose 146 (H) 65 - 99 mg/dL Hemoglobin and hematocrit, blood Collection Time: 03/27/24 1:53 PM Result Value Ref Range Hemoglobin 7.7 (L) 11.7 - 15.5 g/dL Hematocrit 25.1 (L) 35 - 47 % Bedside Glucose *Place/Obtain serum glucose if >500(>600 MRH) per glucometer. Collection Time: 03/27/24 3:28 PM Result Value Ref Range Bedside glucose 186 (H) 65 - 99 mg/dL Bedside Glucose *Place/Obtain serum glucose if >500(>600 MRH) per glucometer. Collection Time: 03/27/24 5:31 PM Result Value Ref Range Bedside glucose 199 (H) 65 - 99 mg/dL Bedside Glucose *Place/Obtain serum glucose if >500(>600 MRH) per glucometer. Collection Time: 03/27/24 9:19 PM Result Value Ref Range Bedside glucose 146 (H) 65 - 99 mg/dL CBC without diff Collection Time: 03/28/24 5:00 AM Result Value Ref Range White Blood Cells 8.3 4.0 - 11.0 X10E9/L RBC count 4.11 3.80 - 5.20 X10E12/L Hemoglobin 7.6 (L) 11.7 - 15.5 g/dL Hematocrit 24.9 (L) 35 - 47 % MCV 61 (L) 80 - 100 fL MCH 18.4 (L) 27 - 34 pg MCHC 30.4 (L) 32 - 36 g/dL RDW 19.6 (H) 11.5 - 15.0 % Platelets 249 150 - 450 X10E9/L MPV 8.3 7 - 12 fL Basic Metabolic Panel Collection Time: 03/28/24 5:00 AM Result Value Ref Range Sodium 138 134 - 146 mmol/L Potassium, Bld 3.9 3.5 - 5.0 mmol/L Chloride 110 (H) 98 - 109 mmol/L CO2 22 22 - 32 mmol/L Anion gap 6 5 - 15 mmol/L BUN 6 5 - 27 mg/dL Creatinine 0.87 0.40 - 1.00 mg/dL Glucose 158 (H) 65 - 99 mg/dL Calcium 8.4 (L) 8.5 - 10.5 mg/dL eGFR (CKD-EPI)non-race dependent 74 >59 ml/min/1.73sq.m Protime & INR Collection Time: 03/28/24 5:00 AM Result Value Ref Range Protime 22.3 (H) 9.8 - 13.2 sec Inr 2.0 (H) 0.8 - 1.1 Bedside Glucose *Place/Obtain serum glucose if >500(>600 MRH) per glucometer. Collection Time: 03/28/24 7:52 AM Result Value Ref Range Bedside glucose 147 (H) 65 - 99 mg/dL Bedside Glucose *Place/Obtain serum glucose if >500(>600 MRH) per glucometer. Collection Time: 03/28/24 11:28 AM Result Value Ref Range Bedside glucose 160 (H) 65 - 99 mg/dL Bedside Glucose *Place/Obtain serum glucose if >500(>600 MRH) per glucometer. Collection Time: 03/28/24 4:35 PM Result Value Ref Range Bedside glucose 153 (H) 65 - 99 mg/dL Bedside Glucose *Place/Obtain serum glucose if >500(>600 MRH) per glucometer. Collection Time: 03/28/24 9:27 PM Result Value Ref Range Bedside glucose 162 (H) 65 - 99 mg/dL Bedside Glucose *Place/Obtain serum glucose if >500(>600 MRH) per glucometer. Collection Time: 03/29/24 8:45 AM Result Value Ref Range Bedside glucose 129 (H) 65 - 99 mg/dL Fluoroscopy swallow motility function Result Date: 03/26/2024 Narrative: History: difficulty swallowing. dysphagia Oral pharyngeal dysphagia flouro time Chief complaint: dysphagia Pertinent Cancers and Surgical Hx: na Tech Note: dysphagia Number of Images: 7 cine runs Fluoro Time: 0.9 minutes Dose: 4.10 mGy dose in mGy reference air kerma Exam: Dynamic swallowing study under fluoroscopy. Procedure: Patient was examined under fluoroscopy while speech pathology gave contrast of varying consistencies. . Impression: No aspiration or significant penetration into the airway was seen 1 transient episode of penetration was noted with thin liquid contrast but not on a repetitive testing Thin and thick liquids, puree, fruit and crackers tested Please refer to the speech pathologist report regarding formal recommendations ------ Finalized by Justino Eldridge MD on 03/26/2024 3:23 PM X-ray chest 2 views Result Date: 03/25/2024 Narrative: CLINICAL HISTORY: Shortness of breath Comparison: 01/28/2023 Views: 2 view FINDINGS: * No acute infiltrate. No volume loss nor consolidation. There is no pleural effusion, pneumothorax, nor volume loss. Heart and mediastinal structures are unremarkable. Pulmonary vasculature stable. Degenerative changes thoracic spine. Old right rib fractures. IMPRESSION: * No active disease nor significant interval change Finalized by Ramiro Alvarado MD on 03/25/2024 5:[address] abdomen and pelvis with contrast Result Date: 03/24/2024 Narrative: CLINICAL HISTORY: Lower GI bleeding. CT ABDOMEN AND PELVIS WITH CONTRAST: 03/24/2024 COMPARISON: 10/20/2015 PROCEDURE: Axial images were obtained through the abdomen and pelvis after oral contrast ingestion and 100 mL Omnipaque 300 intravenously. Coronal and sagittal reconstructions were performed. All CT scans at this facility use dose modulation, iterative reconstruction, and/or weight based dosing when appropriate to reduce radiation dose to as low as reasonably achievable. FINDINGS : The visualized lower lungs and pleural spaces are clear. No focal hepatic or splenic abnormality is evident. The pancreas, gallbladder, and biliary tree are within normal limits. The kidneys enhance symmetrically. A right superior pole lesion contains fat and is compatible with an angiomyolipoma. This measures up to 1.8 cm. There is no ureteral dilation or urinary bladder irregularity. No dilated bowel loops are present. Diverticula are present within the descending colon and sigmoid region with no acute inflammatory changes. There is some heterogeneous density within the cecum with areas of slightly hyperdense appearance at the lateral cecum on axial image 46 and coronal image 45. This is near the ileocecal valve. No focal bowel lesion is evident. Vascular structures enhance normally. Mild atherosclerotic calcification is present within the abdominal aorta. L4 superior endplate fracture appears subacute. Degenerative changes are present throughout the [place] spine. Some narrowing of the spinal canal is present at the thoracolumbar region with ossification of posterior longitudinal ligament. IMPRESSION: No definite cause of GI bleeding is present but there is some hyperdensity in the cecal region which could represent acute intra-abdominal contrast/blood. No other acute intra-abdominal or pelvic abnormality on CT evaluation. Lumbar degenerative and posttraumatic findings without a definite acute abnormality. 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 Finalized by Ulysses Pérez MD on 03/24/2024 6:[address] brain without contrast Result Date: 03/24/2024 Narrative: CT BRAIN WITHOUT CONTRAST COMPARISON: 07/12/2023 HISTORY: Transient alteration of awareness. Dizziness TECHNIQUE: Unenhanced axial images of the brain were obtained. Automatic exposure control (AEC) was utilized. FINDINGS: There is no evidence for acute intracranial hemorrhage. There is no hydrocephalus, mass effect, or midline shift. Aguilar-white differentiation is preserved with no CT evidence for an acute infarct. IMPRESSION: No evidence for an acute intracranial process. All CT scans at this facility use dose modulation, iterative reconstruction, and/or weight based dosing when appropriate to reduce radiation dose to as low as reasonably achievable. Finalized by Kori Robert DO on 03/24/2024 5:54 PM PLAN: D/C to SNF today, for strengthening. Cont. PPI BID. Keep INR down near 2.0. Lower dose of losartan. Check labs in 3 days. F/U our office after D/C. Watch for any recurrent melena. Cont. Fe. Discharge Medications: Medication List START taking these medications Instructions Last Dose Given Next Dose Due pantoprazole 40 mg EC tablet Commonly known as: PROTONIX Take 1 tablet (40 mg total) by mouth in the morning and 1 tablet (40 mg total) in the evening. Take before meals. CHANGE how you take these medications Instructions Last Dose Given Next Dose Due acetaminophen-codeine 300-30 mg per tablet Commonly known as: TYLENOL #3 What changed: See the new instructions. Take 1 tablet by mouth every 4 (four) hours as needed for pain for up to 7 days. albuterol 90 mcg/actuation inhaler Commonly known as: PROVENTIL HFA;VENTOLIN HFA What changed: See the new instructions. INHALE 2 PUFFS EVERY 4 HOURS NEEDED FOR WHEEZING OR SHORTNESS OF BREATH JANTOVEN 5 mg tablet Generic drug: warfarin What changed: additional instructions Take 1-1.5 tablets (5-7.5 mg total) by mouth in the evening. As directed by Aimee DALY. losartan 25 mg tablet Commonly known as: COZAAR What changed: medication strength how much to take Take 1 tablet (25 mg total) by mouth in the morning. CONTINUE taking these medications Instructions Last Dose Given Next Dose Due atorvastatin 40 mg tablet Commonly known as: LIPITOR take 1 tablet by mouth every day carvediloL 3.125 mg tablet Commonly known as: COREG TAKE 1 TABLET (3.125 MG TOTAL) BY MOUTH IN THE MORNING AND 1 TABLET (3.125 MG TOTAL) BEFORE BEDTIME. ergocalciferol 1,250 mcg (50,000 unit) capsule Commonly known as: DRISDOL Take 1 tablet two times weekly: on Saturday and Saturday ferrous sulfate 325 (65 FE) mg EC tablet TAKE 1 TABLET (325 MG TOTAL) BY MOUTH IN THE MORNING folic acid 1 mg tablet Commonly known as: FOLVITE take 1 tablet by mouth every day furosemide 20 mg tablet Commonly known as: LASIX take 1 tablet by mouth every day levothyroxine 150 MCG tablet Commonly known as: SYNTHROID, LEVOTHROID take 1 tablet by mouth every day metFORMIN 1000 mg tablet Commonly known as: GLUCOPHAGE Take 1 tablet (1,000 mg total) by mouth in the morning and 1 tablet (1,000 mg total) before bedtime. rOPINIRole 1 mg tablet Commonly known as: REQUIP Take 2 tablets (2 mg total) by mouth nightly. sertraline 100 mg tablet Commonly known as: ZOLOFT TAKE 1 TABLET BY MOUTH EVERY DAY triamcinolone 0.1 % paste Commonly known as: KENALOG Apply 1 Application to teeth in the morning and 1 Application before bedtime. TRUE METRIX GLUCOSE METER [facility] [place] drug: blood-glucose meter See Admin Instructions. STOP taking these medications CALCIUM CITRATE + D ORAL FISH OIL ORAL glucose blood test strip Generic drug: blood sugar diagnostic Where to Get Your Medications These medications were sent to [facility]/pharmacy #[id number] [facility], [place] - [address] [id number] JANTOVEN 5 mg tablet You can get these medications from any pharmacy Bring a paper prescription for each of these medications acetaminophen-codeine 300-30 mg per tablet losartan 25 mg tablet pantoprazole 40 mg EC tablet documented in this encounter [facility] 03-29-2024 Plan of care note Problem: Pain Goal: Patient goal is pain score less than 4, able to rest, and participant in treatment plan as appropriate Description: INTERVENTIONS: 1. Encourage patient or legal sales representative gas service to report early pain and ask for pain medicine when needed 2. Assess pain using appropriate pain scale and include the scale used when documenting 3. Administer analgesics based on type and severity of pain and evaluate response within appropriate time frame 4. Implement non-pharmacological measures as appropriate and evaluate response 5. Consider cultural and social influences on pain and pain management 6. Notify LIP if interventions ineffective or patient reports new pain 7. Monitor vital signs including pulse ox, end-tidal CO2 based on pain intervention 8. Reassess pain per policy 9. Teach patient or legal sales representative gas service interventions for comforting Outcome: Progressing Note: Evaluation of progress towards goal: pain verbalized acceptable pain. medicate prn Problem: Safety Goal: Patient will be injury free during hospitalization Description: INTERVENTIONS: 1. Assess patient's risk for falls and implement fall prevention plan of care per policy 2. Provide and maintain a safe environment 3. Proper use of double Identifiers 4. Medication administration using the 5 rights 5. Hand hygiene 6. Specimens are labeled at the bedside 7. Instruct patient/ patient sales representative gas service about use of safety devices 8. Include patient/ patient sales representative gas service in decisions related to safety Outcome: Progressing Note: Evaluation of progress towards goal: Free from falls. Call light in reach. Bed low and locked. Problem: Infection Goal: Absence of infection during hospitalization Description: Interventions: 1. Assess and monitor for signs and symptoms of infection 2. Monitor lab/diagnostic results 3. Monitor all insertion sites i.e., indwelling lines, tubes and drains 4. Monitor endotracheal (as able) and nasal secretions for changes in amount and color 5. Administer medications as ordered 6. Instruct and encourage patient and family to use good hand hygiene technique 7. Identify and instruct patient/patient sales representative gas service in use of appropriate isolation precautions for identified infection/symptoms 8. Provide and discuss with patient/patient sales representative gas service on educational MDRO sheet 9. Encourage and monitor nutritional status daily and consult nurses director if indicated 10. Implement neutropenic guidelines as needed 11. Review exposure to history of communicable disease and recent travel history on admission 12. Encourage annual influenza vaccine 13. Encourage pneumonia vaccine Outcome: Progressing Note: Evaluation of progress towards goal: Pt aferbrile.iv antibiotics as ordered. Iv without redness or swelling. Will continue to monitor. Problem: Knowledge Deficit Goal: Patient/patient sales representative gas service demonstrates understanding of disease process, treatment plan, medications, and discharge instructions Description: INTERVENTIONS 1. Complete learning assessment and assess knowledge base 2. Provide teaching at level of understanding 3. Provide teaching via preferred learning method(s) Outcome: Progressing Note: Evaluation of progress towards goal: Updated on plan of care. Fall prevention education reinforced. Continue to monitor Problem: Discharge Planning Goal: Discharge to post-acute care, other facility, or home with appropriate resources Description: Patient's goal is: INTERVENTIONS 1. Conduct assessment to determine patient/family and health care team treatment goals, and need for post-acute services based on payer coverage, community resources, and patient preferences, and barriers to discharge 2. Coordinate with Social work, Care Navigation, and Utilization Review to arrange appropriate level of services according to patient's needs based on patient preference and payer coverage in collaboration with the physician and health care team 3. Address psychosocial, clinical, and financial barriers to discharge as identified in assessment in conjunction with the patient/family and health care team 4. Consult appropriate ancillary services (i.e.. PT/OT/ST, etc) as needed 5. Communicate with and update the patient/family, physician, and health care team regarding progress on the discharge plan 6. Identify discharge learning needs (meds, wound care, etc). 7. Arrange for needed discharge transportation as appropriate Outcome: Progressing Note: Evaluation of progress towards goal: Not ready for discharge. Currently assessing for discharge needs. Continue to monitor [facility] [employer] 03-29-2024 Miscellaneous Notes Problem: Pain Goal: Patient goal is pain score less than 4, able to rest, and participant in treatment plan as appropriate Description: INTERVENTIONS: 1. Encourage patient or legal sales representative gas service to report early pain and ask for pain medicine when needed 2. Assess pain using appropriate pain scale and include the scale used when documenting 3. Administer analgesics based on type and severity of pain and evaluate response within appropriate time frame 4. Implement non-pharmacological measures as appropriate and evaluate response 5. Consider cultural and social influences on pain and pain management 6. Notify LIP if interventions ineffective or patient reports new pain 7. Monitor vital signs including pulse ox, end-tidal CO2 based on pain intervention 8. Reassess pain per policy 9. Teach patient or legal sales representative gas service interventions for comforting Outcome: Progressing Note: Evaluation of progress towards goal: pain verbalized acceptable pain. medicate prn Problem: Safety Goal: Patient will be injury free during hospitalization Description: INTERVENTIONS: 1. Assess patient's risk for falls and implement fall prevention plan of care per policy 2. Provide and maintain a safe environment 3. Proper use of double Identifiers 4. Medication administration using the 5 rights 5. Hand hygiene 6. Specimens are labeled at the bedside 7. Instruct patient/ patient sales representative gas service about use of safety devices 8. Include patient/ patient sales representative gas service in decisions related to safety Outcome: Progressing Note: Evaluation of progress towards goal: Free from falls. Call light in reach. Bed low and locked. Problem: Infection Goal: Absence of infection during hospitalization Description: Interventions: 1. Assess and monitor for signs and symptoms of infection 2. Monitor lab/diagnostic results 3. Monitor all insertion sites i.e., indwelling lines, tubes and drains 4. Monitor endotracheal (as able) and nasal secretions for changes in amount and color 5. Administer medications as ordered 6. Instruct and encourage patient and family to use good hand hygiene technique 7. Identify and instruct patient/patient sales representative gas service in use of appropriate isolation precautions for identified infection/symptoms 8. Provide and discuss with patient/patient sales representative gas service on educational MDRO sheet 9. Encourage and monitor nutritional status daily and consult nurses director if indicated 10. Implement neutropenic guidelines as needed 11. Review exposure to history of communicable disease and recent travel history on admission 12. Encourage annual influenza vaccine 13. Encourage pneumonia vaccine Outcome: Progressing Note: Evaluation of progress towards goal: Pt aferbrile.iv antibiotics as ordered. Iv without redness or swelling. Will continue to monitor. Problem: Knowledge Deficit Goal: Patient/patient sales representative gas service demonstrates understanding of disease process, treatment plan, medications, and discharge instructions Description: INTERVENTIONS 1. Complete learning assessment and assess knowledge base 2. Provide teaching at level of understanding 3. Provide teaching via preferred learning method(s) Outcome: Progressing Note: Evaluation of progress towards goal: Updated on plan of care. Fall prevention education reinforced. Continue to monitor Problem: Discharge Planning Goal: Discharge to post-acute care, other facility, or home with appropriate resources Description: Patient's goal is: INTERVENTIONS 1. Conduct assessment to determine patient/family and health care team treatment goals, and need for post-acute services based on payer coverage, community resources, and patient preferences, and barriers to discharge 2. Coordinate with Social work, Care Navigation, and Utilization Review to arrange appropriate level of services according to patient's needs based on patient preference and payer coverage in collaboration with the physician and health care team 3. Address psychosocial, clinical, and financial barriers to discharge as identified in assessment in conjunction with the patient/family and health care team 4. Consult appropriate ancillary services (i.e.. PT/OT/ST, etc) as needed 5. Communicate with and update the patient/family, physician, and health care team regarding progress on the discharge plan 6. Identify discharge learning needs (meds, wound care, etc). 7. Arrange for needed discharge transportation as appropriate Outcome: Progressing Note: Evaluation of progress towards goal: Not ready for discharge. Currently assessing for discharge needs. Continue to monitor Problem: Pain Goal: Patient goal is pain score less than 4, able to rest, and participant in treatment plan as appropriate Description: INTERVENTIONS: 1. Encourage patient or legal sales representative gas service to report early pain and ask for pain medicine when needed 2. Assess pain using appropriate pain scale and include the scale used when documenting 3. Administer analgesics based on type and severity of pain and evaluate response within appropriate time frame 4. Implement non-pharmacological measures as appropriate and evaluate response 5. Consider cultural and social influences on pain and pain management 6. Notify LIP if interventions ineffective or patient reports new pain 7. Monitor vital signs including pulse ox, end-tidal CO2 based on pain intervention 8. Reassess pain per policy 9. Teach patient or legal sales representative gas service interventions for comforting Outcome: Progressing Note: Evaluation of progress towards goal: Pt denies pain at this time, will continue to monitor Problem: Safety Goal: Patient will be injury free during hospitalization Description: INTERVENTIONS: 1. Assess patient's risk for falls and implement fall prevention plan of care per policy 2. Provide and maintain a safe environment 3. Proper use of double Identifiers 4. Medication administration using the 5 rights 5. Hand hygiene 6. Specimens are labeled at the bedside 7. Instruct patient/ patient sales representative gas service about use of safety devices 8. Include patient/ patient sales representative gas service in decisions related to safety Outcome: Progressing Note: Evaluation of progress towards goal: Pt safety maintained, pt free from falls at this time Problem: Infection Goal: Absence of infection during hospitalization Description: Interventions: 1. Assess and monitor for signs and symptoms of infection 2. Monitor lab/diagnostic results 3. Monitor all insertion sites i.e., indwelling lines, tubes and drains 4. Monitor endotracheal (as able) and nasal secretions for changes in amount and color 5. Administer medications as ordered 6. Instruct and encourage patient and family to use good hand hygiene technique 7. Identify and instruct patient/patient sales representative gas service in use of appropriate isolation precautions for identified infection/symptoms 8. Provide and discuss with patient/patient sales representative gas service on educational MDRO sheet 9. Encourage and monitor nutritional status daily and consult nurses director if indicated 10. Implement neutropenic guidelines as needed 11. Review exposure to history of communicable disease and recent travel history on admission 12. Encourage annual influenza vaccine 13. 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 Complete learning assessment and assess knowledge base 2. Provide teaching at level of understanding 3. Provide teaching via preferred learning method(s) Outcome: Progressing Note: Evaluation of progress towards goal: Pt states verbal understanding of poc Problem: Discharge Planning Goal: Discharge to post-acute care, other facility, or home with appropriate resources Description: Patient's goal is: INTERVENTIONS 1. Conduct assessment to determine patient/family and health care team treatment goals, and need for post-acute services based on payer coverage, community resources, and patient preferences, and barriers to discharge 2. Coordinate with Social work, Care Navigation, and Utilization Review to arrange appropriate level of services according to patient's needs based on patient preference and payer coverage in collaboration with the physician and health care team 3. Address psychosocial, clinical, and financial barriers to discharge as identified in assessment in conjunction with the patient/family and health care team 4. Consult appropriate ancillary services (i.e.. PT/OT/ST, etc) as needed 5. Communicate with and update the patient/family, physician, and health care team regarding progress on the discharge plan 6. Identify discharge learning needs (meds, wound care, etc). 7. Arrange for needed discharge transportation as appropriate Outcome: Progressing Note: Evaluation of progress towards goal: discharge planning is ongoing DISCHARGE PLANNING NOTE Patient's POC discussed in DTR's with RN .CN met with the patient at the bedside. Patient is working with PT this am. Per Dr Velez, patient will be ready for discharge tomorrow 03/29. [place] [facility]. Patient's spouse will be providing transportation to SNF. - Lovely Hennessy RN 03/28/24 10:07 AM Per Gabi at [facility] patient can be admitted on Saturday03/29/24 at 1:00pm. CN left VM for patient's spouse to cotton picker operator patient at 12:00pm on Saturday and transport to [facility]. - Lovely Hennessy RN 03/28/24 1:31 PM Cn confirmed with spouse Roland that he can cotton picker operator the patient on Saturday at 12:00pm. - Lovely Hennessy RN 03/28/24 2:49 PM Problem: Pain Goal: Patient goal is pain score less than 4, able to rest, and participant in treatment plan as appropriate Description: INTERVENTIONS: 1. Encourage patient or legal sales representative gas service to report early pain and ask for pain medicine when needed 2. Assess pain using appropriate pain scale and include the scale used when documenting 3. Administer analgesics based on type and severity of pain and evaluate response within appropriate time frame 4. Implement non-pharmacological measures as appropriate and evaluate response 5. Consider cultural and social influences on pain and pain management 6. Notify LIP if interventions ineffective or patient reports new pain 7. Monitor vital signs including pulse ox, end-tidal CO2 based on pain intervention 8. Reassess pain per policy 9. Teach patient or legal sales representative gas service interventions for comforting Outcome: Progressing Note: Evaluation of progress towards goal: pain verbalized acceptable pain. medicate prn Problem: Safety Goal: Patient will be injury free during hospitalization Description: INTERVENTIONS: 1. Assess patient's risk for falls and implement fall prevention plan of care per policy 2. Provide and maintain a safe environment 3. Proper use of double Identifiers 4. Medication administration using the 5 rights 5. Hand hygiene 6. Specimens are labeled at the bedside 7. Instruct patient/ patient sales representative gas service about use of safety devices 8. Include patient/ patient sales representative gas service in decisions related to safety Outcome: Progressing Note: Evaluation of progress towards goal: Free from falls. Call light in reach. Bed low and locked. Problem: Infection Goal: Absence of infection during hospitalization Description: Interventions: 1. Assess and monitor for signs and symptoms of infection 2. Monitor lab/diagnostic results 3. Monitor all insertion sites i.e., indwelling lines, tubes and drains 4. Monitor endotracheal (as able) and nasal secretions for changes in amount and color 5. Administer medications as ordered 6. Instruct and encourage patient and family to use good hand hygiene technique 7. Identify and instruct patient/patient sales representative gas service in use of appropriate isolation precautions for identified infection/symptoms 8. Provide and discuss with patient/patient sales representative gas service on educational MDRO sheet 9. Encourage and monitor nutritional status daily and consult nurses director if indicated 10. Implement neutropenic guidelines as needed 11. Review exposure to history of communicable disease and recent travel history on admission 12. Encourage annual influenza vaccine 13. Encourage pneumonia vaccine Outcome: Progressing Note: Evaluation of progress towards goal: Pt aferbrile.iv antibiotics as ordered. Iv without redness or swelling. Will continue to monitor. Problem: Knowledge Deficit Goal: Patient/patient sales representative gas service demonstrates understanding of disease process, treatment plan, medications, and discharge instructions Description: INTERVENTIONS 1. Complete learning assessment and assess knowledge base 2. Provide teaching at level of understanding 3. Provide teaching via preferred learning method(s) Outcome: Progressing Note: Evaluation of progress towards goal: Updated on plan of care. Fall prevention education reinforced. Continue to monitor Problem: Discharge Planning Goal: Discharge to post-acute care, other facility, or home with appropriate resources Description: Patient's goal is: INTERVENTIONS 1. Conduct assessment to determine patient/family and health care team treatment goals, and need for post-acute services based on payer coverage, community resources, and patient preferences, and barriers to discharge 2. Coordinate with Social work, Care Navigation, and Utilization Review to arrange appropriate level of services according to patient's needs based on patient preference and payer coverage in collaboration with the physician and health care team 3. Address psychosocial, clinical, and financial barriers to discharge as identified in assessment in conjunction with the patient/family and health care team 4. Consult appropriate ancillary services (i.e.. PT/OT/ST, etc) as needed 5. Communicate with and update the patient/family, physician, and health care team regarding progress on the discharge plan 6. Identify discharge learning needs (meds, wound care, etc). 7. Arrange for needed discharge transportation as appropriate Outcome: Progressing Note: Evaluation of progress towards goal: Not ready for discharge. Currently assessing for discharge needs. Continue to monitor Occupational Therapy Treatment Discharge Recommendations OT Recommendations : [facility] Comments: Patient may benefit from skilled OT services to address weakness, decreased balance and decreased activity tolerance to maximize safety and independence with ADLs 6 Clicks: Daily Activity Putting on and taking off regular lower body clothing?: A lot Bathing (including washing, rinsing, drying)?: A lot Toileting, which includes using toilet, bedpan or urinal?: A lot Putting on and taking off regular upper body clothing?: A lot Taking care of personal grooming such as brushing teeth?: A lot Eating meals?: None Scoring Daily Activity Raw Score: 14 [facility] G Code Modifier: CK Past Medical History: Diagnosis Date 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 [place]xiety Arrhythmia Irregular HB Arthritis Spine Cataract States early Chest pain Chronic lymphocytic thyroiditis [place]cerebral vascular [place] [place] Left side-mild weakness DDD (degenerative disc disease), lumbar Deep vein [place] [place] LLE Dental disease Poor teeth Depression Diabetes mellitus type 2, controlled [place] [place] Checks glucose [id number] Disease of thyroid gland Diverticulitis of colon Dizziness HARRIS (dyspnea on exertion) Facial weakness Fractures Right wrist, left elbow GERD (gastroesophageal reflux disease) Deepthi-deepthi disease Katelyn's thyroiditis Hypercoagulable state [place] [place] Hyperlipidemia Hypertension Hypothyroidism 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 [place] (myocardial infarction[place] [place] Silent-in past Migraine Morbid obesity [place] [place] MRSA (methicillin resistant Staphylococcus aureus) 2000s Posterior left neck-treated Neuropathy Feet Numbness Osteoporosis Pneumonia Rash bilat legs lower belly Restless leg syndrome Sinusitis, chronic Sleep apnea CPAP Stress incontinence St[place] [place] TIA (transient ischemic attack) Several UTI (urinary tract infection) Years ago Ventral hernia Visual impairment Wears corrective lenses Past Surgical History: Procedure Laterality Date SECTION 1979 + 1980 CHOLECYSTECTOMY 2011 COLONOSCOPY 2016 COLONOSCOPY N/A 10/30/2018 Performed by Lottie Martinez DO at [facility] ELBOW SURGERY Left 04/27/2013 Fracture repair has hardware- ORIF distal humeral condylar fx EXAM UNDER ANESTHESIA/EXCISION VUVLAR CYST N/A 06/15/2020 Performed by Rich Montalvo MD at [facility] EXCISION CYST ARM Right 10/30/2018 Performed by Lottie Martinez DO at [facility] FESS (FUNCTIONAL ENDOSCOPIC SINUS SURGERY) WITH NAVIGATION SYSTEM NASAL, FRONTAL SINSUSOTOMY, SPHENEIDOTOMY Bilateral 06/27/2016 Performed by Yossi Cheatham MD at [facility] HERNIA REPAIR 2012 2 seperate surgeries/ abd hernias HYSTERECTOMY 1982 States still has at least one ovary INCISION DRAINAGE BUTTOCKS Left 02/10/2021 Performed by Xiomara Huffman MD at [facility] NECK SURGERY 2000s MRSA spot on back of neck OVARIAN CYST REMOVAL Right TUBAL LIGATION 1981 WRIST SURGERY Right 04/27/2013 Has hardware- ORIF distal radius fx Therapy Plan Need for skilled Occupational Therapy to address deficits in ADL independence and functional mobility due to a status decline resulting from current medical status. OT Treatment/Interventions: ADL retraining, Functional transfer training, UE strengthening/ROM, Endurance training, Balance OT Frequency: 4-5days/week OT Duration: 14 visits Assessment Patient Assessment Therapy Problem List: Decreased ADL status, Decreased balance, Decreased endurance, Decreased mobility, Decreased high-level ADLs, Decreased safe judgement during ADL, Decreased self-care trans, Decreased UE strength Patient Response to Treatment: Progressing toward goals Mood/Affect: Appropriate for circumstances Rehab Prognosis: Good, With continued OT status post acute discharge Visit RN Communication: Yes Medical Record Reviewed: Yes OT Type of Visit: Treatment Precautions Activity: Early mobility guidelines Pain Assessment Pain Assessment: No/denies pain ADL / IADL Eating Assistance: Standby assist Grooming Assistance: Standby assist Bathing/Showering Assistance: Max assist Toilet/Commode Assistance: Max assist UE Dressing Assistance: Mod assist LE Dressing Assistance: Max assist Footwear Assistance: Max assist Other: Patient continues to be limited by decreased balance, strength and overall activity tolerance limiting ADL safety and independence Home Management - IADL Other: Patient continues to be limited by decreased balance, strength and overall activity tolerance limiting ADL safety and independence Hearing / Speech / Vision Hearing: Within Functional Limits Speech: Within Functional Limits Current Vision: Wears glasses all the time Bed Mobility Supine to Sit: Contact guard assist Sit to Supine: Contact guard assist Other: Patient completes with use of bed rail for assist Transfers Sit to Stand: Contact guard assist Stand to Sit: Contact guard assist Other: verbal cues for hand placement and safety Gait Gait Assistance: Contact guard assist Assistive Device: Rolling walker Other: Verbal cues for safety with body positioning within walker and to push rather than lift Activity Tolerance Endurance: Tolerates <30 minutes activity WITHOUT vital sign changes Other: Patient tolerated EOB sitting during B UE AROM exercises, bed mobility, transfers, and functional mobility. Plan Occupational Therapy Care Plan Occupational Therapy Care Plan (Active) Template: OT - Occupational Therapy Problem: Activity Tolerance Dates: Start: 03/25/24 Disciplines: OT Goal: Tolerate > 30 minutes of activity WITH rest breaks Dates: Start: 03/25/24 Expected End: 04/08/24 Description: Goal Description: Disciplines: OT Goal Note filed on 03/27/24 1458 by Dorothy Torre OT/L Evaluation of progress towards goal: Problem: Bathing UB Dates: Start: 03/25/24 Disciplines: OT Goal: Patient will perform bathing UB with Set-Up Dates: Start: 03/25/24 Expected End: 04/08/24 Description: Goal Description: Disciplines: OT Problem: Dressing UB Dates: Start: 03/25/24 Disciplines: OT Goal: Patient will perform dressing UB with Set-Up Dates: Start: 03/25/24 Expected End: 04/08/24 Description: Goal Description: Disciplines: OT Problem: Eating Dates: Start: 03/25/24 Disciplines: OT Goal: Patient will perform eating with Set-Up Dates: Start: 03/25/24 Expected End: 04/08/24 Description: Goal Description: Disciplines: OT Problem: Functional Mobility Dates: Start: 03/25/24 Disciplines: OT Goal: Patient will perform functional mobility with Supervision Dates: Start: 03/25/24 Expected End: 04/08/24 Description: Goal Description: Disciplines: OT Outcomes Date/Time User Outcome 03/27/241457 Dorothy Torre OT/Calista Progressing Goal Note filed on 03/27/24 145 by Dorothy Torre OT/Calista Evaluation of progress towards goal: Problem: Grooming Dates: Start: 03/25/24 Disciplines: OT Goal: Patient will perform grooming with Set-Up Dates: Start: 03/25/24 Expected End: 04/08/24 Description: Goal Description: Disciplines: OT Problem: Standing Balance Dates: Start: 03/25/24 Disciplines: OT Goal: Improve balance to good Dates: Start: 03/25/24 Expected End: 04/08/24 Description: Static Dynamic Disciplines: OT Outcomes Date/Time User Outcome 03/27/241457 Dorothy Torre OT/Calista Progressing Goal Note filed on 03/27/24 145 by Dorothy Torre OT/Calista Evaluation of progress towards goal: Problem: Strength Dates: Start: 03/25/24 Disciplines: OT Goal: Improve strength Dates: Start: 03/25/24 Expected End: 04/08/24 Description: Of extremity/ location: To facilitate: Disciplines: OT Goal Note filed on 03/27/241457 by Dorothy Torre OT/Calista Evaluation of progress towards goal: Problem: Toilet Transfers Dates: Start: 03/25/24 Disciplines: OT Goal: Patient will perform toilet transfers with Contact Guard Dates: Start: 03/25/24 Expected End: 04/08/24 Description: Goal Description: Disciplines: OT Problem: Toileting Dates: Start: 03/25/24 Disciplines: OT Goal: Patient will perform toileting with Contact Guard Dates: Start: 03/25/24 Expected End: 04/08/24 Description: Goal Description: Disciplines: OT Problem: Transfers Dates: Start: 03/25/24 Disciplines: OT Goal: Patient will perform transfers with Supervision Dates: Start: 03/25/24 Expected End: 04/08/24 Description: Goal Description: Disciplines: OT Outcomes Date/Time User Outcome 03/27/24 1458 Dorothy Torre OT/L Progressing Goal Note filed on 03/27/24 145 by Dorothy Torre OT/L Evaluation of progress towards goal: Occupational Therapy Care Plan (Resolved) There are no resolved problems. Principal Problem: Blood loss anemia Active Problems: longterm (current) use of anticoagulants [Z79.01] Essential hypertension History of stroke 1993 Obstructive sleep apnea syndrome Deepthi-deepthi disease 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CMS-HCC) Acquired hypothyroidism Melena Frequent falls Chronic depression History of epistaxis Speech Therapy Dysphagia Treatment Note Assessment: Current Diet Tolerance: Level 0 Thin and Regular Progress: improving Patient seen at bedside and completing dysphagia exercises. Tolerating regular diet, thin liquids. Review of results and strategies. Patient with plans for SNF at this time. Will follow for acute care dysphagia needs. Recommendations Diet: Regular-thin Discharge: SNF Precautions Aspiration precautions Plan: Plan of Care: continue with current plan of care Continue with Current Diet: yes Diet: Regular Liquids: Level 0 Thin Safety Strategies: small sips/bites, 1 at a time, no straws, and slow rate Subjective Setting: chairside Arrival Status: awake and alert Mental Status: oriented and pleasant Therapy Tolerance: good Change in Medical Status: no Received Recent Medications: yes Objective NMES: No Plan Diagnosis Code Swallowing: R13.12 Dysphagia, oropharyngeal phase Speech Therapy Care Plan Speech Therapy Care Plan (Active) Template: ST - Dysphagia Problem: Swallowing Dates: Start: 03/26/24 Disciplines: PROTEOMICS SCIENTIST Goal: LTG: Patient will tolerate least restrictive diet recommended by PROTEOMICS SCIENTIST without signs and symptoms of aspiration 90% of the time Dates: Start: 03/26/24 Expected End: 04/09/24 Disciplines: PROTEOMICS SCIENTIST Outcomes Date/Time User Outcome 03/27/24 0904 Vanna Mandujano CCC-PROTEOMICS SCIENTIST Progressing 03/26/24 1346 RENE Guzman Progressing Goal Note filed on 03/27/24 0956 by RICH GuzmanPROTEOMICS SCIENTIST Evaluation of progress towards goal: Patient reporting some foods, I.e potatoes have given her difficulty. Reports coughing on thin liquids with straw. Encouraged patient to avoid straws at this time and continue with cup sips of thin liquids. Would continue to benefit from skilled dysphagia therapy to address highest level of po intake for improved quality of life. Goal: STG: Patient will complete safety strategies with minimal assistance during PO intake 90% of the time Dates: Start: 03/26/24 Expected End: 04/09/24 Disciplines: PROTEOMICS SCIENTIST Outcomes Date/Time User Outcome 03/27/24955 RENE Guzman Progressing 03/26/241345 RENE Guzman Progressing Goal Note filed on 03/27/24955 by RENE Guzman Evaluation of progress towards goal: Review of safe strategies-small sips, bites, no straws, slow rate. Verbalized understanding. Would continue to benefit from skilled dysphagia therapy to address highest level of po tolerance for improved quality of life. Goal: STG: Patient will complete oral/ pharyngeal strengthening program with resistance with 90% accuracy with minimal cueing Dates: Start: 03/26/24 Expected End: 04/09/24 Disciplines: PROTEOMICS SCIENTIST Outcomes Date/Time User Outcome 03/27/24955 RENE Guzman Progressing 03/26/241345 RENE Guzman Not Progressing Goal Note filed on 03/27/24955 by RENE Guzman Evaluation of progress towards goal: PROTEOMICS SCIENTIST provided handout of pharyngeal strengthening exercises to complete. Via teach back able to demonstrate understanding of exercises. Would continue to benefit from skilled dysphagia exercises to obtain highest level of po intake for improved quality of life. Goal: STG: Pt will complete laryngeal adduction exercises to increase laryngeal elevation, improve vocal cord closure, and aid in airway protection with 90% accuracy and min cues Dates: Start: 03/26/24 Expected End: 04/09/24 Disciplines: PROTEOMICS SCIENTIST Outcomes Date/Time User Outcome 03/27/24955 RENE Guzman Progressing 03/26/24 1346 RENE Guzman Not Progressing Goal Note filed on 03/27/24955 by RENE Guzman Evaluation of progress towards goal: Patient educated on l.a exercises and completes these at 100% on 5 trials. Verbalized understanding through teach back. Would continue to benefit from skilled dysphagia therapy to address highest level of po intake for improved quality of life. Speech Therapy Care Plan (Resolved) There are no resolved problems. 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 [Z79.01] Essential hypertension History of stroke 1993 Obstructive sleep apnea syndrome Deepthi-deepthi disease 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[facility]) Acquired hypothyroidism Melena Frequent falls Chronic depression History of epistaxis DISCHARGE PL[facility]ING [facility] [place] [phone] ([facility]) (P# ; F# ) Physical Therapy Treatment Discharge Recommendations PT Recommendations: [facility] Therapy Plan Need for skilled Physical Therapy to address deficits in functional mobility due to a status decline resulting from current medical condition. Past Medical History: Diagnosis Date Anemia 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[facility]) Anxiety Arrhythmia Irregular HB Arthritis Spine Cataract States early Chest pain Chronic lymphocytic thyroiditis [place]cerebral vascular [place]) [place] Left side-mild weakness DDD (degenerative disc disease), lumbar Deep vein thrombosis [place] LLE Dental disease Poor teeth Depression Diabetes mellitus type 2, controlled ([facility] Checks glucose [id number] Disease of thyroid gland Diverticulitis of colon Dizziness HARRIS (dyspnea on exertion) Facial weakness Fractures Right wrist, left elbow GERD (gastroesophageal reflux disease) Deepthi-deepthi disease Katelyn's thyroiditis Hypercoagulable state [place] Hyperlipidemia Hypertension Hypothyroidism 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 [place] (myocardial infarction) [place] Silent-in past Migraine Morbid obesity [place] MRSA (methicillin resistant Staphylococcus aureus) Posterior left neck-treated Neuropathy Feet Numbness Osteoporosis Pneumonia Rash bilat legs lower belly Restless leg syndrome Sinusitis, chronic Sleep apnea CPAP Stress incontinence Stroke ([facility]) TIA (transient ischemic attack) Several UTI (urinary tract infection) Years ago Ventral hernia Visual impairment Wears corrective lenses .psh 6 Clicks: Basic Mobility Turning from your back to your side while in a flat bed without using bed rails?: A little Moving from lying on your back to sitting on side of flat bed without using bed rails?: A little Moving to and from bed to a chair (including w/c)?: A little Standing up from a chair using your arms (e.g. w/c or bedside chair)?: A little To walk in hospital room?: A little Climbing 3-5 steps with a railing?: A lot Scoring 6 Clicks: Basic Mobility Raw Score: 17 [facility] G Code Modifier: CK 03/27/24 0800 LE Seated LE seated exercises performed? Yes Ankle pumps 10 Long arc quads 10 Seated marching 10 Hip abduction/adduction 10 Patient Response to Treatment: Progressing toward goals, Slow progress, decreased activity tolerance Assessment Patient Assessment Patient Response to Treatment: Progressing toward goals, Slow progress, decreased activity tolerance Visit RN Communication: Yes Medical Record Reviewed: Yes PT Type of Visit: Treatment Pain Assessment Pain Assessment: No/denies pain Pain Score: 0 Bed Mobility Other: not assessed, pt up to chair and returning to chair at end of session Transfers Sit to Stand: Contact guard assist, Verbal cues Stand to Sit: Contact guard assist, Verbal cues Gait Base of Support: Within Functional Limits Pattern: Decreased andrei, Forward trunk Gait Assistance: Contact guard assist Assistive Device: Rolling walker Gait Distance: 20ft within room Limiting Factors to Gait: Fatigue Activity Tolerance Other: tolerating transfers, gait, seated le exs Plan Physical Therapy Care Plan Physical Therapy Care Plan (Active) Template: PT - Physical Therapy Problem: Bed Mobility Dates: Start: 03/25/24 Disciplines: PT Goal: Patient will perform bed mobility with Contact Guard Dates: Start: 03/25/24 Expected End: 04/08/24 Description: Goal Description: Disciplines: PT Outcomes Date/Time User Outcome 03/27/24858 Windy Jaime PTA Progressing Goal Note filed on 03/27/24858 by Windy Jaime PTA Evaluation of progress towards goal: Problem: Gait Dates: Start: 03/25/24 Disciplines: PT Goal: Patient will perform gait with Contact Guard Dates: Start: 03/25/24 Expected End: 04/08/24 Description: With_RW for 50__feet Goal Description: Disciplines: PT Outcomes Date/Time User Outcome 03/27/2459 Windy Jaime PTA Progressing Goal Note filed on 03/27/2459 by Windy Jaime PTA Evaluation of progress towards goal: Problem: Standing Balance Dates: Start: 03/25/24 Disciplines: PT Goal: Other sitting and standing balance goal (customize) Dates: Start: 03/25/24 Expected End: 04/08/24 Description: Goal Description: patient will demonstrate good static standing for further safety with functional mobility Disciplines: PT Outcomes Date/Time User Outcome 03/27/24 0859 Windy Jaime PTA Progressing Goal Note filed on 03/27/2459 by Windy Jaime PTA Evaluation of progress towards goal: Problem: Strength Dates: Start: 03/25/24 Disciplines: PT Goal: Improve strength Dates: Start: 03/25/24 Expected End: 04/08/24 Description: Of extremity/ location: bilateral LE's to 4/5 To facilitate: mobility Disciplines: PT Outcomes Date/Time User Outcome 03/27/2459 Windy Jaime PTA Progressing Goal Note filed on 03/27/2459 by Windy Jaime PTA Evaluation of progress towards goal: Problem: Transfers Dates: Start: 03/25/24 Disciplines: PT Goal: Patient will perform transfers with Contact Guard Dates: Start: 03/25/24 Expected End: 04/08/24 Description: Goal Description: Disciplines: PT Outcomes Date/Time User Outcome 03/27/2459 Windy Jaime PTA Progressing Goal Note filed on 03/27/24 0859 by Windy Jaime PTA Evaluation of progress towards goal: Physical Therapy Care Plan (Resolved) There are no resolved problems. 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 DISCHARGE PLANNING NOTE Patient's POC discussed in DTR's with RN .CN met with the patient at the bedside. Patient is working with PT this morning. Patient was given list for SNF and selected [facility]. CN tasked transition center to send referral to SNF. Back up plan for [facility] . - Lovely Hennessy RN 03/27/24 8:59 AM Problem: Pain Goal: Patient goal is pain score less than 4, able to rest, and participant in treatment plan as appropriate Description: INTERVENTIONS: 1. Encourage patient or legal sales representative gas service to report early pain and ask for pain medicine when needed 2. Assess pain using appropriate pain scale and include the scale used when documenting 3. Administer analgesics based on type and severity of pain and evaluate response within appropriate time frame 4. Implement non-pharmacological measures as appropriate and evaluate response 5. Consider cultural and social influences on pain and pain management 6. Notify LIP if interventions ineffective or patient reports new pain 7. Monitor vital signs including pulse ox, end-tidal CO2 based on pain intervention 8. Reassess pain per policy 9. Teach patient or legal sales representative gas service interventions for comforting Outcome: Progressing Note: Evaluation of progress towards goal: pain verbalized acceptable pain. medicate prn Problem: Infection Goal: Absence of infection during hospitalization Description: Interventions: 1. Assess and monitor for signs and symptoms of infection 2. Monitor lab/diagnostic results 3. Monitor all insertion sites i.e., indwelling lines, tubes and drains 4. Monitor endotracheal (as able) and nasal secretions for changes in amount and color 5. Administer medications as ordered 6. Instruct and encourage patient and family to use good hand hygiene technique 7. Identify and instruct patient/patient sales representative gas service in use of appropriate isolation precautions for identified infection/symptoms 8. Provide and discuss with patient/patient sales representative gas service on educational MDRO sheet 9. Encourage and monitor nutritional status daily and consult nurses director if indicated 10. Implement neutropenic guidelines as needed 11. Review exposure to history of communicable disease and recent travel history on admission 12. Encourage annual influenza vaccine 13. Encourage pneumonia vaccine Outcome: Progressing Note: Evaluation of progress towards goal: Pt aferbrile.iv antibiotics as ordered. Iv without redness or swelling. Will continue to monitor. Problem: Knowledge Deficit Goal: Patient/patient sales representative gas service demonstrates understanding of disease process, treatment plan, medications, and discharge instructions Description: INTERVENTIONS 1. Complete learning assessment and assess knowledge base 2. Provide teaching at level of understanding 3. Provide teaching via preferred learning method(s) Outcome: Progressing Note: Evaluation of progress towards goal: Updated on plan of care. Fall prevention education reinforced. Continue to monitor Problem: Discharge Planning Goal: Discharge to post-acute care, other facility, or home with appropriate resources Description: Patient's goal is: INTERVENTIONS 1. Conduct assessment to determine patient/family and health care team treatment goals, and need for post-acute services based on payer coverage, community resources, and patient preferences, and barriers to discharge 2. Coordinate with Social work, Care Navigation, and Utilization Review to arrange appropriate level of services according to patient's needs based on patient preference and payer coverage in collaboration with the physician and health care team 3. Address psychosocial, clinical, and financial barriers to discharge as identified in assessment in conjunction with the patient/family and health care team 4. Consult appropriate ancillary services (i.e.. PT/OT/ST, etc) as needed 5. Communicate with and update the patient/family, physician, and health care team regarding progress on the discharge plan 6. Identify discharge learning needs (meds, wound care, etc). 7. Arrange for needed discharge transportation as appropriate Outcome: Progressing Note: Evaluation of progress towards goal: Not ready for discharge. Currently assessing for discharge needs. Continue to monitor Speech Therapy Videofluoroscopic Swallow Study Evaluation Impressions Oral Phase: Mild Pharyngeal Phase: Mild Functional Oral Intake Scale: Total PO intake. No restrictions MBS completed on this date with flash penetration noted on thin liquid that was immediately ejected with active cough noted. Patient utilized small sip and no further penetration event observed. Penetration was due to delay in the pharyngeal trigger with the bolus head at the level of the pyriform sinus with partial superior movement of thyroid cartilage, partial anterior hyoid movement, and partial epiglottic inversion resulting in narrow opening of the laryngeal vestibule and subsequent penetration. Active coughing noted post penetration event. Recommend regular diet, thin liquids, use small sips, and sip/bite. Results shared with patient who verbalized understanding. Will follow for acute care dysphagia management. Modified Barium Swallow Impairment Profile (MBSImP) Oral Impairment: Yes Component 1: Lip Closure: no labial escape Component 2: Tongue Control During Bolus Hold: cohesive bolus between tongue to palatal seal Component 3: Bolus Preparation/Mastication: timely and efficient chewing and mashing Component 4: Bolus Transport/Lingual Motion: slowed tongue motion Component 5: Oral Residue: trace residue lining oral structures Component 6: Initiation of Pharyngeal Swallow: bolus head at posterior laryngeal surface of epiglottis Pharyngeal Impairment: Yes Component 7: Soft Palate Elevation: no bolus between soft palate/posterior pharyngeal wall Component 8: Laryngeal Elevation: partial superior movement of thyroid cartilage/partial approximation of arytenoids to epiglottic petiole Component 9: Anterior Hyoid Excursion: partial anterior movement Component 10: Epiglottic Movement: partial inversion Component 11: Laryngeal Vestibular Closure - Height of the Swallow: incomplete, narrow column of contrast/air in laryngeal vestibule Component 12: Pharyngeal Stripping Wave: present - complete Component 13: Pharyngeal Contraction (A/P view only): could not be determined due to logistical reasons not related to physiologic impairment Component 14: Pharyngoesophageal Segment Opening: complete distension and complete duration, no obstruction of flow Component 15: Tongue Base Retraction: no contrast between tongue base and posterior pharyngel wall Component 16: Pharyngeal Residue: trace residue within or on pharyngeal structures Recommendations Diet Level: Regular Liquid Level: Level 0 Thin Compensatory Strategies: Small sips/bites Supervision/Positioning: Patient to remain upright 15 minutes after meals Discharge Recommendations: Home speech therapy Plan Frequency: 1-2days/week Duration: 14 days Treatments/Modalities: Pharyngeal strengthening, Safety strategies Need for skilled Speech Language Pathology Services to address deficits in feeding/swallowing due to a status decline resulting from blood loss, history of EGD. Procedure and protocol were shared with patient who verbalized understanding. Prognosis Services: Skilled PROTEOMICS SCIENTIST services to address above deficits Prognosis/Potential: Good Considerations: Previous level of function Assessment Baseline Assessment Prior BSSE/VFSS: no Additional Testing Results: Chest X-Ray Setting Prior to Admission: Home Associated Problems: Difficulty with liquids, Difficulty with solids Respiratory Status: Room Air Behavior/Cognition: Alert, Cooperative Dentition: Poor Dentition Patient Positioning: Upright in chair Baseline Vocal Quality: Normal Room Service: Appropriate for room service Feeding Assistance: Able to feed self Current Diet Type: Level 0 Thin, Regular Allergies Marked As Reviewed: Complete Consistencies Tested Views: Lateral position Level 0 Thin: Cup Level 2 Mildly Thick: Cup Level 4 Pureed: Spoon Level 6 Soft & Bite-Sized: Spoon Regular Tested: Spoon Modified Barium Swallow Impairment Profile (MBSImP) Oral Impairment: Yes Component 1: Lip Closure: no labial escape Component 2: Tongue Control During Bolus Hold: cohesive bolus between tongue to palatal seal Component 3: Bolus Preparation/Mastication: timely and efficient chewing and mashing Component 4: Bolus Transport/Lingual Motion: slowed tongue motion Component 5: Oral Residue: trace residue lining oral structures Component 6: Initiation of Pharyngeal Swallow: bolus head at posterior laryngeal surface of epiglottis Pharyngeal Impairment: Yes Component 7: Soft Palate Elevation: no bolus between soft palate/posterior pharyngeal wall Component 8: Laryngeal Elevation: partial superior movement of thyroid cartilage/partial approximation of arytenoids to epiglottic petiole Component 9: Anterior Hyoid Excursion: partial anterior movement Component 10: Epiglottic Movement: partial inversion Component 11: Laryngeal Vestibular Closure - Height of the Swallow: incomplete, narrow column of contrast/air in laryngeal vestibule Component 12: Pharyngeal Stripping Wave: present - complete Component 13: Pharyngeal Contraction (A/P view only): could not be determined due to logistical reasons not related to physiologic impairment Component 14: Pharyngoesophageal Segment Opening: complete distension and complete duration, no obstruction of flow Component 15: Tongue Base Retraction: no contrast between tongue base and posterior pharyngel wall Component 16: Pharyngeal Residue: trace residue within or on pharyngeal structures [facility] Overall Impression Scores Oral Impairment Total: 5 Pharyngeal Impairment Total: 5 Penetration/Aspiration Scale Penetration/Aspiration Scale Performed: Yes Level 0 Thin: Contrast entered the airway, remained above the vocal folds, and was ejected from the airway Level 2 Mildly Thick: Contrast did not enter the airway Level 4 Pureed: Contrast did not enter the airway Level 6 Soft & Bite-Sized: Contrast did not enter the airway Regular: Contrast did not enter the airway Trialed Compensatory Strategies Strategies Utilized: Small sips/bites Effective: Yes Pain Assessment Pain Assessment: No/denies pain Plan Diagnosis Code Swallowing: R13.12 Dysphagia, oropharyngeal phase Speech Therapy Care Plan Speech Therapy Care Plan (Active) Template: ST - Dysphagia Problem: Swallowing Dates: Start: 03/26/24 Disciplines: PROTEOMICS SCIENTIST Goal: LTG: Patient will tolerate least restrictive diet recommended by PROTEOMICS SCIENTIST without signs and symptoms of aspiration 90% of the time Dates: Start: 03/26/24 Expected End: 04/09/24 Disciplines: PROTEOMICS SCIENTIST Outcomes Date/Time User Outcome 03/26/24 134 RENE Guzman Progressing Goal Note filed on 03/26/24 134 by RENE Guzman Evaluation of progress towards goal: MBS completed-recommend regular with thin liquids. MUST USE SMALL SIPS Goal: STG: Patient will complete safety strategies with minimal assistance during PO intake 90% of the time Dates: Start: 03/26/24 Expected End: 04/09/24 Disciplines: PROTEOMICS SCIENTIST Outcomes Date/Time User Outcome 03/26/24 134 RENE Guzman Progressing Goal Note filed on 03/26/24 134 by RENE Guzman Evaluation of progress towards goal: PROTEOMICS SCIENTIST discussed importance of small sips to reduce risk of penetration identified in evaluation. Verbalized understanding. Goal: STG: Patient will complete oral/ pharyngeal strengthening program with resistance with 90% accuracy with minimal cueing Dates: Start: 03/26/24 Expected End: 04/09/24 Disciplines: PROTEOMICS SCIENTIST Outcomes Date/Time User Outcome 03/26/24 134 RENE Guzman Not Progressing Goal Note filed on 03/26/24 134 by RENE Guzman Evaluation of progress towards goal: Did not address on this date Goal: STG: Pt will complete laryngeal adduction exercises to increase laryngeal elevation, improve vocal cord closure, and aid in airway protection with 90% accuracy and min cues Dates: Start: 03/26/24 Expected End: 04/09/24 Disciplines: PROTEOMICS SCIENTIST Outcomes Date/Time User Outcome 03/26/24 134 RENE Guzman Not Progressing Goal Note filed on 03/26/24 134 by RENE Guzman Evaluation of progress towards goal: Did not address on this date. Speech Therapy Care Plan (Resolved) There are no resolved problems. 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 Cannot rule out penetration vs aspiration. Patient noticeably short of breath post cookie bite. Recommend MBS to ascertain safest po intake. Results shared with patient who is in agreement. Will follow for dysphagia management. Recommendations Diet Level: NPO Liquid Level: No liquids Discharge Recommendations: Home Plan Frequency: 1-2days/week Treatments/Modalities: (pending MBS) Need for skilled Speech Language Pathology Services to address deficits in feeding/swallowing due to a status decline resulting from blood loss, anemia. Prognosis Services: Skilled PROTEOMICS SCIENTIST services to address above deficits Prognosis/Potential: Fair Considerations: Previous level of function Assessment Baseline Assessment Prior BSSE/VFSS: no Additional Testing Results: Chest X-Ray Setting Prior to Admission: Home Associated Problems: Difficulty with solids, Difficulty with liquids Respiratory Status: Room Air Behavior/Cognition: Alert, Cooperative Dentition: Dentures Patient Positioning: Upright in bed Baseline Vocal Quality: Normal Room Service: Appropriate for room service Feeding Assistance: Able to feed self Current Diet Type: NPO Allergies Marked As Reviewed: Complete Oral/Motor Overall Oral/Motor Status: Within Functional Limits Labial at rest: Within Functional Limits Labial ROM: Within Functional Limits Labial Symmetry: Within Functional Limits Labial Strength: Within Functional Limits Labial Sensation: Within Functional Limits Labial Coordination: Within Functional Limits Lingual at rest: Within Functional Limits Lingual ROM: Within Functional Limits Lingual Symmetry: Within Functional Limits Lingual Strength: Within Functional Limits Lingual Sensation: Within Functional Limits Lingual Coordination: Within Functional Limits Facial Tone: Within Functional Limits Facial Symmetry: Within Functional Limits Facial Strength: Within Functional Limits Facial Sensation: Within Functional Limits Vocal Quality: Within Functional Limits Vocal Intensity: Within Functional Limits Intelligibility: Intelligible Breath Support: Other (Comment) (SOB post swallow) Dentition: Dentures Hearing: Within Functional Limits Consistencies Assessed: Yes Level 0 Thin Presentation: Cup Oral: Within Functional Limits Pharyngeal: Cough- delayed Regular Presentation: Self feed Oral: Consistent with premorbid status Pharyngeal: Cough- immediate Cranial Nerve Screening CN V (trigeminal): Within Functional Limits CN VII (facial): Within Functional Limits CN X (vagus): Within Functional Limits CN XII (hypoglossal): Within Functional Limits Pain Assessment Pain Assessment: No/denies pain Plan Diagnosis Code Swallowing: R13.12 Dysphagia, oropharyngeal phase Speech Therapy Care Plan Speech Therapy Care Plan (Active) There are no active problems. Speech Therapy Care Plan (Resolved) There are no resolved problems. 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 Patient is alert and oriented. Patient was told by attending that she will need SNF at discharge. PT/OT eval ordered. CN provided patient with the SNF list in her area and her insurance.Patient states she would prefer to go home with [facility] but will review the list and talk to her spouse. Patient continues with IV iron. Plan for discharge is home with [facility] vs SNF. - Lovely Hennessy RN 03/26/24 10:52 AM Occupational Therapy CANCEL - Refusal Patient declined therapy this morning with wishes to let rest. OT to check back as able and patient willing. Images from the original note were not included. [facility] Ash Cool M.D. Flora Mcdowell M.D. Deanne Ford M.D. Lisa Dunn M.D. [place], [facility] [place], [facility] Princess Voss, [facility] Meghan Richy, [facility] RADHA Dia M.D. Feng Jiang, M.D. Héctor Moyer M.D. Masha Araya M.D. Demetria Jacome, [facility] Tawanna Lind, [facility] Suad Crystal, [facility] Lori Cruz, [facility] HEMATOLOGY ONCOLOGY TELEMEDICINE PROGRESS NOTE Video Visit via Real-time Synchronous Audiovisual Provider Location: [facility] Patient Location: [facility] Patient Location Claims Support Specialist: None Video Visit Consent Statement: I discussed risks, benefits, and alternatives of a real-time synchronous audiovisual consultation with the patient (and any accompanying persons) including the risks that the patient's personal health details and medical records will be discussed over real-time, synchronous, interactive video/audio/telecommunication technology, the visit will not be recorded without the express consent of both the provider and the patient, and that there are some limitations compared to eofp-bp-hjia evaluations. We elected to proceed. 03/26/24 Subjective: Patient was seen via tele visit. She was admitted with anemia due to epistaxis. She was also noted to have melena due to the epistaxis that has since resolved. Patient occasionally dizzy, denies any active bleeding, n, v, d. Patient on Warfarin for antithrombin 3 deficiency. Patient received iron infusion during admission. GI was consulted, no plans for inpatient scope. Patient may resume warfarin. History of present illness from initial telehealth consult on 03/25/24: The patient is a 63 y.o. with AT3 deficiency and strokes. She had a leg DVT in . 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 She has been on chronic warfarin. She had a TIA only 3-4 days ago. Speech was slurred, balance off. In ER for severe epistaxis on 03/03. Placed rhino rocket. No nosebleed in the last week. She had melena after nose bleed. They then normalized in color. Black tarry stools for the last 2 days. No stool today. She was started on oral iron months ago. Last colonoscopy , no biopsy taken. 10 year recommended. No nausea, vomitiung, GERD. At times she has gagging, choking, needs to swallow with a sip of water. Physical Exam: Majority deferred due to video visit Vitals: BP 136/86 Pulse 77 Temp 36.5 C (97.7 F) (Oral) Resp 17 Ht 162.6 cm (5' 4 ) Wt 102.4 kg (225 lb 12 oz) SpO2 97% BMI 38.75 kg/m Body mass index is 38.75 kg/m . General: Well appearing, in no acute distress. Respiratory: Respirations were non-labored. Mood and affect: Normal. Objective Past Medical History: Diagnosis Date Anemia 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 [place] Anxiety Arrhythmia Irregular HB Arthritis Spine Cataract States early Chest pain Chronic lymphocytic thyroiditis [place]cerebral vascular [place] Left side-mild weakness DDD (degenerative disc disease), lumbar Deep vein thrombosis [place] LLE Dental disease Poor teeth Depression Diabetes mellitus type 2, controlled [place] Checks glucose [id number] Disease of thyroid gland Diverticulitis of colon Dizziness HARRIS (dyspnea on exertion) Facial weakness Fractures Right wrist, left elbow GERD (gastroesophageal reflux disease) Deepthi-deepthi disease Katelyn's thyroiditis Hypercoagulable state [place] Hyperlipidemia Hypertension Hypothyroidism Memory loss Short + longterm memory problems r/t stroke [place] ([place]) [place] Silent-in past Migraine Morbid obesity [place] MRSA (methicillin resistant Staphylococcus aureus) 2000s Posterior left neck-treated Neuropathy Feet Numbness Osteoporosis Pneumonia Rash bilat legs lower belly Restless leg syndrome Sinusitis, chronic Sleep apnea CPAP Stress incontinence Stroke [place] [place] TIA (transient ischemic attack) Several UTI (urinary tract infection) Years ago Ventral hernia Visual impairment Wears corrective lenses Past Surgical History: Procedure Laterality Date SECTION 1979 + 1980 CHOLECYSTECTOMY 2011 COLONOSCOPY 2015 COLONOSCOPY N/A 10/30/2018 Performed by Lottie Martinez DO at [facility] SURGERY ELBOW SURGERY Left 04/27/2013 Fracture repair has hardware- ORIF distal humeral condylar fx EXAM UNDER ANESTHESIA/EXCISION VUVLAR CYST N/A 06/15/2020 Performed by Rich Montalvo MD at [facility] EXCISION CYST ARM Right 10/30/2018 Performed by Lottie Martinez DO at [facility] SURGERY FESS (FUNCTIONAL ENDOSCOPIC SINUS SURGERY) WITH NAVIGATION SYSTEM NASAL, FRONTAL SINSUSOTOMY, SPHENEIDOTOMY Bilateral 06/27/2016 Performed by Yossi Cheatham MD at [facility] HERNIA REPAIR 2012 2 seperate surgeries/ abd hernias HYSTERECTOMY 1982 States still has at least one ovary INCISION DRAINAGE BUTTOCKS Left 02/10/2021 Performed by Xiomara Huffman MD at [facility] NECK SURGERY 2000s MRSA spot on back of neck OVARIAN CYST REMOVAL Right 1984- TUBAL LIGATION 1981 WRIST SURGERY Right 04/27/2013 Has hardware- ORIF distal radius fx Family History Problem Relation Age of Onset Diabetes Mother Hypertension Mother Heart disease Mother Stroke Mother COPD Father Cancer Father Cancer Sister Heart disease Sister Hypertension Sister Diabetes Sister Anesthesia problems Sister Stroke Sister Migraines Sister Cancer Sister Rheumatic fever Brother Social History Socioeconomic History Marital status: Tobacco Use Smoking status: Never Smokeless tobacco: Never Tobacco comments: Been around smokers never have smoked Vaping Use Vaping status: Never Used Substance and Sexual Activity Alcohol use: Not Currently Comment: occ Drug use: No Sexual activity: Defer Partners: Male control/protection: None Comment: , Hyst Other Topics Concern Caffeine Use Yes Social Determinants of Health Food Insecurity: No Food Insecurity (03/24/2024) Hunger Screening Food Insecurity - Worry: Never True Food Insecurity - Inability: Never True Transportation Needs: No Transportation Needs (03/24/2024) PRAPARE - Transportation Lack of Transportation (Medical): No Lack of Transportation (Non-Medical): No Interpersonal Safety: Not At Risk (03/24/2024) Humiliation, Afraid, Rape, and Kick questionnaire Fear of Current or Ex-Partner: No Emotionally Abused: No Physically Abused: No Sexually Abused: No Housing Instability: Low Risk (03/24/2024) Housing Instability Housing Instability: No Allergies Allergen Reactions Adhesive Dermatitis Dicloxacillin Sodium Hives Lincomycin Hcl Hives Lipitor [Atorvastatin] Elevated LFT's Penicillins Hives Atarax [Hydroxyzine Hcl] Itching Exacerbated previous condition Ceclor [Cefaclor] Rash Clindamycin Rash Hydroxyzine Pamoate Itching Severe itching, exacerbated previous condition. No swelling, hives Latex Rash Latex, Natural Rubber Itching Warfarin Hives FATIGUE,CONSTIPATION Inpatient scheduled medication: atorvastatin, 40 mg, oral, Nightly carvediloL, 3.125 mg, oral, BID folic acid, 1,000 mcg, oral, Daily iron sucrose, 200 mg, intravenous, Daily levothyroxine, 150 mcg, oral, Daily pantoprazole, 40 mg, intravenous, Q12H rOPINIRole, 2 mg, oral, Nightly sertraline, 100 mg, oral, Daily Recent Labs Recent Results (from the past 72 hour(s)) POCT Protime / INR Collection Time: 03/24/24 12:00 AM Result Value Ref Range INR 1.9 (A) 0.8 - 1.2 ABO Rh Repeat Collection Time: 03/24/24 3:30 PM Result Value Ref Range ABO B RH Positive CBC auto differential Collection Time: 03/24/24 3:50 PM Result Value Ref Range White Blood Cells 11.2 (H) 4.0 - 11.0 X10E9/L RBC count 4.71 3.80 - 5.20 X10E12/L Hemoglobin 8.6 (L) 11.7 - 15.5 g/dL Hematocrit 28.1 (L) 35 - 47 % MCV 60 (L) 80 - 100 fL MCH 18.1 (L) 27 - 34 pg MCHC 30.5 (L) 32 - 36 g/dL RDW 19.7 (H) 11.5 - 15.0 % Platelets 361 150 - 450 X10E9/L MPV 8.2 7 - 12 fL Seg neutrophil 77.0 % Lymphocyte 19.2 % Eosinophil 3.8 % Neutrophils Absolute (M) 8.6 (H) 1.5 - 6.6 X10E9/L Lymphocytes Absolute 2.2 1.0 - 3.5 X10E9/L Eosinophils Absolute 0.4 0.0 - 0.4 X10E9/L Hypochromia 1+ (A) NONE^NONE Polychromasia 1+ (A) NONE^NONE Basic Metabolic Panel Collection Time: 03/24/24 3:50 PM Result Value Ref Range Sodium 137 134 - 146 mmol/L Potassium, Bld 3.8 3.5 - 5.0 mmol/L Chloride 105 98 - 109 mmol/L CO2 22 22 - 32 mmol/L Anion gap 10 5 - 15 mmol/L BUN 12 5 - 27 mg/dL Creatinine 0.99 0.40 - 1.00 mg/dL Glucose 157 (H) 65 - 99 mg/dL Calcium 9.2 8.5 - 10.5 mg/dL eGFR (CKD-EPI)non-race dependent 64 >59 ml/min/1.73sq.m Lactate w/ Reflex Collection Time: 03/24/24 3:50 PM Result Value Ref Range Lactate w/ Reflex 3.7 (H) 0.4 - 2.0 mmol/L Troponin I, High Sensitivity Collection Time: 03/24/24 3:50 PM Result Value Ref Range Troponin I, High Sensitivity 3 <16 ng/L Protime & INR Collection Time: 03/24/24 3:50 PM Result Value Ref Range Protime 22.7 (H) 9.8 - 13.2 sec Inr 2.0 (H) 0.8 - 1.1 B-type natriuretic peptide Collection Time: 03/24/24 3:50 PM Result Value Ref Range BNP 51 <100.0 pg/mL Type and screen(includes indirect armen) Collection Time: 03/24/24 4:30 PM Result Value Ref Range ABO B RH Positive Antibody Screen Negative Troponin I, High Sensitivity 1 Hour Collection Time: 03/24/24 4:55 PM Result Value Ref Range 1 Hour Trop I, High Sensitivity 3 <16 ng/L Er Extra Urine Collection Time: 03/24/24 5:20 PM Result Value Ref Range ER Extra Urine ER EXTRA URINE ORDER IN PROCESS POCT Nursing Urine Macroscopic UA Collection Time: 03/24/24 5:26 PM Result Value Ref Range Specific gravity STEPH 1.020 1.003 - 1.035 Leukocyte esterase STEPH Trace (A) Negative^Negative Nitrite STEPH Negative Negative^Negative Ph 5.5 5.0 - 8.5 Protein STEPH Negative Negative^Negative mg/dL Urine glucose STEPH Negative Negative^Negative mg/dL Ketones STEPH Negative Negative^Negative mg/dL Urobilinogen STEPH 0.2 <1.1 eu/dL Bilirubin STEPH Negative Negative^Negative Hemoglobin STEPH Negative Negative^Negative Lactate Collection Time: 03/24/24 7:50 PM Result Value Ref Range Lactate 2.9 (H) 0.4 - 2.0 mmol/L Hemoglobin and hematocrit, blood Collection Time: 03/24/24 9:05 PM Result Value Ref Range Hemoglobin 7.6 (L) 11.7 - 15.5 g/dL Hematocrit 25.1 (L) 35 - 47 % Bedside Glucose *Place/Obtain serum glucose if >500(>600 MRH) per glucometer. Collection Time: 03/25/24 12:30 AM Result Value Ref Range Bedside glucose 137 (H) 65 - 99 mg/dL CBC auto differential Collection Time: 03/25/24 3:42 AM Result Value Ref Range White Blood Cells 8.5 4.0 - 11.0 X10E9/L RBC count 4.16 3.80 - 5.20 X10E12/L Hemoglobin 7.4 (L) 11.7 - 15.5 g/dL Hematocrit 24.6 (L) 35 - 47 % MCV 59 (L) 80 - 100 fL MCH 17.9 (L) 27 - 34 pg MCHC 30.2 (L) 32 - 36 g/dL RDW 19.2 (H) 11.5 - 15.0 % Platelets 270 150 - 450 X10E9/L MPV 8.1 7 - 12 fL % neutrophils 71.1 % % lymphocytes 16.9 % % monocytes 7.8 % % eosinophils 3.6 % % Basophils 0.6 % Neutrophils Absolute (A) 6.1 1.5 - 6.6 X10E9/L Lymphocytes Absolute 1.4 1.0 - 3.5 X10E9/L Monocytes Absolute 0.7 0 - 0.9 X10E9/L Eosinophils Absolute 0.3 0.0 - 0.4 X10E9/L Basophils Absolute 0.1 0.0 - 0.2 X10E9/L Hypochromia 1+ (A) NONE^NONE Basic Metabolic Panel Collection Time: 03/25/24 3:42 AM Result Value Ref Range Sodium 138 134 - 146 mmol/L Potassium, Bld 3.5 3.5 - 5.0 mmol/L Chloride 107 98 - 109 mmol/L CO2 25 22 - 32 mmol/L Anion gap 6 5 - 15 mmol/L BUN 11 5 - 27 mg/dL Creatinine 0.90 0.40 - 1.00 mg/dL Glucose 151 (H) 65 - 99 mg/dL Calcium 8.4 (L) 8.5 - 10.5 mg/dL eGFR (CKD-EPI)non-race dependent 71 >59 ml/min/1.73sq.m Iron and TIBC Collection Time: 03/25/24 3:42 AM Result Value Ref Range Iron <10 (L) 50 - 170 ug/dL Tibc-calc only do not order 524 (H) 250 - 425 ug/dL Iron Saturation <2 (L) 15 - 50 % SATURATION Ferritin Collection Time: 03/25/24 3:42 AM Result Value Ref Range Ferritin 4 (L) 11 - 307 ng/mL Protime & INR Collection Time: 03/25/24 3:42 AM Result Value Ref Range Protime 24.9 (H) 9.8 - 13.2 sec Inr 2.2 (H) 0.8 - 1.1 Bedside Glucose *Place/Obtain serum glucose if >500(>600 MRH) per glucometer. Collection Time: 03/25/24 6:27 AM Result Value Ref Range Bedside glucose 158 (H) 65 - 99 mg/dL Lactate w/ Reflex Collection Time: 03/25/24 8:24 AM Result Value Ref Range Lactate w/ Reflex 1.2 0.4 - 2.0 mmol/L Bedside Glucose *Place/Obtain serum glucose if >500(>600 MRH) per glucometer. Collection Time: 03/25/24 11:52 AM Result Value Ref Range Bedside glucose 154 (H) 65 - 99 mg/dL Protime & INR Collection Time: 03/25/24 2:57 PM Result Value Ref Range Protime 21.1 (H) 9.8 - 13.2 sec Inr 1.9 (H) 0.8 - 1.1 APTT Collection Time: 03/25/24 2:57 PM Result Value Ref Range aPTT 33 26 - 37 sec Hemoglobin and hematocrit, blood Collection Time: 03/25/24 2:57 PM Result Value Ref Range Hemoglobin 7.6 (L) 11.7 - 15.5 g/dL Hematocrit 25.0 (L) 35 - 47 % Bedside Glucose *Place/Obtain serum glucose if >500(>600 MRH) per glucometer. Collection Time: 03/25/24 6:20 PM Result Value Ref Range Bedside glucose 140 (H) 65 - 99 mg/dL Hemoglobin and hematocrit, blood Collection Time: 03/25/24 11:04 PM Result Value Ref Range Hemoglobin 7.1 (L) 11.7 - 15.5 g/dL Hematocrit 23.4 (L) 35 - 47 % Bedside Glucose *Place/Obtain serum glucose if >500(>600 MRH) per glucometer. Collection Time: 03/26/24 12:03 AM Result Value Ref Range Bedside glucose 139 (H) 65 - 99 mg/dL FFP setup:Number of Units: 1 Collection Time: 03/26/24 4:10 AM Result Value Ref Range Blood component type [id number] Unit number [id number] Unit ABO B Unit RH POS Status of unit /RELEASED Expiration Date BB Type Barcode 7300 Blood component type [id number] Unit number [id number] Unit ABO B Unit RH POS Status of unit TRANSFUSED Expiration Date BB Type Barcode 7300 Protime & INR Collection Time: 03/26/24 4:49 AM Result Value Ref Range Protime 20.6 (H) 9.8 - 13.2 sec Inr 1.8 (H) 0.8 - 1.1 Hemoglobin and hematocrit, blood Collection Time: 03/26/24 4:49 AM Result Value Ref Range Hemoglobin 7.5 (L) 11.7 - 15.5 g/dL Hematocrit 24.7 (L) 35 - 47 % Bedside Glucose *Place/Obtain serum glucose if >500(>600 MRH) per glucometer. Collection Time: 03/26/24 5:54 AM Result Value Ref Range Bedside glucose 143 (H) 65 - 99 mg/dL Recent Imaging: X-ray chest 2 views Result Date: 03/25/2024 Narrative: CLINICAL HISTORY: Shortness of breath Comparison: 01/28/2023 Views: 2 view FINDINGS: * No acute infiltrate. No volume loss nor consolidation. There is no pleural effusion, pneumothorax, nor volume loss. Heart and mediastinal structures are unremarkable. Pulmonary vasculature stable. Degenerative changes thoracic spine. Old right rib fractures. IMPRESSION: * No active disease nor significant interval change Finalized by Ramiro Alvarado MD on 03/25/2024 5:[address] abdomen and pelvis with contrast Result Date: 03/24/2024 Narrative: CLINICAL HISTORY: Lower GI bleeding. CT ABDOMEN AND PELVIS WITH CONTRAST: 03/24/2024 COMPARISON: 10/20/2015 PROCEDURE: Axial images were obtained through the abdomen and pelvis after oral contrast ingestion and 100 mL Omnipaque 300 intravenously. Coronal and sagittal reconstructions were performed. All CT scans at this facility use dose modulation, iterative reconstruction, and/or weight based dosing when appropriate to reduce radiation dose to as low as reasonably achievable. FINDINGS : The visualized lower lungs and pleural spaces are clear. No focal hepatic or splenic abnormality is evident. The pancreas, gallbladder, and biliary tree are within normal limits. The kidneys enhance symmetrically. A right superior pole lesion contains fat and is compatible with an angiomyolipoma. This measures up to 1.8 cm. There is no ureteral dilation or urinary bladder irregularity. No dilated bowel loops are present. Diverticula are present within the descending colon and sigmoid region with no acute inflammatory changes. There is some heterogeneous density within the cecum with areas of slightly hyperdense appearance at the lateral cecum on axial image 46 and coronal image 45. This is near the ileocecal valve. No focal bowel lesion is evident. Vascular structures enhance normally. Mild atherosclerotic calcification is present within the abdominal aorta. L4 superior endplate fracture appears subacute. Degenerative changes are present throughout the [place] spine. Some narrowing of the spinal canal is present at the thoracolumbar region with ossification of posterior longitudinal ligament. IMPRESSION: No definite cause of GI bleeding is present but there is some hyperdensity in the cecal region which could represent acute intra-abdominal contrast/blood. No other acute intra-abdominal or pelvic abnormality on CT evaluation. Lumbar degenerative and posttraumatic findings without a definite acute abnormality. 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 Finalized by Ulysses Pérez MD on 03/24/2024 6:[address] brain without contrast Result Date: 03/24/2024 Narrative: CT BRAIN WITHOUT CONTRAST COMPARISON: 07/12/2023 HISTORY: Transient alteration of awareness. Dizziness TECHNIQUE: Unenhanced axial images of the brain were obtained. Automatic exposure control (AEC) was utilized. FINDINGS: There is no evidence for acute intracranial hemorrhage. There is no hydrocephalus, mass effect, or midline shift. Aguilar-white differentiation is preserved with no CT evidence for an acute infarct. IMPRESSION: No evidence for an acute intracranial process. All CT scans at this facility use dose modulation, iterative reconstruction, and/or weight based dosing when appropriate to reduce radiation dose to as low as reasonably achievable. Finalized by Kori Robert DO on 03/24/2024 5:54 PM Diagnosis Problem list: Patient Active Problem List Diagnosis longterm (current) use of anticoagulants [Z79.01] Essential hypertension History of stroke 1993 Obstructive sleep apnea syndrome CVA (cerebral vascular accident) ([facility]) 1993 - ON [place] WARFARIN Type 2 diabetes mellitus with microalbuminuria, without long-term current use of insulin ([facility]) Hypercholesteremia Old NH (myocardial infarction) BMI 45.0-49.9, adult ([facility]) IMELDA on CPAP SOB (shortness of breath) on exertion Deepthi-deepthi disease Chronic fatigue Absolute anemia Chronic lymphocytic thyroiditis Traumatic hematoma of buttock Iron deficiency anemia, unspecified Iron malabsorption Lymphedema Cerebral atrophy ([facility]) 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 Melena likely all due to nasal bleeding. I will let hospitalist team know we are OK with them resuming. Patient's Warfarin is managed by [place] [facility] outpatient. - Continue with Venofer 200mg daily for a total of 5 days, she may complete remaining treatments as an outpatient if needed. Patient lives in [place], we will send a message to Dr. Escobar for follow up. - Transfusion Parameters: Hgb < 7 and Plts < 10,000, unless active bleeding transfuse Plts < 20,000 - Patient was seen by GI with recommendations to start pantoprazole 40mg BID, no NSAID use, and to trend HG. They believed melena was likely epistaxis related. Patient was offered an endoscopy, however, at that time was not interested. - Pt sees Dr. Cheatham ENT - Hem/Onc will sign off, thank you Code Status: Full Code Further medical management of comorbid conditions per primary team and consulting services, appreciate assistance The patient was seen and examined and all plans and orders were agreed upon with the attending physician on service today, Dr. Ford Thank you for the consultation. Lori Cruz APRN-INSTALLATION SERVICE REPRESENTATIVE [facility] Hematology/Oncology [address] [address] Please note that portions of this note were generated using voice recognition [employer] dictation software. Although every effort was made to ensure the accuracy of this automated inventory control/shipping receiving, some errors in inventory control/shipping receiving may have occurred. [facility] Hematology/Oncology [id number] [place] [address] 1st floor [place] [address] Tele-OncologyTelemedicine Consult Note Consent Statement: I discussed risks, benefits, and alternatives of a real-time synchronous audiovisual consultation with the patient (and any accompanying persons) including the risks that the patient's personal health details and medical records will be discussed over real-time, synchronous, interactive video/audio/telecommunication technology, the visit will not be recorded without the express consent of both the provider and the patient, and that there are some limitations compared to ahto-wu-ovcd evaluations. We elected to proceed. Lori Cruz, SUPERVISOR SMOKE CONTROL-INSTALLATION SERVICE REPRESENTATIVE 03/26/24 1344 I, Deanne Ford, personally performed the face to face diagnostic evaluation on this patient. My findings are as follows: At this time, since she has no gross GI bleeding or ongoing melena, it is reasonable to reinitiate anticoagulation. Would use Lovenox bridge given her high-risk of thromboembolic disease. We will sign off for now. Deanne Ford M.D. [facility] Hematology/Oncology [facility] Day time contact: After hours answering service: [phone] [place] [address] Physical Therapy CANCEL - Refusal (pt seen supine, while seeming agreeable to session initially, declines as wishing to be left to rest.) Associated attestation - Michelle Valdes, PT - 03/26/2024 1:39 PM EDT I have reviewed and agree with this note and education documentation for this visit. Problem: Pain Goal: Patient goal is pain score less than 4, able to rest, and participant in treatment plan as appropriate Description: INTERVENTIONS: 1. Encourage patient or legal sales representative gas service to report early pain and ask for pain medicine when needed 2. Assess pain using appropriate pain scale and include the scale used when documenting 3. Administer analgesics based on type and severity of pain and evaluate response within appropriate time frame 4. Implement non-pharmacological measures as appropriate and evaluate response 5. Consider cultural and social influences on pain and pain management 6. Notify LIP if interventions ineffective or patient reports new pain 7. Monitor vital signs including pulse ox, end-tidal CO2 based on pain intervention 8. Reassess pain per policy 9. Teach patient or legal sales representative gas service interventions for comforting Outcome: Progressing Note: Evaluation of progress towards goal: pt reported pain at acceptable level. Denied need for prn pain medications. Problem: Safety Goal: Patient will be injury free during hospitalization Description: INTERVENTIONS: 1. Assess patient's risk for falls and implement fall prevention plan of care per policy 2. Provide and maintain a safe environment 3. Proper use of double Identifiers 4. Medication administration using the 5 rights 5. Hand hygiene 6. Specimens are labeled at the bedside 7. Instruct patient/ patient sales representative gas service about use of safety devices 8. Include patient/ patient sales representative gas service in decisions related to safety Outcome: Progressing Note: Evaluation of progress towards goal: safety maintained. Oriented to room, hourly rounding, bed controls, call light. Personal needs met, call light within reach. Problem: Infection Goal: Absence of infection during hospitalization Description: Interventions: 1. Assess and monitor for signs and symptoms of infection 2. Monitor lab/diagnostic results 3. Monitor all insertion sites i.e., indwelling lines, tubes and drains 4. Monitor endotracheal (as able) and nasal secretions for changes in amount and color 5. Administer medications as ordered 6. Instruct and encourage patient and family to use good hand hygiene technique 7. Identify and instruct patient/patient sales representative gas service in use of appropriate isolation precautions for identified infection/symptoms 8. Provide and discuss with patient/patient sales representative gas service on educational MDRO sheet 9. Encourage and monitor nutritional status daily and consult nurses director if indicated 10. Implement neutropenic guidelines as needed 11. Review exposure to history of communicable disease and recent travel history on admission 12. Encourage annual influenza vaccine 13. Encourage pneumonia vaccine Outcome: Progressing Note: Evaluation of progress towards goal: no overt s/s infection. Labs/vital signs monitored. Problem: Moderate - High Risk Fall Score Description: Rodriguez Fall Score of =/> 25 or indicated by [facility] Assessment Goal: Patient should be free from fall Description: Interventions: 1. Rogers to environment 2. Hourly rounds addressing the 4 P's (Pain, Positioning, Possessions, Potty) 3. Clear area of hazards (spills, clutter, electrical cords, unnecessary equipment) 4. Place equipment (bed & TV controls, call light, phone, urinal) within reach 5. Encourage patient to wear glasses and hearing aides as appropriate 6. Maintain bed in lowest position 7. Lock wheels on bed/wheelchair 8. Provide adequate lighting, including night light 9. Assess need for additional bedding, food/fluids, pain med's prior to sleep/routinely 10. Provide gripper slippers or personal non-skid footwear 11. Teach patient and patient sales representative gas service to maintain environment for safety and engage in all aspects of fall prevention program 12. Remind patient to call for help before getting out of bed 13. Initiate bed/chair/exit alarms supportive devices as appropriate, (chair wedge, no-skid floor mat, raised edge mattress, hip protectors) 14. Locate patient bed assignment for optimal visualization 15. Evaluate and identify Safe Patient Handling Equipment needs 16. Provide supervision when out of bed or chair 17. Utilize gait belt as needed to assist with ambulation 18. Place adaptive equipment (cane, walker) within reach 19. Request patient sales representative gas service bring adaptive equipment/mobility aids from home or obtain and provide as needed 20. Consult pharmacy regarding effects of med's affecting mobility, cognition, and alternatives 21. Obtain physician order for PT if risk factors associated with mobility are present 22. Obtain physician order for OT as appropriate 23. Utilize diversional activities 24. Educate patient and patient sales representative gas service how to maintain a safe environment during visitation times (notify nurse prior to leaving bedside) 25. Consider appropriateness of medical or non-medical aide 26. Set up voiding schedule as appropriate (every 2 hours) Outcome: Progressing Note: Evaluation of progress towards goal: remains free from falls. Oriented to room, hourly rounding, bed controls, call light. Personal needs met, call light within reach, side rails up x 2. Associated Order(s): Consult Medical Oncology - Hematology & Oncology Consult Medical Oncology - Hematology & Oncology Consult performed by: Deanne Ford MD Consult ordered by: Consuelo Medina APRN-MICAELA Tele-Oncology Telemedicine Consult Note Consent Statement: I discussed risks, benefits, and alternatives of a real-time synchronous audiovisual consultation with the patient (and any accompanying persons) including the risks that the patient's personal health details and medical records will be discussed over real-time, synchronous, interactive video/audio/telecommunication technology, the visit will not be recorded without the express consent of both the provider and the patient, and that there are some limitations compared to [id number] evaluations. We elected to proceed. [facility] Oncology Consult Deanne Ford MD Reason for consult: Reported antithrombin 3 deficiency, recurrent clot, melena Assessment and recommendations: # antithrombin 3 deficiency # recurrent stroke # recurrent thromboembolism # epistaxis # severe iron-deficiency anemia # melena She has recent severe epistaxis. Her stools did clear since the known episode of epistaxis and subsequently worsened again. This has been associated with severe iron-deficiency anemia. She had a colonoscopy in 2019 and a 10 years scope was recommended. Of note, she is also experiencing some upper esophageal phase dysphagia and may benefit from upper endoscopy which could be done as an outpatient. If there is no gross bleeding in the next day or 2, warfarin can be restarted. For now would hold warfarin as her clinical status is evolving. - GI consulted - consider outpatient EGD - venofer 200mg x5 days, can complete a course as an outpatient - hold warfarin for now - consider ENT eval if signs of epistaxis - Transfuse PRBC to keep hgb >7 - Transfuse platelets to keep >10k or >20k if bleeding Thank you for allowing me to participate in this patient's care Deanne Ford M.D. [facility] Day time contact: After hours answering service: [phone] [facility] [place] [address] March 25, 2024, 1:29 PM -------- History of present illness: The patient is a 63 y.o. with AT3 deficiency and strokes. She had a leg DVT in . 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 She has been on chronic warfarin. She had a TIA only 3-4 days ago. Speech was slurred, balance off. In ER for severe epistaxis on 03/03. Placed rhino rocket. No nosebleed in the last week. She had melena after nose bleed. They then normalized in color. Black tarry stools for the last 2 days. No stool today. She was started on oral iron months ago. Last colonoscopy , no biopsy taken. 10 year recommended. No nausea, vomitiung, GERD. At times she has gagging, choking, needs to swallow with a sip of water. Subjective Past Medical History: Diagnosis Date An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 [place] Anxiety Arrhythmia Irregular HB Arthritis Spine Cataract States early Chest pain Chronic lymphocytic thyroiditis CVA (cerebral vascular accident) [place] Left side-mild weakness DDD (degenerative disc disease), lumbar Deep vein thrombosis [place] LL Dental disease Poor teeth Depression Diabetes mellitus type 2, controlled [place] Checks glucose [id number] Disease of thyroid gland Diverticulitis of colon Dizziness HARRIS (dyspnea on exertion) Facial weakness Fractures Right wrist, left elbow GERD (gastroesophageal reflux disease) Deepthi-deepthi disease Katelyn's thyroiditis Hypercoagulable state [place] Hyperlipidemia Hypertension Hypothyroidism 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 NH (myocardial infarction) [place] Silent-in past Migraine Morbid obesity [place] MRSA (methicillin resistant Staphylococcus aureus) Posterior left neck-treated Neuropathy Feet Numbness Osteoporosis Pneumonia Rash bilat legs lower belly Restless leg syndrome Sinusitis, chronic Sleep apnea CPAP Stress incontinence Stroke [place] TIA (transient ischemic attack) Several UTI (urinary tract infection) Years ago Ventral hernia Visual impairment Wears corrective lenses Past Surgical History: Procedure Laterality Date SECTION 1979 + 1980 CHOLECYSTECTOMY 2012 COLONOSCOPY 2016 COLONOSCOPY N/A 10/30/2018 Performed by Lottie Martinez DO at [facility] SURGERY ELBOW SURGERY Left 04/27/2013 Fracture repair has hardware- ORIF distal humeral condylar fx EXAM UNDER ANESTHESIA/EXCISION VUVLAR CYST N/A 06/15/2020 Performed by Rich Montalvo MD at [facility] EXCISION CYST ARM Right 10/30/2018 Performed by Lottie Martinez DO at [facility] FESS (FUNCTIONAL ENDOSCOPIC SINUS SURGERY) WITH NAVIGATION SYSTEM NASAL, FRONTAL SINSUSOTOMY, SPHENEIDOTOMY Bilateral 06/27/2016 Performed by Yossi Cheatham MD at [facility] HERNIA REPAIR 2012 2 seperate surgeries/ abd hernias HYSTERECTOMY 1982 States still has at least one ovary INCISION DRAINAGE BUTTOCKS Left 02/10/2021 Performed by Xiomara Huffman MD at [facility] NECK SURGERY 2000s MRSA spot on back of neck OVARIAN CYST REMOVAL Right 1984- TUBAL LIGATION 1981 WRIST SURGERY Right 04/27/2013 Has hardware- ORIF distal radius fx Family History Problem Relation Age of Onset Diabetes Mother Hypertension Mother Heart disease Mother Stroke Mother COPD Father Cancer Father Cancer Sister Heart disease Sister Hypertension Sister Diabetes Sister Anesthesia problems Sister Stroke Sister Migraines Sister Cancer Sister Rheumatic fever Brother Social History Socioeconomic History Marital status: Tobacco Use Smoking status: Never Smokeless tobacco: Never Tobacco comments: Been around smokers never have smoked Vaping Use Vaping status: Never Used Substance and Sexual Activity Alcohol use: Not Currently Comment: occ Drug use: No Sexual activity: Defer Partners: Male control/protection: None Comment: , Hyst Other Topics Concern Caffeine Use Yes Social Determinants of Health Food Insecurity: No Food Insecurity (03/24/2024) Hunger Screening Food Insecurity - Worry: Never True Food Insecurity - Inability: Never True Transportation Needs: No Transportation Needs (03/24/2024) PRAPARE - Transportation Lack of Transportation (Medical): No Lack of Transportation (Non-Medical): No Interpersonal Safety: Not At Risk (03/24/2024) Humiliation, Afraid, Rape, and Kick questionnaire Fear of Current or Ex-Partner: No Emotionally Abused: No Physically Abused: No Sexually Abused: No Housing Instability: Low Risk (03/24/2024) Housing Instability Housing Instability: No Allergies Allergen Reactions Adhesive Dermatitis Dicloxacillin Sodium Hives Lincomycin Hcl Hives Lipitor [Atorvastatin] Elevated LFT's Penicillins Hives Atarax [Hydroxyzine Hcl] Itching Exacerbated previous condition Ceclor [Cefaclor] Rash Clindamycin Rash Hydroxyzine Pamoate Itching Severe itching, exacerbated previous condition. No swelling, hives Latex Rash Latex, Natural Rubber Itching Warfarin Hives FATIGUE,CONSTIPATION Review of Systems Constitutional: Positive for unexpected weight change (10lbs). HENT: Positive for nosebleeds. Respiratory: Negative for shortness of breath. Cardiovascular: Negative for chest pain. Gastrointestinal: Negative for nausea and vomiting. Genitourinary: Negative for hematuria. Musculoskeletal: Negative for gait problem. Skin: Negative for rash. Neurological: Negative for numbness. Hematological: Bruises/bleeds easily. Physical Exam: Vitals: BP 154/72 Pulse 69 Temp 36 C (96.8 F) (Axillary) Resp 16 Ht 162.6 cm (5' 4 ) Wt 102.3 kg (225 lb 8.5 oz) SpO2 99% BMI 38.71 kg/m Body mass index is 38.71 kg/m . Pain Score: 0 Wt Readings from Last 3 Encounters: 03/24/24 102.3 kg (225 lb 8.5 oz) 03/24/24 101.2 kg (223 lb) 03/03/24 111.6 kg (246 lb) General: chornically ill appearing, in no acute distress. Eyes: No icterus, no conjuctival erythema Respiratory: Respirations were non-labored. Abdomen: Nondistended. Inpatient scheduled medication: atorvastatin, 40 mg, oral, Nightly carvediloL, 3.125 mg, oral, BID ferrous sulfate, 325 mg, oral, Daily with breakfast folic acid, 1,000 mcg, oral, Daily levothyroxine, 150 mcg, oral, Daily pantoprazole, 40 mg, intravenous, Q12H rOPINIRole, 2 mg, oral, Nightly sertraline, 100 mg, oral, Daily Recent Labs Recent Results (from the past 72 hour(s)) POCT Protime / INR Collection Time: 03/24/24 12:00 AM Result Value Ref Range INR 1.9 (A) 0.8 - 1.2 ABO Rh Repeat Collection Time: 03/24/24 3:30 PM Result Value Ref Range ABO B RH Positive CBC auto differential Collection Time: 03/24/24 3:50 PM Result Value Ref Range White Blood Cells 11.2 (H) 4.0 - 11.0 X10E9/L RBC count 4.71 3.80 - 5.20 X10E12/L Hemoglobin 8.6 (L) 11.7 - 15.5 g/dL Hematocrit 28.1 (L) 35 - 47 % MCV 60 (L) 80 - 100 fL MCH 18.1 (L) 27 - 34 pg MCHC 30.5 (L) 32 - 36 g/dL RDW 19.7 (H) 11.5 - 15.0 % Platelets 361 150 - 450 X10E9/L MPV 8.2 7 - 12 fL Seg neutrophil 77.0 % Lymphocyte 19.2 % Eosinophil 3.8 % Neutrophils Absolute (M) 8.6 (H) 1.5 - 6.6 X10E9/L Lymphocytes Absolute 2.2 1.0 - 3.5 X10E9/L Eosinophils Absolute 0.4 0.0 - 0.4 X10E9/L Hypochromia 1+ (A) NONE^NONE Polychromasia 1+ (A) NONE^NONE Basic Metabolic Panel Collection Time: 03/24/24 3:50 PM Result Value Ref Range Sodium 137 134 - 146 mmol/L Potassium, Bld 3.8 3.5 - 5.0 mmol/L Chloride 105 98 - 109 mmol/L CO2 22 22 - 32 mmol/L Anion gap 10 5 - 15 mmol/L BUN 12 5 - 27 mg/dL Creatinine 0.99 0.40 - 1.00 mg/dL Glucose 157 (H) 65 - 99 mg/dL Calcium 9.2 8.5 - 10.5 mg/dL eGFR (CKD-EPI)non-race dependent 64 >59 ml/min/1.73sq.m Lactate w/ Reflex Collection Time: 03/24/24 3:50 PM Result Value Ref Range Lactate w/ Reflex 3.7 (H) 0.4 - 2.0 mmol/L Troponin I, High Sensitivity Collection Time: 03/24/24 3:50 PM Result Value Ref Range Troponin I, High Sensitivity 3 <16 ng/L Protime & INR Collection Time: 03/24/24 3:50 PM Result Value Ref Range Protime 22.7 (H) 9.8 - 13.2 sec Inr 2.0 (H) 0.8 - 1.1 B-type natriuretic peptide Collection Time: 03/24/24 3:50 PM Result Value Ref Range BNP 51 <100.0 pg/mL Type and screen(includes indirect armen) Collection Time: 03/24/24 4:30 PM Result Value Ref Range ABO B RH Positive Antibody Screen Negative Troponin I, High Sensitivity 1 Hour Collection Time: 03/24/24 4:55 PM Result Value Ref Range 1 Hour Trop I, High Sensitivity 3 <16 ng/L Er Extra Urine Collection Time: 03/24/24 5:20 PM Result Value Ref Range ER Extra Urine ER EXTRA URINE ORDER IN PROCESS POCT Nursing Urine Macroscopic UA Collection Time: 03/24/24 5:26 PM Result Value Ref Range Specific gravity STEPH 1.020 1.003 - 1.035 Leukocyte esterase STEPH Trace (A) Negative^Negative Nitrite STEPH Negative Negative^Negative Ph 5.5 5.0 - 8.5 Protein STEPH Negative Negative^Negative mg/dL Urine glucose STEPH Negative Negative^Negative mg/dL Ketones STEPH Negative Negative^Negative mg/dL Urobilinogen STEPH 0.2 <1.1 eu/dL Bilirubin STEPH Negative Negative^Negative Hemoglobin STPEH Negative Negative^Negative Lactate Collection Time: 03/24/24 7:50 PM Result Value Ref Range Lactate 2.9 (H) 0.4 - 2.0 mmol/L Hemoglobin and hematocrit, blood Collection Time: 03/24/24 9:05 PM Result Value Ref Range Hemoglobin 7.6 (L) 11.7 - 15.5 g/dL Hematocrit 25.1 (L) 35 - 47 % Bedside Glucose *Place/Obtain serum glucose if >500(>600 MRH) per glucometer. Collection Time: 03/25/24 12:30 AM Result Value Ref Range Bedside glucose 137 (H) 65 - 99 mg/dL CBC auto differential Collection Time: 03/25/24 3:42 AM Result Value Ref Range White Blood Cells 8.5 4.0 - 11.0 X10E9/L RBC count 4.16 3.80 - 5.20 X10E12/L Hemoglobin 7.4 (L) 11.7 - 15.5 g/dL Hematocrit 24.6 (L) 35 - 47 % MCV 59 (L) 80 - 100 fL MCH 17.9 (L) 27 - 34 pg MCHC 30.2 (L) 32 - 36 g/dL RDW 19.2 (H) 11.5 - 15.0 % Platelets 270 150 - 450 X10E9/L MPV 8.1 7 - 12 fL % neutrophils 71.1 % % lymphocytes 16.9 % % monocytes 7.8 % % eosinophils 3.6 % % Basophils 0.6 % Neutrophils Absolute (A) 6.1 1.5 - 6.6 X10E9/L Lymphocytes Absolute 1.4 1.0 - 3.5 X10E9/L Monocytes Absolute 0.7 0 - 0.9 X10E9/L Eosinophils Absolute 0.3 0.0 - 0.4 X10E9/L Basophils Absolute 0.1 0.0 - 0.2 X10E9/L Hypochromia 1+ (A) NONE^NONE Basic Metabolic Panel Collection Time: 03/25/24 3:42 AM Result Value Ref Range Sodium 138 134 - 146 mmol/L Potassium, Bld 3.5 3.5 - 5.0 mmol/L Chloride 107 98 - 109 mmol/L CO2 25 22 - 32 mmol/L Anion gap 6 5 - 15 mmol/L BUN 11 5 - 27 mg/dL Creatinine 0.90 0.40 - 1.00 mg/dL Glucose 151 (H) 65 - 99 mg/dL Calcium 8.4 (L) 8.5 - 10.5 mg/dL eGFR (CKD-EPI)non-race dependent 71 >59 ml/min/1.73sq.m Iron and TIBC Collection Time: 03/25/24 3:42 AM Result Value Ref Range Iron <10 (L) 50 - 170 ug/dL Tibc-calc only do not order 524 (H) 250 - 425 ug/dL Iron Saturation <2 (L) 15 - 50 % SATURATION Ferritin Collection Time: 03/25/24 3:42 AM Result Value Ref Range Ferritin 4 (L) 11 - 307 ng/mL Protime & INR Collection Time: 03/25/24 3:42 AM Result Value Ref Range Protime 24.9 (H) 9.8 - 13.2 sec Inr 2.2 (H) 0.8 - 1.1 Bedside Glucose *Place/Obtain serum glucose if >500(>600 MRH) per glucometer. Collection Time: 03/25/24 6:27 AM Result Value Ref Range Bedside glucose 158 (H) 65 - 99 mg/dL Lactate w/ Reflex Collection Time: 03/25/24 8:24 AM Result Value Ref Range Lactate w/ Reflex 1.2 0.4 - 2.0 mmol/L Bedside Glucose *Place/Obtain serum glucose if >500(>600 MRH) per glucometer. Collection Time: 03/25/24 11:52 AM Result Value Ref Range Bedside glucose 154 (H) 65 - 99 mg/dL FFP setup:Number of Units: 1 Collection Time: 03/25/24 12:52 PM Result Value Ref Range Blood component type [id number] Unit number [id number] Unit ABO B Unit RH POS Status of unit /RELEASED Expiration Date BB Type Barcode 7300 Blood component type [id number] Unit number [id number] Unit ABO B Unit RH POS Status of unit ISSUED Expiration Date BB Type Barcode 7300 Recent Imaging: X-ray chest 2 views Result Date: 03/25/2024 Narrative: CLINICAL HISTORY: Shortness of breath Comparison: 01/28/2023 Views: 2 view FINDINGS: * No acute infiltrate. No volume loss nor consolidation. There is no pleural effusion, pneumothorax, nor volume loss. Heart and mediastinal structures are unremarkable. Pulmonary vasculature stable. Degenerative changes thoracic spine. Old right rib fractures. IMPRESSION: * No active disease nor significant interval change Finalized by Ramiro Alvarado MD on 03/25/2024 5:[address] abdomen and pelvis with contrast Result Date: 03/24/2024 Narrative: CLINICAL HISTORY: Lower GI bleeding. CT ABDOMEN AND PELVIS WITH CONTRAST: 03/24/2024 COMPARISON: 10/20/2015 PROCEDURE: Axial images were obtained through the abdomen and pelvis after oral contrast ingestion and 100 mL Omnipaque 300 intravenously. Coronal and sagittal reconstructions were performed. All CT scans at this facility use dose modulation, iterative reconstruction, and/or weight based dosing when appropriate to reduce radiation dose to as low as reasonably achievable. FINDINGS : The visualized lower lungs and pleural spaces are clear. No focal hepatic or splenic abnormality is evident. The pancreas, gallbladder, and biliary tree are within normal limits. The kidneys enhance symmetrically. A right superior pole lesion contains fat and is compatible with an angiomyolipoma. This measures up to 1.8 cm. There is no ureteral dilation or urinary bladder irregularity. No dilated bowel loops are present. Diverticula are present within the descending colon and sigmoid region with no acute inflammatory changes. There is some heterogeneous density within the cecum with areas of slightly hyperdense appearance at the lateral cecum on axial image 46 and coronal image 45. This is near the ileocecal valve. No focal bowel lesion is evident. Vascular structures enhance normally. Mild atherosclerotic calcification is present within the abdominal aorta. L4 superior endplate fracture appears subacute. Degenerative changes are present throughout the [place] spine. Some narrowing of the spinal canal is present at the thoracolumbar region with ossification of posterior longitudinal ligament. IMPRESSION: No definite cause of GI bleeding is present but there is some hyperdensity in the cecal region which could represent acute intra-abdominal contrast/blood. No other acute intra-abdominal or pelvic abnormality on CT evaluation. Lumbar degenerative and posttraumatic findings without a definite acute abnormality. 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 Finalized by Ulysses Pérez MD on 03/24/2024 6:[address] brain without contrast Result Date: 03/24/2024 Narrative: CT BRAIN WITHOUT CONTRAST COMPARISON: 07/12/2023 HISTORY: Transient alteration of awareness. Dizziness TECHNIQUE: Unenhanced axial images of the brain were obtained. Automatic exposure control (AEC) was utilized. FINDINGS: There is no evidence for acute intracranial hemorrhage. There is no hydrocephalus, mass effect, or midline shift. Aguilar-white differentiation is preserved with no CT evidence for an acute infarct. IMPRESSION: No evidence for an acute intracranial process. All CT scans at this facility use dose modulation, iterative reconstruction, and/or weight based dosing when appropriate to reduce radiation dose to as low as reasonably achievable. Finalized by Kori Robert DO on 03/24/2024 5:54 PM 03/25/24 1009 Services Requested Discharge Disposition Home with home health services Facility/Service Name [facility] Fax number [phone] or [phone] fax Facility/Service Does the patient need discharge transportation arranged? No Patient choice offered Yes List Provided Patient declined Patient Declined Active with Provider Initial DC Assessment Completed Yes DC Planning Complete Discharge Milestones Yes DISCHARGE PLANNING NOTE Pt was discussed in Transition Rounds. Chart reviewed. Pt was admitted under Observation status for Melena. Therapy was ordered and SNF was recommended. SW spoke to pt who said she would like to go home with [facility]. Pt has used them in the past. Pt has support from daughter, who was visiting at bedside, and spouse. Pt lives in one story home with 2 entry steps. Pt uses RW. Pt denied need for food, Rx and appointment assistance. Referral sent to [facility]. TAYE will continue to follow patient. DISCHARGE PLANNING NOTE Referral sent to. [facility]- P# ; F# Occupational Therapy Evaluation Discharge Recommendations OT Recommendations : [facility] Comments: Patient may benefit from skilled OT services to address weakness, decreased balance and decreased activity tolerance to maximize safety and independence with ADLs Patient is a 63 year old female that presented to ED with complaints of SOB and dizziness. 6 Clicks: Daily Activity Scoring Past Medical History: Diagnosis Date Anemia 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 [place] Anxiety Arrhythmia Irregular HB Arthritis Spine Cataract States early Chest pain Chronic lymphocytic thyroiditis CVA (cerebral vascular accident) [place] [place] 1990s Left side-mild weakness DDD (degenerative disc disease), lumbar Deep vein thrombosis [place] 1990s LLE Dental disease Poor teeth Depression Diabetes mellitus type 2, controlled [place] Checks glucose [id number] Disease of thyroid gland Diverticulitis of colon Dizziness HARRIS (dyspnea on exertion) Facial weakness Fractures Right wrist, left elbow GERD (gastroesophageal reflux disease) Deepthi-deepthi disease Katelyn's thyroiditis Hypercoagulable state [place] Hyperlipidemia Hypertension Hypothyroidism Memory loss Short + longterm memory problems r/t stroke NH (myocardial infarction) [place]) Silent-in past Migraine Morbid obesity [place] MRSA (methicillin resistant Staphylococcus aureus) 2000s Posterior left neck-treated Neuropathy Feet Numbness Osteoporosis Pneumonia Rash bilat legs lower belly Restless leg syndrome Sinusitis, chronic Sleep apnea CPAP Stress incontinence Stroke [place] TIA (transient ischemic attack) Several UTI (urinary tract infection) Years ago Ventral hernia Visual impairment Wears corrective lenses Past Surgical History: Procedure Laterality Date SECTION 1979 + 1980 CHOLECYSTECTOMY 2011 COLONOSCOPY 2016 COLONOSCOPY N/A 10/30/2018 Performed by Lottie Martinez DO at [facility] ELBOW SURGERY Left 04/27/2013 Fracture repair has hardware- ORIF distal humeral condylar fx EXAM UNDER ANESTHESIA/EXCISION VUVLAR CYST N/A 06/15/2020 Performed by Rich Montalvo MD at [facility] EXCISION CYST ARM Right 10/30/2018 Performed by Lottie Martinez DO at [facility] FESS (FUNCTIONAL ENDOSCOPIC SINUS SURGERY) WITH NAVIGATION SYSTEM NASAL, FRONTAL SINSUSOTOMY, SPHENEIDOTOMY Bilateral 06/27/2016 Performed by Yossi Cheatham MD at [facility] HERNIA REPAIR 2012 2 seperate surgeries/ abd hernias HYSTERECTOMY 1982 States still has at least one ovary INCISION DRAINAGE BUTTOCKS Left 02/10/2021 Performed by Xiomara Huffman MD at [facility] NECK SURGERY 2000s MRSA spot on back of neck OVARIAN CYST REMOVAL Right 1984- TUBAL LIGATION 1981 WRIST SURGERY Right 04/27/2013 Has hardware- ORIF distal radius fx Therapy Plan Need for skilled Occupational Therapy to address deficits in ADL independence and functional mobility due to a status decline resulting from current medical status. OT Treatment/Interventions: ADL retraining, Functional transfer training, UE strengthening/ROM, Endurance training, Balance OT Frequency: 4-5days/week OT Duration: 14 visits Assessment Patient Assessment Therapy Problem List: Decreased ADL status, Decreased balance, Decreased endurance, Decreased mobility, Decreased high-level ADLs, Decreased safe judgement during ADL, Decreased self-care trans, Decreased UE strength Patient Response to Treatment: Tolerated evaluation without adverse reaction Mood/Affect: Appropriate for circumstances Rehab Prognosis: Good, With continued OT status post acute discharge Visit RN Communication: Yes Medical Record Reviewed: Yes OT Type of Visit: Evaluation Precautions Activity: Early mobility guidelines Telemetry/Brineyard Supervisor: Yes Pain Assessment Pain Assessment: No/denies pain Home Living Type of Home: House Home Layout: One level Stairs to Enter: 2 Hand Rails: None Bathroom Shower/Tub: Walk-in shower Bathroom Toilet: Standard Bathroom Equipment: Grab bars in shower, Shower chair, Toilet raiser, Grab bars around toilet Home Equipment: 4 Wheeled walker Other : Was using 4WW prior to admission Prior Function Lives With: Spouse, Other (Comment) Receives Help From: Family Level of Mobility: Needs assistance with ADLs or functional transfers or gait Homemaking Assistance: Needs assistance Other: Patient reported her spouse assists with all self care and IADL tasks. Patient reportedly handles her UB bathing/dressing ADL / IADL Eating Assistance: Standby assist Grooming Assistance: Min assist Bathing/Showering Assistance: Max assist Toilet/Commode Assistance: Max assist UE Dressing Assistance: Mod assist LE Dressing Assistance: Max assist Footwear Assistance: Max assist Other: Patient currently limited by decreased balance, strength and overall activity tolerance limiting ADL safety and independence Home Management - IADL Other: Patient currently limited by decreased balance, strength and overall activity tolerance limiting ADL safety and independence Hearing / Speech / Vision Hearing: Within Functional Limits Speech: Within Functional Limits Current Vision: Wears glasses all the time Sensation Overall Sensation Status: Within Functional Limits Bed Mobility Other: Patient up in recliner upon arrival and ended in recliner with call light at end of evaluation Transfers Sit to Stand: Contact guard assist Stand to Sit: Contact guard assist Other: Verbal cues for hand placement safety and RW use Gait Gait Assistance: Contact guard assist Assistive Device: Rolling walker Balance Sitting Balance: Static: Good Sitting Balance: Dynamic: Good Standing Balance: Static: Fair Standing Balance: Dynamic: Fair RUE Assessment: Exceptions to WFL (4-/5) LUE Assessment: Exceptions to WFL (4-/5) Activity Tolerance Endurance: Tolerates <30 minutes activity WITHOUT vital sign changes Plan Occupational Therapy Care Plan Occupational Therapy Care Plan (Active) Template: OT - Occupational Therapy Problem: Activity Tolerance Dates: Start: 03/25/24 Disciplines: OT Goal: Tolerate > 30 minutes of activity WITH rest breaks Dates: Start: 03/25/24 Expected End: 04/08/24 Description: Goal Description: Disciplines: OT Problem: Bathing UB Dates: Start: 03/25/24 Disciplines: OT Goal: Patient will perform bathing UB with Set-Up Dates: Start: 03/25/24 Expected End: 04/08/24 Description: Goal Description: Disciplines: OT Problem: Dressing UB Dates: Start: 03/25/24 Disciplines: OT Goal: Patient will perform dressing UB with Set-Up Dates: Start: 03/25/24 Expected End: 04/08/24 Description: Goal Description: Disciplines: OT Problem: Eating Dates: Start: 03/25/24 Disciplines: OT Goal: Patient will perform eating with Set-Up Dates: Start: 03/25/24 Expected End: 04/08/24 Description: Goal Description: Disciplines: OT Problem: Functional Mobility Dates: Start: 03/25/24 Disciplines: OT Goal: Patient will perform functional mobility with Supervision Dates: Start: 03/25/24 Expected End: 04/08/24 Description: Goal Description: Disciplines: OT Problem: Grooming Dates: Start: 03/25/24 Disciplines: OT Goal: Patient will perform grooming with Set-Up Dates: Start: 03/25/24 Expected End: 04/08/24 Description: Goal Description: Disciplines: OT Problem: Standing Balance Dates: Start: 03/25/24 Disciplines: OT Goal: Improve balance to good Dates: Start: 03/25/24 Expected End: 04/08/24 Description: Static Dynamic Disciplines: OT Problem: Strength Dates: Start: 03/25/24 Disciplines: OT Goal: Improve strength Dates: Start: 03/25/24 Expected End: 04/08/24 Description: Of extremity/ location: To facilitate: Disciplines: OT Problem: Toilet Transfers Dates: Start: 03/25/24 Disciplines: OT Goal: Patient will perform toilet transfers with Contact Guard Dates: Start: 03/25/24 Expected End: 04/08/24 Description: Goal Description: Disciplines: OT Problem: Toileting Dates: Start: 03/25/24 Disciplines: OT Goal: Patient will perform toileting with Contact Guard Dates: Start: 03/25/24 Expected End: 04/08/24 Description: Goal Description: Disciplines: OT Problem: Transfers Dates: Start: 03/25/24 Disciplines: OT Goal: Patient will perform transfers with Supervision Dates: Start: 03/25/24 Expected End: 04/08/24 Description: Goal Description: Disciplines: OT Occupational Therapy Care Plan (Resolved) There are no resolved problems. Principal Problem: Melena Active Problems: longterm (current) use of anticoagulants [Z79.01] Essential hypertension History of stroke 1993 Obstructive sleep apnea syndrome Deepthi-deepthi disease 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 Acquired hypothyroidism Blood loss anemia Frequent falls Chronic depression Physical Therapy Evaluation Discharge Recommendations PT Recommendations: [facility] Comments: Patient would benefit from further skilled PT needs due to deficits in strength, decreased activity tolerance and increased assist with functional mboility limiting indpendence Patient is a 63 year old female who was admitted with increased dizziness. And black stools. Fall reports prior to admission. Past Medical History: Diagnosis Date Anemia 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 Anxiety Arrhythmia Irregular HB Arthritis Spine Cataract States early Chest pain Chronic lymphocytic thyroiditis CVA (cerebral vascular accident) [place] Left side-mild weakness DDD (degenerative disc disease), lumbar Deep vein thrombosis [place] LLE Dental disease Poor teeth Depression Diabetes mellitus type 2, controlled [place] Checks glucose [id number] Disease of thyroid gland Diverticulitis of colon Dizziness HARRIS (dyspnea on exertion) Facial weakness Fractures Right wrist, left elbow GERD (gastroesophageal reflux disease) Deepthi-deepthi disease Katelyn's thyroiditis Hypercoagulable state [place] Hyperlipidemia Hypertension Hypothyroidism 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 [place] (myocardial infarction) [place]) Silent-in past Migraine Morbid obesity [place] MRSA (methicillin resistant Staphylococcus aureus) 2000 Posterior left neck-treated Neuropathy Feet Numbness Osteoporosis Pneumonia Rash bilat legs lower belly Restless leg syndrome Sinusitis, chronic Sleep apnea CPAP Stress incontinence Stroke [place] TIA (transient ischemic attack) Several UTI (urinary tract infection) Years ago Ventral hernia Visual impairment Wears corrective lenses Past Surgical History: Procedure Laterality Date SECTION 1979 + 1980 CHOLECYSTECTOMY 2011 COLONOSCOPY 2015 COLONOSCOPY N/A 10/30/2018 Performed by Lottie Martinez DO at [facility] AMBUL[facility]ORY SURGERY ELBOW SURGERY Left 04/27/2013 Fracture repair has hardware- ORIF distal humeral condylar fx EXAM UNDER ANESTHESIA/EXCISION VUVLAR CYST N/A 06/15/2020 Performed by Rich Montalvo MD at [facility] EXCISION CYST ARM Right 10/30/2018 Performed by Lottie Martinez DO at [facility] AMBUL[facility] SURGERY FESS (FUNCTIONAL ENDOSCOPIC SINUS SURGERY) WITH NAVIGATION SYSTEM NASAL, FRONTAL SINSUSOTOMY, SPHENEIDOTOMY Bilateral 06/27/2016 Performed by Yossi Cheatham MD at [facility] HERNIA REPAIR 2012 2 seperate surgeries/ abd hernias HYSTERECTOMY 1982 States still has at least one ovary INCISION DRAINAGE BUTTOCKS Left 02/10/2021 Performed by Xiomara Huffman MD at [facility] NECK SURGERY 2000s MRSA spot on back of neck OVARIAN CYST REMOVAL Right 1984- TUBAL LIGATION 1981 WRIST SURGERY Right 04/27/2013 Has hardware- ORIF distal radius fx 6 Clicks: Basic Mobility Turning from your back to your side while in a flat bed without using bed rails?: A little Moving from lying on your back to sitting on side of flat bed without using bed rails?: A little Moving to and from bed to a chair (including w/c)?: A little Standing up from a chair using your arms (e.g. w/c or bedside chair)?: A little To walk in hospital room?: A lot Climbing 3-5 steps with a railing?: Total Scoring 6 Clicks: Basic Mobility Raw Score: 15 CMS G Code Modifier: CK Co-evaluation with occupational therapy Therapy Plan Need for skilled Physical Therapy to address deficits in functional mobility due to a status decline resulting from current medical status PT Treatment/Interventions: Functional transfer training, LE strengthening/ROM, Balance, Bed mobility, Gait training PT Frequency: 4-5days/week PT Duration: 14 visits Patient Response to Treatment: Tolerated evaluation without adverse reaction Assessment Patient Assessment Therapy Problem List: Decreased balance, Decreased mobility, Decreased LE strength Patient Response to Treatment: Tolerated evaluation without adverse reaction Mood/Affect: Appropriate for circumstances Rehab Prognosis: Good, With continued PT status post acute discharge Visit RN Communication: Yes Medical Record Reviewed: Yes PT Type of Visit: Evaluation Precautions Activity: early mobiltiy guidelines Telemetry/Brineyard Supervisor: Yes Pain Assessment Pain Assessment: No/denies pain Pain Score: 0 Home Living Type of Home: House Home Layout: One level Stairs to Enter: 2 Hand Rails: None Bathroom Shower/Tub: Walk-in shower Bathroom Toilet: Standard Bathroom Equipment: Grab bars in shower, Shower chair, Toilet raiser, Grab bars around toilet Home Equipment: 4 Wheeled walker (using rollator prior to admission) Other : patient reprots fall 1 week ago in bathroom Prior Function Lives With: Spouse, Other (Comment) (brother in law) Receives Help From: Family Level of Mobility: Needs assistance with ADLs or functional transfers or gait Homemaking Assistance: Needs assistance Other: patient reports spouse assist with all self care and homemaking tasks. patient does not drive Hearing / Speech / Vision Hearing: Within Functional Limits Speech: Within Functional Limits Current Vision: Wears glasses all the time Cognition Orientation Level: Oriented X4 Sensation Overall Sensation Status: Within Functional Limits Bed Mobility Other: patient sitting up in bedside chair upon arrival and is agreeable to therapy session Transfers Sit to Stand: Contact guard assist Stand to Sit: Contact guard assist Other: verbal cues for safe hand placement Gait Base of Support: Narrow Pattern: Decreased andrei, Forward trunk Gait Assistance: Contact guard assist Assistive Device: Rolling walker Gait Distance: 15 feet Balance Balance Evaluation: Exceptions to Functional Limits Sitting Balance: Static: Good Sitting Balance: Dynamic: Good, Fair Standing Balance: Static: Fair Standing Balance: Dynamic: Poor RLE Assessment: Exceptions to WFL RLE Strength RLE Overall Strength: Deficits (4-/5) LLE Assessment: Exceptions to WFL LLE Strength LLE Overall Strength: Deficits (4-/5) Activity Tolerance Endurance: Tolerates <30 minutes activity WITHOUT vital sign changes Plan Physical Therapy Care Plan Physical Therapy Care Plan (Active) Template: PT - Physical Therapy Problem: Bed Mobility Dates: Start: 03/25/24 Disciplines: PT Goal: Patient will perform bed mobility with Contact Guard Dates: Start: 03/25/24 Expected End: 04/08/24 Description: Goal Description: Disciplines: PT Problem: Gait Dates: Start: 03/25/24 Disciplines: PT Goal: Patient will perform gait with Contact Guard Dates: Start: 03/25/24 Expected End: 04/08/24 Description: With_RW for 50__feet Goal Description: Disciplines: PT Problem: Standing Balance Dates: Start: 03/25/24 Disciplines: PT Goal: Other sitting and standing balance goal (customize) Dates: Start: 03/25/24 Expected End: 04/08/24 Description: Goal Description: patient will demonstrate good static standing for further safety with functional mobility Disciplines: PT Problem: Strength Dates: Start: 03/25/24 Disciplines: PT Goal: Improve strength Dates: Start: 03/25/24 Expected End: 04/08/24 Description: Of extremity/ location: bilateral LE's to 4/5 To facilitate: mobility Disciplines: PT Problem: Transfers Dates: Start: 03/25/24 Disciplines: PT Goal: Patient will perform transfers with Contact Guard Dates: Start: 03/25/24 Expected End: 04/08/24 Description: Goal Description: Disciplines: PT Physical Therapy Care Plan (Resolved) There are no resolved problems. 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 Encourage patient or legal sales representative gas service to report early pain and ask for pain medicine when needed 2. Assess pain using appropriate pain scale and include the scale used when documenting 3. Administer analgesics based on type and severity of pain and evaluate response within appropriate time frame 4. Implement non-pharmacological measures as appropriate and evaluate response 5. Consider cultural and social influences on pain and pain management 6. Notify LIP if interventions ineffective or patient reports new pain 7. Monitor vital signs including pulse ox, end-tidal CO2 based on pain intervention 8. Reassess pain per policy 9. Teach patient or legal sales representative gas service interventions for comforting Outcome: Progressing Note: Evaluation of progress towards goal: Pt reports no pain currently. Will continue to monitor. Problem: Safety Goal: Patient will be injury free during hospitalization Description: INTERVENTIONS: 1. Assess patient's risk for falls and implement fall prevention plan of care per policy 2. Provide and maintain a safe environment 3. Proper use of double Identifiers 4. Medication administration using the 5 rights 5. Hand hygiene 6. Specimens are labeled at the bedside 7. Instruct patient/ patient sales representative gas service about use of safety devices 8. Include patient/ patient sales representative gas service in decisions related to safety Outcome: Progressing Note: Evaluation of progress towards goal: Pt remains free from falls and safety maintained. Will continue to monitor. Problem: Glucose Imbalance Goal: Clinical indication of glucose balance is achieved Description: Patient's goal is: INTERVENTIONS 1. Monitor blood glucose levels as ordered 2. Administer medications as ordered 3. Notify physician of ineffective treatment plan Outcome: Progressing Note: Evaluation of progress towards goal: Obtain blood glucose monitoring, as needed, for monitoring of signs and/or symptoms of hypo/hyperglycemia. Will continue to monitor. - Shruthi Sandhu RN 03/25/24 12:25 AM documented in this encounter [facility] 03-28-2024 Plan of care note Problem: Pain Goal: Patient goal is pain score less than 4, able to rest, and participant in treatment plan as appropriate Description: INTERVENTIONS: 1. Encourage patient or legal sales representative gas service to report early pain and ask for pain medicine when needed 2. Assess pain using appropriate pain scale and include the scale used when documenting 3. Administer analgesics based on type and severity of pain and evaluate response within appropriate time frame 4. Implement non-pharmacological measures as appropriate and evaluate response 5. Consider cultural and social influences on pain and pain management 6. Notify LIP if interventions ineffective or patient reports new pain 7. Monitor vital signs including pulse ox, end-tidal CO2 based on pain intervention 8. Reassess pain per policy 9. Teach patient or legal sales representative gas service interventions for comforting Outcome: Progressing Note: Evaluation of progress towards goal: Pt denies pain at this time, will continue to monitor Problem: Safety Goal: Patient will be injury free during hospitalization Description: INTERVENTIONS: 1. Assess patient's risk for falls and implement fall prevention plan of care per policy 2. Provide and maintain a safe environment 3. Proper use of double Identifiers 4. Medication administration using the 5 rights 5. Hand hygiene 6. Specimens are labeled at the bedside 7. Instruct patient/ patient sales representative gas service about use of safety devices 8. Include patient/ patient sales representative gas service in decisions related to safety Outcome: Progressing Note: Evaluation of progress towards goal: Pt safety maintained, pt free from falls at this time Problem: Infection Goal: Absence of infection during hospitalization Description: Interventions: 1. Assess and monitor for signs and symptoms of infection 2. Monitor lab/diagnostic results 3. Monitor all insertion sites i.e., indwelling lines, tubes and drains 4. Monitor endotracheal (as able) and nasal secretions for changes in amount and color 5. Administer medications as ordered 6. Instruct and encourage patient and family to use good hand hygiene technique 7. Identify and instruct patient/patient sales representative gas service in use of appropriate isolation precautions for identified infection/symptoms 8. Provide and discuss with patient/patient sales representative gas service on educational MDRO sheet 9. Encourage and monitor nutritional status daily and consult nurses director if indicated 10. Implement neutropenic guidelines as needed 11. Review exposure to history of communicable disease and recent travel history on admission 12. Encourage annual influenza vaccine 13. 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 Complete learning assessment and assess knowledge base 2. Provide teaching at level of understanding 3. Provide teaching via preferred learning method(s) Outcome: Progressing Note: Evaluation of progress towards goal: Pt states verbal understanding of poc Problem: Discharge Planning Goal: Discharge to post-acute care, other facility, or home with appropriate resources Description: Patient's goal is: INTERVENTIONS 1. Conduct assessment to determine patient/family and health care team treatment goals, and need for post-acute services based on payer coverage, community resources, and patient preferences, and barriers to discharge 2. Coordinate with Social work, Care Navigation, and Utilization Review to arrange appropriate level of services according to patient's needs based on patient preference and payer coverage in collaboration with the physician and health care team 3. Address psychosocial, clinical, and financial barriers to discharge as identified in assessment in conjunction with the patient/family and health care team 4. Consult appropriate ancillary services (i.e.. PT/OT/ST, etc) as needed 5. Communicate with and update the patient/family, physician, and health care team regarding progress on the discharge plan 6. Identify discharge learning needs (meds, wound care, etc). 7. Arrange for needed discharge transportation as appropriate Outcome: Progressing Note: Evaluation of progress towards goal: discharge planning is ongoing [facility] 03-28-2024 Progress note Formatting of t his note might be different from the original. DISCHARGE PLANNING NOTE Patient's POC discussed in DTR's with RN .CN met with the patient at the bedside. Patient is working with PT this am. Per Dr Velez, patient will be ready for discharge tomorrow 03/29. [place] [facility]. Patient's spouse will be providing transportation to SNF. - Lovely Hennessy RN 03/28/24 10:07 AM Per Gabi at [facility] patient can be admitted on Saturday03/29/24 at 1:00pm. CN left VM for patient's spouse to cotton picker operator patient at 12:00pm on Saturday and transport to [facility]. - Lovely Hennessy RN 03/28/24 1:31 PM Cn confirmed with spouse Roland that he can cotton picker operator the patient on Saturday at 12:00pm. - Lovely Hennessy RN 03/28/24 2:49 PM [facility] 03-28-2024 History of Present illness Narrative Physical Therapy Treatment Discharge Recommendations PT Recommendations: [facility] Therapy Plan Need for skilled Physical Therapy to address deficits in functional mobility due to a status decline resulting from recent medical condition. PT Treatment/Interventions: Functional transfer training, LE strengthening/ROM, Balance, Bed mobility, Gait training PT Frequency: 4-5days/week PT Duration: 14 visits Patient Response to Treatment: Progressing toward goals Assessment Patient Assessment Therapy Problem List: Decreased ADL status, Decreased balance, Decreased endurance, Decreased mobility, Decreased high-level ADLs, Decreased safe judgement during ADL, Decreased self-care trans, Decreased UE strength Patient Response to Treatment: Progressing toward goals Visit RN Communication: Yes Medical Record Reviewed: Yes PT Type of Visit: Treatment Pain Assessment Pain Assessment: No/denies pain Pain Score: 0 Past Medical History: Diagnosis Date Anemia 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[facility]) Anxiety Arrhythmia Irregular HB Arthritis Spine Cataract States early Chest pain Chronic lymphocytic thyroiditis CVA (cerebral vascular accident) ([facility]) 1990s Left side-mild weakness DDD (degenerative disc disease), lumbar Deep vein thrombosis ([facility]) 1990s LLE Dental disease Poor teeth Depression Diabetes mellitus type 2, controlled [place] Checks glucose [id number] Disease of thyroid gland Diverticulitis of colon Dizziness HARRIS (dyspnea on exertion) Facial weakness Fractures Right wrist, left elbow GERD (gastroesophageal reflux disease) Deepthi-deepthi disease Katelyn's thyroiditis Hypercoagulable state [place] Hyperlipidemia Hypertension Hypothyroidism 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 [place]) [place] [place]ent[place]in past Migraine Morbid [place] [place] MRSA (methicillin resistant Staphylococcus aureus) 2000s Posterior left neck-treated Neuropathy Feet Numbness Osteoporosis Pneumonia Rash bilat legs lower belly Restless leg syndrome Sinusitis, chronic Sleep apnea CPAP Stress incontinence [place] [place] TIA (transient ischemic attack) Several UTI (urinary tract infection) Years ago Ventral hernia Visual impairment Wears corrective lenses Past Surgical History: Procedure Laterality Date SECTION 1979 + 1980 CHOLECYSTECTOMY 2011 COLONOSCOPY 2016 COLONOSCOPY N/A 10/30/2018 Performed by Lottie Martinez DO at [facility] ELBOW SURGERY Left 04/27/2013 Fracture repair has hardware- ORIF distal humeral condylar fx EXAM UNDER ANESTHESIA/EXCISION VUVLAR CYST N/A 06/15/2020 Performed by Rich Montalvo MD at [facility] EXCISION CYST ARM Right 10/30/2018 Performed by Lottie Martinez DO at [facility] FESS (FUNCTIONAL ENDOSCOPIC SINUS SURGERY) WITH NAVIGATION SYSTEM NASAL, FRONTAL SINSUSOTOMY, SPHENEIDOTOMY Bilateral 06/27/2016 Performed by Yossi Cheatham MD at [facility] HERNIA REPAIR 2012 2 seperate surgeries/ abd hernias HYSTERECTOMY 1982 States still has at least one ovary INCISION DRAINAGE BUTTOCKS Left 02/10/2021 Performed by Xiomara Hufmfan MD at [facility] NECK SURGERY 2000s MRSA spot on back of neck OVARIAN CYST REMOVAL Right 1984- TUBAL LIGATION 1981 WRIST SURGERY Right 04/27/2013 Has hardware- ORIF distal radius fx 6 Clicks: Basic Mobility Turning from your back to your side while in a flat bed without using bed rails?: A little Moving from lying on your back to sitting on side of flat bed without using bed rails?: A little Moving to and from bed to a chair (including w/c)?: A little Standing up from a chair using your arms (e.g. w/c or bedside chair)?: A little To walk in hospital room?: A little Climbing 3-5 steps with a railing?: A lot Scoring 6 Clicks: Basic Mobility Raw Score: 17 CMS G Code Modifier: CK Pt. Agrees to session, improved gait today of [address] with RW CGA for safety. Pt. Also tolerated standing LE strengthening ex. Vs. Seated. Pt. Assisted to bathroom & ed to use nursing call light to return to chair. Cognition Orientation Level: Oriented X4 Bed Mobility Other: pt. up in chair & returned there byu request @ end of session (not performed today) Transfers Sit to Stand: Contact guard assist Stand to Sit: Contact guard assist Toilet Transfers: Min assist (due to low height) Gait Base of Support: Within Functional Limits Pattern: Decreased andrei, Forward trunk Gait Assistance: Contact guard assist Assistive Device: Rolling walker Gait Distance: 60 ft.& 15 ft. To bathroom Limiting Factors to Gait: Fatigue 2 Turns: Yes Other: cues for safety during turning Balance Sitting Balance: Static: Good Sitting Balance: Dynamic: Good Standing Balance: Static: Good (with RW) Standing Balance: Dynamic: Fair Activity Tolerance Endurance: Tolerates <30 minutes activity WITHOUT vital sign changes Plan Physical Therapy Care Plan Physical Therapy Care Plan (Active) Template: PT - Physical Therapy Problem: Bed Mobility Dates: Start: 03/25/24 Disciplines: PT Goal: Patient will perform bed mobility with Contact Guard Dates: Start: 03/25/24 Expected End: 04/08/24 Description: Goal Description: Disciplines: PT Outcomes Date/Time User Outcome 03/27/24 0859 Windy Jaime PTA Progressing Goal Note filed on 03/27/24 0859 by Windy Jaime PTA Evaluation of progress towards goal: Problem: Gait Dates: Start: 03/25/24 Disciplines: PT Goal: Patient will perform gait with Contact Guard Dates: Start: 03/25/24 Expected End: 04/08/24 Description: With_RW for 50__feet Goal Description: Disciplines: PT Outcomes Date/Time User Outcome 03/28/24 0908 Henna Hager PTA Progressing 03/27/24 0859 Windy Jaime PTA Progressing Goal Note filed on 03/28/24 0908 by Henna Hager PTA Evaluation of progress towards goal: Problem: Standing Balance Dates: Start: 03/25/24 Disciplines: PT Goal: Other sitting and standing balance goal (customize) Dates: Start: 03/25/24 Expected End: 04/08/24 Description: Goal Description: patient will demonstrate good static standing for further safety with functional mobility Disciplines: PT Outcomes Date/Time User Outcome 03/28/24907 Henna Hager PTA Progressing 03/27/24 0859 Windy Jaime PTA Progressing Goal Note filed on 03/28/24907 by Henna Hager PTA Evaluation of progress towards goal: Problem: Strength Dates: Start: 03/25/24 Disciplines: PT Goal: Improve strength Dates: Start: 03/25/24 Expected End: 04/08/24 Description: Of extremity/ location: bilateral LE's to 4/5 To facilitate: mobility Disciplines: PT Outcomes Date/Time User Outcome 03/28/24 09 Henna Hager PTA Progressing 03/27/24 0859 Windy Jaime PTA Progressing Goal Note filed on 03/28/24907 by Henna Hager PTA Evaluation of progress towards goal: Problem: Transfers Dates: Start: 03/25/24 Disciplines: PT Goal: Patient will perform transfers with Contact Guard Dates: Start: 03/25/24 Expected End: 04/08/24 Description: Goal Description: Disciplines: PT Outcomes Date/Time User Outcome 03/28/2408 Henna Hager PTA Progressing 03/27/24 0859 Windy Jaime PTA Progressing Goal Note filed on 03/28/24907 by Henna Hager PTA Evaluation of progress towards goal: Physical Therapy Care Plan (Resolved) There are no resolved problems. 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 ADULT DAILY PROGRESS NOTE: Assessment: Condition: In stable condition. Improving. (Principal Problem: Blood loss anemia Active Problems: longterm (current) use of anticoagulants [Z79.01] Essential hypertension History of stroke 1993 Obstructive sleep apnea syndrome Deepthi-deepthi disease 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CMS-HCC) Acquired hypothyroidism Melena Frequent falls Chronic depression History of epistaxis ). Plan: Encourage ambulation. Start/continue incentive spirometry. Administer medications as ordered. (D/C IV Fe. Start Oral Fe today. Cont. PPI. D/C daily labs. Lovenox stopped, INR 2.0. cont. Coumadin. Plan for D/C tomorrow to ECF. D/W CC.). Subjective better today. Up in chair. Alert, appropriate. Brittney. PO well. No abd. Pain or further melena. Temp: [36.4 C (97.5 F)-36.9 C (98.4 F)] 36.9 C (98.4 F) Pulse: [69-81] 75 Resp: [16] 16 BP: (127-152)/(48-76) 139/70 SpO2: [94 %-98 %] 98 % O2 Device: None (Room air) O2 Flow Rate (L/min): [0 L/min] 0 L/min O2 Device: None (Room air) I/O last 3 completed shifts: In: 651.2 [P.O.:320; I.V.:15.2; IV Piggyback:316] Out: 20 [Urine:20] No intake/output data recorded. OBJECTIVE: General Appearance: In no acute distress Lungs: effort normal rate normal breath sounds normal Heart: rate normal regular rhythm S1 normal S2 normal murmur Abdomen: soft no distension bowel sounds normal no tenderness Extremities: ROM normal no dependent edema Neuro: alert and oriented Recent Results (from the past 24 hour(s)) Bedside Glucose *Place/Obtain serum glucose if >500(>600 MRH) per glucometer. Collection Time: 03/27/24 11:20 AM Result Value Ref Range Bedside glucose 146 (H) 65 - 99 mg/dL Hemoglobin and hematocrit, blood Collection Time: 03/27/24 1:53 PM Result Value Ref Range Hemoglobin 7.7 (L) 11.7 - 15.5 g/dL Hematocrit 25.1 (L) 35 - 47 % Bedside Glucose *Place/Obtain serum glucose if >500(>600 MRH) per glucometer. Collection Time: 03/27/24 3:28 PM Result Value Ref Range Bedside glucose 186 (H) 65 - 99 mg/dL Bedside Glucose *Place/Obtain serum glucose if >500(>600 MRH) per glucometer. Collection Time: 03/27/24 5:31 PM Result Value Ref Range Bedside glucose 199 (H) 65 - 99 mg/dL Bedside Glucose *Place/Obtain serum glucose if >500(>600 MRH) per glucometer. Collection Time: 03/27/24 9:19 PM Result Value Ref Range Bedside glucose 146 (H) 65 - 99 mg/dL CBC without diff Collection Time: 03/28/24 5:00 AM Result Value Ref Range White Blood Cells 8.3 4.0 - 11.0 X10E9/L RBC count 4.11 3.80 - 5.20 X10E12/L Hemoglobin 7.6 (L) 11.7 - 15.5 g/dL Hematocrit 24.9 (L) 35 - 47 % MCV 61 (L) 80 - 100 fL MCH 18.4 (L) 27 - 34 pg MCHC 30.4 (L) 32 - 36 g/dL RDW 19.6 (H) 11.5 - 15.0 % Platelets 249 150 - 450 X10E9/L MPV 8.3 7 - 12 fL Basic Metabolic Panel Collection Time: 03/28/24 5:00 AM Result Value Ref Range Sodium 138 134 - 146 mmol/L Potassium, Bld 3.9 3.5 - 5.0 mmol/L Chloride 110 (H) 98 - 109 mmol/L CO2 22 22 - 32 mmol/L Anion gap 6 5 - 15 mmol/L BUN 6 5 - 27 mg/dL Creatinine 0.87 0.40 - 1.00 mg/dL Glucose 158 (H) 65 - 99 mg/dL Calcium 8.4 (L) 8.5 - 10.5 mg/dL eGFR (CKD-EPI)non-race dependent 74 >59 ml/min/1.73sq.m Protime & INR Collection Time: 03/28/24 5:00 AM Result Value Ref Range Protime 22.3 (H) 9.8 - 13.2 sec Inr 2.0 (H) 0.8 - 1.1 Bedside Glucose *Place/Obtain serum glucose if >500(>600 MRH) per glucometer. Collection Time: 03/28/24 7:52 AM Result Value Ref Range Bedside glucose 147 (H) 65 - 99 mg/dL Pharmacokinetic Consult - Follow Up Warfarin Dosing Robb Crystal is a 63 y.o. female for whom pharmacy has been consulted for warfarin dosing and monitoring. Subjective Indication for treatment: hx of CVA Goal INR: 2-2.5 Current inpatient warfarin regimen: 7.5mg MWF, and 5mg other days Current Hematologic Labs Results from last 7 days Lab Units 03/28/24 0500 03/27/24 0305 03/26/24 0449 03/25/24 1457 03/25/24 0342 03/24/24 1550 03/24/24 0000 INR 2.0* 1.9* 1.8* 1.9* 2.2* 2.0* 1.9* Warfarin Administrations (last 168 hours) Date/Time Action Medication Dose 03/27/24 1651 Given warfarin (COUMADIN) tablet 7.5 mg 7.5 mg 03/26/24 1814 Given warfarin (COUMADIN) tablet 5 mg 5 mg Assessment INR currently: therapeutic 2.0 Drug-Drug interactions:atorvastatin, levothyroxine, sertraline, and Tylenol #3 (on DOORPERSON) Drug-Disease interactions: obesity, hypertension, T2DM, CKD, anemia, hyperthyroidism, hypercholoesterolemia Plan Continue warfarin per [facility] dosing: Warfarin 7.5 mg MWF, Warfarin 5 mg all other days. Discontinued lovenox as INR >/= 2.0. Pharmacist will continue to follow patient's clinical progress daily. Iliana Chong RPH Pharmacokinetic Consult - Follow Up Warfarin Dosing Robb Crystal is a 63 y.o. female for whom pharmacy has been consulted for warfarin dosing and monitoring. Subjective Indication for treatment: hx of CVA Goal INR: 2-2.5 Current inpatient warfarin regimen: 7.5mg MWF, and 5mg other days Current Hematologic Labs Results from last 7 days Lab Units 03/27/24 0305 03/26/24 0449 03/25/24 1457 03/25/24 0342 03/24/24 1550 03/24/24 0000 INR 1.9* 1.8* 1.9* 2.2* 2.0* 1.9* Warfarin Administrations (last 168 hours) Date/Time Action Medication Dose 03/26/24 1814 Given warfarin (COUMADIN) tablet 5 mg 5 mg Assessment INR currently: subtherapeutic INR1.9 Drug-Drug interactions:atorvastatin, levothyroxine, sertraline, and Tylenol #3 (on DOORPERSON) Drug-Disease interactions: obesity, hypertension, T2DM, CKD, anemia, hyperthyroidism, hypercholoesterolemia Plan 1) Resume warfarin per [facility] dosing: Warfarin 7.5 mg MWF, Warfarin 5 mg all other days. 2) Bridge with Lovenox 1 mg/kg Q12H until INR >/= 2.0. Pharmacist will continue to follow patient's clinical progress daily. Anastasia Pope RPH ADULT DAILY PROGRESS NOTE: Assessment: Condition: In stable condition. 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 Plan: Administer medications as ordered. (Pt. Currently on lovenox to bridge, until INR is 2.0 or greater. Higher risk of bleeding. INR was only 2.0 at time of presentation with melena. Hgb down to 7.4, but no active bleeding. Follow labs. Hematol. And GI input appreciated.). Subjective tired. No melenic stools or abd. Pain this AM. Temp: [36.2 C (97.2 F)-37.1 C (98.8 F)] 37.1 C (98.8 F) Pulse: [69-87] 69 Resp: [16-18] 16 BP: (116-155)/(57-70) 137/70 SpO2: [93 %-97 %] 93 % O2 Device: None (Room air) O2 Flow Rate (L/min): [0 L/min] 0 L/min O2 Device: None (Room air) No intake/output data recorded. No intake/output data recorded. OBJECTIVE: General Appearance: In no acute distress and ill-appearing Lungs: rate normal breath sounds normal increased effort no decreased breath sounds Heart: rate normal regular rhythm S1 normal S2 normal Abdomen: soft no distension Extremities: no dependent edema Neuro: alert and oriented Recent Results (from the past 24 hour(s)) Bedside Glucose *Place/Obtain serum glucose if >500(>600 MRH) per glucometer. Collection Time: 03/26/24 12:49 PM Result Value Ref Range Bedside glucose 224 (H) 65 - 99 mg/dL Hemoglobin and hematocrit, blood Collection Time: 03/26/24 1:12 PM Result Value Ref Range Hemoglobin 7.8 (L) 11.7 - 15.5 g/dL Hematocrit 25.4 (L) 35 - 47 % Bedside Glucose *Place/Obtain serum glucose if >500(>600 MRH) per glucometer. Collection Time: 03/26/24 4:55 PM Result Value Ref Range Bedside glucose 148 (H) 65 - 99 mg/dL Hemoglobin and hematocrit, blood Collection Time: 03/26/24 8:55 PM Result Value Ref Range Hemoglobin 7.6 (L) 11.7 - 15.5 g/dL Hematocrit 25.0 (L) 35 - 47 % Bedside Glucose *Place/Obtain serum glucose if >500(>600 MRH) per glucometer. Collection Time: 03/26/24 9:46 PM Result Value Ref Range Bedside glucose 151 (H) 65 - 99 mg/dL Protime & INR Collection Time: 03/27/24 3:05 AM Result Value Ref Range Protime 21.1 (H) 9.8 - 13.2 sec Inr 1.9 (H) 0.8 - 1.1 CBC auto differential Collection Time: 03/27/24 3:05 AM Result Value Ref Range White Blood Cells 7.4 4.0 - 11.0 X10E9/L RBC count 4.09 3.80 - 5.20 X10E12/L Hemoglobin 7.4 (L) 11.7 - 15.5 g/dL Hematocrit 24.3 (L) 35 - 47 % MCV 59 (L) 80 - 100 fL MCH 18.2 (L) 27 - 34 pg MCHC 30.6 (L) 32 - 36 g/dL RDW 19.3 (H) 11.5 - 15.0 % Platelets 274 150 - 450 X10E9/L MPV 8.2 7 - 12 fL % neutrophils 69.0 % % lymphocytes 17.6 % % monocytes 8.3 % % eosinophils 4.4 % % Basophils 0.7 % Neutrophils Absolute (A) 5.1 1.5 - 6.6 X10E9/L Lymphocytes Absolute 1.3 1.0 - 3.5 X10E9/L Monocytes Absolute 0.6 0 - 0.9 X10E9/L Eosinophils Absolute 0.3 0.0 - 0.4 X10E9/L Basophils Absolute 0.1 0.0 - 0.2 X10E9/L Hypochromia 1+ (A) NONE^NONE Basic Metabolic Panel Collection Time: 03/27/24 3:05 AM Result Value Ref Range Sodium 139 134 - 146 mmol/L Potassium, Bld 3.2 (L) 3.5 - 5.0 mmol/L Chloride 109 98 - 109 mmol/L CO2 23 22 - 32 mmol/L Anion gap 7 5 - 15 mmol/L BUN 6 5 - 27 mg/dL Creatinine 0.76 0.40 - 1.00 mg/dL Glucose 169 (H) 65 - 99 mg/dL Calcium 8.7 8.5 - 10.5 mg/dL eGFR (CKD-EPI)non-race dependent 87 >59 ml/min/1.73sq.m Bedside Glucose *Place/Obtain serum glucose if >500(>600 MRH) per glucometer. Collection Time: 03/27/24 7:30 AM Result Value Ref Range Bedside glucose 148 (H) 65 - 99 mg/dL Pharmacokinetic Consult - Anticoagulation Dosing Robb Crystal is a 63 y.o. female for whom pharmacy has been consulted for warfarin dosing and monitoring. Indication for treatment: Hx CVA INR Goal: 2-3 Current Hematologic Labs Lab Results Component Value Date Inr 1.8 (H) 03/26/2024 Inr 1.9 (H) 03/25/2024 Inr 2.2 (H) 03/25/2024 Lab Results Component Value Date ALT 24 02/20/2023 ALT 43 (H) 11/11/2015 Warfarin Administrations (last 168 hours) None Subjective Patient follows outpatient with [facility] for anticoagulation management. Last visit 03/24/24. Patient reports to RN that she has NOT taken warfarin yet today. Current regimen per [facility] is Warfarin 7.5 mg MWF and Warfarin 5 mg all other days. Patient had TIA 3-4 days ago and has been on chronic warfarin therapy for history of strokes. CHADSVASC2 score= 6. Assessment INR currently= 1.8=subtherapeutic (Goal 2-3) Drug-Drug interactions:atorvastatin, levothyroxine, sertraline, and Tylenol #3 (on DOORPERSON) Drug-Disease interactions: obesity, hypertension, T2DM, CKD, anemia, hyperthyroidism, hypercholoesterolemia Plan 1) Resume warfarin per [facility] dosing: Warfarin 7.5 mg MWF, Warfarin 5 mg all other days. 2) Bridge with Lovenox 1 mg/kg Q12H until INR >/= 2.0. (Bridging recommended by Oncology, per discussion with primary there is concern for bleeding vs a need to anticoagulate for recent TIA and they would like lovenox to be stopped as soon as INR reaches 2.0). Will continue to follow patient's clinical progress daily. Bisi Aguilera RPH [id number] ADULT DAILY PROGRESS NOTE: Assessment: Condition: In stable condition. Improving. (Principal Problem: Blood loss anemia Active Problems: longterm (current) use of anticoagulants [Z79.01] Essential hypertension History of stroke 1993 Obstructive sleep apnea syndrome Deepthi-deepthi disease 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CMS-HCC) Acquired hypothyroidism Melena Frequent falls Chronic depression History of epistaxis No melena or epistaxis since admission Hemodynamics and orthostatics stable INR 2.2 on admission Warfarin has been held on admit Received 1 unit FFP 03/25/24 INR 1.8 Hgb 8.6 > 7.4 > 7.5 No inpatient scope planned On IV venofer GI and hematology following). Plan: Per physical therapy. Start/continue incentive spirometry. Consults: physical therapy and occupational therapy. Administer medications as ordered. ( D/C IV fluids Resume diet, gastric soft, no red dyes D/C q 6 FSBS, start AC/HS FSBS with SSI Hold metformin until 03/27/24, received IV contrast 03/24/24 Resume home losartan at 25 mg daily, with holding parameters Change IV protonix to PO Continue to hold warfarin for now, likely resume if pt remains stable next 24 hours IV venofer Will need outpatient scopes Pt sees ENT Dr. Cheatham as outpatient [facility] of dysphagia PT/OT on Will need SNF at d/c ). Subjective No acute events overnight. Had one green bowel movement yesterday. Stool for OB not collected. Pt denies black stool. She denies pain or shortness of breath. Hgb stabilized in mid-7s. Pt has not eaten yet. Temp: [36 C (96.8 F)-36.9 C (98.4 F)] 36.2 C (97.2 F) Pulse: [68-80] 80 Resp: [14-17] 16 BP: (116-154)/(55-86) 148/67 SpO2: [93 %-99 %] 93 % O2 Device: None (Room air) O2 Flow Rate (L/min): [0 L/min] 0 L/min O2 Device: None (Room air) I/O last 3 completed shifts: In: 223.8 [Blood:223.8] Out: - No intake/output data recorded. OBJECTIVE: Lungs: effort normal rate normal breath sounds normal Heart: rate normal regular rhythm S1 normal S2 normal Abdomen: soft no distension bowel sounds normal no epigastric area tenderness Extremities: no dependent edema Neuro: alert and oriented Recent Results (from the past 24 hour(s)) Bedside Glucose *Place/Obtain serum glucose if >500(>600 MRH) per glucometer. Collection Time: 03/25/24 11:52 AM Result Value Ref Range Bedside glucose 154 (H) 65 - 99 mg/dL Protime & INR Collection Time: 03/25/24 2:57 PM Result Value Ref Range Protime 21.1 (H) 9.8 - 13.2 sec Inr 1.9 (H) 0.8 - 1.1 APTT Collection Time: 03/25/24 2:57 PM Result Value Ref Range aPTT 33 26 - 37 sec Hemoglobin and hematocrit, blood Collection Time: 03/25/24 2:57 PM Result Value Ref Range Hemoglobin 7.6 (L) 11.7 - 15.5 g/dL Hematocrit 25.0 (L) 35 - 47 % Bedside Glucose *Place/Obtain serum glucose if >500(>600 MRH) per glucometer. Collection Time: 03/25/24 6:20 PM Result Value Ref Range Bedside glucose 140 (H) 65 - 99 mg/dL Hemoglobin and hematocrit, blood Collection Time: 03/25/24 11:04 PM Result Value Ref Range Hemoglobin 7.1 (L) 11.7 - 15.5 g/dL Hematocrit 23.4 (L) 35 - 47 % Bedside Glucose *Place/Obtain serum glucose if >500(>600 MRH) per glucometer. Collection Time: 03/26/24 12:03 AM Result Value Ref Range Bedside glucose 139 (H) 65 - 99 mg/dL FFP setup:Number of Units: 1 Collection Time: 03/26/24 4:10 AM Result Value Ref Range Blood component type [id number] Unit number [id number] Unit ABO B Unit RH POS Status of unit /RELEASED Expiration Date BB Type Barcode 7300 Blood component type [id number] Unit number [id number] Unit ABO B Unit RH POS Status of unit TRANSFUSED Expiration Date BB Type Barcode 7300 Protime & INR Collection Time: 03/26/24 4:49 AM Result Value Ref Range Protime 20.6 (H) 9.8 - 13.2 sec Inr 1.8 (H) 0.8 - 1.1 Hemoglobin and hematocrit, blood Collection Time: 03/26/24 4:49 AM Result Value Ref Range Hemoglobin 7.5 (L) 11.7 - 15.5 g/dL Hematocrit 24.7 (L) 35 - 47 % Bedside Glucose *Place/Obtain serum glucose if >500(>600 MRH) per glucometer. Collection Time: 03/26/24 5:54 AM Result Value Ref Range Bedside glucose 143 (H) 65 - 99 mg/dL \ Consuelo Medina APRN-INSTALLATION SERVICE REPRESENTATIVE 03/26/24 0936 documented in this encounter [facility] Plan of care note Problem: Pain Goal: Patient goal is pain score less than 4, able to rest, and participant in treatment plan as appropriate Description: INTERVENTIONS: 1. Encourage patient or legal sales representative gas service to report early pain and ask for pain medicine when needed 2. Assess pain using appropriate pain scale and include the scale used when documenting 3. Administer analgesics based on type and severity of pain and evaluate response within appropriate time frame 4. Implement non-pharmacological measures as appropriate and evaluate response 5. Consider cultural and social influences on pain and pain management 6. Notify LIP if interventions ineffective or patient reports new pain 7. Monitor vital signs including pulse ox, end-tidal CO2 based on pain intervention 8. Reassess pain per policy 9. Teach patient or legal sales representative gas service interventions for comforting Outcome: Progressing Note: Evaluation of progress towards goal: pain verbalized acceptable pain. medicate prn Problem: Safety Goal: Patient will be injury free during hospitalization Description: INTERVENTIONS: 1. Assess patient's risk for falls and implement fall prevention plan of care per policy 2. Provide and maintain a safe environment 3. Proper use of double Identifiers 4. Medication administration using the 5 rights 5. Hand hygiene 6. Specimens are labeled at the bedside 7. Instruct patient/ patient sales representative gas service about use of safety devices 8. Include patient/ patient sales representative gas service in decisions related to safety Outcome: Progressing Note: Evaluation of progress towards goal: Free from falls. Call light in reach. Bed low and locked. Problem: Infection Goal: Absence of infection during hospitalization Description: Interventions: 1. Assess and monitor for signs and symptoms of infection 2. Monitor lab/diagnostic results 3. Monitor all insertion sites i.e., indwelling lines, tubes and drains 4. Monitor endotracheal (as able) and nasal secretions for changes in amount and color 5. Administer medications as ordered 6. Instruct and encourage patient and family to use good hand hygiene technique 7. Identify and instruct patient/patient sales representative gas service in use of appropriate isolation precautions for identified infection/symptoms 8. Provide and discuss with patient/patient sales representative gas service on educational MDRO sheet 9. Encourage and monitor nutritional status daily and consult nurses director if indicated 10. Implement neutropenic guidelines as needed 11. Review exposure to history of communicable disease and recent travel history on admission 12. Encourage annual influenza vaccine 13. Encourage pneumonia vaccine Outcome: Progressing Note: Evaluation of progress towards goal: Pt aferbrile.iv antibiotics as ordered. Iv without redness or swelling. Will continue to monitor. Problem: Knowledge Deficit Goal: Patient/patient sales representative gas service demonstrates understanding of disease process, treatment plan, medications, and discharge instructions Description: INTERVENTIONS 1. Complete learning assessment and assess knowledge base 2. Provide teaching at level of understanding 3. Provide teaching via preferred learning method(s) Outcome: Progressing Note: Evaluation of progress towards goal: Updated on plan of care. Fall prevention education reinforced. Continue to monitor Problem: Discharge Planning Goal: Discharge to post-acute care, other facility, or home with appropriate resources Description: Patient's goal is: INTERVENTIONS 1. Conduct assessment to determine patient/family and health care team treatment goals, and need for post-acute services based on payer coverage, community resources, and patient preferences, and barriers to discharge 2. Coordinate with Social work, Care Navigation, and Utilization Review to arrange appropriate level of services according to patient's needs based on patient preference and payer coverage in collaboration with the physician and health care team 3. Address psychosocial, clinical, and financial barriers to discharge as identified in assessment in conjunction with the patient/family and health care team 4. Consult appropriate ancillary services (i.e.. PT/OT/ST, etc) as needed 5. Communicate with and update the patient/family, physician, and health care team regarding progress on the discharge plan 6. Identify discharge learning needs (meds, wound care, etc). 7. Arrange for needed discharge transportation as appropriate Outcome: Progressing Note: Evaluation of progress towards goal: Not ready for discharge. Currently assessing for discharge needs. Continue to monitor T [facility] 03-27-2024 Progress note Formatting of t his note is different from the original. Occupational Therapy Treatment Discharge Recommendations OT Recommendations : [facility] SNF/ECF Comments: Patient may benefit from skilled OT services to address weakness, decreased balance and decreased activity tolerance to maximize safety and independence with ADLs 6 Clicks: Daily Activity Putting on and taking off regular lower body clothing?: A lot Bathing (including washing, rinsing, drying)?: A lot Toileting, which includes using toilet, bedpan or urinal?: A lot Putting on and taking off regular upper body clothing?: A lot Taking care of personal grooming such as brushing teeth?: A lot Eating meals?: None Scoring Daily Activity Raw Score: 14 CMS G Code Modifier: CK Past Medical History: Diagnosis Date Anemia 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 Anxiety Arrhythmia Irregular HB Arthritis Spine Cataract States early Chest pain Chronic lymphocytic thyroiditis CVA (cerebral vascular accident) [place] Left side-mild weakness DDD (degenerative disc disease), lumbar Deep vein thrombosis [place] LLE Dental disease Poor teeth Depression Diabetes mellitus type 2, controlled [place] Checks glucose [id number] Disease of thyroid gland Diverticulitis of colon Dizziness HARRIS (dyspnea on exertion) Facial weakness Fractures Right wrist, left elbow GERD (gastroesophageal reflux disease) Deepthi-deepthi disease Katelyn's thyroiditis Hypercoagulable state [place] Hyperlipidemia Hypertension Hypothyroidism 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 NH (myocardial infarction) [place]) Silent-in past Migraine Morbid obesity [place] MRSA (methicillin resistant Staphylococcus aureus) 2000 Posterior left neck-treated Neuropathy Feet Numbness Osteoporosis Pneumonia Rash bilat legs lower belly Restless leg syndrome Sinusitis, chronic Sleep apnea CPAP Stress incontinence Stroke [place] TIA (transient ischemic attack) Several UTI (urinary tract infection) Years ago Ventral hernia Visual impairment Wears corrective lenses Past Surgical History: Procedure Laterality Date SECTION 1979 + 1980 CHOLECYSTECTOMY 2012 COLONOSCOPY 2016 COLONOSCOPY N/A 10/30/2018 Performed by Lottie Martinez DO at [facility] ELBOW SURGERY Left 04/27/2013 Fracture repair has hardware- ORIF distal humeral condylar fx EXAM UNDER ANESTHESIA/EXCISION VUVLAR CYST N/A 06/15/2020 Performed by Rich Montalvo MD at [facility] EXCISION CYST ARM Right 10/30/2018 Performed by Lottie Martinez DO at [facility] FESS (FUNCTIONAL ENDOSCOPIC SINUS SURGERY) WITH NAVIGATION SYSTEM NASAL, FRONTAL SINSUSOTOMY, SPHENEIDOTOMY Bilateral 06/27/2016 Performed by Yossi Cheatham MD at [facility] HERNIA REPAIR 2012 2 seperate surgeries/ abd hernias HYSTERECTOMY 1982 States still has at least one ovary INCISION DRAINAGE BUTTOCKS Left 02/10/2021 Performed by Xiomara Huffman MD at [facility] NECK SURGERY 2000s MRSA spot on back of neck OVARIAN CYST REMOVAL Right TUBAL LIGATION 1981 WRIST SURGERY Right 04/27/2013 Has hardware- ORIF distal radius fx Therapy Plan Need for skilled Occupational Therapy to address deficits in ADL independence and functional mobility due to a status decline resulting from current medical status. OT Treatment/Interventions: ADL retraining, Functional transfer training, UE strengthening/ROM, Endurance training, Balance OT Frequency: 4-5days/week OT Duration: 14 visits Assessment Patient Assessment Therapy Problem List: Decreased ADL status, Decreased balance, Decreased endurance, Decreased mobility, Decreased high-level ADLs, Decreased safe judgement during ADL, Decreased self-care trans, Decreased UE strength Patient Response to Treatment: Progressing toward goals Mood/Affect: Appropriate for circumstances Rehab Prognosis: Good, With continued OT status post acute discharge Visit RN Communication: Yes Medical Record Reviewed: Yes OT Type of Visit: Treatment Precautions Activity: Early mobility guidelines Pain Assessment Pain Assessment: No/denies pain ADL / IADL Eating Assistance: Standby assist Grooming Assistance: Standby assist Bathing/Showering Assistance: Max assist Toilet/Commode Assistance: Max assist UE Dressing Assistance: Mod assist LE Dressing Assistance: Max assist Footwear Assistance: Max assist Other: Patient continues to be limited by decreased balance, strength and overall activity tolerance limiting ADL safety and independence Home Management - IADL Other: Patient continues to be limited by decreased balance, strength and overall activity tolerance limiting ADL safety and independence Hearing / Speech / Vision Hearing: Within Functional Limits Speech: Within Functional Limits Current Vision: Wears glasses all the time Bed Mobility Supine to Sit: Contact guard assist Sit to Supine: Contact guard assist Other: Patient completes with use of bed rail for assist Transfers Sit to Stand: Contact guard assist Stand to Sit: Contact guard assist Other: verbal cues for hand placement and safety Gait Gait Assistance: Contact guard assist Assistive Device: Rolling walker Other: Verbal cues for safety with body positioning within walker and to push rather than lift Activity Tolerance Endurance: Tolerates <30 minutes activity WITHOUT vital sign changes Other: Patient tolerated EOB sitting during B UE AROM exercises, bed mobility, transfers, and functional mobility. Plan Occupational Therapy Care Plan Occupational Therapy Care Plan (Active) Template: OT - Occupational Therapy Problem: Activity Tolerance Dates: Start: 03/25/24 Disciplines: OT Goal: Tolerate > 30 minutes of activity WITH rest breaks Dates: Start: 03/25/24 Expected End: 04/08/24 Description: Goal Description: Disciplines: OT Goal Note filed on 03/27/241457 by Dorothy Torre OT/Calista Evaluation of progress towards goal: Problem: Bathing UB Dates: Start: 03/25/24 Disciplines: OT Goal: Patient will perform bathing UB with Set-Up Dates: Start: 03/25/24 Expected End: 04/08/24 Description: Goal Description: Disciplines: OT Problem: Dressing UB Dates: Start: 03/25/24 Disciplines: OT Goal: Patient will perform dressing UB with Set-Up Dates: Start: 03/25/24 Expected End: 04/08/24 Description: Goal Description: Disciplines: OT Problem: Eating Dates: Start: 03/25/24 Disciplines: OT Goal: Patient will perform eating with Set-Up Dates: Start: 03/25/24 Expected End: 04/08/24 Description: Goal Description: Disciplines: OT Problem: Functional Mobility Dates: Start: 03/25/24 Disciplines: OT Goal: Patient will perform functional mobility with Supervision Dates: Start: 03/25/24 Expected End: 04/08/24 Description: Goal Description: Disciplines: OT Outcomes Date/Time User Outcome 03/27/241457 Dorothy Torre OT/Calista Progressing Goal Note filed on 03/27/241457 by Dorothy Torre OT/Calista Evaluation of progress towards goal: Problem: Grooming Dates: Start: 03/25/24 Disciplines: OT Goal: Patient will perform grooming with Set-Up Dates: Start: 03/25/24 Expected End: 04/08/24 Description: Goal Description: Disciplines: OT Problem: Standing Balance Dates: Start: 03/25/24 Disciplines: OT Goal: Improve balance to good Dates: Start: 03/25/24 Expected End: 04/08/24 Description: Static Dynamic Disciplines: OT Outcomes Date/Time User Outcome 03/27/241457 Dorothy Torre OT/Calista Progressing Goal Note filed on 03/27/24 145 by Dorothy Torre OT/Calista Evaluation of progress towards goal: Problem: Strength Dates: Start: 03/25/24 Disciplines: OT Goal: Improve strength Dates: Start: 03/25/24 Expected End: 04/08/24 Description: Of extremity/ location: To facilitate: Disciplines: OT Goal Note filed on 03/27/241457 by Dorothy Torre OT/Calista Evaluation of progress towards goal: Problem: Toilet Transfers Dates: Start: 03/25/24 Disciplines: OT Goal: Patient will perform toilet transfers with Contact Guard Dates: Start: 03/25/24 Expected End: 04/08/24 Description: Goal Description: Disciplines: OT Problem: Toileting Dates: Start: 03/25/24 Disciplines: OT Goal: Patient will perform toileting with Contact Guard Dates: Start: 03/25/24 Expected End: 04/08/24 Description: Goal Description: Disciplines: OT Problem: Transfers Dates: Start: 03/25/24 Disciplines: OT Goal: Patient will perform transfers with Supervision Dates: Start: 03/25/24 Expected End: 04/08/24 Description: Goal Description: Disciplines: OT Outcomes Date/Time User Outcome 03/27/241457 Dorothy Torre OT/Calista Progressing Goal Note filed on 03/27/24 145 by Dorothy Torre OT/Calista Evaluation of progress towards goal: Occupational Therapy Care Plan (Resolved) There are no resolved problems. 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 Speech Therapy Dysphagia Treatment Note Assessment: Current Diet Tolerance: Level 0 Thin and Regular Progress: improving Patient seen at bedside and completing dysphagia exercises. Tolerating regular diet, thin liquids. Review of results and strategies. Patient with plans for SNF at this time. Will follow for acute care dysphagia needs. Recommendations Diet: Regular-thin Discharge: SNF Precautions Aspiration precautions Plan: Plan of Care: continue with current plan of care Continue with Current Diet: yes Diet: Regular Liquids: Level 0 Thin Safety Strategies: small sips/bites, 1 at a time, no straws, and slow rate Subjective Setting: chairside Arrival Status: awake and alert Mental Status: oriented and pleasant Therapy Tolerance: good Change in Medical Status: no Received Recent Medications: yes Objective NMES: No Plan Diagnosis Code Swallowing: R13.12 Dysphagia, oropharyngeal phase Speech Therapy Care Plan Speech Therapy Care Plan (Active) Template: ST - Dysphagia Problem: Swallowing Dates: Start: 03/26/24 Disciplines: PROTEOMICS SCIENTIST Goal: LTG: Patient will tolerate least restrictive diet recommended by PROTEOMICS SCIENTIST without signs and symptoms of aspiration 90% of the time Dates: Start: 03/26/24 Expected End: 04/09/24 Disciplines: PROTEOMICS SCIENTIST Outcomes Date/Time User Outcome 03/27/2456 RENE Guzman Progressing 03/26/241345 RENE Guzman Progressing Goal Note filed on 03/27/24955 by RENE Guzman Evaluation of progress towards goal: Patient reporting some foods, I.e potatoes have given her difficulty. Reports coughing on thin liquids with straw. Encouraged patient to avoid straws at this time and continue with cup sips of thin liquids. Would continue to benefit from skilled dysphagia therapy to address highest level of po intake for improved quality of life. Goal: STG: Patient will complete safety strategies with minimal assistance during PO intake 90% of the time Dates: Start: 03/26/24 Expected End: 04/09/24 Disciplines: PROTEOMICS SCIENTIST Outcomes Date/Time User Outcome 03/27/24955 RENE Guzman Progressing 03/26/241345 RENE Guzman Progressing Goal Note filed on 03/27/24955 by RENE Guzman Evaluation of progress towards goal: Review of safe strategies-small sips, bites, no straws, slow rate. Verbalized understanding. Would continue to benefit from skilled dysphagia therapy to address highest level of po tolerance for improved quality of life. Goal: STG: Patient will complete oral/ pharyngeal strengthening program with resistance with 90% accuracy with minimal cueing Dates: Start: 03/26/24 Expected End: 04/09/24 Disciplines: PROTEOMICS SCIENTIST Outcomes Date/Time User Outcome 03/27/24955 RENE Guzman Progressing 03/26/241345 RENE Guzman Not Progressing Goal Note filed on 03/27/24 0956 by RENE Guzman Evaluation of progress towards goal: PROTEOMICS SCIENTIST provided handout of pharyngeal strengthening exercises to complete. Via teach back able to demonstrate understanding of exercises. Would continue to benefit from skilled dysphagia exercises to obtain highest level of po intake for improved quality of life. Goal: STG: Pt will complete laryngeal adduction exercises to increase laryngeal elevation, improve vocal cord closure, and aid in airway protection with 90% accuracy and min cues Dates: Start: 03/26/24 Expected End: 04/09/24 Disciplines: PROTEOMICS SCIENTIST Outcomes Date/Time User Outcome 03/27/24 0956 RENE Guzman Progressing 03/26/24 1346 RENE Guzman Not Progressing Goal Note filed on 03/27/24 0956 by RENE Guzman Evaluation of progress towards goal: Patient educated on l.a exercises and completes these at 100% on 5 trials. Verbalized understanding through teach back. Would continue to benefit from skilled dysphagia therapy to address highest level of po intake for improved quality of life. Speech Therapy Care Plan (Resolved) There are no resolved problems. 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 DISCHARGE PLANNING NOTE Referral sent to. Ade in [place] (P#: [phone]; F#: ) [facility]) (P# ; F# ) [facility] [employer] [facility] 03-27-2024 Progress note Formatting of t his note is different from the original. Physical Therapy Treatment Discharge Recommendations PT Recommendations: [facility] Therapy Plan Need for skilled Physical Therapy to address deficits in functional mobility due to a status decline resulting from current medical condition. Past Medical History: Diagnosis Date Anemia 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 Anxiety Arrhythmia Irregular HB Arthritis Spine Cataract States early Chest pain Chronic lymphocytic thyroiditis CVA (cerebral vascular accident) [place]) Left side-mild weakness DDD (degenerative disc disease), lumbar Deep vein thrombosis [place] LLE Dental disease Poor teeth Depression Diabetes mellitus type 2, controlled [place] Checks glucose [id number] Disease of thyroid gland Diverticulitis of colon Dizziness HARRIS (dyspnea on exertion) Facial weakness Fractures Right wrist, left elbow GERD (gastroesophageal reflux disease) Deepthi-deepthi disease Katelyn's thyroiditis Hypercoagulable state [place] Hyperlipidemia Hypertension Hypothyroidism Memory loss Short + longterm memory problems r/t stroke NH (myocardial infarction) ([facility] Silent-in past Migraine Morbid obesity [place] MRSA (methicillin resistant Staphylococcus aureus) Posterior left neck-treated Neuropathy Feet Numbness Osteoporosis Pneumonia Rash bilat legs lower belly Restless leg syndrome Sinusitis, chronic Sleep apnea CPAP Stress incontinence Stroke [place] TIA (transient ischemic attack) Several UTI (urinary tract infection) Years ago Ventral hernia Visual impairment Wears corrective lenses .psh 6 Clicks: Basic Mobility Turning from your back to your side while in a flat bed without using bed rails?: A little Moving from lying on your back to sitting on side of flat bed without using bed rails?: A little Moving to and from bed to a chair (including w/c)?: A little Standing up from a chair using your arms (e.g. w/c or bedside chair)?: A little To walk in hospital room?: A little Climbing 3-5 steps with a railing?: A lot Scoring 6 Clicks: Basic Mobility Raw Score: 17 [facility] G Code Modifier: CK 03/27/24 0800 LE Seated LE seated exercises performed? Yes Ankle pumps 10 Long arc quads 10 Seated marching 10 Hip abduction/adduction 10 Patient Response to Treatment: Progressing toward goals, Slow progress, decreased activity tolerance Assessment Patient Assessment Patient Response to Treatment: Progressing toward goals, Slow progress, decreased activity tolerance Visit RN Communication: Yes Medical Record Reviewed: Yes PT Type of Visit: Treatment Pain Assessment Pain Assessment: No/denies pain Pain Score: 0 Bed Mobility Other: not assessed, pt up to chair and returning to chair at end of session Transfers Sit to Stand: Contact guard assist, Verbal cues Stand to Sit: Contact guard assist, Verbal cues Gait Base of Support: Within Functional Limits Pattern: Decreased andrei, Forward trunk Gait Assistance: Contact guard assist Assistive Device: Rolling walker Gait Distance: 20ft within room Limiting Factors to Gait: Fatigue Activity Tolerance Other: tolerating transfers, gait, seated le exs Plan Physical Therapy Care Plan Physical Therapy Care Plan (Active) Template: PT - Physical Therapy Problem: Bed Mobility Dates: Start: 03/25/24 Disciplines: PT Goal: Patient will perform bed mobility with Contact Guard Dates: Start: 03/25/24 Expected End: 04/08/24 Description: Goal Description: Disciplines: PT Outcomes Date/Time User Outcome 03/27/24858 Windy Jaime PTA Progressing Goal Note filed on 03/27/24 0859 by Windy Jaime PTA Evaluation of progress towards goal: Problem: Gait Dates: Start: 03/25/24 Disciplines: PT Goal: Patient will perform gait with Contact Guard Dates: Start: 03/25/24 Expected End: 04/08/24 Description: With_RW for 50__feet Goal Description: Disciplines: PT Outcomes Date/Time User Outcome 03/27/24858 Windy Jaime PTA Progressing Goal Note filed on 03/27/2459 by Windy Jaime PTA Evaluation of progress towards goal: Problem: Standing Balance Dates: Start: 03/25/24 Disciplines: PT Goal: Other sitting and standing balance goal (customize) Dates: Start: 03/25/24 Expected End: 04/08/24 Description: Goal Description: patient will demonstrate good static standing for further safety with functional mobility Disciplines: PT Outcomes Date/Time User Outcome 03/27/24858 Windy Jaime PTA Progressing Goal Note filed on 03/27/2459 by Windy Jaime PTA Evaluation of progress towards goal: Problem: Strength Dates: Start: 03/25/24 Disciplines: PT Goal: Improve strength Dates: Start: 03/25/24 Expected End: 04/08/24 Description: Of extremity/ location: bilateral LE's to 4/5 To facilitate: mobility Disciplines: PT Outcomes Date/Time User Outcome 03/27/24858 Windy Jaime PTA Progressing Goal Note filed on 03/27/24858 by Windy Jaime PTA Evaluation of progress towards goal: Problem: Transfers Dates: Start: 03/25/24 Disciplines: PT Goal: Patient will perform transfers with Contact Guard Dates: Start: 03/25/24 Expected End: 04/08/24 Description: Goal Description: Disciplines: PT Outcomes Date/Time User Outcome 03/27/24858 Windy Jaime PTA Progressing Goal Note filed on 03/27/2459 by Windy Jaime PTA Evaluation of progress towards goal: Physical Therapy Care Plan (Resolved) There are no resolved problems. 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 [facility] 03-27-2024 Progress note Formatting of t his note might be different from the original. DISCHARGE PLANNING NOTE Patient's POC discussed in DTR's with RN .CN met with the patient at the bedside. Patient is working with PT this morning. Patient was given list for SNF and [facility] [place] CN tasked transition center to send referral to SNF. Back up plan for [facility] . - Lovely Hennessy RN 03/27/24 8:59 AM [facility] 03-27-2024 Plan of care note Problem: Pain Goal: Patient goal is pain score less than 4, able to rest, and participant in treatment plan as appropriate Description: INTERVENTIONS: 1. Encourage patient or legal sales representative gas service to report early pain and ask for pain medicine when needed 2. Assess pain using appropriate pain scale and include the scale used when documenting 3. Administer analgesics based on type and severity of pain and evaluate response within appropriate time frame 4. Implement non-pharmacological measures as appropriate and evaluate response 5. Consider cultural and social influences on pain and pain management 6. Notify LIP if interventions ineffective or patient reports new pain 7. Monitor vital signs including pulse ox, end-tidal CO2 based on pain intervention 8. Reassess pain per policy 9. Teach patient or legal sales representative gas service interventions for comforting Outcome: Progressing Note: Evaluation of progress towards goal: pain verbalized acceptable pain. medicate prn Problem: Infection Goal: Absence of infection during hospitalization Description: Interventions: 1. Assess and monitor for signs and symptoms of infection 2. Monitor lab/diagnostic results 3. Monitor all insertion sites i.e., indwelling lines, tubes and drains 4. Monitor endotracheal (as able) and nasal secretions for changes in amount and color 5. Administer medications as ordered 6. Instruct and encourage patient and family to use good hand hygiene technique 7. Identify and instruct patient/patient sales representative gas service in use of appropriate isolation precautions for identified infection/symptoms 8. Provide and discuss with patient/patient sales representative gas service on educational MDRO sheet 9. Encourage and monitor nutritional status daily and consult nurses director if indicated 10. Implement neutropenic guidelines as needed 11. Review exposure to history of communicable disease and recent travel history on admission 12. Encourage annual influenza vaccine 13. Encourage pneumonia vaccine Outcome: Progressing Note: Evaluation of progress towards goal: Pt aferbrile.iv antibiotics as ordered. Iv without redness or swelling. Will continue to monitor. Problem: Knowledge Deficit Goal: Patient/patient sales representative gas service demonstrates understanding of disease process, treatment plan, medications, and discharge instructions Description: INTERVENTIONS 1. Complete learning assessment and assess knowledge base 2. Provide teaching at level of understanding 3. Provide teaching via preferred learning method(s) Outcome: Progressing Note: Evaluation of progress towards goal: Updated on plan of care. Fall prevention education reinforced. Continue to monitor Problem: Discharge Planning Goal: Discharge to post-acute care, other facility, or home with appropriate resources Description: Patient's goal is: INTERVENTIONS 1. Conduct assessment to determine patient/family and health care team treatment goals, and need for post-acute services based on payer coverage, community resources, and patient preferences, and barriers to discharge 2. Coordinate with Social work, Care Navigation, and Utilization Review to arrange appropriate level of services according to patient's needs based on patient preference and payer coverage in collaboration with the physician and health care team 3. Address psychosocial, clinical, and financial barriers to discharge as identified in assessment in conjunction with the patient/family and health care team 4. Consult appropriate ancillary services (i.e.. PT/OT/ST, etc) as needed 5. Communicate with and update the patient/family, physician, and health care team regarding progress on the discharge plan 6. Identify discharge learning needs (meds, wound care, etc). 7. Arrange for needed discharge transportation as appropriate Outcome: Progressing Note: Evaluation of progress towards goal: Not ready for discharge. Currently assessing for discharge needs. Continue to monitor [facility] [employer] 03-26-2024 Progress note Formatting of t his note is different from the original. Speech Therapy Videofluoroscopic Swallow Study Evaluation Impressions Oral Phase: Mild Pharyngeal Phase: Mild Functional Oral Intake Scale: Total PO intake. No restrictions MBS completed on this date with flash penetration noted on thin liquid that was immediately ejected with active cough noted. Patient utilized small sip and no further penetration event observed. Penetration was due to delay in the pharyngeal trigger with the bolus head at the level of the pyriform sinus with partial superior movement of thyroid cartilage, partial anterior hyoid movement, and partial epiglottic inversion resulting in narrow opening of the laryngeal vestibule and subsequent penetration. Active coughing noted post penetration event. Recommend regular diet, thin liquids, use small sips, and sip/bite. Results shared with patient who verbalized understanding. Will follow for acute care dysphagia management. Modified Barium Swallow Impairment Profile (MBSImP) Oral Impairment: Yes Component 1: Lip Closure: no labial escape Component 2: Tongue Control During Bolus Hold: cohesive bolus between tongue to palatal seal Component 3: Bolus Preparation/Mastication: timely and efficient chewing and mashing Component 4: Bolus Transport/Lingual Motion: slowed tongue motion Component 5: Oral Residue: trace residue lining oral structures Component 6: Initiation of Pharyngeal Swallow: bolus head at posterior laryngeal surface of epiglottis Pharyngeal Impairment: Yes Component 7: Soft Palate Elevation: no bolus between soft palate/posterior pharyngeal wall Component 8: Laryngeal Elevation: partial superior movement of thyroid cartilage/partial approximation of arytenoids to epiglottic petiole Component 9: Anterior Hyoid Excursion: partial anterior movement Component 10: Epiglottic Movement: partial inversion Component 11: Laryngeal Vestibular Closure - Height of the Swallow: incomplete, narrow column of contrast/air in laryngeal vestibule Component 12: Pharyngeal Stripping Wave: present - complete Component 13: Pharyngeal Contraction (A/P view only): could not be determined due to logistical reasons not related to physiologic impairment Component 14: Pharyngoesophageal Segment Opening: complete distension and complete duration, no obstruction of flow Component 15: Tongue Base Retraction: no contrast between tongue base and posterior pharyngel wall Component 16: Pharyngeal Residue: trace residue within or on pharyngeal structures Recommendations Diet Level: Regular Liquid Level: Level 0 Thin Compensatory Strategies: Small sips/bites Supervision/Positioning: Patient to remain upright 15 minutes after meals Discharge Recommendations: Home speech therapy Plan Frequency: 1-2days/week Duration: 14 days Treatments/Modalities: Pharyngeal strengthening, Safety strategies Need for skilled Speech Language Pathology Services to address deficits in feeding/swallowing due to a status decline resulting from blood loss, history of EGD. Procedure and protocol were shared with patient who verbalized understanding. Prognosis Services: Skilled PROTEOMICS SCIENTIST services to address above deficits Prognosis/Potential: Good Considerations: Previous level of function Assessment Baseline Assessment Prior BSSE/VFSS: no Additional Testing Results: Chest X-Ray Setting Prior to Admission: Home Associated Problems: Difficulty with liquids, Difficulty with solids Respiratory Status: Room Air Behavior/Cognition: Alert, Cooperative Dentition: Poor Dentition Patient Positioning: Upright in chair Baseline Vocal Quality: Normal Room Service: Appropriate for room service Feeding Assistance: Able to feed self Current Diet Type: Level 0 Thin, Regular Allergies Marked As Reviewed: Complete Consistencies Tested Views: Lateral position Level 0 Thin: Cup Level 2 Mildly Thick: Cup Level 4 Pureed: Spoon Level 6 Soft & Bite-Sized: Spoon Regular Tested: Spoon Modified Barium Swallow Impairment Profile (MBSImP) Oral Impairment: Yes Component 1: Lip Closure: no labial escape Component 2: Tongue Control During Bolus Hold: cohesive bolus between tongue to palatal seal Component 3: Bolus Preparation/Mastication: timely and efficient chewing and mashing Component 4: Bolus Transport/Lingual Motion: slowed tongue motion Component 5: Oral Residue: trace residue lining oral structures Component 6: Initiation of Pharyngeal Swallow: bolus head at posterior laryngeal surface of epiglottis Pharyngeal Impairment: Yes Component 7: Soft Palate Elevation: no bolus between soft palate/posterior pharyngeal wall Component 8: Laryngeal Elevation: partial superior movement of thyroid cartilage/partial approximation of arytenoids to epiglottic petiole Component 9: Anterior Hyoid Excursion: partial anterior movement Component 10: Epiglottic Movement: partial inversion Component 11: Laryngeal Vestibular Closure - Height of the Swallow: incomplete, narrow column of contrast/air in laryngeal vestibule Component 12: Pharyngeal Stripping Wave: present - complete Component 13: Pharyngeal Contraction (A/P view only): could not be determined due to logistical reasons not related to physiologic impairment Component 14: Pharyngoesophageal Segment Opening: complete distension and complete duration, no obstruction of flow Component 15: Tongue Base Retraction: no contrast between tongue base and posterior pharyngel wall Component 16: Pharyngeal Residue: trace residue within or on pharyngeal structures MBSImP Overall Impression Scores Oral Impairment Total: 5 Pharyngeal Impairment Total: 5 Penetration/Aspiration Scale Penetration/Aspiration Scale Performed: Yes Level 0 Thin: Contrast entered the airway, remained above the vocal folds, and was ejected from the airway Level 2 Mildly Thick: Contrast did not enter the airway Level 4 Pureed: Contrast did not enter the airway Level 6 Soft & Bite-Sized: Contrast did not enter the airway Regular: Contrast did not enter the airway Trialed Compensatory Strategies Strategies Utilized: Small sips/bites Effective: Yes Pain Assessment Pain Assessment: No/denies pain Plan Diagnosis Code Swallowing: R13.12 Dysphagia, oropharyngeal phase Speech Therapy Care Plan Speech Therapy Care Plan (Active) Template: ST - Dysphagia Problem: Swallowing Dates: Start: 03/26/24 Disciplines: PROTEOMICS SCIENTIST Goal: LTG: Patient will tolerate least restrictive diet recommended by PROTEOMICS SCIENTIST without signs and symptoms of aspiration 90% of the time Dates: Start: 03/26/24 Expected End: 04/09/24 Disciplines: PROTEOMICS SCIENTIST Outcomes Date/Time User Outcome 03/26/24 1346 Vanna Mandujano CCC-PROTEOMICS SCIENTIST Progressing Goal Note filed on 03/26/24 134 by Vanna Mandujano CCC-PROTEOMICS SCIENTIST Evaluation of progress towards goal: MBS completed-recommend regular with thin liquids. MUST USE SMALL SIPS Goal: STG: Patient will complete safety strategies with minimal assistance during PO intake 90% of the time Dates: Start: 03/26/24 Expected End: 04/09/24 Disciplines: PROTEOMICS SCIENTIST Outcomes Date/Time User Outcome 03/26/24 1346 RENE Guzman Progressing Goal Note filed on 03/26/24 134 by RENE Guzman Evaluation of progress towards goal: PROTEOMICS SCIENTIST discussed importance of small sips to reduce risk of penetration identified in evaluation. Verbalized understanding. Goal: STG: Patient will complete oral/ pharyngeal strengthening program with resistance with 90% accuracy with minimal cueing Dates: Start: 03/26/24 Expected End: 04/09/24 Disciplines: PROTEOMICS SCIENTIST Outcomes Date/Time User Outcome 03/26/24 134 RENE Guzman Not Progressing Goal Note filed on 03/26/24 134 by RENE Guzman Evaluation of progress towards goal: Did not address on this date Goal: STG: Pt will complete laryngeal adduction exercises to increase laryngeal elevation, improve vocal cord closure, and aid in airway protection with 90% accuracy and min cues Dates: Start: 03/26/24 Expected End: 04/09/24 Disciplines: PROTEOMICS SCIENTIST Outcomes Date/Time User Outcome 03/26/241345 RENE Guzman Not Progressing Goal Note filed on 03/26/24 134 by RENE Guzman Evaluation of progress towards goal: Did not address on this date. Speech Therapy Care Plan (Resolved) There are no resolved problems. Principal Problem: Blood loss anemia Active Problems: longterm (current) use of anticoagulants [Z79.01] Essential hypertension History of stroke 1993 Obstructive sleep apnea syndrome Deepthi-deepthi disease 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CMS-HCC) Acquired hypothyroidism Melena Frequent falls Chronic depression History of epistaxis [facility] 03-26-2024 Progress note Formatting of t his note is different from the original. Speech Therapy Bedside Swallow/ Feeding Evaluation Impressions Oral Dysphagia: Minimal (secondary to recent tooth extraction in February 2024) Pharyngeal Dysphagia Suspected: Yes Clinical bedside completed on this date with overt sx of penetration with coughing noted post cookie presentation, that is exacerbated by water trials. Cannot rule out penetration vs aspiration. Patient noticeably short of breath post cookie bite. Recommend MBS to ascertain safest po intake. Results shared with patient who is in agreement. Will follow for dysphagia management. Recommendations Diet Level: NPO Liquid Level: No liquids Discharge Recommendations: Home Plan Frequency: 1-2days/week Treatments/Modalities: (pending MBS) Need for skilled Speech Language Pathology Services to address deficits in feeding/swallowing due to a status decline resulting from blood loss, anemia. Prognosis Services: Skilled PROTEOMICS SCIENTIST services to address above deficits Prognosis/Potential: Fair Considerations: Previous level of function Assessment Baseline Assessment Prior BSSE/VFSS: no Additional Testing Results: Chest X-Ray Setting Prior to Admission: Home Associated Problems: Difficulty with solids, Difficulty with liquids Respiratory Status: Room Air Behavior/Cognition: Alert, Cooperative Dentition: Dentures Patient Positioning: Upright in bed Baseline Vocal Quality: Normal Room Service: Appropriate for room service Feeding Assistance: Able to feed self Current Diet Type: NPO Allergies Marked As Reviewed: Complete Oral/Motor Overall Oral/Motor Status: Within Functional Limits Labial at rest: Within Functional Limits Labial ROM: Within Functional Limits Labial Symmetry: Within Functional Limits Labial Strength: Within Functional Limits Labial Sensation: Within Functional Limits Labial Coordination: Within Functional Limits Lingual at rest: Within Functional Limits Lingual ROM: Within Functional Limits Lingual Symmetry: Within Functional Limits Lingual Strength: Within Functional Limits Lingual Sensation: Within Functional Limits Lingual Coordination: Within Functional Limits Facial Tone: Within Functional Limits Facial Symmetry: Within Functional Limits Facial Strength: Within Functional Limits Facial Sensation: Within Functional Limits Vocal Quality: Within Functional Limits Vocal Intensity: Within Functional Limits Intelligibility: Intelligible Breath Support: Other (Comment) (SOB post swallow) Dentition: Dentures Hearing: Within Functional Limits Consistencies Assessed: Yes Level 0 Thin Presentation: Cup Oral: Within Functional Limits Pharyngeal: Cough- delayed Regular Presentation: Self feed Oral: Consistent with premorbid status Pharyngeal: Cough- immediate Cranial Nerve Screening CN V (trigeminal): Within Functional Limits CN VII (facial): Within Functional Limits CN X (vagus): Within Functional Limits CN XII (hypoglossal): Within Functional Limits Pain Assessment Pain Assessment: No/denies pain Plan Diagnosis Code Swallowing: R13.12 Dysphagia, oropharyngeal phase Speech Therapy Care Plan Speech Therapy Care Plan (Active) There are no active problems. Speech Therapy Care Plan (Resolved) There are no resolved problems. 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 DISCHARGE PLANNING NOTE Patient's POC discussed in DTR's with RN .CN met with the patient at the bedside. Patient is alert and oriented. Patient was told by attending that she will need SNF at discharge. PT/OT eval ordered. CN provided patient with the SNF list in her area and her insurance.Patient states she would prefer to go home with [facility] but will review the list and talk to her spouse. Patient continues with IV iron. Plan for discharge is home with [facility] vs SNF. - Lovely Hennessy RN 03/26/24 10:52 AM [facility] 03-26-2024 Progress note Formatting of t his note is different from the original. Occupational Therapy CANCEL - Refusal Patient declined therapy this morning with wishes to let rest. OT to check back as able and patient willing. [facility] 03-26-2024 Progress note Formatting of t his note is different from the original. Images from the original note were not included. [facility] Ash Cool M.D. Flora Mcdowell M.D. Deanne Ford M.D. Lisa Dunn M.D. [place], SUPERVISOR SMOKE CONTROL-INSTALLATION SERVICE REPRESENTATIVE Merritt Suh, SUPERVISOR SMOKE CONTROL-INSTALLATION SERVICE REPRESENTATIVE Princess Voss, SUPERVISOR SMOKE CONTROL-INSTALLATION SERVICE REPRESENTATIVE Meghan Lockhart, SUPERVISOR SMOKE CONTROL-INSTALLATION SERVICE REPRESENTATIVE RADHA Dia M.D. Feng Jiang, M.D. Jeffrey Muler, M.D. Masha Araya M.D. Demetria Jacome, SUPERVISOR SMOKE CONTROL-INSTALLATION SERVICE REPRESENTATIVE Tawanna Lind, SUPERVISOR SMOKE CONTROL-INSTALLATION SERVICE REPRESENTATIVE Suad ANKITA Crystal APRN-CNP HEMATOLOGY ONCOLOGY TELEMEDICINE PROGRESS NOTE Video Visit via Real-time Synchronous Audiovisual Provider Location: [facility] Patient Location: [facility] Patient Location Claims Support Specialist: None Video Visit Consent Statement: I discussed risks, benefits, and alternatives of a real-time synchronous audiovisual consultation with the patient (and any accompanying persons) including the risks that the patient's personal health details and medical records will be discussed over real-time, synchronous, interactive video/audio/telecommunication technology, the visit will not be recorded without the express consent of both the provider and the patient, and that there are some limitations compared to [id number] evaluations. We elected to proceed. 03/26/24 Subjective: Patient was seen via tele visit. She was admitted with anemia due to epistaxis. She was also noted to have melena due to the epistaxis that has since resolved. Patient occasionally dizzy, denies any active bleeding, n, v, d. Patient on Warfarin for antithrombin 3 deficiency. Patient received iron infusion during admission. GI was consulted, no plans for inpatient scope. Patient may resume warfarin. History of present illness from initial telehealth consult on 03/25/24: The patient is a 63 y.o. with AT3 deficiency and strokes. She had a leg DVT in . 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 She has been on chronic warfarin. She had a TIA only 3-4 days ago. Speech was slurred, balance off. In ER for severe epistaxis on 03/03. Placed rhino rocket. No nosebleed in the last week. She had melena after nose bleed. They then normalized in color. Black tarry stools for the last 2 days. No stool today. She was started on oral iron months ago. Last colonoscopy , no biopsy taken. 10 year recommended. No nausea, vomitiung, GERD. At times she has gagging, choking, needs to swallow with a sip of water. Physical Exam: Majority deferred due to video visit Vitals: BP 136/86 Pulse 77 Temp 36.5 C (97.7 F) (Oral) Resp 17 Ht 162.6 cm (5' 4 ) Wt 102.4 kg (225 lb 12 oz) SpO2 97% BMI 38.75 kg/m Body mass index is 38.75 kg/m . General: Well appearing, in no acute distress. Respiratory: Respirations were non-labored. Mood and affect: Normal. Objective Past Medical History: Diagnosis Date Anemia 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 [place] Anxiety Arrhythmia Irregular HB Arthritis Spine Cataract States early Chest pain Chronic lymphocytic thyroiditis CV[place]cerebral vascular [place] [place] Left side-mild weakness DDD (degenerative disc disease), lumbar Deep vein thrombosis [place] LLE Dental disease Poor teeth Depression Diabetes mellitus type 2, controlled [place] Checks glucose [id number] Disease of thyroid gland Diverticulitis of colon Dizziness HARRIS (dyspnea on exertion) Facial weakness Fractures Right wrist, left elbow GERD (gastroesophageal reflux disease) Deepthi-deepthi disease Katelyn's thyroiditis Hypercoagulable state [place] [place] Hyperlipidemia Hypertension Hypothyroidism Memory loss Short + longterm memory problems r/t stroke [place] (myocardial infarction[place] [place] Silent-in past Migraine Morbid obesity [place] MRSA (methicillin resistant Staphylococcus aureus) 2000s Posterior left neck-treated Neuropathy Feet Numbness Osteoporosis Pneumonia Rash bilat legs lower belly Restless leg syndrome Sinusitis, chronic Sleep apnea CPAP Stress incontinence Stroke [place] [place] TIA (transient ischemic attack) Several UTI (urinary tract infection) Years ago Ventral hernia Visual impairment Wears corrective lenses Past Surgical History: Procedure Laterality Date SECTION 1979 + 1980 CHOLECYSTECTOMY 2012 COLONOSCOPY 2016 COLONOSCOPY N/A 10/30/2018 Performed by Lottie Martinez DO at [facility] ELBOW SURGERY Left 04/27/2013 Fracture repair has hardware- ORIF distal humeral condylar fx EXAM UNDER ANESTHESIA/EXCISION VUVLAR CYST N/A 06/15/2020 Performed by Rich Montalvo MD at [facility] EXCISION CYST ARM Right 10/30/2018 Performed by Lottie Martinez DO at [facility] FESS (FUNCTIONAL ENDOSCOPIC SINUS SURGERY) WITH NAVIGATION SYSTEM NASAL, FRONTAL SINSUSOTOMY, SPHENEIDOTOMY Bilateral 06/27/2016 Performed by Yossi Cheatham MD at [facility] HERNIA REPAIR 2012 2 seperate surgeries/ abd hernias HYSTERECTOMY 1982 States still has at least one ovary INCISION DRAINAGE BUTTOCKS Left 02/10/2021 Performed by Xiomara Huffman MD at [facility] NECK SURGERY 2000s MRSA spot on back of neck OVARIAN CYST REMOVAL Right 1984- TUBAL LIGATION 1981 WRIST SURGERY Right 04/27/2013 Has hardware- ORIF distal radius fx Family History Problem Relation Age of Onset Diabetes Mother Hypertension Mother Heart disease Mother Stroke Mother COPD Father Cancer Father Cancer Sister Heart disease Sister Hypertension Sister Diabetes Sister Anesthesia problems Sister Stroke Sister Migraines Sister Cancer Sister Rheumatic fever Brother Social History Socioeconomic History Marital status: Tobacco Use Smoking status: Never Smokeless tobacco: Never Tobacco comments: Been around smokers never have smoked Vaping Use Vaping status: Never Used Substance and Sexual Activity Alcohol use: Not Currently Comment: occ Drug use: No Sexual activity: Defer Partners: Male control/protection: None Comment: , Hyst Other Topics Concern Caffeine Use Yes Social Determinants of Health Food Insecurity: No Food Insecurity (03/24/2024) Hunger Screening Food Insecurity - Worry: Never True Food Insecurity - Inability: Never True Transportation Needs: No Transportation Needs (03/24/2024) PRAPARE - Transportation Lack of Transportation (Medical): No Lack of Transportation (Non-Medical): No Interpersonal Safety: Not At Risk (03/24/2024) Humiliation, Afraid, Rape, and Kick questionnaire Fear of Current or Ex-Partner: No Emotionally Abused: No Physically Abused: No Sexually Abused: No Housing Instability: Low Risk (03/24/2024) Housing Instability Housing Instability: No Allergies Allergen Reactions Adhesive Dermatitis Dicloxacillin Sodium Hives Lincomycin Hcl Hives Lipitor [Atorvastatin] Elevated LFT's Penicillins Hives Atarax [Hydroxyzine Hcl] Itching Exacerbated previous condition Ceclor [Cefaclor] Rash Clindamycin Rash Hydroxyzine Pamoate Itching Severe itching, exacerbated previous condition. No swelling, hives Latex Rash Latex, Natural Rubber Itching Warfarin Hives FATIGUE,CONSTIPATION Inpatient scheduled medication: atorvastatin, 40 mg, oral, Nightly carvediloL, 3.125 mg, oral, BID folic acid, 1,000 mcg, oral, Daily iron sucrose, 200 mg, intravenous, Daily levothyroxine, 150 mcg, oral, Daily pantoprazole, 40 mg, intravenous, Q12H rOPINIRole, 2 mg, oral, Nightly sertraline, 100 mg, oral, Daily Recent Labs Recent Results (from the past 72 hour(s)) POCT Protime / INR Collection Time: 03/24/24 12:00 AM Result Value Ref Range INR 1.9 (A) 0.8 - 1.2 ABO Rh Repeat Collection Time: 03/24/24 3:30 PM Result Value Ref Range ABO B RH Positive CBC auto differential Collection Time: 03/24/24 3:50 PM Result Value Ref Range White Blood Cells 11.2 (H) 4.0 - 11.0 X10E9/L RBC count 4.71 3.80 - 5.20 X10E12/L Hemoglobin 8.6 (L) 11.7 - 15.5 g/dL Hematocrit 28.1 (L) 35 - 47 % MCV 60 (L) 80 - 100 fL MCH 18.1 (L) 27 - 34 pg MCHC 30.5 (L) 32 - 36 g/dL RDW 19.7 (H) 11.5 - 15.0 % Platelets 361 150 - 450 X10E9/L MPV 8.2 7 - 12 fL Seg neutrophil 77.0 % Lymphocyte 19.2 % Eosinophil 3.8 % Neutrophils Absolute (M) 8.6 (H) 1.5 - 6.6 X10E9/L Lymphocytes Absolute 2.2 1.0 - 3.5 X10E9/L Eosinophils Absolute 0.4 0.0 - 0.4 X10E9/L Hypochromia 1+ (A) NONE^NONE Polychromasia 1+ (A) NONE^NONE Basic Metabolic Panel Collection Time: 03/24/24 3:50 PM Result Value Ref Range Sodium 137 134 - 146 mmol/L Potassium, Bld 3.8 3.5 - 5.0 mmol/L Chloride 105 98 - 109 mmol/L CO2 22 22 - 32 mmol/L Anion gap 10 5 - 15 mmol/L BUN 12 5 - 27 mg/dL Creatinine 0.99 0.40 - 1.00 mg/dL Glucose 157 (H) 65 - 99 mg/dL Calcium 9.2 8.5 - 10.5 mg/dL eGFR (CKD-EPI)non-race dependent 64 >59 ml/min/1.73sq.m Lactate w/ Reflex Collection Time: 03/24/24 3:50 PM Result Value Ref Range Lactate w/ Reflex 3.7 (H) 0.4 - 2.0 mmol/L Troponin I, High Sensitivity Collection Time: 03/24/24 3:50 PM Result Value Ref Range Troponin I, High Sensitivity 3 <16 ng/L Protime & INR Collection Time: 03/24/24 3:50 PM Result Value Ref Range Protime 22.7 (H) 9.8 - 13.2 sec Inr 2.0 (H) 0.8 - 1.1 B-type natriuretic peptide Collection Time: 03/24/24 3:50 PM Result Value Ref Range BNP 51 <100.0 pg/mL Type and screen(includes indirect armen) Collection Time: 03/24/24 4:30 PM Result Value Ref Range ABO B RH Positive Antibody Screen Negative Troponin I, High Sensitivity 1 Hour Collection Time: 03/24/24 4:55 PM Result Value Ref Range 1 Hour Trop I, High Sensitivity 3 <16 ng/L Er Extra Urine Collection Time: 03/24/24 5:20 PM Result Value Ref Range ER Extra Urine ER EXTRA URINE ORDER IN PROCESS POCT Nursing Urine Macroscopic UA Collection Time: 03/24/24 5:26 PM Result Value Ref Range Specific gravity STEPH 1.020 1.003 - 1.035 Leukocyte esterase STEPH Trace (A) Negative^Negative Nitrite STEPH Negative Negative^Negative Ph 5.5 5.0 - 8.5 Protein STEPH Negative Negative^Negative mg/dL Urine glucose STEPH Negative Negative^Negative mg/dL Ketones STEPH Negative Negative^Negative mg/dL Urobilinogen STEPH 0.2 <1.1 eu/dL Bilirubin STEPH Negative Negative^Negative Hemoglobin STEPH Negative Negative^Negative Lactate Collection Time: 03/24/24 7:50 PM Result Value Ref Range Lactate 2.9 (H) 0.4 - 2.0 mmol/L Hemoglobin and hematocrit, blood Collection Time: 03/24/24 9:05 PM Result Value Ref Range Hemoglobin 7.6 (L) 11.7 - 15.5 g/dL Hematocrit 25.1 (L) 35 - 47 % Bedside Glucose *Place/Obtain serum glucose if >500(>600 MRH) per glucometer. Collection Time: 03/25/24 12:30 AM Result Value Ref Range Bedside glucose 137 (H) 65 - 99 mg/dL CBC auto differential Collection Time: 03/25/24 3:42 AM Result Value Ref Range White Blood Cells 8.5 4.0 - 11.0 X10E9/L RBC count 4.16 3.80 - 5.20 X10E12/L Hemoglobin 7.4 (L) 11.7 - 15.5 g/dL Hematocrit 24.6 (L) 35 - 47 % MCV 59 (L) 80 - 100 fL MCH 17.9 (L) 27 - 34 pg MCHC 30.2 (L) 32 - 36 g/dL RDW 19.2 (H) 11.5 - 15.0 % Platelets 270 150 - 450 X10E9/L MPV 8.1 7 - 12 fL % neutrophils 71.1 % % lymphocytes 16.9 % % monocytes 7.8 % % eosinophils 3.6 % % Basophils 0.6 % Neutrophils Absolute (A) 6.1 1.5 - 6.6 X10E9/L Lymphocytes Absolute 1.4 1.0 - 3.5 X10E9/L Monocytes Absolute 0.7 0 - 0.9 X10E9/L Eosinophils Absolute 0.3 0.0 - 0.4 X10E9/L Basophils Absolute 0.1 0.0 - 0.2 X10E9/L Hypochromia 1+ (A) NONE^NONE Basic Metabolic Panel Collection Time: 03/25/24 3:42 AM Result Value Ref Range Sodium 138 134 - 146 mmol/L Potassium, Bld 3.5 3.5 - 5.0 mmol/L Chloride 107 98 - 109 mmol/L CO2 25 22 - 32 mmol/L Anion gap 6 5 - 15 mmol/L BUN 11 5 - 27 mg/dL Creatinine 0.90 0.40 - 1.00 mg/dL Glucose 151 (H) 65 - 99 mg/dL Calcium 8.4 (L) 8.5 - 10.5 mg/dL eGFR (CKD-EPI)non-race dependent 71 >59 ml/min/1.73sq.m Iron and TIBC Collection Time: 03/25/24 3:42 AM Result Value Ref Range Iron <10 (L) 50 - 170 ug/dL Tibc-calc only do not order 524 (H) 250 - 425 ug/dL Iron Saturation <2 (L) 15 - 50 % SATURATION Ferritin Collection Time: 03/25/24 3:42 AM Result Value Ref Range Ferritin 4 (L) 11 - 307 ng/mL Protime & INR Collection Time: 03/25/24 3:42 AM Result Value Ref Range Protime 24.9 (H) 9.8 - 13.2 sec Inr 2.2 (H) 0.8 - 1.1 Bedside Glucose *Place/Obtain serum glucose if >500(>600 MRH) per glucometer. Collection Time: 03/25/24 6:27 AM Result Value Ref Range Bedside glucose 158 (H) 65 - 99 mg/dL Lactate w/ Reflex Collection Time: 03/25/24 8:24 AM Result Value Ref Range Lactate w/ Reflex 1.2 0.4 - 2.0 mmol/L Bedside Glucose *Place/Obtain serum glucose if >500(>600 MRH) per glucometer. Collection Time: 03/25/24 11:52 AM Result Value Ref Range Bedside glucose 154 (H) 65 - 99 mg/dL Protime & INR Collection Time: 03/25/24 2:57 PM Result Value Ref Range Protime 21.1 (H) 9.8 - 13.2 sec Inr 1.9 (H) 0.8 - 1.1 APTT Collection Time: 03/25/24 2:57 PM Result Value Ref Range aPTT 33 26 - 37 sec Hemoglobin and hematocrit, blood Collection Time: 03/25/24 2:57 PM Result Value Ref Range Hemoglobin 7.6 (L) 11.7 - 15.5 g/dL Hematocrit 25.0 (L) 35 - 47 % Bedside Glucose *Place/Obtain serum glucose if >500(>600 MRH) per glucometer. Collection Time: 03/25/24 6:20 PM Result Value Ref Range Bedside glucose 140 (H) 65 - 99 mg/dL Hemoglobin and hematocrit, blood Collection Time: 03/25/24 11:04 PM Result Value Ref Range Hemoglobin 7.1 (L) 11.7 - 15.5 g/dL Hematocrit 23.4 (L) 35 - 47 % Bedside Glucose *Place/Obtain serum glucose if >500(>600 MRH) per glucometer. Collection Time: 03/26/24 12:03 AM Result Value Ref Range Bedside glucose 139 (H) 65 - 99 mg/dL FFP setup:Number of Units: 1 Collection Time: 03/26/24 4:10 AM Result Value Ref Range Blood component type [id number] Unit number [id number] Unit ABO B Unit RH POS Status of unit /RELEASED Expiration Date [id number] BB Type Barcode 7300 Blood component type [id number] Unit number [id number] Unit ABO B Unit RH POS Status of unit TRANSFUSED Expiration Date BB Type Barcode 7300 Protime & INR Collection Time: 03/26/24 4:49 AM Result Value Ref Range Protime 20.6 (H) 9.8 - 13.2 sec Inr 1.8 (H) 0.8 - 1.1 Hemoglobin and hematocrit, blood Collection Time: 03/26/24 4:49 AM Result Value Ref Range Hemoglobin 7.5 (L) 11.7 - 15.5 g/dL Hematocrit 24.7 (L) 35 - 47 % Bedside Glucose *Place/Obtain serum glucose if >500(>600 MRH) per glucometer. Collection Time: 03/26/24 5:54 AM Result Value Ref Range Bedside glucose 143 (H) 65 - 99 mg/dL Recent Imaging: X-ray chest 2 views Result Date: 03/25/2024 Narrative: CLINICAL HISTORY: Shortness of breath Comparison: 01/28/2023 Views: 2 view FINDINGS: * No acute infiltrate. No volume loss nor consolidation. There is no pleural effusion, pneumothorax, nor volume loss. Heart and mediastinal structures are unremarkable. Pulmonary vasculature stable. Degenerative changes thoracic spine. Old right rib fractures. IMPRESSION: * No active disease nor significant interval change Finalized by Ramiro Alvarado MD on 03/25/2024 5:[address] abdomen and pelvis with contrast Result Date: 03/24/2024 Narrative: CLINICAL HISTORY: Lower GI bleeding. CT ABDOMEN AND PELVIS WITH CONTRAST: 03/24/2024 COMPARISON: 10/20/2015 PROCEDURE: Axial images were obtained through the abdomen and pelvis after oral contrast ingestion and 100 mL Omnipaque 300 intravenously. Coronal and sagittal reconstructions were performed. All CT scans at this facility use dose modulation, iterative reconstruction, and/or weight based dosing when appropriate to reduce radiation dose to as low as reasonably achievable. FINDINGS : The visualized lower lungs and pleural spaces are clear. No focal hepatic or splenic abnormality is evident. The pancreas, gallbladder, and biliary tree are within normal limits. The kidneys enhance symmetrically. A right superior pole lesion contains fat and is compatible with an angiomyolipoma. This measures up to 1.8 cm. There is no ureteral dilation or urinary bladder irregularity. No dilated bowel loops are present. Diverticula are present within the descending colon and sigmoid region with no acute inflammatory changes. There is some heterogeneous density within the cecum with areas of slightly hyperdense appearance at the lateral cecum on axial image 46 and coronal image 45. This is near the ileocecal valve. No focal bowel lesion is evident. Vascular structures enhance normally. Mild atherosclerotic calcification is present within the abdominal aorta. L4 superior endplate fracture appears subacute. Degenerative changes are present throughout the [place] spine. Some narrowing of the spinal canal is present at the thoracolumbar region with ossification of posterior longitudinal ligament. IMPRESSION: No definite cause of GI bleeding is present but there is some hyperdensity in the cecal region which could represent acute intra-abdominal contrast/blood. No other acute intra-abdominal or pelvic abnormality on CT evaluation. Lumbar degenerative and posttraumatic findings without a definite acute abnormality. 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 Finalized by Ulysses Pérez MD on 03/24/2024 6:[address] brain without contrast Result Date: 03/24/2024 Narrative: CT BRAIN WITHOUT CONTRAST COMPARISON: 07/12/2023 HISTORY: Transient alteration of awareness. Dizziness TECHNIQUE: Unenhanced axial images of the brain were obtained. Automatic exposure control (AEC) was utilized. FINDINGS: There is no evidence for acute intracranial hemorrhage. There is no hydrocephalus, mass effect, or midline shift. Aguilar-white differentiation is preserved with no CT evidence for an acute infarct. IMPRESSION: No evidence for an acute intracranial process. All CT scans at this facility use dose modulation, iterative reconstruction, and/or weight based dosing when appropriate to reduce radiation dose to as low as reasonably achievable. 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 [Z79.01] Essential hypertension History of stroke 1993 Obstructive sleep apnea syndrome CVA (cerebral vascular accident) ([facility]) 1993 - ON [place] WARFARIN Type 2 diabetes mellitus with microalbuminuria, without long-term current use of insulin [place] Hypercholesteremia [place] (myocardial infarction) BMI 45.0-49.9, adult ([facility]) IMELDA on CPAP SOB (shortness of breath) on exertion Deepthi-deepthi disease Chronic fatigue Absolute anemia Chronic lymphocytic thyroiditis Traumatic hematoma of buttock Iron deficiency anemia, unspecified Iron malabsorption Lymphedema Cerebral atrophy (CMS-HCC) 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CMS-HCC) Osteopenia of both hips Acquired hypothyroidism Age-related osteoporosis without current pathological fracture Pre-operative clearance Melena Blood loss anemia Frequent falls Chronic depression History of epistaxis Impression: #Antithrombin 3 deficiency #Recurrent stroke #Recurrent thromboembolism #Epistaxis #Severe iron-deficiency anemia #Melena likely due to severe epistaxis Plan: - If regard to warfarin, patient may resume Warfarin she will need bridged with Lovenox. Melena likely all due to nasal bleeding. I will let hospitalist team know we are OK with them resuming. Patient's Warfarin is managed by [place] [facility] outpatient. - Continue with Venofer 200mg daily for a total of 5 days, she may complete remaining treatments as an outpatient if needed. Patient lives in [place], we will send a message to Dr. Escobar for follow up. - Transfusion Parameters: Hgb < 7 and Plts < 10,000, unless active bleeding transfuse Plts < 20,000 - Patient was seen by GI with recommendations to start pantoprazole 40mg BID, no NSAID use, and to trend HG. They believed melena was likely epistaxis related. Patient was offered an endoscopy, however, at that time was not interested. - Pt sees Dr. Cheatham ENT - Hem/Onc will sign off, thank you Code Status: Full Code Further medical management of comorbid conditions per primary team and consulting services, appreciate assistance The patient was seen and examined and all plans and orders were agreed upon with the attending physician on service today, Dr. Ford Thank you for the consultation. Lori Cruz, SUPERVISOR SMOKE CONTROL-INSTALLATION SERVICE REPRESENTATIVE [facility] [address] [place] [address] Please note that portions of this note were generated using voice recognition M*Modal dictation software. Although every effort was made to ensure the accuracy of this automated inventory control/shipping receiving, some errors in inventory control/shipping receiving may have occurred. [facility] [address] [place] [address] Tele-OncologyTelemedicine Consult Note Consent Statement: I discussed risks, benefits, and alternatives of a real-time synchronous audiovisual consultation with the patient (and any accompanying persons) including the risks that the patient's personal health details and medical records will be discussed over real-time, synchronous, interactive video/audio/telecommunication technology, the visit will not be recorded without the express consent of both the provider and the patient, and that there are some limitations compared to [id number] evaluations. We elected to proceed. Lori Cruz, SUPERVISOR SMOKE CONTROL-INSTALLATION SERVICE REPRESENTATIVE 03/26/24 1444 I, Deanne Ford, personally performed the face to face diagnostic evaluation on this patient. My findings are as follows: At this time, since she has no gross GI bleeding or ongoing melena, it is reasonable to reinitiate anticoagulation. Would use Lovenox bridge given her high-risk of thromboembolic disease. We will sign off for now. Deanne Ford M.D. [facility] Day time contact: After hours answering service: [phone] [place] [address] [facility] 03-26-2024 Progress note Formatting of t his note is different from the original. Physical Therapy CANCEL - Refusal (pt seen supine, while seeming agreeable to session initially, declines as wishing to be left to rest.) Associated attestation - Michelle Valdes, PT - 03/26/2024 1:39 PM EDT I have reviewed and agree with this note and education documentation for this visit. [facility] 03-26-2024 Plan of care note Problem: Pain Goal: Patient goal is pain score less than 4, able to rest, and participant in treatment plan as appropriate Description: INTERVENTIONS: 1. Encourage patient or legal sales representative gas service to report early pain and ask for pain medicine when needed 2. Assess pain using appropriate pain scale and include the scale used when documenting 3. Administer analgesics based on type and severity of pain and evaluate response within appropriate time frame 4. Implement non-pharmacological measures as appropriate and evaluate response 5. Consider cultural and social influences on pain and pain management 6. Notify LIP if interventions ineffective or patient reports new pain 7. Monitor vital signs including pulse ox, end-tidal CO2 based on pain intervention 8. Reassess pain per policy 9. Teach patient or legal sales representative gas service interventions for comforting Outcome: Progressing Note: Evaluation of progress towards goal: pt reported pain at acceptable level. Denied need for prn pain medications. Problem: Safety Goal: Patient will be injury free during hospitalization Description: INTERVENTIONS: 1. Assess patient's risk for falls and implement fall prevention plan of care per policy 2. Provide and maintain a safe environment 3. Proper use of double Identifiers 4. Medication administration using the 5 rights 5. Hand hygiene 6. Specimens are labeled at the bedside 7. Instruct patient/ patient sales representative gas service about use of safety devices 8. Include patient/ patient sales representative gas service in decisions related to safety Outcome: Progressing Note: Evaluation of progress towards goal: safety maintained. Oriented to room, hourly rounding, bed controls, call light. Personal needs met, call light within reach. Problem: Infection Goal: Absence of infection during hospitalization Description: Interventions: 1. Assess and monitor for signs and symptoms of infection 2. Monitor lab/diagnostic results 3. Monitor all insertion sites i.e., indwelling lines, tubes and drains 4. Monitor endotracheal (as able) and nasal secretions for changes in amount and color 5. Administer medications as ordered 6. Instruct and encourage patient and family to use good hand hygiene technique 7. Identify and instruct patient/patient sales representative gas service in use of appropriate isolation precautions for identified infection/symptoms 8. Provide and discuss with patient/patient sales representative gas service on educational MDRO sheet 9. Encourage and monitor nutritional status daily and consult nurses director if indicated 10. Implement neutropenic guidelines as needed 11. Review exposure to history of communicable disease and recent travel history on admission 12. Encourage annual influenza vaccine 13. Encourage pneumonia vaccine Outcome: Progressing Note: Evaluation of progress towards goal: no overt s/s infection. Labs/vital signs monitored. Problem: Moderate - High Risk Fall Score Description: Rodriguez Fall Score of =/> 25 or indicated by [facility] Assessment Goal: Patient should be free from fall Description: Interventions: 1. Rogers to environment 2. Hourly rounds addressing the 4 P's (Pain, Positioning, Possessions, Potty) 3. Clear area of hazards (spills, clutter, electrical cords, unnecessary equipment) 4. Place equipment (bed & TV controls, call light, phone, urinal) within reach 5. Encourage patient to wear glasses and hearing aides as appropriate 6. Maintain bed in lowest position 7. Lock wheels on bed/wheelchair 8. Provide adequate lighting, including night light 9. Assess need for additional bedding, food/fluids, pain med's prior to sleep/routinely 10. Provide gripper slippers or personal non-skid footwear 11. Teach patient and patient sales representative gas service to maintain environment for safety and engage in all aspects of fall prevention program 12. Remind patient to call for help before getting out of bed 13. Initiate bed/chair/exit alarms supportive devices as appropriate, (chair wedge, no-skid floor mat, raised edge mattress, hip protectors) 14. Locate patient bed assignment for optimal visualization 15. Evaluate and identify Safe Patient Handling Equipment needs 16. Provide supervision when out of bed or chair 17. Utilize gait belt as needed to assist with ambulation 18. Place adaptive equipment (cane, walker) within reach 19. Request patient sales representative gas service bring adaptive equipment/mobility aids from home or obtain and provide as needed 20. Consult pharmacy regarding effects of med's affecting mobility, cognition, and alternatives 21. Obtain physician order for PT if risk factors associated with mobility are present 22. Obtain physician order for OT as appropriate 23. Utilize diversional activities 24. Educate patient and patient sales representative gas service how to maintain a safe environment during visitation times (notify nurse prior to leaving bedside) 25. Consider appropriateness of medical or non-medical aide 26. Set up voiding schedule as appropriate (every 2 hours) Outcome: Progressing Note: Evaluation of progress towards goal: remains free from falls. Oriented to room, hourly rounding, bed controls, call light. Personal needs met, call light within reach, side rails up x 2. [facility] [employer] [facility] 03-25-2024 Consult note Associated Order (s): Consult Medical Oncology - Hematology & Oncology Consult Medical Oncology - Hematology & Oncology Consult performed by: Deanne Ford MD Consult ordered by: ANKITA Maharaj Tele-Oncology Telemedicine Consult Note Consent Statement: I discussed risks, benefits, and alternatives of a real-time synchronous audiovisual consultation with the patient (and any accompanying persons) including the risks that the patient's personal health details and medical records will be discussed over real-time, synchronous, interactive video/audio/telecommunication technology, the visit will not be recorded without the express consent of both the provider and the patient, and that there are some limitations compared to [id number] evaluations. We elected to proceed. [facility] Consult Deanne Ford MD Reason for consult: Reported antithrombin 3 deficiency, recurrent clot, melena Assessment and recommendations: # antithrombin 3 deficiency # recurrent stroke # recurrent thromboembolism # epistaxis # severe iron-deficiency anemia # melena She has recent severe epistaxis. Her stools did clear since the known episode of epistaxis and subsequently worsened again. This has been associated with severe iron-deficiency anemia. She had a colonoscopy in 2019 and a 10 years scope was recommended. Of note, she is also experiencing some upper esophageal phase dysphagia and may benefit from upper endoscopy which could be done as an outpatient. If there is no gross bleeding in the next day or 2, warfarin can be restarted. For now would hold warfarin as her clinical status is evolving. - GI consulted - consider outpatient EGD - venofer 200mg x5 days, can complete a course as an outpatient - hold warfarin for now - consider ENT eval if signs of epistaxis - Transfuse PRBC to keep hgb >7 - Transfuse platelets to keep >10k or >20k if bleeding Thank you for allowing me to participate in this patient's care Deanne Ford M.D. [facility] Day time contact: After hours answering service: [phone] [place] [address] March 25, 2024, 1:29 PM -------- History of present illness: The patient is a 63 y.o. with AT3 deficiency and strokes. She had a leg DVT in . 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 She has been on chronic warfarin. She had a TIA only 3-4 days ago. Speech was slurred, balance off. In ER for severe epistaxis on 03/03. Placed rhino rocket. No nosebleed in the last week. She had melena after nose bleed. They then normalized in color. Black tarry stools for the last 2 days. No stool today. She was started on oral iron months ago. Last colonoscopy , no biopsy taken. 10 year recommended. No nausea, vomitiung, GERD. At times she has gagging, choking, needs to swallow with a sip of water. Subjective Past Medical History: Diagnosis Date Anemia 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 Anxiety Arrhythmia Irregular HB Arthritis Spine Cataract States early Chest pain Chronic lymphocytic thyroiditis CVA [place]cerebral vascular accident) [place] Left side-mild weakness DDD (degenerative disc disease), lumbar Deep vein thrombosis [place] LLE Dental disease Poor teeth Depression Diabetes mellitus type 2, controlled [place] Checks glucose [id number] Disease of thyroid gland Diverticulitis of colon Dizziness HARRIS (dyspnea on exertion) Facial weakness Fractures Right wrist, left elbow GERD (gastroesophageal reflux disease) Deeptih-deepthi disease Katelyn's thyroiditis Hypercoagulable state [place] Hyperlipidemia Hypertension Hypothyroidism 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 [place] (myocardial [place]) [place] Silent-in past Migraine Morbid obesity [place] MRSA (methicillin resistant Staphylococcus aureus) Posterior left neck-treated Neuropathy Feet Numbness Osteoporosis Pneumonia Rash bilat legs lower belly Restless leg syndrome Sinusitis, chronic Sleep apnea CPAP Stress incontinence Stroke [place] TIA (transient ischemic attack) Several UTI (urinary tract infection) Years ago Ventral hernia Visual impairment Wears corrective lenses Past Surgical History: Procedure Laterality Date SECTION 1979 + 1980 CHOLECYSTECTOMY 2011 COLONOSCOPY 2015 COLONOSCOPY N/A 10/30/2018 Performed by Lottie Martinez DO at [facility] SURGERY ELBOW SURGERY Left 04/27/2013 Fracture repair has hardware- ORIF distal humeral condylar fx EXAM UNDER ANESTHESIA/EXCISION VUVLAR CYST N/A 06/15/2020 Performed by Rich Montalvo MD at [facility] EXCISION CYST ARM Right 10/30/2018 Performed by Lottie Martinez DO at [facility] AM[facility]UL[facility]ORY SURGERY FESS (FUNCTIONAL ENDOSCOPIC SINUS SURGERY) WITH NAVIGATION SYSTEM NASAL, FRONTAL SINSUSOTOMY, SPHENEIDOTOMY Bilateral 06/27/2016 Performed by Yossi Cheatham MD at [facility] HERNIA REPAIR 2012 2 seperate surgeries/ abd hernias HYSTERECTOMY 1982 States still has at least one ovary INCISION DRAINAGE BUTTOCKS Left 02/10/2021 Performed by Xiomara Huffman MD at [facility] NECK SURGERY 2000s MRSA spot on back of neck OVARIAN CYST REMOVAL Right 1984- TUBAL LIGATION 1981 WRIST SURGERY Right 04/27/2013 Has hardware- ORIF distal radius fx Family History Problem Relation Age of Onset Diabetes Mother Hypertension Mother Heart disease Mother Stroke Mother COPD Father Cancer Father Cancer Sister Heart disease Sister Hypertension Sister Diabetes Sister Anesthesia problems Sister Stroke Sister Migraines Sister Cancer Sister Rheumatic fever Brother Social History Socioeconomic History Marital status: Tobacco Use Smoking status: Never Smokeless tobacco: Never Tobacco comments: Been around smokers never have smoked Vaping Use Vaping status: Never Used Substance and Sexual Activity Alcohol use: Not Currently Comment: occ Drug use: No Sexual activity: Defer Partners: Male control/protection: None Comment: , Hyst Other Topics Concern Caffeine Use Yes Social Determinants of Health Food Insecurity: No Food Insecurity (03/24/2024) Hunger Screening Food Insecurity - Worry: Never True Food Insecurity - Inability: Never True Transportation Needs: No Transportation Needs (03/24/2024) PRAPARE - Transportation Lack of Transportation (Medical): No Lack of Transportation (Non-Medical): No Interpersonal Safety: Not At Risk (03/24/2024) Humiliation, Afraid, Rape, and Kick questionnaire Fear of Current or Ex-Partner: No Emotionally Abused: No Physically Abused: No Sexually Abused: No Housing Instability: Low Risk (03/24/2024) Housing Instability Housing Instability: No Allergies Allergen Reactions Adhesive Dermatitis Dicloxacillin Sodium Hives Lincomycin Hcl Hives Lipitor [Atorvastatin] Elevated LFT's Penicillins Hives Atarax [Hydroxyzine Hcl] Itching Exacerbated previous condition Ceclor [Cefaclor] Rash Clindamycin Rash Hydroxyzine Pamoate Itching Severe itching, exacerbated previous condition. No swelling, hives Latex Rash Latex, Natural Rubber Itching Warfarin Hives FATIGUE,CONSTIPATION Review of Systems Constitutional: Positive for unexpected weight change (10lbs). HENT: Positive for nosebleeds. Respiratory: Negative for shortness of breath. Cardiovascular: Negative for chest pain. Gastrointestinal: Negative for nausea and vomiting. Genitourinary: Negative for hematuria. Musculoskeletal: Negative for gait problem. Skin: Negative for rash. Neurological: Negative for numbness. Hematological: Bruises/bleeds easily. Physical Exam: Vitals: BP 154/72 Pulse 69 Temp 36 C (96.8 F) (Axillary) Resp 16 Ht 162.6 cm (5' 4 ) Wt 102.3 kg (225 lb 8.5 oz) SpO2 99% BMI 38.71 kg/m Body mass index is 38.71 kg/m . Pain Score: 0 Wt Readings from Last 3 Encounters: 03/24/24 102.3 kg (225 lb 8.5 oz) 03/24/24 101.2 kg (223 lb) 03/03/24 111.6 kg (246 lb) General: chornically ill appearing, in no acute distress. Eyes: No icterus, no conjuctival erythema Respiratory: Respirations were non-labored. Abdomen: Nondistended. Inpatient scheduled medication: atorvastatin, 40 mg, oral, Nightly carvediloL, 3.125 mg, oral, BID ferrous sulfate, 325 mg, oral, Daily with breakfast folic acid, 1,000 mcg, oral, Daily levothyroxine, 150 mcg, oral, Daily pantoprazole, 40 mg, intravenous, Q12H rOPINIRole, 2 mg, oral, Nightly sertraline, 100 mg, oral, Daily Recent Labs Recent Results (from the past 72 hour(s)) POCT Protime / INR Collection Time: 03/24/24 12:00 AM Result Value Ref Range INR 1.9 (A) 0.8 - 1.2 ABO Rh Repeat Collection Time: 03/24/24 3:30 PM Result Value Ref Range ABO B RH Positive CBC auto differential Collection Time: 03/24/24 3:50 PM Result Value Ref Range White Blood Cells 11.2 (H) 4.0 - 11.0 X10E9/L RBC count 4.71 3.80 - 5.20 X10E12/L Hemoglobin 8.6 (L) 11.7 - 15.5 g/dL Hematocrit 28.1 (L) 35 - 47 % MCV 60 (L) 80 - 100 fL MCH 18.1 (L) 27 - 34 pg MCHC 30.5 (L) 32 - 36 g/dL RDW 19.7 (H) 11.5 - 15.0 % Platelets 361 150 - 450 X10E9/L MPV 8.2 7 - 12 fL Seg neutrophil 77.0 % Lymphocyte 19.2 % Eosinophil 3.8 % Neutrophils Absolute (M) 8.6 (H) 1.5 - 6.6 X10E9/L Lymphocytes Absolute 2.2 1.0 - 3.5 X10E9/L Eosinophils Absolute 0.4 0.0 - 0.4 X10E9/L Hypochromia 1+ (A) NONE^NONE Polychromasia 1+ (A) NONE^NONE Basic Metabolic Panel Collection Time: 03/24/24 3:50 PM Result Value Ref Range Sodium 137 134 - 146 mmol/L Potassium, Bld 3.8 3.5 - 5.0 mmol/L Chloride 105 98 - 109 mmol/L CO2 22 22 - 32 mmol/L Anion gap 10 5 - 15 mmol/L BUN 12 5 - 27 mg/dL Creatinine 0.99 0.40 - 1.00 mg/dL Glucose 157 (H) 65 - 99 mg/dL Calcium 9.2 8.5 - 10.5 mg/dL eGFR (CKD-EPI)non-race dependent 64 >59 ml/min/1.73sq.m Lactate w/ Reflex Collection Time: 03/24/24 3:50 PM Result Value Ref Range Lactate w/ Reflex 3.7 (H) 0.4 - 2.0 mmol/L Troponin I, High Sensitivity Collection Time: 03/24/24 3:50 PM Result Value Ref Range Troponin I, High Sensitivity 3 <16 ng/L Protime & INR Collection Time: 03/24/24 3:50 PM Result Value Ref Range Protime 22.7 (H) 9.8 - 13.2 sec Inr 2.0 (H) 0.8 - 1.1 B-type natriuretic peptide Collection Time: 03/24/24 3:50 PM Result Value Ref Range BNP 51 <100.0 pg/mL Type and screen(includes indirect armen) Collection Time: 03/24/24 4:30 PM Result Value Ref Range ABO B RH Positive Antibody Screen Negative Troponin I, High Sensitivity 1 Hour Collection Time: 03/24/24 4:55 PM Result Value Ref Range 1 Hour Trop I, High Sensitivity 3 <16 ng/L Er Extra Urine Collection Time: 03/24/24 5:20 PM Result Value Ref Range ER Extra Urine ER EXTRA URINE ORDER IN PROCESS POCT Nursing Urine Macroscopic UA Collection Time: 03/24/24 5:26 PM Result Value Ref Range Specific gravity STEPH 1.020 1.003 - 1.035 Leukocyte esterase STEPH Trace (A) Negative^Negative Nitrite STEPH Negative Negative^Negative Ph 5.5 5.0 - 8.5 Protein STEPH Negative Negative^Negative mg/dL Urine glucose STEPH Negative Negative^Negative mg/dL Ketones STEPH Negative Negative^Negative mg/dL Urobilinogen STEPH 0.2 <1.1 eu/dL Bilirubin STEPH Negative Negative^Negative Hemoglobin STEPH Negative Negative^Negative Lactate Collection Time: 03/24/24 7:50 PM Result Value Ref Range Lactate 2.9 (H) 0.4 - 2.0 mmol/L Hemoglobin and hematocrit, blood Collection Time: 03/24/24 9:05 PM Result Value Ref Range Hemoglobin 7.6 (L) 11.7 - 15.5 g/dL Hematocrit 25.1 (L) 35 - 47 % Bedside Glucose *Place/Obtain serum glucose if >500(>600 MRH) per glucometer. Collection Time: 03/25/24 12:30 AM Result Value Ref Range Bedside glucose 137 (H) 65 - 99 mg/dL CBC auto differential Collection Time: 03/25/24 3:42 AM Result Value Ref Range White Blood Cells 8.5 4.0 - 11.0 X10E9/L RBC count 4.16 3.80 - 5.20 X10E12/L Hemoglobin 7.4 (L) 11.7 - 15.5 g/dL Hematocrit 24.6 (L) 35 - 47 % MCV 59 (L) 80 - 100 fL MCH 17.9 (L) 27 - 34 pg MCHC 30.2 (L) 32 - 36 g/dL RDW 19.2 (H) 11.5 - 15.0 % Platelets 270 150 - 450 X10E9/L MPV 8.1 7 - 12 fL % neutrophils 71.1 % % lymphocytes 16.9 % % monocytes 7.8 % % eosinophils 3.6 % % Basophils 0.6 % Neutrophils Absolute (A) 6.1 1.5 - 6.6 X10E9/L Lymphocytes Absolute 1.4 1.0 - 3.5 X10E9/L Monocytes Absolute 0.7 0 - 0.9 X10E9/L Eosinophils Absolute 0.3 0.0 - 0.4 X10E9/L Basophils Absolute 0.1 0.0 - 0.2 X10E9/L Hypochromia 1+ (A) NONE^NONE Basic Metabolic Panel Collection Time: 03/25/24 3:42 AM Result Value Ref Range Sodium 138 134 - 146 mmol/L Potassium, Bld 3.5 3.5 - 5.0 mmol/L Chloride 107 98 - 109 mmol/L CO2 25 22 - 32 mmol/L Anion gap 6 5 - 15 mmol/L BUN 11 5 - 27 mg/dL Creatinine 0.90 0.40 - 1.00 mg/dL Glucose 151 (H) 65 - 99 mg/dL Calcium 8.4 (L) 8.5 - 10.5 mg/dL eGFR (CKD-EPI)non-race dependent 71 >59 ml/min/1.73sq.m Iron and TIBC Collection Time: 03/25/24 3:42 AM Result Value Ref Range Iron <10 (L) 50 - 170 ug/dL Tibc-calc only do not order 524 (H) 250 - 425 ug/dL Iron Saturation <2 (L) 15 - 50 % SATURATION Ferritin Collection Time: 03/25/24 3:42 AM Result Value Ref Range Ferritin 4 (L) 11 - 307 ng/mL Protime & INR Collection Time: 03/25/24 3:42 AM Result Value Ref Range Protime 24.9 (H) 9.8 - 13.2 sec Inr 2.2 (H) 0.8 - 1.1 Bedside Glucose *Place/Obtain serum glucose if >500(>600 MRH) per glucometer. Collection Time: 03/25/24 6:27 AM Result Value Ref Range Bedside glucose 158 (H) 65 - 99 mg/dL Lactate w/ Reflex Collection Time: 03/25/24 8:24 AM Result Value Ref Range Lactate w/ Reflex 1.2 0.4 - 2.0 mmol/L Bedside Glucose *Place/Obtain serum glucose if >500(>600 MRH) per glucometer. Collection Time: 03/25/24 11:52 AM Result Value Ref Range Bedside glucose 154 (H) 65 - 99 mg/dL FFP setup:Number of Units: 1 Collection Time: 03/25/24 12:52 PM Result Value Ref Range Blood component type [id number] Unit number [id number] Unit ABO B Unit RH POS Status of unit /RELEASED Expiration Date BB Type Barcode 7300 Blood component type [id number] Unit number [id number] Unit ABO B Unit RH POS Status of unit ISSUED Expiration Date BB Type Barcode 7300 Recent Imaging: X-ray chest 2 views Result Date: 03/25/2024 Narrative: CLINICAL HISTORY: Shortness of breath Comparison: 01/28/2023 Views: 2 view FINDINGS: * No acute infiltrate. No volume loss nor consolidation. There is no pleural effusion, pneumothorax, nor volume loss. Heart and mediastinal structures are unremarkable. Pulmonary vasculature stable. Degenerative changes thoracic spine. Old right rib fractures. IMPRESSION: * No active disease nor significant interval change Finalized by Ramiro Alvarado MD on 03/25/2024 5:[address] abdomen and pelvis with contrast Result Date: 03/24/2024 Narrative: CLINICAL HISTORY: Lower GI bleeding. CT ABDOMEN AND PELVIS WITH CONTRAST: 03/24/2024 COMPARISON: 10/20/2015 PROCEDURE: Axial images were obtained through the abdomen and pelvis after oral contrast ingestion and 100 mL Omnipaque 300 intravenously. Coronal and sagittal reconstructions were performed. All CT scans at this facility use dose modulation, iterative reconstruction, and/or weight based dosing when appropriate to reduce radiation dose to as low as reasonably achievable. FINDINGS : The visualized lower lungs and pleural spaces are clear. No focal hepatic or splenic abnormality is evident. The pancreas, gallbladder, and biliary tree are within normal limits. The kidneys enhance symmetrically. A right superior pole lesion contains fat and is compatible with an angiomyolipoma. This measures up to 1.8 cm. There is no ureteral dilation or urinary bladder irregularity. No dilated bowel loops are present. Diverticula are present within the descending colon and sigmoid region with no acute inflammatory changes. There is some heterogeneous density within the cecum with areas of slightly hyperdense appearance at the lateral cecum on axial image 46 and coronal image 45. This is near the ileocecal valve. No focal bowel lesion is evident. Vascular structures enhance normally. Mild atherosclerotic calcification is present within the abdominal aorta. L4 superior endplate fracture appears subacute. Degenerative changes are present throughout the [place] spine. Some narrowing of the spinal canal is present at the thoracolumbar region with ossification of posterior longitudinal ligament. IMPRESSION: No definite cause of GI bleeding is present but there is some hyperdensity in the cecal region which could represent acute intra-abdominal contrast/blood. No other acute intra-abdominal or pelvic abnormality on CT evaluation. Lumbar degenerative and posttraumatic findings without a definite acute abnormality. 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 Finalized by Ulysses Pérez MD on 03/24/2024 6:[address] brain without contrast Result Date: 03/24/2024 Narrative: CT BRAIN WITHOUT CONTRAST COMPARISON: 07/12/2023 HISTORY: Transient alteration of awareness. Dizziness TECHNIQUE: Unenhanced axial images of the brain were obtained. Automatic exposure control (AEC) was utilized. FINDINGS: There is no evidence for acute intracranial hemorrhage. There is no hydrocephalus, mass effect, or midline shift. Aguilar-white differentiation is preserved with no CT evidence for an acute infarct. IMPRESSION: No evidence for an acute intracranial process. All CT scans at this facility use dose modulation, iterative reconstruction, and/or weight based dosing when appropriate to reduce radiation dose to as low as reasonably achievable. Finalized by Kori Robert DO on 03/24/2024 5:54 PM [facility] 03-25-2024 Progress note Formatting of t his note is different from the original. 03/25/24 1009 Services Requested Discharge Disposition Home with home health services Facility/Service Name [facility] Facility/Service Fax number [phone] or [phone] fax Facility/Service Does the patient need discharge transportation arranged? No Patient choice offered Yes List Provided Patient declined Patient Declined Active with Provider Initial DC Assessment Completed Yes DC Planning Complete Discharge Milestones Yes DISCHARGE PLANNING NOTE Pt was discussed in Transition Rounds. Chart reviewed. Pt was admitted under Observation status for Melena. Therapy was ordered and SNF was recommended. SW spoke to pt who said she would like to go home with [facility]. Pt has used them in the past. Pt has support from daughter, who was visiting at bedside, and spouse. Pt lives in one story home with 2 entry steps. Pt uses RW. Pt denied need for food, Rx and appointment assistance. Referral sent to [facility]. will continue to follow patient. [facility] 03-25-2024 Progress note Formatting of t his note might be different from the original. DISCHARGE PLANNING NOTE Referral sent to. [facility] Page- P# ; F# [facility] 03-25-2024 Consult note Associated Order (s): IP CONSULT TO GASTROENTEROLOGY Images from the original note were not included. [facility] Gastroenterology & Hepatology Consultation Note IDENTIFYING DATA PATIENT: Robb Crystal ADMIT DATE: 03/24/2024 TIME OF EVALUATION: 03/25/2024 9:55 AM Reason for Consult: Melena/anemia HISTORY OF PRESENT ILLNESS Robb Crystal is a 63 y.o. female who has a past medical history of Anemia, 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 [place] Anxiety, Arrhythmia, Arthritis, Cataract, Chest pain, Chronic lymphocytic thyroiditis, CVA (cerebral vascular accident) [place] (), DDD (degenerative disc disease), lumbar, Deep vein thrombosis [place] (), Dental disease, Depression, Diabetes mellitus type 2, controlled ([facility] Disease of thyroid gland, Diverticulitis of colon, Dizziness, HARRIS (dyspnea on exertion), Facial weakness, Fractures, GERD (gastroesophageal reflux disease), Deepthi-deepthi disease, Katelyn's thyroiditis, Hypercoagulable state [place] Hyperlipidemia, Hypertension, Hypothyroidism, Memory loss, NH (myocardial infarction) [place] Migraine, Morbid obesity [place] MRSA (methicillin resistant Staphylococcus aureus) (), Neuropathy, Numbness, Osteoporosis, Pneumonia, Rash, Restless leg syndrome, Sinusitis, chronic, Sleep apnea, Stress incontinence, Stroke [place] TIA (transient ischemic attack), UTI (urinary tract infection), Ventral hernia, and Visual impairment. She GASTROENTEROLOGY/HEPATOLOGY HISTORY Patient is admitted for orthostatic hypotension dizziness. 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 Patient has a history of epistaxis twice seen in the emergency department. Hemoglobin 7.4 today baseline hemoglobin normal. Normal BUN to creatinine ratio. Patient has had a colonoscopy 2018. EGD many years ago. Daughter by bedside. Patient reports having heavy episodes of epistaxis for about a week duration. She started experiencing melena about 3 days ago. Last bowel movement about 2 days ago. No epigastric pain. No nausea no vomiting. No coffee-ground emesis no hematemesis. No hematochezia. No NSAID use. PAST MEDICAL, SURGICAL, FAMILY, and SOCIAL HISTORY Past Medical History: Diagnosis Date Anemia 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 [place] Anxiety Arrhythmia Irregular HB Arthritis Spine Cataract States early Chest pain Chronic lymphocytic thyroiditis CVA (cerebral vascular accident) [place] Left side-mild weakness DDD (degenerative disc disease), lumbar Deep vein thrombosis [place] LLE Dental disease Poor teeth Depression Diabetes mellitus type 2, controlled [place] Checks glucose [id number] Disease of thyroid gland Diverticulitis of colon Dizziness HARRIS (dyspnea on exertion) Facial weakness Fractures Right wrist, left elbow GERD (gastroesophageal reflux disease) Deepthi-deepthi disease Katelyn's thyroiditis Hypercoagulable state [place] Hyperlipidemia Hypertension Hypothyroidism 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 NH (myocardial infarction) [place] Silent-in past Migraine Morbid obesity [place] MRSA (methicillin resistant Staphylococcus aureus) 2000s Posterior left neck-treated Neuropathy Feet Numbness Osteoporosis Pneumonia Rash bilat legs lower belly Restless leg syndrome Sinusitis, chronic Sleep apnea CPAP Stress incontinence Stroke [place] TIA (transient ischemic attack) Several UTI (urinary tract infection) Years ago Ventral hernia Visual impairment Wears corrective lenses Past Surgical History: Procedure Laterality Date SECTION 1979 + 1980 CHOLECYSTECTOMY 2011 COLONOSCOPY 2016 COLONOSCOPY N/A 10/30/2018 Performed by Lottie Martinez DO at [facility] SURGERY ELBOW SURGERY Left 04/27/2013 Fracture repair has hardware- ORIF distal humeral condylar fx EXAM UNDER ANESTHESIA/EXCISION VUVLAR CYST N/A 06/15/2020 Performed by Rich Montalvo MD at [facility] EXCISION CYST ARM Right 10/30/2018 Performed by Lottie Martinez DO at [facility] AMBULATORY SURGERY FESS (FUNCTIONAL ENDOSCOPIC SINUS SURGERY) WITH NAVIGATION SYSTEM NASAL, FRONTAL SINSUSOTOMY, SPHENEIDOTOMY Bilateral 06/27/2016 Performed by Yossi Cheatham MD at [facility] HERNIA REPAIR 2012 2 seperate surgeries/ abd hernias HYSTERECTOMY 1981 States still has at least one ovary INCISION DRAINAGE BUTTOCKS Left 02/10/2021 Performed by Xiomara Huffman MD at [facility] NECK SURGERY 2000s MRSA spot on back of neck OVARIAN CYST REMOVAL Right 1984- TUBAL LIGATION 1981 WRIST SURGERY Right 04/27/2013 Has hardware- ORIF distal radius fx Family History Problem Relation Age of Onset Diabetes Mother Hypertension Mother Heart disease Mother Stroke Mother COPD Father Cancer Father Cancer Sister Heart disease Sister Hypertension Sister Diabetes Sister Anesthesia problems Sister Stroke Sister Migraines Sister Cancer Sister Rheumatic fever Brother Social History: Social History Tobacco Use Smoking status: Never Smokeless tobacco: Never Tobacco comments: Been around smokers never have smoked Vaping Use Vaping status: Never Used Substance Use Topics Alcohol use: Not Currently Comment: occ Drug use: No MEDICATIONS Allergies: Allergies Allergen Reactions Adhesive Dermatitis Dicloxacillin Sodium Hives Lincomycin Hcl Hives Lipitor [Atorvastatin] Elevated LFT's Penicillins Hives Atarax [Hydroxyzine Hcl] Itching Exacerbated previous condition Ceclor [Cefaclor] Rash Clindamycin Rash Hydroxyzine Pamoate Itching Severe itching, exacerbated previous condition. No swelling, hives Latex Rash Latex, Natural Rubber Itching Warfarin Hives FATIGUE,CONSTIPATION Medications Prior to Admission Medication Sig Dispense Refill Last Dose acetaminophen-codeine (TYLENOL #3) 300-30 mg per tablet Take 1 tablet by mouth every 4 (four) hours as needed for pain. albuterol (PROVENTIL HFA;VENTOLIN HFA) 90 mcg/actuation inhaler INHALE 2 PUFFS EVERY 4 HOURS NEEDED FOR WHEEZING OR SHORTNESS OF BREATH (Patient taking differently: Inhale 1 puff every 4 (four) hours as needed for wheezing or shortness of breath.) 8.5 g 3 atorvastatin (LIPITOR) 40 mg tablet take 1 tablet by mouth every day 90 tablet 3 03/23/2024 calcium citrate/vitamin D3 (CALCIUM CITRATE + D ORAL) Take 1 tablet by mouth in the morning and 1 tablet before bedtime. 03/23/2024 carvediloL (COREG) 3.125 mg tablet TAKE 1 TABLET (3.125 MG TOTAL) BY MOUTH IN THE MORNING AND 1 TABLET (3.125 MG TOTAL) BEFORE BEDTIME. 180 tablet 1 03/23/2024 docosahexanoic acid/epa (FISH OIL ORAL) Take 2 tablets by mouth nightly. 03/23/2024 ergocalciferol (DRISDOL) 1,250 mcg (50,000 unit) capsule Take 1 tablet two times weekly: on Saturday and Saturday 24 capsule 3 Past Week ferrous sulfate 325 (65 FE) mg EC tablet TAKE 1 TABLET (325 MG TOTAL) BY MOUTH IN THE MORNING 90 tablet 1 03/23/2024 folic acid (FOLVITE) 1 mg tablet take 1 tablet by mouth every day 90 tablet 1 03/23/2024 furosemide (LASIX) 20 mg tablet take 1 tablet by mouth every day 90 tablet 1 03/23/2024 JANTOVEN 5 mg tablet Take 1-1.5 tablets (5-7.5 mg total) by mouth in the evening. As directed by Aimee DALY. (Patient taking differently: Take 1-1.5 tablets (5-7.5 mg total) by mouth in the evening. As directed by Aimee DALY Mon, Wed., & Fri takes 1.5 tablets, Sun. ., ., & Sat. Takes 1 tablet.) 135 tablet 1 03/23/2024 levothyroxine (SYNTHROID, LEVOTHROID) 150 MCG tablet take 1 tablet by mouth every day 90 tablet 1 03/23/2024 losartan (COZAAR) 50 mg tablet TAKE 1 TABLET (50 MG TOTAL) BY MOUTH IN THE MORNING 90 tablet 1 03/23/2024 metFORMIN (GLUCOPHAGE) 1000 mg tablet Take 1 tablet (1,000 mg total) by mouth in the morning and 1 tablet (1,000 mg total) before bedtime. 180 tablet 3 03/23/2024 rOPINIRole (REQUIP) 1 mg tablet Take 2 tablets (2 mg total) by mouth nightly. 3 03/23/2024 sertraline (ZOLOFT) 100 mg tablet TAKE 1 TABLET BY MOUTH EVERY DAY 90 tablet 2 03/23/2024 triamcinolone (KENALOG) 0.1 % paste Apply 1 Application to teeth in the morning and 1 Application before bedtime. blood sugar diagnostic (glucose blood) strip Check BID 100 strip 5 TRUE METRIX GLUCOSE METER [facility] [place] See Admin Instructions. Current Medications: Current Facility-Administered Medications: atorvastatin (LIPITOR) tablet 40 mg, 40 mg, oral, Nightly, ANKITA Maharaj, 40 mg at 03/24/242210 carvediloL (COREG) tablet 3.125 mg, 3.125 mg, oral, BID, ANKITA Maharaj, 3.125 mg at 03/25/24 08 dextrose (GLUTOSE) 40 % gel 15 g, 15 g, oral, PRN, ANKITA Maharaj dextrose 5 % (D5W) infusion, 100 mL/hr, intravenous, Continuous PRN, ANKITA Maharaj dextrose 50 % in water (D50W) 50% solution 25 mL, 25 mL, intravenous, PRN, ANKITA Maharaj ferrous sulfate tablet 325 mg, 325 mg, oral, Daily with breakfast, ANKITA Maharaj, 325 mg at 03/25/24 08 folic acid (FOLVITE) tablet 1,000 mcg, 1,000 mcg, oral, Daily, ANKITA Maharaj, 1,000 mcg at 03/25/24 08 glucagon HCL injection 1 mg, 1 mg, intramuscular, PRN, ANKITA Maharaj levothyroxine (SYNTHROID, LEVOTHROID) tablet 150 mcg, 150 mcg, oral, Daily, ANKITA Maharaj, 150 mcg at 03/25/24 05 pantoprazole (PROTONIX) injection 40 mg, 40 mg, intravenous, Q12H, ANKITA Maharaj, 40 mg at 03/25/24 05 rOPINIRole (REQUIP) tablet 2 mg, 2 mg, oral, Nightly, ANKITA Maharaj, 2 mg at 03/24/242210 sertraline (ZOLOFT) tablet 100 mg, 100 mg, oral, Daily, ANKITA Maharaj, 100 mg at 03/25/24 0846 sodium chloride 0.9 % flush 10 mL, 10 mL, intravenous, PRN, Consuelo Medina, SUPERVISOR SMOKE CONTROL-INSTALLATION SERVICE REPRESENTATIVE, 10 mL at 03/24/24 1748 sodium chloride 0.9 % flush bag, 25 mL, intravenous, PRN, Consuelo Medina, SUPERVISOR SMOKE CONTROL-INSTALLATION SERVICE REPRESENTATIVE sodium chloride 0.9 % infusion, 20 mL/hr, intravenous, Continuous PRN, Consuelo Medina, SUPERVISOR SMOKE CONTROL-INSTALLATION SERVICE REPRESENTATIVE sodium chloride 0.9 % infusion, 100 mL/hr, intravenous, Continuous, Consuelo Medina, SUPERVISOR SMOKE CONTROL-INSTALLATION SERVICE REPRESENTATIVE, Last Rate: 100 mL/hr at 03/25/24 0850, 100 mL/hr at 03/25/24 0850 sodium chloride 0.9 % infusion, 20 mL/hr, intravenous, Continuous PRN, Consuelo Medina, SUPERVISOR SMOKE CONTROL-INSTALLATION SERVICE REPRESENTATIVE PRNs: dextrose, 15 g, PRN dextrose 5 % in water, 100 mL/hr, Continuous PRN dextrose 50 % in water (D50W), 25 mL, PRN glucagon (human recombinant), 1 mg, PRN sodium chloride, 10 mL, PRN sodium chloride, 25 mL, PRN sodium chloride 0.9 %, 20 mL/hr, Continuous PRN sodium chloride 0.9 %, 20 mL/hr, Continuous PRN REVIEW OF SYSTEMS See HPI, otherwise ROS negative as below CONSTITUTIONAL: negative HEENT: negative RESPIRATORY: negative CARDIOVASCULAR: negative GASTROINTESTINAL: as in HPI GENITOURINARY: negative INTEGUMENT/BREAST: negative HEMATOLOGIC/LYMPHATIC: negative ALLERGIC/IMMUNOLOGIC: negative ENDOCRINE: negative MUSCULOSKELETAL: negative NEUROLOGICAL: negative BEHAVIOR/PSYCH: negative OBJECTIVE DATA Vitals: BP 149/65 Pulse 76 Temp 36.7 C (98.1 F) (Oral) Resp 16 Ht 162.6 cm (5' 4 ) Wt 102.3 kg (225 lb 8.5 oz) SpO2 98% BMI 38.71 kg/m CONSTITUTIONAL: awake, alert and no apparent distress LUNGS: No increased work of breathing, good air exchange, clear to auscultation bilaterally, no crackles or wheezing CARDIOVASCULAR: regular rate and rhythm, normal S1 and S2 ABDOMEN: normal bowel sounds, soft, non-distended and non-tender NEURO: no focal deficits, moves all 4 extremities spontaneously LABS AND IMAGING CBC: Lab Results Component Value Date WBC 8.5 03/25/2024 HGB 7.4 (L) 03/25/2024 HCT 24.6 (L) 03/25/2024 MCV 59 (L) 03/25/2024 PLT 270 03/25/2024 CMP: Lab Results Component Value Date K 3.5 03/25/2024 CL 107 03/25/2024 CO2 25 03/25/2024 BUN 11 03/25/2024 GLU 158 (H) 03/25/2024 GLU 151 (H) 03/25/2024 Lipase: No results found for: LIPASE PT/INR: Lab Results Component Value Date INR 2.2 (H) 03/25/2024 INR 2.0 (H) 03/24/2024 INR 1.9 (A) 03/24/2024 PROTIME 24.9 (H) 03/25/2024 PROTIME 22.7 (H) 03/24/2024 PROTIME 26.9 (H) 03/03/2024 TSH: Lab Results Component Value Date TSH 1.95 03/15/2023 VITAMIN B12: Lab Results Component Value Date [id number] 292 04/05/2022 FOLATE: Lab Results Component Value Date FOLATE >25.0 04/05/2022 IRON: Lab Results Component Value Date IRON <10 (L) 03/25/2024 TIBC 524 (H) 03/25/2024 FERRITIN 4 (L) 03/25/2024 Lab Results Component Value Date ANASCREEN Negative 11/27/2013 MICRO Microbiology Results Procedure Component Value Units Date/Time Urine culture [[id number]] Collected: 03/24/24 172 Specimen: Urine Updated: 03/25/24919 IMAGING: X-ray chest 2 views Result Date: 03/25/2024 Narrative: CLINICAL HISTORY: Shortness of breath Comparison: 01/28/2023 Views: 2 view FINDINGS: * No acute infiltrate. No volume loss nor consolidation. There is no pleural effusion, pneumothorax, nor volume loss. Heart and mediastinal structures are unremarkable. Pulmonary vasculature stable. Degenerative changes thoracic spine. Old right rib fractures. IMPRESSION: * No active disease nor significant interval change Finalized by Ramiro Alvarado MD on 03/25/2024 5:[address] abdomen and pelvis with contrast Result Date: 03/24/2024 Narrative: CLINICAL HISTORY: Lower GI bleeding. CT ABDOMEN AND PELVIS WITH CONTRAST: 03/24/2024 COMPARISON: 10/20/2015 PROCEDURE: Axial images were obtained through the abdomen and pelvis after oral contrast ingestion and 100 mL Omnipaque 300 intravenously. Coronal and sagittal reconstructions were performed. All CT scans at this facility use dose modulation, iterative reconstruction, and/or weight based dosing when appropriate to reduce radiation dose to as low as reasonably achievable. FINDINGS : The visualized lower lungs and pleural spaces are clear. No focal hepatic or splenic abnormality is evident. The pancreas, gallbladder, and biliary tree are within normal limits. The kidneys enhance symmetrically. A right superior pole lesion contains fat and is compatible with an angiomyolipoma. This measures up to 1.8 cm. There is no ureteral dilation or urinary bladder irregularity. No dilated bowel loops are present. Diverticula are present within the descending colon and sigmoid region with no acute inflammatory changes. There is some heterogeneous density within the cecum with areas of slightly hyperdense appearance at the lateral cecum on axial image 46 and coronal image 45. This is near the ileocecal valve. No focal bowel lesion is evident. Vascular structures enhance normally. Mild atherosclerotic calcification is present within the abdominal aorta. L4 superior endplate fracture appears subacute. Degenerative changes are present throughout the [place] spine. Some narrowing of the spinal canal is present at the thoracolumbar region with ossification of posterior longitudinal ligament. IMPRESSION: No definite cause of GI bleeding is present but there is some hyperdensity in the cecal region which could represent acute intra-abdominal contrast/blood. No other acute intra-abdominal or pelvic abnormality on CT evaluation. Lumbar degenerative and posttraumatic findings without a definite acute abnormality. 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 Finalized by Ulysses Pérez MD on 03/24/2024 6:[address] brain without contrast Result Date: 03/24/2024 Narrative: CT BRAIN WITHOUT CONTRAST COMPARISON: 07/12/2023 HISTORY: Transient alteration of awareness. Dizziness TECHNIQUE: Unenhanced axial images of the brain were obtained. Automatic exposure control (AEC) was utilized. FINDINGS: There is no evidence for acute intracranial hemorrhage. There is no hydrocephalus, mass effect, or midline shift. Aguilar-white differentiation is preserved with no CT evidence for an acute infarct. IMPRESSION: No evidence for an acute intracranial process. All CT scans at this facility use dose modulation, iterative reconstruction, and/or weight based dosing when appropriate to reduce radiation dose to as low as reasonably achievable. Finalized by Kori Robert DO on 03/24/2024 5:54 PM Consults IP CONSULT TO GASTROENTEROLOGY ASSESSMENT AND PLAN Principal Problem: Melena Active Problems: longterm (current) use of anticoagulants [Z79.01] Essential hypertension History of stroke 1993 Obstructive sleep apnea syndrome Deepthi-deepthi disease 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CMS-HCC) Acquired hypothyroidism Blood loss anemia Frequent falls Chronic depression Epistaxis. Melena. Acute anemia. Hemodynamically stable. No NSAID use. Melena most likely related to epistaxis. Patient not interested in endoscopy at the moment. Recommend acid suppressive therapy pantoprazole 40 mg twice daily. ENT evaluation. Continue trending hemoglobin. Follow up outpatient. If you have any questions or need any further information, please feel free to contact the GI Consult Service. Thank you for allowing us to participate in the care of Robb Crystal. This note is dictated with the use of [employer], a computer voice recognition software. Quite often unanticipated grammatical, syntax, homophones, and other interpretive errors are inadvertently transcribed by the computer software. Please disregard these errors and please excuse any errors that have escaped final proofreading. Denise Gonzalez MD, MPH Gastroenterology & Hepatology [employer] [address], [address] [place] [address] PH: [phone] [employer] Work Phone: 03-25-2024 Consult note Associated Order (s): IP CONSULT TO GASTROENTEROLOGY Images from the original note were not included. [facility] Gastroenterology & Hepatology Consultation Note IDENTIFYING DATA PATIENT: Robb Crystal ADMIT DATE: 03/24/2024 TIME OF EVALUATION: 03/25/2024 9:55 AM Reason for Consult: Melena/anemia HISTORY OF PRESENT ILLNESS Robb Crystal is a 63 y.o. female who has a past medical history of Anemia, 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CMS-HCC), Anxiety, Arrhythmia, Arthritis, Cataract, Chest pain, Chronic lymphocytic thyroiditis, [place] DDD (degenerative disc disease), lumbar, Deep vein thrombosis [place] (), Dental disease, Depression, Diabetes mellitus type 2, controlled [place] Disease of thyroid gland, Diverticulitis of colon, Dizziness, HARRIS (dyspnea on exertion), Facial weakness, Fractures, GERD (gastroesophageal reflux disease), Deepthi-deepthi disease, Katelyn's thyroiditis, Hypercoagulable state [place] Hyperlipidemia, Hypertension, Hypothyroidism, Memory loss, NH (myocardial infarction) [place] Migraine, Morbid obesity [place] MRSA (methicillin resistant Staphylococcus aureus) (), Neuropathy, Numbness, Osteoporosis, Pneumonia, Rash, Restless leg syndrome, Sinusitis, chronic, Sleep apnea, Stress incontinence, Stroke [place] TIA (transient ischemic attack), UTI (urinary tract infection), Ventral hernia, and Visual impairment. She GASTROENTEROLOGY/HEPATOLOGY HISTORY Patient is admitted for orthostatic hypotension dizziness. 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 Patient has a history of epistaxis twice seen in the emergency department. Hemoglobin 7.4 today baseline hemoglobin normal. Normal BUN to creatinine ratio. Patient has had a colonoscopy 2018. EGD many years ago. Daughter by bedside. Patient reports having heavy episodes of epistaxis for about a week duration. She started experiencing melena about 3 days ago. Last bowel movement about 2 days ago. No epigastric pain. No nausea no vomiting. No coffee-ground emesis no hematemesis. No hematochezia. No NSAID use. PAST MEDICAL, SURGICAL, FAMILY, and SOCIAL HISTORY Past Medical History: Diagnosis Date Anemia 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 Anxiety Arrhythmia Irregular HB Arthritis Spine Cataract States early Chest pain Chronic lymphocytic thyroiditis CVA (cerebral vascular accident) [place] Left side-mild weakness DDD (degenerative disc disease), lumbar Deep vein thrombosis [place] LLE Dental disease Poor teeth Depression Diabetes mellitus type 2, controlled [place] Checks glucose [id number] Disease of thyroid gland Diverticulitis of colon Dizziness HARRIS (dyspnea on exertion) Facial weakness Fractures Right wrist, left elbow GERD (gastroesophageal reflux disease) Deepthi-deepthi disease Katelyn's thyroiditis Hypercoagulable state [place] Hyperlipidemia Hypertension Hypothyroidism 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 NH (myocardial infarction) [place] Silent-in past Migraine Morbid obesity [place] MRSA (methicillin resistant Staphylococcus aureus) 2000s Posterior left neck-treated Neuropathy Feet Numbness Osteoporosis Pneumonia Rash bilat legs lower belly Restless leg syndrome Sinusitis, chronic Sleep apnea CPAP Stress incontinence Stroke [place] TIA (transient ischemic attack) Several UTI (urinary tract infection) Years ago Ventral hernia Visual impairment Wears corrective lenses Past Surgical History: Procedure Laterality Date SECTION 1979 + 1980 CHOLECYSTECTOMY 2012 COLONOSCOPY 2016 COLONOSCOPY N/A 10/30/2018 Performed by Lottie Martinez DO at [facility] ELBOW SURGERY Left 04/27/2013 Fracture repair has hardware- ORIF distal humeral condylar fx EXAM UNDER ANESTHESIA/EXCISION VUVLAR CYST N/A 06/15/2020 Performed by Rich Montalvo MD at [facility] EXCISION CYST ARM Right 10/30/2018 Performed by Lottie Martinez DO at [facility] FESS (FUNCTIONAL ENDOSCOPIC SINUS SURGERY) WITH NAVIGATION SYSTEM NASAL, FRONTAL SINSUSOTOMY, SPHENEIDOTOMY Bilateral 06/27/2016 Performed by Yossi Cheatham MD at [facility] HERNIA REPAIR 2012 2 seperate surgeries/ abd hernias HYSTERECTOMY 1981 States still has at least one ovary INCISION DRAINAGE BUTTOCKS Left 02/10/2021 Performed by Xiomara Huffman MD at [facility] NECK SURGERY 2000s MRSA spot on back of neck OVARIAN CYST REMOVAL Right 1984- TUBAL LIGATION 1981 WRIST SURGERY Right 04/27/2013 Has hardware- ORIF distal radius fx Family History Problem Relation Age of Onset Diabetes Mother Hypertension Mother Heart disease Mother Stroke Mother COPD Father Cancer Father Cancer Sister Heart disease Sister Hypertension Sister Diabetes Sister Anesthesia problems Sister Stroke Sister Migraines Sister Cancer Sister Rheumatic fever Brother Social History: Social History Tobacco Use Smoking status: Never Smokeless tobacco: Never Tobacco comments: Been around smokers never have smoked Vaping Use Vaping status: Never Used Substance Use Topics Alcohol use: Not Currently Comment: occ Drug use: No MEDICATIONS Allergies: Allergies Allergen Reactions Adhesive Dermatitis Dicloxacillin Sodium Hives Lincomycin Hcl Hives Lipitor [Atorvastatin] Elevated LFT's Penicillins Hives Atarax [Hydroxyzine Hcl] Itching Exacerbated previous condition Ceclor [Cefaclor] Rash Clindamycin Rash Hydroxyzine Pamoate Itching Severe itching, exacerbated previous condition. No swelling, hives Latex Rash Latex, Natural Rubber Itching Warfarin Hives FATIGUE,CONSTIPATION Medications Prior to Admission Medication Sig Dispense Refill Last Dose acetaminophen-codeine (TYLENOL #3) 300-30 mg per tablet Take 1 tablet by mouth every 4 (four) hours as needed for pain. albuterol (PROVENTIL HFA;VENTOLIN HFA) 90 mcg/actuation inhaler INHALE 2 PUFFS EVERY 4 HOURS NEEDED FOR WHEEZING OR SHORTNESS OF BREATH (Patient taking differently: Inhale 1 puff every 4 (four) hours as needed for wheezing or shortness of breath.) 8.5 g 3 atorvastatin (LIPITOR) 40 mg tablet take 1 tablet by mouth every day 90 tablet 3 03/23/2024 calcium citrate/vitamin D3 (CALCIUM CITRATE + D ORAL) Take 1 tablet by mouth in the morning and 1 tablet before bedtime. 03/23/2024 carvediloL (COREG) 3.125 mg tablet TAKE 1 TABLET (3.125 MG TOTAL) BY MOUTH IN THE MORNING AND 1 TABLET (3.125 MG TOTAL) BEFORE BEDTIME. 180 tablet 1 03/23/2024 docosahexanoic acid/epa (FISH OIL ORAL) Take 2 tablets by mouth nightly. 03/23/2024 ergocalciferol (DRISDOL) 1,250 mcg (50,000 unit) capsule Take 1 tablet two times weekly: on Saturday and Saturday 24 capsule 3 Past Week ferrous sulfate 325 (65 FE) mg EC tablet TAKE 1 TABLET (325 MG TOTAL) BY MOUTH IN THE MORNING 90 tablet 1 03/23/2024 folic acid (FOLVITE) 1 mg tablet take 1 tablet by mouth every day 90 tablet 1 03/23/2024 furosemide (LASIX) 20 mg tablet take 1 tablet by mouth every day 90 tablet 1 03/23/2024 JANTOVEN 5 mg tablet Take 1-1.5 tablets (5-7.5 mg total) by mouth in the evening. As directed by Aimee DALY. (Patient taking differently: Take 1-1.5 tablets (5-7.5 mg total) by mouth in the evening. As directed by Aimee DALY Mon, Wed., & Fri takes 1.5 tablets, Sun. Tues., Thurs., & Sat. Takes 1 tablet.) 135 tablet 1 03/23/2024 levothyroxine (SYNTHROID, LEVOTHROID) 150 MCG tablet take 1 tablet by mouth every day 90 tablet 1 03/23/2024 losartan (COZAAR) 50 mg tablet TAKE 1 TABLET (50 MG TOTAL) BY MOUTH IN THE MORNING 90 tablet 1 03/23/2024 metFORMIN (GLUCOPHAGE) 1000 mg tablet Take 1 tablet (1,000 mg total) by mouth in the morning and 1 tablet (1,000 mg total) before bedtime. 180 tablet 3 03/23/2024 rOPINIRole (REQUIP) 1 mg tablet Take 2 tablets (2 mg total) by mouth nightly. 3 03/23/2024 sertraline (ZOLOFT) 100 mg tablet TAKE 1 TABLET BY MOUTH EVERY DAY 90 tablet 2 03/23/2024 triamcinolone (KENALOG) 0.1 % paste Apply 1 Application to teeth in the morning and 1 Application before bedtime. blood sugar diagnostic (glucose blood) strip Check BID 100 strip 5 TRUE METRIX GLUCOSE METER [facility] See Admin Instructions. Current Medications: Current Facility-Administered Medications: atorvastatin (LIPITOR) tablet 40 mg, 40 mg, oral, Nightly, ANKITA Maharaj, 40 mg at 03/24/24 2211 carvediloL (COREG) tablet 3.125 mg, 3.125 mg, oral, BID, ANKITA Maharaj, 3.125 mg at 03/25/24 0846 dextrose (GLUTOSE) 40 % gel 15 g, 15 g, oral, PRN, ANKITA Maharaj dextrose 5 % (D5W) infusion, 100 mL/hr, intravenous, Continuous PRN, ANKITA Maharaj dextrose 50 % in water (D50W) 50% solution 25 mL, 25 mL, intravenous, PRN, ANKITA Maharaj ferrous sulfate tablet 325 mg, 325 mg, oral, Daily with breakfast, ANKITA Maharaj, 325 mg at 03/25/24 0846 folic acid (FOLVITE) tablet 1,000 mcg, 1,000 mcg, oral, Daily, ANKITA Maharaj, 1,000 mcg at 03/25/24 0846 glucagon HCL injection 1 mg, 1 mg, intramuscular, PRN, Consuelo Medina APRN-INSTALLATION SERVICE REPRESENTATIVE levothyroxine (SYNTHROID, LEVOTHROID) tablet 150 mcg, 150 mcg, oral, Daily, Consuelo Medina APRN-MICAELA, 150 mcg at 03/25/24 0542 pantoprazole (PROTONIX) injection 40 mg, 40 mg, intravenous, Q12H, Consuelo Medina APRN-MICAELA, 40 mg at 03/25/24 0543 rOPINIRole (REQUIP) tablet 2 mg, 2 mg, oral, Nightly, Consuelo Medina APRN-MICAELA, 2 mg at 03/24/24 2211 sertraline (ZOLOFT) tablet 100 mg, 100 mg, oral, Daily, Consuelo Medina APRN-MICAELA, 100 mg at 03/25/24 0846 sodium chloride 0.9 % flush 10 mL, 10 mL, intravenous, PRN, Consuelo Medina APRN-INSTALLATION SERVICE REPRESENTATIVE, 10 mL at 03/24/24 1748 sodium chloride 0.9 % flush bag, 25 mL, intravenous, PRN, Consuelo Medina APRN-MICAELA sodium chloride 0.9 % infusion, 20 mL/hr, intravenous, Continuous PRN, Consuelo Medina APRN-INSTALLATION SERVICE REPRESENTATIVE sodium chloride 0.9 % infusion, 100 mL/hr, intravenous, Continuous, Consuelo Medina APRN-MICAELA, Last Rate: 100 mL/hr at 03/25/24 0850, 100 mL/hr at 03/25/24 0850 sodium chloride 0.9 % infusion, 20 mL/hr, intravenous, Continuous PRN, Consuelo Medina APRN-INSTALLATION SERVICE REPRESENTATIVE PRNs: dextrose, 15 g, PRN dextrose 5 % in water, 100 mL/hr, Continuous PRN dextrose 50 % in water (D50W), 25 mL, PRN glucagon (human recombinant), 1 mg, PRN sodium chloride, 10 mL, PRN sodium chloride, 25 mL, PRN sodium chloride 0.9 %, 20 mL/hr, Continuous PRN sodium chloride 0.9 %, 20 mL/hr, Continuous PRN REVIEW OF SYSTEMS See HPI, otherwise ROS negative as below CONSTITUTIONAL: negative HEENT: negative RESPIRATORY: negative CARDIOVASCULAR: negative GASTROINTESTINAL: as in HPI GENITOURINARY: negative INTEGUMENT/BREAST: negative HEMATOLOGIC/LYMPHATIC: negative ALLERGIC/IMMUNOLOGIC: negative ENDOCRINE: negative MUSCULOSKELETAL: negative NEUROLOGICAL: negative BEHAVIOR/PSYCH: negative OBJECTIVE DATA Vitals: BP 149/65 Pulse 76 Temp 36.7 C (98.1 F) (Oral) Resp 16 Ht 162.6 cm (5' 4 ) Wt 102.3 kg (225 lb 8.5 oz) SpO2 98% BMI 38.71 kg/m CONSTITUTIONAL: awake, alert and no apparent distress LUNGS: No increased work of breathing, good air exchange, clear to auscultation bilaterally, no crackles or wheezing CARDIOVASCULAR: regular rate and rhythm, normal S1 and S2 ABDOMEN: normal bowel sounds, soft, non-distended and non-tender NEURO: no focal deficits, moves all 4 extremities spontaneously LABS AND IMAGING CBC: Lab Results Component Value Date WBC 8.5 03/25/2024 HGB 7.4 (L) 03/25/2024 HCT 24.6 (L) 03/25/2024 MCV 59 (L) 03/25/2024 PLT 270 03/25/2024 CMP: Lab Results Component Value Date K 3.5 03/25/2024 CL 107 03/25/2024 CO2 25 03/25/2024 BUN 11 03/25/2024 GLU 158 (H) 03/25/2024 GLU 151 (H) 03/25/2024 Lipase: No results found for: LIPASE PT/INR: Lab Results Component Value Date INR 2.2 (H) 03/25/2024 INR 2.0 (H) 03/24/2024 INR 1.9 (A) 03/24/2024 PROTIME 24.9 (H) 03/25/2024 PROTIME 22.7 (H) 03/24/2024 PROTIME 26.9 (H) 03/03/2024 TSH: Lab Results Component Value Date TSH 1.95 03/15/2023 VITAMIN B12: Lab Results Component Value Date [id number] 292 04/05/2022 FOLATE: Lab Results Component Value Date FOLATE >25.0 04/05/2022 IRON: Lab Results Component Value Date IRON <10 (L) 03/25/2024 TIBC 524 (H) 03/25/2024 FERRITIN 4 (L) 03/25/2024 Lab Results Component Value Date ANASCREEN Negative 11/27/2013 MICRO Microbiology Results Procedure Component Value Units Date/Time Urine culture [[id number]] Collected: 03/24/24 1726 Specimen: Urine Updated: 03/25/24919 IMAGING: X-ray chest 2 views Result Date: 03/25/2024 Narrative: CLINICAL HISTORY: Shortness of breath Comparison: 01/28/2023 Views: 2 view FINDINGS: * No acute infiltrate. No volume loss nor consolidation. There is no pleural effusion, pneumothorax, nor volume loss. Heart and mediastinal structures are unremarkable. Pulmonary vasculature stable. Degenerative changes thoracic spine. Old right rib fractures. IMPRESSION: * No active disease nor significant interval change Finalized by Ramiro Alvarado MD on 03/25/2024 5:[address] abdomen and pelvis with contrast Result Date: 03/24/2024 Narrative: CLINICAL HISTORY: Lower GI bleeding. CT ABDOMEN AND PELVIS WITH CONTRAST: 03/24/2024 COMPARISON: 10/20/2015 PROCEDURE: Axial images were obtained through the abdomen and pelvis after oral contrast ingestion and 100 mL Omnipaque 300 intravenously. Coronal and sagittal reconstructions were performed. All CT scans at this facility use dose modulation, iterative reconstruction, and/or weight based dosing when appropriate to reduce radiation dose to as low as reasonably achievable. FINDINGS : The visualized lower lungs and pleural spaces are clear. No focal hepatic or splenic abnormality is evident. The pancreas, gallbladder, and biliary tree are within normal limits. The kidneys enhance symmetrically. A right superior pole lesion contains fat and is compatible with an angiomyolipoma. This measures up to 1.8 cm. There is no ureteral dilation or urinary bladder irregularity. No dilated bowel loops are present. Diverticula are present within the descending colon and sigmoid region with no acute inflammatory changes. There is some heterogeneous density within the cecum with areas of slightly hyperdense appearance at the lateral cecum on axial image 46 and coronal image 45. This is near the ileocecal valve. No focal bowel lesion is evident. Vascular structures enhance normally. Mild atherosclerotic calcification is present within the abdominal aorta. L4 superior endplate fracture appears subacute. Degenerative changes are present throughout the [place] spine. Some narrowing of the spinal canal is present at the thoracolumbar region with ossification of posterior longitudinal ligament. IMPRESSION: No definite cause of GI bleeding is present but there is some hyperdensity in the cecal region which could represent acute intra-abdominal contrast/blood. No other acute intra-abdominal or pelvic abnormality on CT evaluation. Lumbar degenerative and posttraumatic findings without a definite acute abnormality. 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 Finalized by Ulysses Pérez MD on 03/24/2024 6:[address] brain without contrast Result Date: 03/24/2024 Narrative: CT BRAIN WITHOUT CONTRAST COMPARISON: 07/12/2023 HISTORY: Transient alteration of awareness. Dizziness TECHNIQUE: Unenhanced axial images of the brain were obtained. Automatic exposure control (AEC) was utilized. FINDINGS: There is no evidence for acute intracranial hemorrhage. There is no hydrocephalus, mass effect, or midline shift. Aguilar-white differentiation is preserved with no CT evidence for an acute infarct. IMPRESSION: No evidence for an acute intracranial process. All CT scans at this facility use dose modulation, iterative reconstruction, and/or weight based dosing when appropriate to reduce radiation dose to as low as reasonably achievable. 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 Melena. Acute anemia. Hemodynamically stable. No NSAID use. Melena most likely related to epistaxis. Patient not interested in endoscopy at the moment. Recommend acid suppressive therapy pantoprazole 40 mg twice daily. ENT evaluation. Continue trending hemoglobin. Follow up outpatient. If you have any questions or need any further information, please feel free to contact the GI Consult Service. Thank you for allowing us to participate in the care of Robb Crystal. This note is dictated with the use of [employer], a computer voice recognition software. Quite often unanticipated grammatical, syntax, homophones, and other interpretive errors are inadvertently transcribed by the computer software. Please disregard these errors and please excuse any errors that have escaped final proofreading. Denise Gonzalez MD, MPH Gastroenterology & Hepatology Printed Products Assembler [place] [id number] [facility], [address] [place] [address] PH: [phone] documented in this encounter [employer] 03-25-2024 Progress note Formatting of t his note is different from the original. Occupational Therapy Evaluation Discharge Recommendations OT Recommendations : [facility] Comments: Patient may benefit from skilled OT services to address weakness, decreased balance and decreased activity tolerance to maximize safety and independence with ADLs Patient is a 63 year old female that presented to ED with complaints of SOB and dizziness. 6 Clicks: Daily Activity Scoring Past Medical History: Diagnosis Date Anemia 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 [place] Anxiety Arrhythmia Irregular HB Arthritis Spine Cataract States early Chest pain Chronic lymphocytic thyroiditis CVA (cerebral vascular accident) [place] Left side-mild weakness DDD (degenerative disc disease), lumbar Deep vein thrombosis [place] LLE Dental disease Poor teeth Depression Diabetes mellitus type 2, controlled [place] Checks glucose [id number] Disease of thyroid gland Diverticulitis of colon Dizziness HARRIS (dyspnea on exertion) Facial weakness Fractures Right wrist, left elbow GERD (gastroesophageal reflux disease) Deepthi-deepthi disease Katelyn's thyroiditis Hypercoagulable state [place] Hyperlipidemia Hypertension Hypothyroidism 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 NH (myocardial infarction) [place]) Silent-in past Migraine Morbid obesity [place] MRSA (methicillin resistant Staphylococcus aureus) 2000 Posterior left neck-treated Neuropathy Feet Numbness Osteoporosis Pneumonia Rash bilat legs lower belly Restless leg syndrome Sinusitis, chronic Sleep apnea CPAP Stress incontinence Stroke [place] TIA (transient ischemic attack) Several UTI (urinary tract infection) Years ago Ventral hernia Visual impairment Wears corrective lenses Past Surgical History: Procedure Laterality Date SECTION 1979 + 1980 CHOLECYSTECTOMY 2011 COLONOSCOPY 2016 COLONOSCOPY N/A 10/30/2018 Performed by Lottie Martinez DO at [facility] ELBOW SURGERY Left 04/27/2013 Fracture repair has hardware- ORIF distal humeral condylar fx EXAM UNDER ANESTHESIA/EXCISION VUVLAR CYST N/A 06/15/2020 Performed by Rich Montalvo MD at [facility] EXCISION CYST ARM Right 10/30/2018 Performed by Lottie Martinez DO at [facility] FESS (FUNCTIONAL ENDOSCOPIC SINUS SURGERY) WITH NAVIGATION SYSTEM NASAL, FRONTAL SINSUSOTOMY, SPHENEIDOTOMY Bilateral 06/27/2016 Performed by Yossi Cheatham MD at [facility] HERNIA REPAIR 2012 2 seperate surgeries/ abd hernias HYSTERECTOMY 1982 States still has at least one ovary INCISION DRAINAGE BUTTOCKS Left 02/10/2021 Performed by Xiomara Huffman MD at [facility] NECK SURGERY 2000s MRSA spot on back of neck OVARIAN CYST REMOVAL Right 1984- TUBAL LIGATION 1981 WRIST SURGERY Right 04/27/2013 Has hardware- ORIF distal radius fx Therapy Plan Need for skilled Occupational Therapy to address deficits in ADL independence and functional mobility due to a status decline resulting from current medical status. OT Treatment/Interventions: ADL retraining, Functional transfer training, UE strengthening/ROM, Endurance training, Balance OT Frequency: 4-5days/week OT Duration: 14 visits Assessment Patient Assessment Therapy Problem List: Decreased ADL status, Decreased balance, Decreased endurance, Decreased mobility, Decreased high-level ADLs, Decreased safe judgement during ADL, Decreased self-care trans, Decreased UE strength Patient Response to Treatment: Tolerated evaluation without adverse reaction Mood/Affect: Appropriate for circumstances Rehab Prognosis: Good, With continued OT status post acute discharge Visit RN Communication: Yes Medical Record Reviewed: Yes OT Type of Visit: Evaluation Precautions Activity: Early mobility guidelines Telemetry/Brineyard Supervisor: Yes Pain Assessment Pain Assessment: No/denies pain Home Living Type of Home: House Home Layout: One level Stairs to Enter: 2 Hand Rails: None Bathroom Shower/Tub: Walk-in shower Bathroom Toilet: Standard Bathroom Equipment: Grab bars in shower, Shower chair, Toilet raiser, Grab bars around toilet Home Equipment: 4 Wheeled walker Other : Was using 4WW prior to admission Prior Function Lives With: Spouse, Other (Comment) Receives Help From: Family Level of Mobility: Needs assistance with ADLs or functional transfers or gait Homemaking Assistance: Needs assistance Other: Patient reported her spouse assists with all self care and IADL tasks. Patient reportedly handles her UB bathing/dressing ADL / IADL Eating Assistance: Standby assist Grooming Assistance: Min assist Bathing/Showering Assistance: Max assist Toilet/Commode Assistance: Max assist UE Dressing Assistance: Mod assist LE Dressing Assistance: Max assist Footwear Assistance: Max assist Other: Patient currently limited by decreased balance, strength and overall activity tolerance limiting ADL safety and independence Home Management - IADL Other: Patient currently limited by decreased balance, strength and overall activity tolerance limiting ADL safety and independence Hearing / Speech / Vision Hearing: Within Functional Limits Speech: Within Functional Limits Current Vision: Wears glasses all the time Sensation Overall Sensation Status: Within Functional Limits Bed Mobility Other: Patient up in recliner upon arrival and ended in recliner with call light at end of evaluation Transfers Sit to Stand: Contact guard assist Stand to Sit: Contact guard assist Other: Verbal cues for hand placement safety and RW use Gait Gait Assistance: Contact guard assist Assistive Device: Rolling walker Balance Sitting Balance: Static: Good Sitting Balance: Dynamic: Good Standing Balance: Static: Fair Standing Balance: Dynamic: Fair RUE Assessment: Exceptions to WFL (4-/5) LUE Assessment: Exceptions to WFL (4-/5) Activity Tolerance Endurance: Tolerates <30 minutes activity WITHOUT vital sign changes Plan Occupational Therapy Care Plan Occupational Therapy Care Plan (Active) Template: OT - Occupational Therapy Problem: Activity Tolerance Dates: Start: 03/25/24 Disciplines: OT Goal: Tolerate > 30 minutes of activity WITH rest breaks Dates: Start: 03/25/24 Expected End: 04/08/24 Description: Goal Description: Disciplines: OT Problem: Bathing UB Dates: Start: 03/25/24 Disciplines: OT Goal: Patient will perform bathing UB with Set-Up Dates: Start: 03/25/24 Expected End: 04/08/24 Description: Goal Description: Disciplines: OT Problem: Dressing UB Dates: Start: 03/25/24 Disciplines: OT Goal: Patient will perform dressing UB with Set-Up Dates: Start: 03/25/24 Expected End: 04/08/24 Description: Goal Description: Disciplines: OT Problem: Eating Dates: Start: 03/25/24 Disciplines: OT Goal: Patient will perform eating with Set-Up Dates: Start: 03/25/24 Expected End: 04/08/24 Description: Goal Description: Disciplines: OT Problem: Functional Mobility Dates: Start: 03/25/24 Disciplines: OT Goal: Patient will perform functional mobility with Supervision Dates: Start: 03/25/24 Expected End: 04/08/24 Description: Goal Description: Disciplines: OT Problem: Grooming Dates: Start: 03/25/24 Disciplines: OT Goal: Patient will perform grooming with Set-Up Dates: Start: 03/25/24 Expected End: 04/08/24 Description: Goal Description: Disciplines: OT Problem: Standing Balance Dates: Start: 03/25/24 Disciplines: OT Goal: Improve balance to good Dates: Start: 03/25/24 Expected End: 04/08/24 Description: Static Dynamic Disciplines: OT Problem: Strength Dates: Start: 03/25/24 Disciplines: OT Goal: Improve strength Dates: Start: 03/25/24 Expected End: 04/08/24 Description: Of extremity/ location: To facilitate: Disciplines: OT Problem: Toilet Transfers Dates: Start: 03/25/24 Disciplines: OT Goal: Patient will perform toilet transfers with Contact Guard Dates: Start: 03/25/24 Expected End: 04/08/24 Description: Goal Description: Disciplines: OT Problem: Toileting Dates: Start: 03/25/24 Disciplines: OT Goal: Patient will perform toileting with Contact Guard Dates: Start: 03/25/24 Expected End: 04/08/24 Description: Goal Description: Disciplines: OT Problem: Transfers Dates: Start: 03/25/24 Disciplines: OT Goal: Patient will perform transfers with Supervision Dates: Start: 03/25/24 Expected End: 04/08/24 Description: Goal Description: Disciplines: OT Occupational Therapy Care Plan (Resolved) There are no resolved problems. Principal Problem: Melena Active Problems: longterm (current) use of anticoagulants [Z79.01] Essential hypertension History of stroke 1993 Obstructive sleep apnea syndrome Deepthi-deepthi disease 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CMS-HCC) Acquired hypothyroidism Blood loss anemia Frequent falls Chronic depression [facility] [employer] [facility] 03-25-2024 Progress note Formatting of t his note is different from the original. Physical Therapy Evaluation Discharge Recommendations PT Recommendations: [facility] Comments: Patient would benefit from further skilled PT needs due to deficits in strength, decreased activity tolerance and increased assist with functional mboility limiting indpendence Patient is a 63 year old female who was admitted with increased dizziness. And black stools. Fall reports prior to admission. Past Medical History: Diagnosis Date Anemia 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CMS-HCC) Anxiety Arrhythmia Irregular HB Arthritis Spine Cataract States early Chest pain Chronic lymphocytic thyroiditis CVA [place]cerebral vascular [place]) [place] [place] Left side-mild weakness DDD (degenerative disc disease), lumbar Deep vein thrombosis [place] LLE Dental disease Poor teeth Depression Diabetes mellitus type 2, controlled [place] Checks glucose [id number] Disease of thyroid gland Diverticulitis of colon Dizziness HARRIS (dyspnea on exertion) Facial weakness Fractures Right wrist, left elbow GERD (gastroesophageal reflux disease) Deepthi-deepthi disease Katelyn's thyroiditis Hypercoagulable state [place] Hyperlipidemia Hypertension Hypothyroidism Memory loss Short + longterm memory problems r/t stroke [place] (myocardial infarction) [place] Silent-in past Migraine Morbid obesity [place] MRSA (methicillin resistant Staphylococcus aureus) Posterior left neck-treated Neuropathy Feet Numbness Osteoporosis Pneumonia Rash bilat legs lower belly Restless leg syndrome Sinusitis, chronic Sleep apnea CPAP Stress incontinence Stroke [place] TIA (transient ischemic attack) Several UTI (urinary tract infection) Years ago Ventral hernia Visual impairment Wears corrective lenses Past Surgical History: Procedure Laterality Date SECTION 1979 + 1980 CHOLECYSTECTOMY 2011 COLONOSCOPY 2016 COLONOSCOPY N/A 10/30/2018 Performed by Lottie Martinez DO at [facility] SURGERY ELBOW SURGERY Left 04/27/2013 Fracture repair has hardware- ORIF distal humeral condylar fx EXAM UNDER ANESTHESIA/EXCISION VUVLAR CYST N/A 06/15/2020 Performed by Rich Montalvo MD at [facility] EXCISION CYST ARM Right 10/30/2018 Performed by Lottie Martinez DO at [facility] FESS (FUNCTIONAL ENDOSCOPIC SINUS SURGERY) WITH NAVIGATION SYSTEM NASAL, FRONTAL SINSUSOTOMY, SPHENEIDOTOMY Bilateral 06/27/2016 Performed by Yossi Cheatham MD at [facility] HERNIA REPAIR 2012 2 seperate surgeries/ abd hernias HYSTERECTOMY 1982 States still has at least one ovary INCISION DRAINAGE BUTTOCKS Left 02/10/2021 Performed by Xiomara Huffman MD at [facility] NECK SURGERY 2000s MRSA spot on back of neck OVARIAN CYST REMOVAL Right TUBAL LIGATION 1981 WRIST SURGERY Right 04/27/2013 Has hardware- ORIF distal radius fx 6 Clicks: Basic Mobility Turning from your back to your side while in a flat bed without using bed rails?: A little Moving from lying on your back to sitting on side of flat bed without using bed rails?: A little Moving to and from bed to a chair (including w/c)?: A little Standing up from a chair using your arms (e.g. w/c or bedside chair)?: A little To walk in hospital room?: A lot Climbing 3-5 steps with a railing?: Total Scoring 6 Clicks: Basic Mobility Raw Score: 15 CMS G Code Modifier: CK Co-evaluation with occupational therapy Therapy Plan Need for skilled Physical Therapy to address deficits in functional mobility due to a status decline resulting from current medical status PT Treatment/Interventions: Functional transfer training, LE strengthening/ROM, Balance, Bed mobility, Gait training PT Frequency: 4-5days/week PT Duration: 14 visits Patient Response to Treatment: Tolerated evaluation without adverse reaction Assessment Patient Assessment Therapy Problem List: Decreased balance, Decreased mobility, Decreased LE strength Patient Response to Treatment: Tolerated evaluation without adverse reaction Mood/Affect: Appropriate for circumstances Rehab Prognosis: Good, With continued PT status post acute discharge Visit RN Communication: Yes Medical Record Reviewed: Yes PT Type of Visit: Evaluation Precautions Activity: early mobiltiy guidelines Telemetry/Brineyard Supervisor: Yes Pain Assessment Pain Assessment: No/denies pain Pain Score: 0 Home Living Type of Home: House Home Layout: One level Stairs to Enter: 2 Hand Rails: None Bathroom Shower/Tub: Walk-in shower Bathroom Toilet: Standard Bathroom Equipment: Grab bars in shower, Shower chair, Toilet raiser, Grab bars around toilet Home Equipment: 4 Wheeled walker (using rollator prior to admission) Other : patient reprots fall 1 week ago in bathroom Prior Function Lives With: Spouse, Other (Comment) (brother in law) Receives Help From: Family Level of Mobility: Needs assistance with ADLs or functional transfers or gait Homemaking Assistance: Needs assistance Other: patient reports spouse assist with all self care and homemaking tasks. patient does not drive Hearing / Speech / Vision Hearing: Within Functional Limits Speech: Within Functional Limits Current Vision: Wears glasses all the time Cognition Orientation Level: Oriented X4 Sensation Overall Sensation Status: Within Functional Limits Bed Mobility Other: patient sitting up in bedside chair upon arrival and is agreeable to therapy session Transfers Sit to Stand: Contact guard assist Stand to Sit: Contact guard assist Other: verbal cues for safe hand placement Gait Base of Support: Narrow Pattern: Decreased andrei, Forward trunk Gait Assistance: Contact guard assist Assistive Device: Rolling walker Gait Distance: 15 feet Balance Balance Evaluation: Exceptions to Functional Limits Sitting Balance: Static: Good Sitting Balance: Dynamic: Good, Fair Standing Balance: Static: Fair Standing Balance: Dynamic: Poor RLE Assessment: Exceptions to WFL RLE Strength RLE Overall Strength: Deficits (4-/5) LLE Assessment: Exceptions to WFL LLE Strength LLE Overall Strength: Deficits (4-/5) Activity Tolerance Endurance: Tolerates <30 minutes activity WITHOUT vital sign changes Plan Physical Therapy Care Plan Physical Therapy Care Plan (Active) Template: PT - Physical Therapy Problem: Bed Mobility Dates: Start: 03/25/24 Disciplines: PT Goal: Patient will perform bed mobility with Contact Guard Dates: Start: 03/25/24 Expected End: 04/08/24 Description: Goal Description: Disciplines: PT Problem: Gait Dates: Start: 03/25/24 Disciplines: PT Goal: Patient will perform gait with Contact Guard Dates: Start: 03/25/24 Expected End: 04/08/24 Description: With_RW for 50__feet Goal Description: Disciplines: PT Problem: Standing Balance Dates: Start: 03/25/24 Disciplines: PT Goal: Other sitting and standing balance goal (customize) Dates: Start: 03/25/24 Expected End: 04/08/24 Description: Goal Description: patient will demonstrate good static standing for further safety with functional mobility Disciplines: PT Problem: Strength Dates: Start: 03/25/24 Disciplines: PT Goal: Improve strength Dates: Start: 03/25/24 Expected End: 04/08/24 Description: Of extremity/ location: bilateral LE's to 4/5 To facilitate: mobility Disciplines: PT Problem: Transfers Dates: Start: 03/25/24 Disciplines: PT Goal: Patient will perform transfers with Contact Guard Dates: Start: 03/25/24 Expected End: 04/08/24 Description: Goal Description: Disciplines: PT Physical Therapy Care Plan (Resolved) There are no resolved problems. Principal Problem: Melena Active Problems: longterm (current) use of anticoagulants [Z79.01] Essential hypertension History of stroke 1993 Obstructive sleep apnea syndrome Deepthi-deepthi disease 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CMS-HCC) Acquired hypothyroidism Blood loss anemia Frequent falls Chronic depression [facility] 03-25-2024 History and physical note Images from the original note were not included. 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 White or female with history of HTN, IMELDA on cpap, hypothyroidism, morbid obesity, depression, mild cognitive impairment, remote history of stroke 1993, antithrombin 3 deficiency on warfarin, DM, frequent falls admitted with melena and acute anemia. Pt was seen in our office yesterday with complaints of orthostatic dizziness, syncope, falls, SOB, and had reported black stools for two days. She was referred to ED for evaluation. ED eval was remarkable for hgb 8.6, INR 2.0, lactate 3.7, stool positive of OB, UA trace LE. CT head and CXR negative for acute process. EKG non-acute. Seriel troponin negative. Pt admitted for care. Pt seen and examined. She is sitting up in chair. Reports dizziness getting up to chair. Denies abd pain, n/v. Has not had any epistaxis or melena since admission. She endorses HARRIS. Denies CP.Lactate has normalized on AM labs. Hgb downward trending, 7.4 on AM labs. Of note, pt was treated in ED 03/03/24 for epistaxis, had nasal packing. Per pt, nasal packing removed per ENT Dr. Rodriguez 7 days later. No recurrent nose bleeds since 03/03/24 ED visit. Black stools started 03/22/24. Baseline hgb 11.9 in June 2023. Hgb 9.5 during 03/03/24 ED visit. 8.6 on presentation yesterday, 7.4 this morning. PAST MEDICAL HISTORY: Past Medical History: Diagnosis Date Anemia 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 Anxiety Arrhythmia Irregular HB Arthritis Spine Cataract States early Chest pain Chronic lymphocytic thyroiditis CVA (cerebral vascular accident) [place] Left side-mild weakness DDD (degenerative disc disease), lumbar Deep vein thrombosis [place] LLE Dental disease Poor teeth Depression Diabetes mellitus type 2, controlled [place] Checks glucose [id number] Disease of thyroid gland Diverticulitis of colon Dizziness HARRIS (dyspnea on exertion) Facial weakness Fractures Right wrist, left elbow GERD (gastroesophageal reflux disease) Deepthi-deepthi disease Katelyn's thyroiditis Hypercoagulable state [place] Hyperlipidemia Hypertension Hypothyroidism Memory loss Short + longterm memory problems r/t stroke NH (myocardial infarction) ([facility] [place] Silent-in past Migraine Morbid obesity [place] MRSA (methicillin resistant Staphylococcus aureus) Posterior left neck-treated Neuropathy Feet Numbness Osteoporosis Pneumonia Rash bilat legs lower belly Restless leg syndrome Sinusitis, chronic Sleep apnea CPAP Stress incontinence Stroke [place] TIA (transient ischemic attack) Several UTI (urinary tract infection) Years ago Ventral hernia Visual impairment Wears corrective lenses PAST SURGICAL HISTORY: Past Surgical History: Procedure Laterality Date SECTION 1979 + 1980 CHOLECYSTECTOMY 2011 COLONOSCOPY 2016 COLONOSCOPY N/A 10/30/2018 Performed by Lottie Martinez DO at [facility] ELBOW SURGERY Left 04/27/2013 Fracture repair has hardware- ORIF distal humeral condylar fx EXAM UNDER ANESTHESIA/EXCISION VUVLAR CYST N/A 06/15/2020 Performed by Rich Montalvo MD at [facility] EXCISION CYST ARM Right 10/30/2018 Performed by Lottie Martinez DO at [facility] FESS (FUNCTIONAL ENDOSCOPIC SINUS SURGERY) WITH NAVIGATION SYSTEM NASAL, FRONTAL SINSUSOTOMY, SPHENEIDOTOMY Bilateral 06/27/2016 Performed by Yossi Cheatham MD at [facility] HERNIA REPAIR 2012 2 seperate surgeries/ abd hernias HYSTERECTOMY 1981 States still has at least one ovary INCISION DRAINAGE BUTTOCKS Left 02/10/2021 Performed by Xiomara Huffman MD at [facility] NECK SURGERY 2000s MRSA spot on back of neck OVARIAN CYST REMOVAL Right 1984- TUBAL LIGATION 1981 WRIST SURGERY Right 04/27/2013 Has hardware- ORIF distal radius fx SOCIAL HISTORY: Social History Socioeconomic History Marital status: Spouse name: Not on file Number of children: Not on file Years of education: Not on file Highest education level: Not on file Occupational History Not on file Tobacco Use Smoking status: Never Smokeless tobacco: Never Tobacco comments: Been around smokers never have smoked Vaping Use Vaping status: Never Used Substance and Sexual Activity Alcohol use: Not Currently Comment: occ Drug use: No Sexual activity: Defer Partners: Male control/protection: None Comment: , Hyst Other Topics Concern Caffeine Use Yes Social History Narrative Not on file Social Determinants of Health Financial Resource Strain: Not on file Food Insecurity: No Food Insecurity (03/24/2024) Hunger Screening Food Insecurity - Worry: Never True Food Insecurity - Inability: Never True Transportation Needs: No Transportation Needs (03/24/2024) PRAPARE - Transportation Lack of Transportation (Medical): No Lack of Transportation (Non-Medical): No Physical Activity: Not on file Stress: Not on file Social Connections: Not on file Interpersonal Safety: Not At Risk (03/24/2024) Humiliation, Afraid, Rape, and Kick questionnaire Fear of Current or Ex-Partner: No Emotionally Abused: No Physically Abused: No Sexually Abused: No Housing Instability: Low Risk (03/24/2024) Housing Instability Housing Instability: No ALLERGIES: Allergies Allergen Reactions Adhesive Dermatitis Dicloxacillin Sodium Hives Lincomycin Hcl Hives Lipitor [Atorvastatin] Elevated LFT's Penicillins Hives Atarax [Hydroxyzine Hcl] Itching Exacerbated previous condition Ceclor [Cefaclor] Rash Clindamycin Rash Hydroxyzine Pamoate Itching Severe itching, exacerbated previous condition. No swelling, hives Latex Rash Latex, Natural Rubber Itching Warfarin Hives FATIGUE,CONSTIPATION HOME MEDICATIONS: Medications Prior to Admission Medication Sig Dispense Refill Last Dose acetaminophen-codeine (TYLENOL #3) 300-30 mg per tablet Take 1 tablet by mouth every 4 (four) hours as needed for pain. albuterol (PROVENTIL HFA;VENTOLIN HFA) 90 mcg/actuation inhaler INHALE 2 PUFFS EVERY 4 HOURS NEEDED FOR WHEEZING OR SHORTNESS OF BREATH (Patient taking differently: Inhale 1 puff every 4 (four) hours as needed for wheezing or shortness of breath.) 8.5 g 3 atorvastatin (LIPITOR) 40 mg tablet take 1 tablet by mouth every day 90 tablet 3 03/23/2024 calcium citrate/vitamin D3 (CALCIUM CITRATE + D ORAL) Take 1 tablet by mouth in the morning and 1 tablet before bedtime. 03/23/2024 carvediloL (COREG) 3.125 mg tablet TAKE 1 TABLET (3.125 MG TOTAL) BY MOUTH IN THE MORNING AND 1 TABLET (3.125 MG TOTAL) BEFORE BEDTIME. 180 tablet 1 03/23/2024 docosahexanoic acid/epa (FISH OIL ORAL) Take 2 tablets by mouth nightly. 03/23/2024 ergocalciferol (DRISDOL) 1,250 mcg (50,000 unit) capsule Take 1 tablet two times weekly: on Saturday and Saturday 24 capsule 3 Past Week ferrous sulfate 325 (65 FE) mg EC tablet TAKE 1 TABLET (325 MG TOTAL) BY MOUTH IN THE MORNING 90 tablet 1 03/23/2024 folic acid (FOLVITE) 1 mg tablet take 1 tablet by mouth every day 90 tablet 1 03/23/2024 furosemide (LASIX) 20 mg tablet take 1 tablet by mouth every day 90 tablet 1 03/23/2024 JANTOVEN 5 mg tablet Take 1-1.5 tablets (5-7.5 mg total) by mouth in the evening. As directed by Aimee DALY. (Patient taking differently: Take 1-1.5 tablets (5-7.5 mg total) by mouth in the evening. As directed by Aimee DALY Sat, Wed., & Fri takes 1.5 tablets, Sun. ., ., & Sat. Takes 1 tablet.) 135 tablet 1 03/23/2024 levothyroxine (SYNTHROID, LEVOTHROID) 150 MCG tablet take 1 tablet by mouth every day 90 tablet 1 03/23/2024 losartan (COZAAR) 50 mg tablet TAKE 1 TABLET (50 MG TOTAL) BY MOUTH IN THE MORNING 90 tablet 1 03/23/2024 metFORMIN (GLUCOPHAGE) 1000 mg tablet Take 1 tablet (1,000 mg total) by mouth in the morning and 1 tablet (1,000 mg total) before bedtime. 180 tablet 3 03/23/2024 rOPINIRole (REQUIP) 1 mg tablet Take 2 tablets (2 mg total) by mouth nightly. 3 03/23/2024 sertraline (ZOLOFT) 100 mg tablet TAKE 1 TABLET BY MOUTH EVERY DAY 90 tablet 2 03/23/2024 triamcinolone (KENALOG) 0.1 % paste Apply 1 Application to teeth in the morning and 1 Application before bedtime. blood sugar diagnostic (glucose blood) strip Check BID 100 strip 5 TRUE METRIX GLUCOSE METER misc See Admin Instructions. IMMUNIZATIONS: Immunization History Administered Date(s) Administered Influenza, Im Trivalent Preservative 03/30/2010, 05/24/2017 Influenza, Injectable, Quadrivalent 05/29/2018 Influenza, Injectable, quadrivalent (PF) 05/20/2017, 03/27/2023 Pneumococcal Conjugate 13-Valent 05/24/2017 Pneumococcal Polysaccharide 05/20/2017, 06/03/2023 Td (adult), 5 Lf tetanus toxoid, preservative free, adsorbed 02/18/2014 Td, Unspecified 02/18/2014 Tetanus 04/03/2013 REVIEW OF SYSTEMS: Review of Systems Constitutional: Negative for fever and chills. HENT: Positive for nosebleeds (Last 03/03/24). Respiratory: Positive for shortness of breath. Negative for cough. Cardiovascular: Negative for chest pain. Gastrointestinal: Positive for black tarry stool. Negative for nausea, vomiting, diarrhea and constipation. Skin: Positive for pallor. Neurological: Positive for dizziness and syncope. No LMP recorded. Patient has had a hysterectomy. BP 148/71 Pulse 72 Temp 36.5 C (97.7 F) Resp 16 Ht 162.6 cm (5' 4 ) Wt 102.3 kg (225 lb 8.5 oz) SpO2 97% BMI 38.71 kg/m O2 Device: None (Room air) PHYSICAL EXAM: Physical Exam Constitutional She is oriented to person, place, and time. Non-toxic appearance. No distress. Nursing note and vitals reviewed. HENT Nose No epistaxis. Cardiovascular: Normal rate and regular rhythm. Heart Sounds: normal heart sounds, S1 normal and S2 normal. Edema: RLE none LLE none Pulmonary/Chest: Effort normal and breath sounds normal. She has no decreased breath sounds. She has no wheezes. She has no rhonchi. She has no rales. Abdominal: Normal appearance and bowel sounds are normal. Soft. There is abdominal tenderness in the epigastric area. Vascular: Right Lower Extremity Right lower extremity edema: none Left Lower Extremity Left lower extremity edema: none Neurological She is alert and oriented to person, place, and time. She displays weakness. Speech: normal speech [place] Coma Scale Eyes 4. Verbal 5. Motor 6. [place] Coma Total 15 Skin: Skin is warm and dry. There is pallor. Psychiatric: Her speech is normal and behavior is normal. Attention, mood and thought content normal. Recent Results (from the past 24 hour(s)) ABO Rh Repeat Collection Time: 03/24/24 3:30 PM Result Value Ref Range ABO B RH Positive CBC auto differential Collection Time: 03/24/24 3:50 PM Result Value Ref Range White Blood Cells 11.2 (H) 4.0 - 11.0 X10E9/L RBC count 4.71 3.80 - 5.20 X10E12/L Hemoglobin 8.6 (L) 11.7 - 15.5 g/dL Hematocrit 28.1 (L) 35 - 47 % MCV 60 (L) 80 - 100 fL MCH 18.1 (L) 27 - 34 pg MCHC 30.5 (L) 32 - 36 g/dL RDW 19.7 (H) 11.5 - 15.0 % Platelets 361 150 - 450 X10E9/L MPV 8.2 7 - 12 fL Seg neutrophil 77.0 % Lymphocyte 19.2 % Eosinophil 3.8 % Neutrophils Absolute (M) 8.6 (H) 1.5 - 6.6 X10E9/L Lymphocytes Absolute 2.2 1.0 - 3.5 X10E9/L Eosinophils Absolute 0.4 0.0 - 0.4 X10E9/L Hypochromia 1+ (A) NONE^NONE Polychromasia 1+ (A) NONE^NONE Basic Metabolic Panel Collection Time: 03/24/24 3:50 PM Result Value Ref Range Sodium 137 134 - 146 mmol/L Potassium, Bld 3.8 3.5 - 5.0 mmol/L Chloride 105 98 - 109 mmol/L CO2 22 22 - 32 mmol/L Anion gap 10 5 - 15 mmol/L BUN 12 5 - 27 mg/dL Creatinine 0.99 0.40 - 1.00 mg/dL Glucose 157 (H) 65 - 99 mg/dL Calcium 9.2 8.5 - 10.5 mg/dL eGFR (CKD-EPI)non-race dependent 64 >59 ml/min/1.73sq.m Lactate w/ Reflex Collection Time: 03/24/24 3:50 PM Result Value Ref Range Lactate w/ Reflex 3.7 (H) 0.4 - 2.0 mmol/L Troponin I, High Sensitivity Collection Time: 03/24/24 3:50 PM Result Value Ref Range Troponin I, High Sensitivity 3 <16 ng/L Protime & INR Collection Time: 03/24/24 3:50 PM Result Value Ref Range Protime 22.7 (H) 9.8 - 13.2 sec Inr 2.0 (H) 0.8 - 1.1 B-type natriuretic peptide Collection Time: 03/24/24 3:50 PM Result Value Ref Range BNP 51 <100.0 pg/mL Type and screen(includes indirect armen) Collection Time: 03/24/24 4:30 PM Result Value Ref Range ABO B RH Positive Antibody Screen Negative Troponin I, High Sensitivity 1 Hour Collection Time: 03/24/24 4:55 PM Result Value Ref Range 1 Hour Trop I, High Sensitivity 3 <16 ng/L Er Extra Urine Collection Time: 03/24/24 5:20 PM Result Value Ref Range ER Extra Urine ER EXTRA URINE ORDER IN PROCESS POCT Nursing Urine Macroscopic UA Collection Time: 03/24/24 5:26 PM Result Value Ref Range Specific gravity STEPH 1.020 1.003 - 1.035 Leukocyte esterase STEPH Trace (A) Negative^Negative Nitrite STEPH Negative Negative^Negative Ph 5.5 5.0 - 8.5 Protein STEPH Negative Negative^Negative mg/dL Urine glucose STEPH Negative Negative^Negative mg/dL Ketones STEPH Negative Negative^Negative mg/dL Urobilinogen STEPH 0.2 <1.1 eu/dL Bilirubin STEPH Negative Negative^Negative Hemoglobin STEPH Negative Negative^Negative Lactate Collection Time: 03/24/24 7:50 PM Result Value Ref Range Lactate 2.9 (H) 0.4 - 2.0 mmol/L Hemoglobin and hematocrit, blood Collection Time: 03/24/24 9:05 PM Result Value Ref Range Hemoglobin 7.6 (L) 11.7 - 15.5 g/dL Hematocrit 25.1 (L) 35 - 47 % Bedside Glucose *Place/Obtain serum glucose if >500(>600 MRH) per glucometer. Collection Time: 03/25/24 12:30 AM Result Value Ref Range Bedside glucose 137 (H) 65 - 99 mg/dL CBC auto differential Collection Time: 03/25/24 3:42 AM Result Value Ref Range White Blood Cells 8.5 4.0 - 11.0 X10E9/L RBC count 4.16 3.80 - 5.20 X10E12/L Hemoglobin 7.4 (L) 11.7 - 15.5 g/dL Hematocrit 24.6 (L) 35 - 47 % MCV 59 (L) 80 - 100 fL MCH 17.9 (L) 27 - 34 pg MCHC 30.2 (L) 32 - 36 g/dL RDW 19.2 (H) 11.5 - 15.0 % Platelets 270 150 - 450 X10E9/L MPV 8.1 7 - 12 fL % neutrophils 71.1 % % lymphocytes 16.9 % % monocytes 7.8 % % eosinophils 3.6 % % Basophils 0.6 % Neutrophils Absolute (A) 6.1 1.5 - 6.6 X10E9/L Lymphocytes Absolute 1.4 1.0 - 3.5 X10E9/L Monocytes Absolute 0.7 0 - 0.9 X10E9/L Eosinophils Absolute 0.3 0.0 - 0.4 X10E9/L Basophils Absolute 0.1 0.0 - 0.2 X10E9/L Hypochromia 1+ (A) NONE^NONE Basic Metabolic Panel Collection Time: 03/25/24 3:42 AM Result Value Ref Range Sodium 138 134 - 146 mmol/L Potassium, Bld 3.5 3.5 - 5.0 mmol/L Chloride 107 98 - 109 mmol/L CO2 25 22 - 32 mmol/L Anion gap 6 5 - 15 mmol/L BUN 11 5 - 27 mg/dL Creatinine 0.90 0.40 - 1.00 mg/dL Glucose 151 (H) 65 - 99 mg/dL Calcium 8.4 (L) 8.5 - 10.5 mg/dL eGFR (CKD-EPI)non-race dependent 71 >59 ml/min/1.73sq.m Iron and TIBC Collection Time: 03/25/24 3:42 AM Result Value Ref Range Iron <10 (L) 50 - 170 ug/dL Tibc-calc only do not order 524 (H) 250 - 425 ug/dL Iron Saturation <2 (L) 15 - 50 % SATURATION Ferritin Collection Time: 03/25/24 3:42 AM Result Value Ref Range Ferritin 4 (L) 11 - 307 ng/mL Protime & INR Collection Time: 03/25/24 3:42 AM Result Value Ref Range Protime 24.9 (H) 9.8 - 13.2 sec Inr 2.2 (H) 0.8 - 1.1 Bedside Glucose *Place/Obtain serum glucose if >500(>600 MRH) per glucometer. Collection Time: 03/25/24 6:27 AM Result Value Ref Range Bedside glucose 158 (H) 65 - 99 mg/dL Lactate w/ Reflex Collection Time: 03/25/24 8:24 AM Result Value Ref Range Lactate w/ Reflex 1.2 0.4 - 2.0 mmol/L Bedside Glucose *Place/Obtain serum glucose if >500(>600 MRH) per glucometer. Collection Time: 03/25/24 11:52 AM Result Value Ref Range Bedside glucose 154 (H) 65 - 99 mg/dL FFP setup:Number of Units: 1 Collection Time: 03/25/24 12:24 PM Result Value Ref Range Blood component type G2060L03 Unit number [id number] Unit ABO B Unit RH POS Status of unit /RELEASED Expiration Date BB Type Barcode 7300 X-ray chest 2 views Result Date: 03/25/2024 CLINICAL HISTORY: Shortness of breath Comparison: 01/28/2023 Views: 2 view FINDINGS: * No acute infiltrate. No volume loss nor consolidation. There is no pleural effusion, pneumothorax, nor volume loss. Heart and mediastinal structures are unremarkable. Pulmonary vasculature stable. Degenerative changes thoracic spine. Old right rib fractures. IMPRESSION: * No active disease nor significant interval change Finalized by Ramiro Alvarado MD on 03/25/2024 5:[address] abdomen and pelvis with contrast Result Date: 03/24/2024 CLINICAL HISTORY: Lower GI bleeding. CT ABDOMEN AND PELVIS WITH CONTRAST: 03/24/2024 COMPARISON: 10/20/2015 PROCEDURE: Axial images were obtained through the abdomen and pelvis after oral contrast ingestion and 100 mL Omnipaque 300 intravenously. Coronal and sagittal reconstructions were performed. All CT scans at this facility use dose modulation, iterative reconstruction, and/or weight based dosing when appropriate to reduce radiation dose to as low as reasonably achievable. FINDINGS : The visualized lower lungs and pleural spaces are clear. No focal hepatic or splenic abnormality is evident. The pancreas, gallbladder, and biliary tree are within normal limits. The kidneys enhance symmetrically. A right superior pole lesion contains fat and is compatible with an angiomyolipoma. This measures up to 1.8 cm. There is no ureteral dilation or urinary bladder irregularity. No dilated bowel loops are present. Diverticula are present within the descending colon and sigmoid region with no acute inflammatory changes. There is some heterogeneous density within the cecum with areas of slightly hyperdense appearance at the lateral cecum on axial image 46 and coronal image 45. This is near the ileocecal valve. No focal bowel lesion is evident. Vascular structures enhance normally. Mild atherosclerotic calcification is present within the abdominal aorta. L4 superior endplate fracture appears subacute. Degenerative changes are present throughout the [place] spine. Some narrowing of the spinal canal is present at the thoracolumbar region with ossification of posterior longitudinal ligament. IMPRESSION: No definite cause of GI bleeding is present but there is some hyperdensity in the cecal region which could represent acute intra-abdominal contrast/blood. No other acute intra-abdominal or pelvic abnormality on CT evaluation. Lumbar degenerative and posttraumatic findings without a definite acute abnormality. 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 Finalized by Ulysses Pérez MD on 03/24/2024 6:[address] brain without contrast Result Date: 03/24/2024 CT BRAIN WITHOUT CONTRAST COMPARISON: 07/12/2023 HISTORY: Transient alteration of awareness. Dizziness TECHNIQUE: Unenhanced axial images of the brain were obtained. Automatic exposure control (AEC) was utilized. FINDINGS: There is no evidence for acute intracranial hemorrhage. There is no hydrocephalus, mass effect, or midline shift. Aguilar-white differentiation is preserved with no CT evidence for an acute infarct. IMPRESSION: No evidence for an acute intracranial process. All CT scans at this facility use dose modulation, iterative reconstruction, and/or weight based dosing when appropriate to reduce radiation dose to as low as reasonably achievable. 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 Transfuse for hgb < 7. Pt consents to blood products. Warfarin held. 1 unit FFP now. Recheck INR this afternoon GI eval Consult hematology, history of hypercoagulable disorder on chronic warfarin, now with acute blood loss anemia and frequent falls at home, assess ongoing need for anticoagulation Compression stockings and EPCs PT/OT, likely needs SNF at D/C Consuelo Medina APRN-INSTALLATION SERVICE REPRESENTATIVE 03/25/24 [id number] [facility] [employer] [facility] 03-25-2024 History and physical note Images from the original note were not included. [facility] [place] MD Cosnuelo Herrera, DNP, SUPERVISOR SMOKE CONTROL, INSTALLATION SERVICE REPRESENTATIVE ARVIND Muniz, PA-C 03/25/24 PROBLEM: Principal Problem: Blood loss anemia Active Problems: longterm (current) use of anticoagulants [Z79.01] Essential hypertension History of stroke 1993 Obstructive sleep apnea syndrome Deepthi-deepthi disease 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CMS-HCC) Acquired hypothyroidism Melena Frequent falls Chronic depression History of epistaxis HISTORY OF PRESENT ILLNESS: Robb Crystal is an 63 y.o. White or female with history of HTN, IMELDA on cpap, hypothyroidism, morbid obesity, depression, mild cognitive impairment, remote history of stroke 1993, antithrombin 3 deficiency on warfarin, DM, frequent falls admitted with melena and acute anemia. Pt was seen in our office yesterday with complaints of orthostatic dizziness, syncope, falls, SOB, and had reported black stools for two days. She was referred to ED for evaluation. ED eval was remarkable for hgb 8.6, INR 2.0, lactate 3.7, stool positive of OB, UA trace LE. CT head and CXR negative for acute process. EKG non-acute. Seriel troponin negative. Pt admitted for care. Pt seen and examined. She is sitting up in chair. Reports dizziness getting up to chair. Denies abd pain, n/v. Has not had any epistaxis or melena since admission. She endorses HARRIS. Denies CP.Lactate has normalized on AM labs. Hgb downward trending, 7.4 on AM labs. Of note, pt was treated in ED 03/03/24 for epistaxis, had nasal packing. Per pt, nasal packing removed per ENT Dr. Rodriguez 7 days later. No recurrent nose bleeds since 03/03/24 ED visit. Black stools started 03/22/24. Baseline hgb 11.9 in June 2023. Hgb 9.5 during 03/03/24 ED visit. 8.6 on presentation yesterday, 7.4 this morning. PAST MEDICAL HISTORY: Past Medical History: Diagnosis Date Anemia 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 [place] Anxiety Arrhythmia Irregular HB Arthritis Spine Cataract States early Chest pain Chronic lymphocytic thyroiditis CV[place]cerebral vascular [place] [place] Left side-mild weakness DDD (degenerative disc disease), lumbar Deep vein thrombosis [place] [place] LLE Dental disease Poor teeth Depression Diabetes mellitus type 2, controlled [place] Checks glucose [id number] Disease of thyroid gland Diverticulitis of colon Dizziness HARRIS (dyspnea on exertion) Facial weakness Fractures Right wrist, left elbow GERD (gastroesophageal reflux disease) Deepthi-deepthi disease Katelyn's thyroiditis Hypercoagulable state [place] [place] Hyperlipidemia Hypertension Hypothyroidism Memory loss Short + longterm memory problems r/t stroke [place] (myocardial infarction) [place] [place] Silent-in past Migraine Morbid obesity [place] [place] MRSA (methicillin resistant Staphylococcus aureus) Posterior left neck-treated Neuropathy Feet Numbness Osteoporosis Pneumonia Rash bilat legs lower belly Restless leg syndrome Sinusitis, chronic Sleep apnea CPAP Stress incontinence Stroke [place] [place] TIA (transient ischemic attack) Several UTI (urinary tract infection) Years ago Ventral hernia Visual impairment Wears corrective lenses PAST SURGICAL HISTORY: Past Surgical History: Procedure Laterality Date SECTION 1979 + 1980 CHOLECYSTECTOMY 2011 COLONOSCOPY 2015 COLONOSCOPY N/A 10/30/2018 Performed by Lottie Martinez DO at [facility]ERY ELBOW SURGERY Left 04/27/2013 Fracture repair has hardware- ORIF distal humeral condylar fx EXAM UNDER ANESTHESIA/EXCISION VUVLAR CYST N/A 06/15/2020 Performed by Rich Montalvo MD at [facility] EXCISION CYST ARM Right 10/30/2018 Performed by Lottie Martinez DO at [facility] SUR[facility]ERY FESS (FUNCTIONAL ENDOSCOPIC SINUS SURGERY) WITH NAVIGATION SYSTEM NASAL, FRONTAL SINSUSOTOMY, SPHENEIDOTOMY Bilateral 06/27/2016 Performed by Yossi Cheatham MD at [facility] HERNIA REPAIR 2012 2 seperate surgeries/ abd hernias HYSTERECTOMY 1982 States still has at least one ovary INCISION DRAINAGE BUTTOCKS Left 02/10/2021 Performed by Xiomara Huffman MD at [facility] NECK SURGERY 2000s MRSA spot on back of neck OVARIAN CYST REMOVAL Right 1984- TUBAL LIGATION 1981 WRIST SURGERY Right 04/27/2013 Has hardware- ORIF distal radius fx SOCIAL HISTORY: Social History Socioeconomic History Marital status: Spouse name: Not on file Number of children: Not on file Years of education: Not on file Highest education level: Not on file Occupational History Not on file Tobacco Use Smoking status: Never Smokeless tobacco: Never Tobacco comments: Been around smokers never have smoked Vaping Use Vaping status: Never Used Substance and Sexual Activity Alcohol use: Not Currently Comment: occ Drug use: No Sexual activity: Defer Partners: Male control/protection: None Comment: , Hyst Other Topics Concern Caffeine Use Yes Social History Narrative Not on file Social Determinants of Health Financial Resource Strain: Not on file Food Insecurity: No Food Insecurity (03/24/2024) Hunger Screening Food Insecurity - Worry: Never True Food Insecurity - Inability: Never True Transportation Needs: No Transportation Needs (03/24/2024) PRAPARE - Transportation Lack of Transportation (Medical): No Lack of Transportation (Non-Medical): No Physical Activity: Not on file Stress: Not on file Social Connections: Not on file Interpersonal Safety: Not At Risk (03/24/2024) Humiliation, Afraid, Rape, and Kick questionnaire Fear of Current or Ex-Partner: No Emotionally Abused: No Physically Abused: No Sexually Abused: No Housing Instability: Low Risk (03/24/2024) Housing Instability Housing Instability: No ALLERGIES: Allergies Allergen Reactions Adhesive Dermatitis Dicloxacillin Sodium Hives Lincomycin Hcl Hives Lipitor [Atorvastatin] Elevated LFT's Penicillins Hives Atarax [Hydroxyzine Hcl] Itching Exacerbated previous condition Ceclor [Cefaclor] Rash Clindamycin Rash Hydroxyzine Pamoate Itching Severe itching, exacerbated previous condition. No swelling, hives Latex Rash Latex, Natural Rubber Itching Warfarin Hives FATIGUE,CONSTIPATION HOME MEDICATIONS: Medications Prior to Admission Medication Sig Dispense Refill Last Dose acetaminophen-codeine (TYLENOL #3) 300-30 mg per tablet Take 1 tablet by mouth every 4 (four) hours as needed for pain. albuterol (PROVENTIL HFA;VENTOLIN HFA) 90 mcg/actuation inhaler INHALE 2 PUFFS EVERY 4 HOURS NEEDED FOR WHEEZING OR SHORTNESS OF BREATH (Patient taking differently: Inhale 1 puff every 4 (four) hours as needed for wheezing or shortness of breath.) 8.5 g 3 atorvastatin (LIPITOR) 40 mg tablet take 1 tablet by mouth every day 90 tablet 3 03/23/2024 calcium citrate/vitamin D3 (CALCIUM CITRATE + D ORAL) Take 1 tablet by mouth in the morning and 1 tablet before bedtime. 03/23/2024 carvediloL (COREG) 3.125 mg tablet TAKE 1 TABLET (3.125 MG TOTAL) BY MOUTH IN THE MORNING AND 1 TABLET (3.125 MG TOTAL) BEFORE BEDTIME. 180 tablet 1 03/23/2024 docosahexanoic acid/epa (FISH OIL ORAL) Take 2 tablets by mouth nightly. 03/23/2024 ergocalciferol (DRISDOL) 1,250 mcg (50,000 unit) capsule Take 1 tablet two times weekly: on Saturday and Saturday 24 capsule 3 Past Week ferrous sulfate 325 (65 FE) mg EC tablet TAKE 1 TABLET (325 MG TOTAL) BY MOUTH IN THE MORNING 90 tablet 1 03/23/2024 folic acid (FOLVITE) 1 mg tablet take 1 tablet by mouth every day 90 tablet 1 03/23/2024 furosemide (LASIX) 20 mg tablet take 1 tablet by mouth every day 90 tablet 1 03/23/2024 JANTOVEN 5 mg tablet Take 1-1.5 tablets (5-7.5 mg total) by mouth in the evening. As directed by Aimee DALY. (Patient taking differently: Take 1-1.5 tablets (5-7.5 mg total) by mouth in the evening. As directed by Aimee DALY Mon, Sat., & Sat takes 1.5 tablets, Sun. Tues., Thurs., & Sat. Takes 1 tablet.) 135 tablet 1 03/23/2024 levothyroxine (SYNTHROID, LEVOTHROID) 150 MCG tablet take 1 tablet by mouth every day 90 tablet 1 03/23/2024 losartan (COZAAR) 50 mg tablet TAKE 1 TABLET (50 MG TOTAL) BY MOUTH IN THE MORNING 90 tablet 1 03/23/2024 metFORMIN (GLUCOPHAGE) 1000 mg tablet Take 1 tablet (1,000 mg total) by mouth in the morning and 1 tablet (1,000 mg total) before bedtime. 180 tablet 3 03/23/2024 rOPINIRole (REQUIP) 1 mg tablet Take 2 tablets (2 mg total) by mouth nightly. 3 03/23/2024 sertraline (ZOLOFT) 100 mg tablet TAKE 1 TABLET BY MOUTH EVERY DAY 90 tablet 2 03/23/2024 triamcinolone (KENALOG) 0.1 % paste Apply 1 Application to teeth in the morning and 1 Application before bedtime. blood sugar diagnostic (glucose blood) strip Check BID 100 strip 5 TRUE METRIX GLUCOSE METER misc See Admin Instructions. IMMUNIZATIONS: Immunization History Administered Date(s) Administered Influenza, Im Trivalent Preservative 03/30/2010, 05/24/2017 Influenza, Injectable, Quadrivalent 05/29/2018 Influenza, Injectable, quadrivalent (PF) 05/20/2017, 03/27/2023 Pneumococcal Conjugate 13-Valent 05/24/2017 Pneumococcal Polysaccharide 05/20/2017, 06/03/2023 Td (adult), 5 Lf tetanus toxoid, preservative free, adsorbed 02/18/2014 Td, Unspecified 02/18/2014 Tetanus 04/03/2013 REVIEW OF SYSTEMS: Review of Systems Constitutional: Negative for fever and chills. HENT: Positive for nosebleeds (Last 03/03/24). Respiratory: Positive for shortness of breath. Negative for cough. Cardiovascular: Negative for chest pain. Gastrointestinal: Positive for black tarry stool. Negative for nausea, vomiting, diarrhea and constipation. Skin: Positive for pallor. Neurological: Positive for dizziness and syncope. No LMP recorded. Patient has had a hysterectomy. BP 148/71 Pulse 72 Temp 36.5 C (97.7 F) Resp 16 Ht 162.6 cm (5' 4 ) Wt 102.3 kg (225 lb 8.5 oz) SpO2 97% BMI 38.71 kg/m O2 Device: None (Room air) PHYSICAL EXAM: Physical Exam Constitutional She is oriented to person, place, and time. Non-toxic appearance. No distress. Nursing note and vitals reviewed. HENT Nose No epistaxis. Cardiovascular: Normal rate and regular rhythm. Heart Sounds: normal heart sounds, S1 normal and S2 normal. Edema: RLE none LLE none Pulmonary/Chest: Effort normal and breath sounds normal. She has no decreased breath sounds. She has no wheezes. She has no rhonchi. She has no rales. Abdominal: Normal appearance and bowel sounds are normal. Soft. There is abdominal tenderness in the epigastric area. Vascular: Right Lower Extremity Right lower extremity edema: none Left Lower Extremity Left lower extremity edema: none Neurological She is alert and oriented to person, place, and time. She displays weakness. Speech: normal speech [place] Coma Scale Eyes 4. Verbal 5. Motor 6. [place] Coma Total 15 Skin: Skin is warm and dry. There is pallor. Psychiatric: Her speech is normal and behavior is normal. Attention, mood and thought content normal. Recent Results (from the past 24 hour(s)) ABO Rh Repeat Collection Time: 03/24/24 3:30 PM Result Value Ref Range ABO B RH Positive CBC auto differential Collection Time: 03/24/24 3:50 PM Result Value Ref Range White Blood Cells 11.2 (H) 4.0 - 11.0 X10E9/L RBC count 4.71 3.80 - 5.20 X10E12/L Hemoglobin 8.6 (L) 11.7 - 15.5 g/dL Hematocrit 28.1 (L) 35 - 47 % MCV 60 (L) 80 - 100 fL MCH 18.1 (L) 27 - 34 pg MCHC 30.5 (L) 32 - 36 g/dL RDW 19.7 (H) 11.5 - 15.0 % Platelets 361 150 - 450 X10E9/L MPV 8.2 7 - 12 fL Seg neutrophil 77.0 % Lymphocyte 19.2 % Eosinophil 3.8 % Neutrophils Absolute (M) 8.6 (H) 1.5 - 6.6 X10E9/L Lymphocytes Absolute 2.2 1.0 - 3.5 X10E9/L Eosinophils Absolute 0.4 0.0 - 0.4 X10E9/L Hypochromia 1+ (A) NONE^NONE Polychromasia 1+ (A) NONE^NONE Basic Metabolic Panel Collection Time: 03/24/24 3:50 PM Result Value Ref Range Sodium 137 134 - 146 mmol/L Potassium, Bld 3.8 3.5 - 5.0 mmol/L Chloride 105 98 - 109 mmol/L CO2 22 22 - 32 mmol/L Anion gap 10 5 - 15 mmol/L BUN 12 5 - 27 mg/dL Creatinine 0.99 0.40 - 1.00 mg/dL Glucose 157 (H) 65 - 99 mg/dL Calcium 9.2 8.5 - 10.5 mg/dL eGFR (CKD-EPI)non-race dependent 64 >59 ml/min/1.73sq.m Lactate w/ Reflex Collection Time: 03/24/24 3:50 PM Result Value Ref Range Lactate w/ Reflex 3.7 (H) 0.4 - 2.0 mmol/L Troponin I, High Sensitivity Collection Time: 03/24/24 3:50 PM Result Value Ref Range Troponin I, High Sensitivity 3 <16 ng/L Protime & INR Collection Time: 03/24/24 3:50 PM Result Value Ref Range Protime 22.7 (H) 9.8 - 13.2 sec Inr 2.0 (H) 0.8 - 1.1 B-type natriuretic peptide Collection Time: 03/24/24 3:50 PM Result Value Ref Range BNP 51 <100.0 pg/mL Type and screen(includes indirect armen) Collection Time: 03/24/24 4:30 PM Result Value Ref Range ABO B RH Positive Antibody Screen Negative Troponin I, High Sensitivity 1 Hour Collection Time: 03/24/24 4:55 PM Result Value Ref Range 1 Hour Trop I, High Sensitivity 3 <16 ng/L Er Extra Urine Collection Time: 03/24/24 5:20 PM Result Value Ref Range ER Extra Urine ER EXTRA URINE ORDER IN PROCESS POCT Nursing Urine Macroscopic UA Collection Time: 03/24/24 5:26 PM Result Value Ref Range Specific gravity STEPH 1.020 1.003 - 1.035 Leukocyte esterase STEPH Trace (A) Negative^Negative Nitrite STEPH Negative Negative^Negative Ph 5.5 5.0 - 8.5 Protein STEPH Negative Negative^Negative mg/dL Urine glucose STEPH Negative Negative^Negative mg/dL Ketones STEPH Negative Negative^Negative mg/dL Urobilinogen STEPH 0.2 <1.1 eu/dL Bilirubin STEPH Negative Negative^Negative Hemoglobin STEPH Negative Negative^Negative Lactate Collection Time: 03/24/24 7:50 PM Result Value Ref Range Lactate 2.9 (H) 0.4 - 2.0 mmol/L Hemoglobin and hematocrit, blood Collection Time: 03/24/24 9:05 PM Result Value Ref Range Hemoglobin 7.6 (L) 11.7 - 15.5 g/dL Hematocrit 25.1 (L) 35 - 47 % Bedside Glucose *Place/Obtain serum glucose if >500(>600 MRH) per glucometer. Collection Time: 03/25/24 12:30 AM Result Value Ref Range Bedside glucose 137 (H) 65 - 99 mg/dL CBC auto differential Collection Time: 03/25/24 3:42 AM Result Value Ref Range White Blood Cells 8.5 4.0 - 11.0 X10E9/L RBC count 4.16 3.80 - 5.20 X10E12/L Hemoglobin 7.4 (L) 11.7 - 15.5 g/dL Hematocrit 24.6 (L) 35 - 47 % MCV 59 (L) 80 - 100 fL MCH 17.9 (L) 27 - 34 pg MCHC 30.2 (L) 32 - 36 g/dL RDW 19.2 (H) 11.5 - 15.0 % Platelets 270 150 - 450 X10E9/L MPV 8.1 7 - 12 fL % neutrophils 71.1 % % lymphocytes 16.9 % % monocytes 7.8 % % eosinophils 3.6 % % Basophils 0.6 % Neutrophils Absolute (A) 6.1 1.5 - 6.6 X10E9/L Lymphocytes Absolute 1.4 1.0 - 3.5 X10E9/L Monocytes Absolute 0.7 0 - 0.9 X10E9/L Eosinophils Absolute 0.3 0.0 - 0.4 X10E9/L Basophils Absolute 0.1 0.0 - 0.2 X10E9/L Hypochromia 1+ (A) NONE^NONE Basic Metabolic Panel Collection Time: 03/25/24 3:42 AM Result Value Ref Range Sodium 138 134 - 146 mmol/L Potassium, Bld 3.5 3.5 - 5.0 mmol/L Chloride 107 98 - 109 mmol/L CO2 25 22 - 32 mmol/L Anion gap 6 5 - 15 mmol/L BUN 11 5 - 27 mg/dL Creatinine 0.90 0.40 - 1.00 mg/dL Glucose 151 (H) 65 - 99 mg/dL Calcium 8.4 (L) 8.5 - 10.5 mg/dL eGFR (CKD-EPI)non-race dependent 71 >59 ml/min/1.73sq.m Iron and TIBC Collection Time: 03/25/24 3:42 AM Result Value Ref Range Iron <10 (L) 50 - 170 ug/dL Tibc-calc only do not order 524 (H) 250 - 425 ug/dL Iron Saturation <2 (L) 15 - 50 % SATURATION Ferritin Collection Time: 03/25/24 3:42 AM Result Value Ref Range Ferritin 4 (L) 11 - 307 ng/mL Protime & INR Collection Time: 03/25/24 3:42 AM Result Value Ref Range Protime 24.9 (H) 9.8 - 13.2 sec Inr 2.2 (H) 0.8 - 1.1 Bedside Glucose *Place/Obtain serum glucose if >500(>600 MRH) per glucometer. Collection Time: 03/25/24 6:27 AM Result Value Ref Range Bedside glucose 158 (H) 65 - 99 mg/dL Lactate w/ Reflex Collection Time: 03/25/24 8:24 AM Result Value Ref Range Lactate w/ Reflex 1.2 0.4 - 2.0 mmol/L Bedside Glucose *Place/Obtain serum glucose if >500(>600 MRH) per glucometer. Collection Time: 03/25/24 11:52 AM Result Value Ref Range Bedside glucose 154 (H) 65 - 99 mg/dL FFP setup:Number of Units: 1 Collection Time: 03/25/24 12:24 PM Result Value Ref Range Blood component type [id number] Unit number [id number] Unit ABO B Unit RH POS Status of unit /RELEASED Expiration Date BB Type Barcode 7300 X-ray chest 2 views Result Date: 03/25/2024 CLINICAL HISTORY: Shortness of breath Comparison: 01/28/2023 Views: 2 view FINDINGS: * No acute infiltrate. No volume loss nor consolidation. There is no pleural effusion, pneumothorax, nor volume loss. Heart and mediastinal structures are unremarkable. Pulmonary vasculature stable. Degenerative changes thoracic spine. Old right rib fractures. IMPRESSION: * No active disease nor significant interval change Finalized by Ramiro Alvarado MD on 03/25/2024 5:[address] abdomen and pelvis with contrast Result Date: 03/24/2024 CLINICAL HISTORY: Lower GI bleeding. CT ABDOMEN AND PELVIS WITH CONTRAST: 03/24/2024 COMPARISON: 10/20/2015 PROCEDURE: Axial images were obtained through the abdomen and pelvis after oral contrast ingestion and 100 mL Omnipaque 300 intravenously. Coronal and sagittal reconstructions were performed. All CT scans at this facility use dose modulation, iterative reconstruction, and/or weight based dosing when appropriate to reduce radiation dose to as low as reasonably achievable. FINDINGS : The visualized lower lungs and pleural spaces are clear. No focal hepatic or splenic abnormality is evident. The pancreas, gallbladder, and biliary tree are within normal limits. The kidneys enhance symmetrically. A right superior pole lesion contains fat and is compatible with an angiomyolipoma. This measures up to 1.8 cm. There is no ureteral dilation or urinary bladder irregularity. No dilated bowel loops are present. Diverticula are present within the descending colon and sigmoid region with no acute inflammatory changes. There is some heterogeneous density within the cecum with areas of slightly hyperdense appearance at the lateral cecum on axial image 46 and coronal image 45. This is near the ileocecal valve. No focal bowel lesion is evident. Vascular structures enhance normally. Mild atherosclerotic calcification is present within the abdominal aorta. L4 superior endplate fracture appears subacute. Degenerative changes are present throughout the [place] spine. Some narrowing of the spinal canal is present at the thoracolumbar region with ossification of posterior longitudinal ligament. IMPRESSION: No definite cause of GI bleeding is present but there is some hyperdensity in the cecal region which could represent acute intra-abdominal contrast/blood. No other acute intra-abdominal or pelvic abnormality on CT evaluation. Lumbar degenerative and posttraumatic findings without a definite acute abnormality. 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 Finalized by Ulysses Pérez MD on 03/24/2024 6:[address] brain without contrast Result Date: 03/24/2024 CT BRAIN WITHOUT CONTRAST COMPARISON: 07/12/2023 HISTORY: Transient alteration of awareness. Dizziness TECHNIQUE: Unenhanced axial images of the brain were obtained. Automatic exposure control (AEC) was utilized. FINDINGS: There is no evidence for acute intracranial hemorrhage. There is no hydrocephalus, mass effect, or midline shift. Aguilar-white differentiation is preserved with no CT evidence for an acute infarct. IMPRESSION: No evidence for an acute intracranial process. All CT scans at this facility use dose modulation, iterative reconstruction, and/or weight based dosing when appropriate to reduce radiation dose to as low as reasonably achievable. Finalized by Kori Robert DO on 03/24/2024 5:54 PM ASSESSMENT: Principal Problem: Blood loss anemia Active Problems: longterm (current) use of anticoagulants [Z79.01] Essential hypertension History of stroke 1993 Obstructive sleep apnea syndrome Deepthi-deepthi disease 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CMS-HCC) Acquired hypothyroidism Melena Frequent falls Chronic depression History of epistaxis PLAN: Admit with telemetry Full code NPO until seen by GI Fall precautions Orthostatic vitals q shift Has been typed and screened IV protonix BID NS @ 100 mL/hr Q 8 hour H/H. Transfuse for hgb < 7. Pt consents to blood products. Warfarin held. 1 unit FFP now. Recheck INR this afternoon GI eval Consult hematology, history of hypercoagulable disorder on chronic warfarin, now with acute blood loss anemia and frequent falls at home, assess ongoing need for anticoagulation Compression stockings and EPCs PT/OT, likely needs SNF at D/C Consuelo Medina APRN-[facility] 03/25/24 [id number] documented in this encounter [facility] 03-25-2024 Plan of care note Problem: Pain Goal: Patient goal is pain score less than 4, able to rest, and participant in treatment plan as appropriate Description: INTERVENTIONS: 1. Encourage patient or legal sales representative gas service to report early pain and ask for pain medicine when needed 2. Assess pain using appropriate pain scale and include the scale used when documenting 3. Administer analgesics based on type and severity of pain and evaluate response within appropriate time frame 4. Implement non-pharmacological measures as appropriate and evaluate response 5. Consider cultural and social influences on pain and pain management 6. Notify LIP if interventions ineffective or patient reports new pain 7. Monitor vital signs including pulse ox, end-tidal CO2 based on pain intervention 8. Reassess pain per policy 9. Teach patient or legal sales representative gas service interventions for comforting Outcome: Progressing Note: Evaluation of progress towards goal: Pt reports no pain currently. Will continue to monitor. Problem: Safety Goal: Patient will be injury free during hospitalization Description: INTERVENTIONS: 1. Assess patient's risk for falls and implement fall prevention plan of care per policy 2. Provide and maintain a safe environment 3. Proper use of double Identifiers 4. Medication administration using the 5 rights 5. Hand hygiene 6. Specimens are labeled at the bedside 7. Instruct patient/ patient sales representative gas service about use of safety devices 8. Include patient/ patient sales representative gas service in decisions related to safety Outcome: Progressing Note: Evaluation of progress towards goal: Pt remains free from falls and safety maintained. Will continue to monitor. Problem: Glucose Imbalance Goal: Clinical indication of glucose balance is achieved Description: Patient's goal is: INTERVENTIONS 1. Monitor blood glucose levels as ordered 2. Administer medications as ordered 3. Notify physician of ineffective treatment plan Outcome: Progressing Note: Evaluation of progress towards goal: Obtain blood glucose monitoring, as needed, for monitoring of signs and/or symptoms of hypo/hyperglycemia. Will continue to monitor. - Shruthi Sandhu RN 03/25/24 12:25 AM [facility] 03-24-2024 Miscellaneous Notes No page sent documented in this encounter [facility] 03-24-2024 Telephone encounter Note No page sent [facility] 03-24-2024 Miscellaneous Notes Contract: 97 [facility] Admission Contract: 97 Called Consuelo Medina and connected call documented in this encounter [facility] 03-24-2024 Telephone encounter Note Contract: 97 [facility] Admission [facility] 03-24-2024 Telephone encounter Note Contract: 97 Called Consuelo Medina and connected call [facility] 03-24-2024 Emergency department Triage note PT presents to the ED for multiple complaints. PT reports she is experiencing dizziness described as room spinning. She also reports to experiencing SOB and intermittent CP. PT reports she has fallen multiple times. Last fall was Saturday. PT reports she hit her head and had + LOC. PT was seen at [facility] and advised to come to ED [facility] 03-24-2024 Emergency department Note PT presents to the ED for multiple complaints. PT reports she is experiencing dizziness described as room spinning. She also reports to experiencing SOB and intermittent CP. PT reports she has fallen multiple times. Last fall was Saturday. PT reports she hit her head and had + LOC. PT was seen at [facility] and advised to come to ED documented in this encounter [facility] 03-24-2024 History of Present illness Narrative Subjective Patient ID: Robb Crystal is a 63 y.o. female. Chief Complaint Chief Complaint Patient presents with Dizziness Getting dizzy, possibly passing out and then falls HPI HPI Here with Complains of dizziness that precipitates syncope and falls, HARRIS, fatigue Dizziness with position change Black stools x 2 days No abd pain, n/v On warfarin, history of stroke and factor V leiden Denies nsaid use Had bad nose bleed 03/03/24 - seen in ER twice States she fell face forward into cupboard a couple days ago, hit her face Headaches Past Medical History Past Medical History: Diagnosis Date Anemia 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 [place] Anxiety Arrhythmia Irregular HB Arthritis Spine Cataract States early Chest pain Chronic lymphocytic thyroiditis CVA [place]cerebral vascular [place]) [place] [place] Left side-mild weakness DDD (degenerative disc disease), lumbar Deep vein thrombosis [place] [place] LLE Dental disease Poor teeth Depression Diabetes mellitus type 2, controlled [place] Checks glucose [id number] Disease of thyroid gland Diverticulitis of colon Dizziness HARRIS (dyspnea on exertion) Facial weakness Fractures Right wrist, left elbow GERD (gastroesophageal reflux disease) Deepthi-deepthi disease Katelyn's thyroiditis Hypercoagulable state [place] [place] Hyperlipidemia Hypertension Hypothyroidism 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 [place] (myocardial infarction) [place] [place] Silent-in past Migraine Morbid obesity [place] MRSA (methicillin resistant Staphylococcus aureus) 2000s Posterior left neck-treated Neuropathy Feet Numbness Osteoporosis Pneumonia Rash bilat legs lower belly Restless leg syndrome Sinusitis, chronic Here for surgical work-up for sinus surgery Sleep apnea CPAP Stress incontinence St[place] TIA (transient ischemic attack) Several UTI (urinary tract infection) Years ago Ventral hernia Visual impairment Wears corrective lenses Past Surgical History Past Surgical History: Procedure Laterality Date SECTION 1979 + 1980 CHOLECYSTECTOMY 2012 COLONOSCOPY 2016 COLONOSCOPY N/A 10/30/2018 Performed by Lottie Martinez DO at [facility] ELBOW SURGERY Left 04/27/2013 Fracture repair has hardware- ORIF distal humeral condylar fx EXAM UNDER ANESTHESIA/EXCISION VUVLAR CYST N/A 06/15/2020 Performed by Rich Montalvo MD at [facility] EXCISION CYST ARM Right 10/30/2018 Performed by Lottie Martinez DO at [facility] FESS (FUNCTIONAL ENDOSCOPIC SINUS SURGERY) WITH NAVIGATION SYSTEM NASAL, FRONTAL SINSUSOTOMY, SPHENEIDOTOMY Bilateral 06/27/2016 Performed by Ysosi Cheatham MD at [facility] HERNIA REPAIR 2012 2 seperate surgeries/ abd hernias HYSTERECTOMY 1982 States still has at least one ovary INCISION DRAINAGE BUTTOCKS Left 02/10/2021 Performed by Xiomara Huffman MD at [facility] NECK SURGERY 1999s MRSA spot on back of neck OVARIAN CYST REMOVAL Right TUBAL LIGATION 1981 WRIST SURGERY Right 04/27/2013 Has hardware- ORIF distal radius fx Family History Family History Problem Relation Age of Onset Diabetes Mother Hypertension Mother Heart disease Mother Stroke Mother Cancer Father Cancer Sister Heart disease Sister Hypertension Sister Diabetes Sister Anesthesia problems Sister Stroke Sister Migraines Sister Rheumatic fever Brother Cancer Sister Social History Social History Socioeconomic History Marital status: Spouse name: Not on file Number of children: Not on file Years of education: Not on file Highest education level: Not on file Occupational History Not on file Tobacco Use Smoking status: Never Smokeless tobacco: Never Tobacco comments: Been around smokers never have smoked Vaping Use Vaping status: Never Used Substance and Sexual Activity Alcohol use: Yes Comment: occ Drug use: No Sexual activity: Not Currently Partners: Male control/protection: None Comment: , Hyst Other Topics Concern Caffeine Use Yes Social History Narrative Not on file Social Determinants of Health Financial Resource Strain: Not on file Food Insecurity: No Food Insecurity (03/24/2024) Hunger Screening Food Insecurity - Worry: Never True Food Insecurity - Inability: Never True Transportation Needs: Not on file Physical Activity: Not on file Stress: Not on file Social Connections: Not on file Interpersonal Safety: Not on file Housing Instability: Not on file Allergies Allergies Allergen Reactions Adhesive Dermatitis Dicloxacillin Sodium Hives Lincomycin Hcl Hives Lipitor [Atorvastatin] Elevated LFT's Penicillins Hives Atarax [Hydroxyzine Hcl] Itching Exacerbated previous condition Ceclor [Cefaclor] Rash Clindamycin Rash Hydroxyzine Pamoate Itching Severe itching, exacerbated previous condition. No swelling, hives Latex Rash Latex, Natural Rubber Itching Warfarin Hives FATIGUE,CONSTIPATION Current Medications Current Outpatient Medications Medication Sig Dispense Refill acetaminophen-codeine (TYLENOL #3) 300-30 mg per tablet TAKE 1 TABLET EVERY 4-6 HOURS NEEDED FOR MODERATE/SEVERE PAIN albuterol (PROVENTIL HFA;VENTOLIN HFA) 90 mcg/actuation inhaler INHALE 2 PUFFS EVERY 4 HOURS NEEDED FOR WHEEZING OR SHORTNESS OF BREATH 8.5 g 3 atorvastatin (LIPITOR) 40 mg tablet take 1 tablet by mouth every day 90 tablet 3 blood sugar diagnostic (glucose blood) strip Check BID 100 strip 5 calcium citrate/vitamin D3 (CALCIUM CITRATE + D ORAL) Take 1 tablet by mouth daily. carvediloL (COREG) 3.125 mg tablet TAKE 1 TABLET (3.125 MG TOTAL) BY MOUTH IN THE MORNING AND 1 TABLET (3.125 MG TOTAL) BEFORE BEDTIME. 180 tablet 1 chlorhexidine (PERIDEX) 0.12 % solution PLEASE SEE ATTACHED FOR DETAILED DIRECTIONS clindamycin (CLEOCIN) 150 mg capsule TAKE 1 CAP ONE HOUR PRIOR TO PROCEDURE THEN TAKE ONE CAP EVERY 8 HOURS UNTIL GONE. docosahexanoic acid/epa (FISH OIL ORAL) Take 2 tablets by mouth daily. enoxaparin (LOVENOX) 120 mg/0.8 mL syringe Inject 120 mg under the skin twice daily as directed 16 mL 1 ergocalciferol (DRISDOL) 1,250 mcg (50,000 unit) capsule Take 1 tablet two times weekly: on Saturday and Saturday 24 capsule 3 famotidine (PEPCID) 20 mg tablet TAKE 1 TABLET (20 MG TOTAL) BY MOUTH IN THE MORNING AND BEFORE BEDTIME 180 tablet 1 fenofibrate (TRICOR) 48 mg tablet TAKE 1 TABLET BY MOUTH EVERY DAY 90 tablet 3 ferrous sulfate 325 (65 FE) mg EC tablet TAKE 1 TABLET (325 MG TOTAL) BY MOUTH IN THE MORNING 90 tablet 1 ferrous sulfate 325 (65 FE) mg tablet TAKE 1 TABLET BY MOUTH EVERY OTHER DAY 45 tablet 2 fluticasone propionate (FLONASE) 50 mcg/actuation nasal spray folic acid (FOLVITE) 1 mg tablet take 1 tablet by mouth every day 90 tablet 1 furosemide (LASIX) 20 mg tablet take 1 tablet by mouth every day 90 tablet 1 JANTOVEN 5 mg tablet Take 1-1.5 tablets (5-7.5 mg total) by mouth in the evening. As directed by Aimee DALY. 135 tablet 1 levothyroxine (SYNTHROID, LEVOTHROID) 150 MCG tablet take 1 tablet by mouth every day 90 tablet 1 losartan (COZAAR) 100 mg tablet TAKE 1 TABLET BY MOUTH EVERY DAY (Patient taking differently: 0.5 tablets (50 mg total).) 90 tablet 1 losartan (COZAAR) 50 mg tablet TAKE 1 TABLET (50 MG TOTAL) BY MOUTH IN THE MORNING 90 tablet 1 metFORMIN (GLUCOPHAGE) 1000 mg tablet Take 1 tablet (1,000 mg total) by mouth in the morning and 1 tablet (1,000 mg total) before bedtime. 180 tablet 3 nystatin (MYCOSTATIN) cream Apply 1 Application topically in the morning and 1 Application before bedtime. 30 g 5 rOPINIRole (REQUIP) 1 mg tablet Take 2 tablets (2 mg total) by mouth nightly. Takes 3 in the am, 4 hs 3 sertraline (ZOLOFT) 100 mg tablet TAKE 1 TABLET BY MOUTH EVERY DAY 90 tablet 2 TRUE METRIX GLUCOSE METER misc See Admin Instructions. No current facility-administered medications for this visit. Review of Systems Review of Systems Constitutional: Positive for fatigue. Negative for chills and fever. Respiratory: Positive for shortness of breath. Genitourinary: Negative for dysuria. Skin: Positive for pallor. Neurological: Positive for dizziness, syncope, weakness, light-headedness and headaches. Psychiatric/Behavioral: Positive for confusion. Objective Vitals BP 120/74 Pulse 96 Temp 36.7 C (98.1 F) Resp 18 Ht 162.6 cm (5' 4 ) Wt 101.2 kg (223 lb) SpO2 97% BMI 38.28 kg/m Physical Exam Physical Exam Vitals and nursing note reviewed. Exam conducted with a calculus tutor present. Constitutional: Appearance: She is ill-appearing. HENT: Head: Normocephalic and atraumatic. Right Ear: Hearing normal. Left Ear: Hearing normal. Cardiovascular: Rate and Rhythm: Regular rhythm. Tachycardia present. Heart sounds: Normal heart sounds, S1 normal and S2 normal. Pulmonary: Effort: Pulmonary effort is normal. Breath sounds: Normal breath sounds. No decreased breath sounds, wheezing, rhonchi or rales. Abdominal: General: Bowel sounds are normal. Palpations: Abdomen is soft. Tenderness: There is no abdominal tenderness. Genitourinary: Rectum: Guaiac result negative (likely insufficient specimen but negative). Skin: Coloration: Skin is pale. Comments: Conjunctiva, lips, oral mucosa pale Neurological: Mental Status: She is alert. Comments: Speech garbled Psychiatric: Attention and Perception: Attention normal. Mood and Affect: Mood normal. Speech: Speech normal. Behavior: Behavior normal. Behavior is cooperative. Thought Content: Thought content normal. Cognition and Memory: Cognition normal. Judgment: Judgment normal. Recent Pertinent Labs and Radiology Assessment/Plan 1. Melena 2. Orthostatic dizziness 3. Shortness of breath 4. Fall in home, initial encounter 5. Factor V Leiden (CMS-HCC) 6. Current use of longterm anticoagulation Needs ER eval for appropriate disposition There are no discontinued medications. There are no Patient Instructions on file for this visit. ANKITA Maharaj 03/24/24 1557 documented in this encounter [facility] 03-24-2024 History of Present illness Narrative 15 minute ixxm-fa-tkya follow-up anticoagulation appointment. INR performed in office per protocol. INR 1.9 (goal range: 2.0-3.0). Patient reports: Taking warfarin dosing as documented. Missed or extra doses of warfarin: No Changes to medications: No Changes to lifestyle (diet / alcohol / smoking / activity): No Recent emergency department visit / hospitalization / health changes / new contraindication to current anticoagulant: YES ER visit last Saturday for fall and nose bleed per patient report Signs/symptoms of bruising/bleeding or clotting or any intolerable adverse events: YES Bruise on elbow from fall Upcoming procedures: No Anticoagulant prescription needed: YES- Trena- CAMILLA-Nancy Seen referring provider in the last year- no, scheduled 04/2024 Duration of therapy reviewed- indefinite Assessment: INR is slightly low for unidentifiable reason. INR was 2.4 on 03/03. We will continue current dosing given patients history of falls. Plan: Patient instructed to continue warfarin 7.5 mg MWF and 5 mg AOD. Check INR in 4 week(s). Patient verbalizes understanding of anticoagulant dosing instructions and information discussed. Dosing regimen, counseling, and follow-up appointment were provided to the patient. Patient reminded to call with questions or any medication changes. Patient instructed to seek medical attention if any major bleeding/bleeding that persists or worsens. Karuna Frazier RPH 03/25/24 1426 documented in this encounter [facility] 09-18-2023 Miscellaneous Notes Patient's spouse called to cancel 09/18 appointment because patient fell and injured her ribs. This made her postpone her MRI. He asked me to let Consuelo Medina know what happened. Noted thank you She should get MRIs rescheduled and follow up with neurology on frequent falling. Notified pt . He states pt is still having a lot of pain from the fall. He will re-schedule as soon as she's feeling better. Can be seen if needed documented in this encounter [facility] 09-18-2023 Telephone encounter Note Patient's spouse called to cancel 09/18 appointment because patient fell and injured her ribs. This made her postpone her MRI. He asked me to let Consuelo Medina know what happened. [facility] 09-18-2023 Telephone encounter Note Noted thank you She should get MRIs rescheduled and follow up with neurology on frequent falling. [facility] 09-18-2023 Telephone encounter Note Notified pt . He states pt is still having a lot of pain from the fall. He will re-schedule as soon as she's feeling better. [facility] 09-18-2023 Telephone encounter Note Can be seen if needed [facility] 09-06-2023 History of Present illness Narrative 15 minute ipuq-sf-osmf follow-up anticoagulation appointment. INR performed in office per protocol. INR 3.0 (goal range: 2.0-3.0). Patient reports: Taking warfarin dosing as documented. Missed or extra doses of warfarin: No Changes to medications: No Changes to lifestyle (diet / alcohol / smoking / activity): No Recent emergency department visit / hospitalization / health changes / new contraindication to current anticoagulant: No Signs/symptoms of bruising/bleeding or clotting or any intolerable adverse events: No Upcoming procedures: No Anticoagulant prescription needed: No Seen referring provider in the last year Duration of therapy reviewed Assessment: INR is remaining stable in therapeutic range on current warfarin regimen. Plan: Patient instructed to continue warfarin 7.5 mg MWF and 5 mg AOD. Check INR in 4 week(s). Patient verbalizes understanding of anticoagulant dosing instructions and information discussed. Dosing regimen, counseling, and follow-up appointment were provided to the patient. Patient reminded to call with questions or any medication changes. Patient instructed to seek medical attention if any major bleeding/bleeding that persists or worsens. Karuna Frazier RPH 09/06/23 1336 documented in this encounter [facility] 08-14-2023 History of Present illness Narrative 15 minute fgzm-fh-qdjp follow-up anticoagulation appointment. INR performed in office per protocol. INR 2.2 (goal range: 2.0-3.0). Patient reports: Taking warfarin dosing as documented. Missed or extra doses of warfarin: No Changes to medications: No Changes to lifestyle (diet / alcohol / smoking / activity): No Recent emergency department visit / hospitalization / health changes / new contraindication to current anticoagulant: No Signs/symptoms of bruising/bleeding or clotting or any intolerable adverse events: No Upcoming procedures: No Anticoagulant prescription needed: No Seen referring provider in the last year Duration of therapy reviewed Assessment: INR is remaining stable in therapeutic range on current warfarin regimen. Plan: Patient instructed to continue warfarin 7.5 mg MWF and 5 mg AOD. Check INR in 3 week(s). Patient verbalizes understanding of anticoagulant dosing instructions and information discussed. Dosing regimen, counseling, and follow-up appointment were provided to the patient. Patient reminded to call with questions or any medication changes. Patient instructed to seek medical attention if any major bleeding/bleeding that persists or worsens. Karuna Frazier [facility] 08/14/23 1546 documented in this encounter [facility] 08-05-2023 History of Present illness Narrative 15 minute yabt-fk-ykpc follow-up anticoagulation appointment. INR performed in office per protocol. INR 1.9 (goal range: 2.0-3.0). Patient reports: Taking warfarin dosing as documented. Missed or extra doses of warfarin: YES Boosted as instructed Changes to medications: No Changes to lifestyle (diet / alcohol / smoking / activity): No Recent emergency department visit / hospitalization / health changes / new contraindication to current anticoagulant: No Signs/symptoms of bruising/bleeding or clotting or any intolerable adverse events: No Upcoming procedures: No Anticoagulant prescription needed: No Seen referring provider in the last year Duration of therapy reviewed Assessment: INR has risen following boost dose. We will increase weekly dose by an additional 6% as patient has had 40 mg in the past 7 days and remains slightly subtherapeutic. New weekly target of 42.5 mg/week. Patient instructed to stop Lovenox. Plan: Patient instructed to increase to warfarin 7.5 mg MWF and 5 mg AOD. Check INR in 10 day(s). Patient verbalizes understanding of anticoagulant dosing instructions and information discussed. Dosing regimen, counseling, and follow-up appointment were provided to the patient. Patient reminded to call with questions or any medication changes. Patient instructed to seek medical attention if any major bleeding/bleeding that persists or worsens. Karuna Frazier [facility] 08/05/23 1101 documented in this encounter [facility] 08-02-2023 History of Present illness Narrative 15 minute fvod-sg-axfm follow-up anticoagulation appointment. INR performed in office per protocol. INR 1.5 (goal range: 2.0-3.0). Patient reports: Taking warfarin dosing as documented. Missed or extra doses of warfarin: No Changes to medications: Yes, Lovenox bridge stopped 1 week ago Iron supplement, possibly causing constipation Changes to lifestyle (diet / alcohol / smoking / activity): No Recent emergency department visit / hospitalization / health changes / new contraindication to current anticoagulant: No Signs/symptoms of bruising/bleeding or clotting or any intolerable adverse events: Yes, talks about hacked up a blood clot 1x in the last week. Was real hard and gross looking in the tissue Upcoming procedures: No Anticoagulant prescription needed: No Seen referring provider in the last year Duration of therapy reviewed Assessment: INR lower and remains subtherapeutic at 1.5 today. Pt gave last dose of Lovenox from a bridge plan 1 week ago. Pt mentions hacked up a blood clot 1x in the last week. Was real hard and gross looking in the tissue . Also pt started iron supp 3 days ago, and does admit constipation - although had a BM today Plan: Patient instructed to boost increase to warfarin from 7.5 mg to 10mg today Aug 02, and increase weekly dose by 6.7% to 7.5 mg Mon and Fri and 5 mg AOD. Pt to restart Lovenox bridge until further notice/next appt - I sent refill today Pt to get and take Docusate Sodium stool softener Check INR in 3 days for safety check *Pt declined ER today. Advised pt her INR of 1.5 presents increased risk for clot, and what she coughed up, a potential clot. Advised pt if she has any more hacking up a clot and/or SOB, then she should seek medical attention via ER BRIGHT. Pt acknowledged and understood Patient verbalizes understanding of anticoagulant dosing instructions and information discussed. Dosing regimen, counseling, and follow-up appointment were provided to the patient. Patient reminded to call with questions or any medication changes. Patient instructed to seek medical attention if any major bleeding/bleeding that persists or worsens. Tres Grant RPH 08/02/23 1344 documented in this encounter [facility] 07-22-2023 History of Present illness Narrative 15 minute qbyq-fg-lqwo follow-up anticoagulation appointment. INR performed in office per protocol. INR 1.5 (goal range: 2.0-3.0). Patient reports: Taking warfarin dosing as documented. Missed or extra doses of warfarin: YES Held d/t post-op bleeding Resumed with boost 07/19 Changes to medications: No Changes to lifestyle (diet / alcohol / smoking / activity): No Recent emergency department visit / hospitalization / health changes / new contraindication to current anticoagulant: No Signs/symptoms of bruising/bleeding or clotting or any intolerable adverse events: No Upcoming procedures: No Anticoagulant prescription needed: No Seen referring provider in the last year Duration of therapy reviewed Assessment: INR remains subtherapeutic, but is trending up. We will boost 7%, continue Lovenox, and safety check in 2 days. Plan: Patient instructed to increase to warfarin 7.5 mg 07/22, then resume 7.5 mg Fri and 5 mg AOD. Check INR in 2 day(s). Patient verbalizes understanding of anticoagulant dosing instructions and information discussed. Dosing regimen, counseling, and follow-up appointment were provided to the patient. Patient reminded to call with questions or any medication changes. Patient instructed to seek medical attention if any major bleeding/bleeding that persists or worsens. Karuna Frazier RPH 07/22/23 1108 documented in this encounter [facility] 07[facility]23 Miscellaneous Notes ED Outreach This documentation is being used for Transition of Care purposes: Yes/No: Yes ED Outreach Date: July 15, 2023 ED Outreach Method: COMMUNICATION METHOD: Telephone ED Outreach Attempt: first ED Outreach Outcome: Contacted Patient Name of ED Facility: [facility] Date of ED Discharge: 07/12/2023 Discharge Diagnosis: Postsurgical epistaxis ED Chief Complaint: Nose bleed Current Symptom Status: improving- spoke with patient's spouse, hipaa verified. He states that patient is doing better today. She is currently at her surgeon's office. Medication Changes Reviewed: yes Medication Questions/Concerns: denies concerns at this time Follow-up PCP Scheduled: declines at this time Follow-up Specialist Scheduled: seeing surgeon this afternoon Follow up Testing Scheduled: n/a Patient Contacted Office Prior to ED Visit: No. Patient made aware of on-call provider and same day appointment availability. Additional Comments: Patient will contact the office with additional concerns. documented in this encounter [facility] 07-15-2023 Telephone encounter Note ED Outreach This documentation is being used for Transition of Care purposes: Yes/No: Yes ED Outreach Date: July 15, 2023 ED Outreach Method: COMMUNICATION METHOD: Telephone ED Outreach Attempt: first ED Outreach Outcome: Contacted Patient Name of ED Facility: [facility] Date of ED Discharge: 07/12/2023 Discharge Diagnosis: Postsurgical epistaxis ED Chief Complaint: Nose bleed Current Symptom Status: improving- spoke with patient's spouse, hipaa verified. He states that patient is doing better today. She is currently at her surgeon's office. Medication Changes Reviewed: yes Medication Questions/Concerns: denies concerns at this time Follow-up PCP Scheduled: declines at this time Follow-up Specialist Scheduled: seeing surgeon this afternoon Follow up Testing Scheduled: n/a Patient Contacted Office Prior to ED Visit: No. Patient made aware of on-call provider and same day appointment availability. Additional Comments: Patient will contact the office with additional concerns. [facility] History of Present illness Narrative Phone call from ER Patient with significant nosebleed Warfarin and Lovenox to be held until she follows up with Dr. Causey on Saturday Note that she has a history of hypercoagulable state and CVA in 1993. She is expected to be on lifelong warfarin [facility] History of Present illness Narrative Images from the original note were not included. 30 minute atau-ep-vmfd follow-up anticoagulation appointment. INR performed in office per protocol. INR 2.3 (goal range: 2.0-3.0). Patient reports: Taking warfarin dosing as documented. Missed or extra doses of warfarin: No Changes to medications: No Changes to lifestyle (diet / alcohol / smoking / activity): No Recent emergency department visit / hospitalization / health changes / new contraindication to current anticoagulant: No Signs/symptoms of bruising/bleeding or clotting or any intolerable adverse events: No Upcoming procedures: Yes, See addendum 06/05. Reviewed bridge plan as below. Anticoagulant prescription needed: Yes, sent lovenox to [facility] Seen referring provider in the last year Duration of therapy reviewed Assessment: INR is remaining stable in therapeutic range on current warfarin regimen. Plan: Patient instructed to continue warfarin 7.5 mg today, 5 mg tomorrow then begin bridge plan. Check INR in 2.5 week(s). Patient verbalizes understanding of anticoagulant dosing instructions and information discussed. Dosing regimen, counseling, and follow-up appointment were provided to the patient. Patient reminded to call with questions or any medication changes. Patient instructed to seek medical attention if any major bleeding/bleeding that persists or worsens. Miriam Gardner RPH 06/28/23 1046 Janette from [facility] in [facility] (P: [phone]). She states she received a script for Lovenox, however needs the directions clarified. Please return her call. documented in this encounter [facility] 06-27-2023 Miscellaneous Notes Roland, patients called, stated that the patient is having sinus surgery on 07/05/[address] Cheatham at [facility]. She is to have her Pre Op labs done 07/04/23. She has 2 antibiotics that she is to start prior to surgery: Cefdinir 300 mg BID 10 days prior to procedure and Methylprednisolone 4 mg to be titrated per the dosing alba. Patient to to stop her warfarin 5 day PTP, no bridging was discuss the provider said to talk with Aimee DALY about stopping and bridging. Roland is requesting a call back to discuss at [phone]. Noted. Please see addendum to [facility] encounter from 06/05/23 for more information regarding bridge plan. Electronically signed by Consuelo Arreola [facility] at 06/27/2023 10:18 AM EST documented in this encounter [facility] 06-27-2023 Telephone encounter Note Roland, patients called, stated that the patient is having sinus surgery on 07/05/[address] Cheatham at [facility]. She is to have her Pre Op labs done 07/04/23. She has 2 antibiotics that she is to start prior to surgery: Cefdinir 300 mg BID 10 days prior to procedure and Methylprednisolone 4 mg to be titrated per the dosing alba. Patient to to stop her warfarin 5 day PTP, no bridging was discuss the provider said to talk with [facility] about stopping and bridging. Roland is requesting a call back to discuss at [phone]. [facility] 06-27-2023 Telephone encounter Note Noted. Please see addendum to [facility] encounter from 06/05/23 for more information regarding bridge plan. Electronically signed by Consuelo Arreola [facility] at 06/27/2023 10:18 AM EST [facility] Work Phone: 06-19-2023 Miscellaneous Notes Roland called, states Myla has Pre Op testing done today at [facility], Medical Clearance papers were faxed here. Surgery is 07/05/2022@ [place]. Will she need an appt here for clearance. Call Roland to schedule. I can send clearance letter, I recently saw pt and she also got clearance from cardiology She needs bridging for warfarin from Aimee Christian, please let pt and Jonellet know that she will need bridging of warfarin for upcoming surgery. Spoke with Roland, they have already been given instructions from Aimee on her coumadin. States she is c/o vision issues and is closing her left eye a lot to read. Instructed him to call her eye dr for an evaluation. Please write clearance letter and I will send to [facility]. documented in this encounter [facility] 06-19-2023 Telephone encounter Note Roland called, states Myla has Pre Op testing done today at [facility], Medical Clearance papers were faxed here. Surgery is 07/05/2022@ [place]. Will she need an appt here for clearance. Call Roland to schedule. [facility] 06-19-2023 Telephone encounter Note I can send clearance letter, I recently saw pt and she also got clearance from cardiology She needs bridging for warfarin from Aimee Christian, please let pt and Aimee know that she will need bridging of warfarin for upcoming surgery. [facility] 06-19-2023 Telephone encounter Note Spoke with Roland, they have already been given instructions from Aimee on her coumadin. States she is c/o vision issues and is closing her left eye a lot to read. Instructed him to call her eye dr for an evaluation. Please write clearance letter and I will send to [facility]. 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 [Z79.01]- Primary Long-term (current) use of anticoagulants [facility] Diagnosis longterm (current) use of anticoagulants [Z79.01]- Primary Long-term (current) use of anticoagulants CVA (cerebral vascular accident) (HCC) 1993 - ON LIFELONG WARFARIN [facility] Diagnosis Primary hypertension Unspecified essential hypertension [facility] Diagnosis longterm (current) use of anticoagulants [Z79.01]- Primary Long-term (current) use of anticoagulants [facility]* Diagnosis Cerebrovascular accident (CVA), unspecified mechanism ([facility]) [facility] Diagnosis Iron deficiency Disorders of iron metabolism [facility]* Diagnosis longterm (current) use of anticoagulants [Z79.01]- Primary Long-term (current) use of anticoagulants [facility]* Diagnosis Melena- Primary Blood in stool Orthostatic dizziness Shortness of breath Fall in home, initial encounter Factor V Leiden ([facility]) Primary hypercoagulable state 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 [facility] 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 [Z79.01]- Primary Long-term (current) use of anticoagulants Cerebrovascular accident (CVA), unspecified mechanism ([facility]) [facility] Diagnosis Blood loss anemia- Primary Acute posthemorrhagic anemia Melena Blood in stool Iron deficiency anemia due to chronic blood loss Iron deficiency anemia secondary to blood loss (chronic) History of epistaxis Frequent falls Blood loss anemia Acute posthemorrhagic anemia Melena Blood in stool Essential hypertension Unspecified essential hypertension History of stroke 1994 Transient ischemic attack (TIA), and cerebral infarction without residual deficits 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 [Z79.01] Long-term (current) use of anticoagulants Obstructive sleep apnea syndrome Obstructive sleep apnea (adult) (pediatric) 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[facility]) Primary hypercoagulable state Acquired hypothyroidism Unspecified hypothyroidism Frequent falls Current mild episode of major depressive disorder without prior episode [place] Chronic depression History of epistaxis [facility] Diagnosis longterm (current) use of anticoagulants [Z79.01]- Primary Long-term (current) use of anticoagulants [facility] Diagnosis Acquired hypothyroidism- Primary Unspecified hypothyroidism Osteopenia of both hips Age-related osteoporosis without current pathological fracture- Primary Acquired hypothyroidism Unspecified hypothyroidism Pain- Primary Generalized pain [facility] Diagnosis Acquired hypothyroidism- Primary Unspecified hypothyroidism Osteopenia of both hips Age-related osteoporosis without current pathological fracture- Primary Acquired hypothyroidism Unspecified hypothyroidism Other closed displaced fracture of proximal end of left humerus, initial encounter- Primary Disorder of bone Pre-op testing Unspecified pre-operative examination Type 2 diabetes mellitus without complication, unspecified whether truck terminal manager insulin use [place] [place] [facility] Acquired hypothyroidism- Primary Unspecified hypothyroidism Osteopenia of both hips Age-related osteoporosis without current pathological fracture- Primary Acquired hypothyroidism Unspecified hypothyroidism Essential hypertension- Primary Unspecified essential hypertension Hypercholesteremia Pure hypercholesterolemia [facility] Diagnosis Acquired hypothyroidism- Primary Unspecified hypothyroidism Osteopenia of both hips Age-related osteoporosis without current pathological fracture- Primary Acquired hypothyroidism Unspecified hypothyroidism Closed fracture of proximal end of left humerus with delayed healing, unspecified fracture morphology, subsequent encounter- Primary [facility] instructionsNot on filedocumented in this encounterProPark[facility] SystemInstructionsNot on filedocumented in this encounterProPark[facility] SystemInstructionsNot on filedocumented in this encounterProParkview [facility] SystemInstructionsNot on filedocumented in this encounterProPark[facility] SystemInstructionsNot on filedocumented in this encounterProMedica Health SystemInstructionsNot on filedocumented in this encounterProMedica Health SystemInstructionsNot on filedocumented in this encounterProMedica Health SystemInstructionsNot on filedocumented in this encounterProMedica Health SystemInstructionsNot on filedocumented in this encounterProMedica Health SystemInstructionsNot on filedocumented in this encounterProMedica Health SystemInstructionsNot on filedocumented in this encounterProMedica Health SystemInstructionsNot on filedocumented in this encounterProMedica Health SystemInstructionsNot on filedocumented in this encounterProMedica Health SystemInstructionsNot on filedocumented in this encounterProMedica Health SystemInstructionsNot on filedocumented in this encounterProMedica Health SystemInstructionsNot on filedocumented in this encounterProMedica Health SystemInstructionsNot on filedocumented in this encounterProMedica Health SystemInstructionsNot on filedocumented in this encounterProMedica Health SystemInstructionsNot on filedocumented in this encounterWilson [facility] System Discharge Instructions * Instructions* Arelis Crowell, RN - 04/13/2019 Continue Coumadin from today. To see in the office in the next 3 weeks. To have the labs done in the recovery room. Sedation or General Anesthesia, Adult Care After Refer to this sheet in the next 24 hours. These instructions provide you with information on caringfor yourself after your procedure. Your caregiver may also give you more specific instructions. Your treatment has been planned according to current medical practices, but problems sometimes occur. Call your caregiver if you have any problems or questions after your procedure. HOME CARE INSTRUCTIONS Do not participate in any activities that require you to be alert or coordinated. Do not: Drive. Swim. Ride a bicycle. Operate heavy machinery. Cook. Use power tools. Climb ladders. Work at heights. Take a bath. Do not drink alcohol. Do not make any important decisions or sign legal documents. Stay with an adult. The first meal following your procedure should be light and small. Avoid solid foods if you feel sick to your stomach (nauseous) or if you throw up (vomit). Drink enough fluids to keep your urine clear or pale yellow. Only take your usual medicines or new medicines if your caregiver approves them. Only take ipik-muc-bardfvh or prescription medicines for pain, discomfort, or fever as directed by your caregiver. Keep all follow-up appointments as directed by your caregiver. SEEK IMMEDIATE MEDICAL CARE IF: You are not feeling normal or behaving normally after 24 hours. You have persistent nausea and vomiting. You are unable to drink fluids or eat food. You have difficulty urinating. You have difficulty breathing or speaking. You have blue or aguilar skin. There is difficulty waking or you cannot be woken up. You have heavy bleeding, redness, or a lot of swelling where the sedative or anesthesia entered your skin (intravenous site). You have a rash. MAKE SURE YOU: Understand these instructions. Will watch your condition. Will get help right away if you are not doing well or get worse. Document Released: 06/10/2006 Document Revised: 12/09/2012 Document Reviewed: 10/08/2012 [facility] Patient Information 2013 [employer]. Colonoscopy: What to Expect at Home Your Recovery After you have a colonoscopy, you will stay at the clinic for 1 to 2 hours until the medicines wearoff. Then you can go home, but you will need to arrange for a ride. Your doctor will tell you when you can eat and do your other usual activities. Your doctor will talk to you about when you will need your next colonoscopy. The results of your test and your risk for colorectal cancer will help your doctor decide how often you need to be checked. After the test, you may be bloated or have gas pains. You may need to pass gas. If a biopsy was done or a polyp was removed, you may have streaks of blood in your stool (feces) for a few days. This care sheet gives you a general idea about how long it will take for you to recover. But each person recovers at a different pace. Follow the steps below to get better as quickly as possible. How can you care for yourself at home? Activity Rest as much as you need to after you go home. You should be able to go back to your usual activities the day after the test. Diet Follow your doctor s directions for eating. Drink plenty of fluids (unless your doctor has told you not to) to replace the fluids that were lost during the colon prep. Do not drink alcohol. Medicines If polyps were removed or a biopsy was done during the test, your doctor may tell you not to take aspirin or other anti-inflammatory medicines, such as ibuprofen (Advil, Motrin) and naproxen (Aleve),for a few days. Other instructions For your safety, you should not drive or operate machinery until the medicine effects are gone and you can think clearly. Your doctor may tell you not to drive or operate machinery until the day after your test. Do not sign legal documents or make major decisions until the medicine effects are gone and you canthink clearly. The anesthesia medicine can make it hard for you to fully understand what you are agreeing to. Follow-up care is a arshad part of your treatment and safety. Be sure to make and go to all appointments, and call your doctor if you are having problems. It's also a good idea to know your test resultsand keep a list of the medicines you take. Call your Doctor if you have any of the following: Passing blood rectally or vomiting blood (it may be red or black). Persistent nausea or vomiting. Severe abdominal or chest pain, not relieved by passing gas. Fever of 100 or more, chills or excessive sweating. Redness or swelling at the IV site. If you experience shortness of breath or severe chest pain, call 911. Where can you learn more? Go to [email or web address] and sign in to your [employer] account. Enter E264 in the Search Health Information box to learn more about Colonoscopy: What to Expect at Home. If you do not have an account, please click on the Sign Up Now link. [employer]. Care instructions adapted under license by [employer]. This care instruction is for use with your licensed healthcare professional. If you have questions about a medical condition or this instruction, always ask your healthcare professional. [employer] disclaims any warranty or liability for your use of this information. Content Version: 9.9.939411; Last Revised: August 13, 2012 Colon Polypectomy (Colon Polyp Removal) Definition A colon polypectomy is the removal of polyps from the inside lining of the colon (large intestine).A polyp is a mass of tissue. Some types of polyps have the potential to develop into cancer. Most polyps can be removed during a colonoscopy or sigmoidoscopy . A Colon Polyp 2011 [employer] Reasons for Procedure The purpose of the surgery is to remove a polyp. It is done for cancer prevention. In rare cases, larger polyps can cause troublesome symptoms, such as rectal bleeding, abdominal pain, and bowel irregularities. A polyp removal will relieve these symptoms. Possible Complications Complications are rare, but no procedure is completely free of risk. If you are planning to have a polypectomy, your doctor will review a list of possible complications, which may include: Damage to the colon wall Bleeding Infection Adverse reaction to the sedative Factors that may increase the risk of complications include: Type, size, and location of the polyp Patient factors, such as blood-clotting disorders, substance abuse, or other diseases (eg, obesity , diabetes ) What to Expect Prior to Procedure Your doctor will likely do the following: Physical exam and health history Review of medicines Test your stool for hidden blood (called occult blood ) X-rays an exam that uses small amounts of radiation to make a picture of the inside of the body Barium enema x-ray exam that uses contrast to help better see the colon Diagnostic colonoscopy or sigmoidoscopyexamination of the inside of the intestine with an endoscope Your colon must be completely cleaned before the procedure. Any stool left in the intestine will block the view. This preparation may start several days before the procedure. Follow your doctor's instructions, which may include any of the following cleansing methods: Enemas fluid introduced into the rectum to stimulate a bowel movement Laxativesmedicines that cause you to have soft bowel movements A clear-liquid diet Oral cathartic medicinesa large container of fluid to drink, which stimulates a bowel movement Leading up to your procedure: Talk to your doctor about your medicines. You may be asked to stop taking some medicines up to one week before the procedure, like: Anti-inflammatory drugs (eg, aspirin) Blood thinners, like clopidogrel (Plavix) or warfarin (Coumadin) Iron supplements or vitamins containing iron. The night before, eat a light meal. Do not eat or drink anything after midnight. Wear comfortable clothing. If you have diabetes, ask your doctor if you need to adjust your insulin dose. Arrange for a ride home after the procedure. Anesthesia You will receive a sedative. This will help you relax. You will be drowsy but awake. Description of the Procedure You will be asked to lie on your side or on your back. A scope, a long flexible tube with a camera on the end, will be inserted through the anus. It will be slowly pushed through the rectum to the colon. The scope will also add air to open the colon. Using the scope, the doctor will locate the polyp. The polyp will be snipped off with a wire snare from the scope. In some cases, the polyp may be destroyed with an electric current. The electric current is also used to close the wound and stop bleeding. The polyps will then be removed for lab testing. When the doctor is finished, the scope will be slowly removed. For larger polyps, a laparoscopic surgical procedure may be needed. Special surgical tools will be inserted through small incisions in the abdomen. The tools will be used to locate and remove the polyp. How Long Will It Take? 30-60 minutes Will It Hurt? The special cleaning solution, laxatives, and/or enemas often cause discomfort. During and following the procedure, there is little or no pain. You may feel pressure, bloating, and/or cramping because of the air passed into the colon. This discomfort will go away with the passing of gas. Your doctor may prescribe pain medicine. If not, you can take non-prescription pain relievers for discomfort. Post-procedure Care At the Care Center The polyps will be sent to a lab for testing. At Home Expect a complete recovery within two weeks. To ensure a smooth recovery, be sure to follow your doctor's instructions , which may include: The sedative will make you drowsy. Do not drive, operate machinery, or make important decisions theday of the procedure. Return to your normal diet the same or next day. Avoid tea, coffee, cola drinks, alcohol, and spicyfoods for at least 2-3 days following surgery. These can irritate the digestive system. To speed healing, resume normal activities as soon as you feel able. Most people feel well enough by the next day. Ask your doctor when you can participate in any rigorous exercise. Ask your doctor about when it is safe to shower, bathe, or soak in water. You will be scheduled for a follow-up colonoscopy in the future. It will be important to check for recurrence of polyps. Your doctor will discuss the results with you either the day of surgery or the following day. Call Your Doctor After arriving home, contact your doctor if any of the following occurs: Signs of infection, including fever and chills Redness, swelling, increasing pain, excessive bleeding, or discharge from the rectum (Up to cup of blood per day can be expected for up to 3-4 days following your polypectomy.) Black, tarry stools Severe abdominal pain Hard, swollen abdomen Inability to pass gas or stool Cough , shortness of breath, chest pain, or severe nausea or vomiting New, unexplained symptoms In case of emergency, CALL 911 . Last Reviewed: May 2010 Mike Parikh MD Updated: 09/28/2010 PATIENT INSTRUCTIONS DIVERTICULOSIS FOLLOW-UP: Please make an appointment with your physician as directed. Call your physician immediately if you have any fevers greater than 102.5, increasing abdominal pain, GI bleeding (from the colon or rectum),or nausea/vomiting. CAUSE: Some people may have congenital diverticulosis, but most people develop diverticulosis around or after age 40 due to a low-fiber, high-fat diet, along with inadequate fluid intake. This is very prevalent in the industrialized world where we eat a lot of processed, low fiber foods. Diverticuli develop due to firm stool and high pressures in the colon, along with secondary spasm, which causes outpouchings to occus where the small arteries penetrate the wall of the colon to feed the internal lining. These occur most commonly on the left side and lower portions of the colon. Diverticuli can then cause bleeding from the arteries at these sites of weakness when they rupture or the diveritculi can get blocked with stool and debris and become obstructed, causing diverticulosis, which is due to an infection. When these are infected, diverticulitis, it is often treated with antibiotics andbowel rest, but when severe, recurrent, or if rupture of the colon occurs, it may require surgery. Following appropriate dietary changes and taking the proper precautions is therefore very important. DIET: You should increase your dietary fiber intake and take a fiber supplement twice a day. Make sure that you are taking a supplement that is just fiber and is not a laxative, which should be notedon the package. Starting a fiber supplement may cause increased gas, more frequent bowel movements,and distension at first but this should improve after a couple of weeks. Try to eat whole wheat breads and pasta, more fruits and vegetables, along with brown rice and plenty of fluids. Avoid small undigestible food items that could get stuck in these outpouchings, such as unpopped popcorn kernals,whole corn, small undigestible seeds, etc.. ACTIVITY: Exercise is also a great way to prevent constipation and is encouraged. It may also help prevent progression of your diverticulosis. Always make sure you take in plenty of fluids when exercising. MEDICATIONS: Take an imxq-dfy-fhhtvqx fiber supplement as noted above twice daily. If your symptomsdon't improve with fiber and dietary changes alone your physician may also recommend psyllium or methylcellulose as well. If your physician has placed you on an antibiotic it is critical that you take the full course of these, even if your symptoms have improved, and that you not miss any doses. QUESTIONS: Please feel free to call your physician or the hospital dump operator if you have any questions, and they will be glad to assist you. If you have further questions it may also be helpful to meet with a dietitician. High-Fiber Diet What Is Fiber? Dietary fiber is a form of carbohydrate found in plants that cannot be digested by humans. All plants contain fiber, including fruits, vegetables, grains, and legumes. Fiber is often classified into two categories: soluble and insoluble. Soluble fiber draws water into the bowel and can help slow digestion. Examples of foods that are high in soluble fiber include oatmeal, oat bran, barley, legumes (eg, beans and peas), apples, and strawberries. Insoluble fiber speeds digestion and can add bulk to the stool. Examples of foods that are high in insoluble fiber include whole-wheat products, wheat bran, cauliflower, green beans, and potatoes. Why Follow a High-Fiber Diet? A high-fiber diet is often recommended to prevent and treat constipation , hemorrhoids , diverticulitis , and irritable bowel syndrome . Eating a high- fiber diet can also help improve your cholesterol levels, lower your risk of coronary heart disease , reduce your risk of type 2 diabetes , and lower your weight. For people with type 1 or 2 diabetes, a high-fiber diet can also help stabilize bloodsugar levels. How Much Fiber Should I Eat? A high-fiber diet should contain 20-35 grams of fiber a day. This is actually the amount recommended for the general adult population; however, most Americans eat only 15 grams of fiber per day. Digestion of Fiber Eating a higher fiber diet than usual can take some getting used to by your body's digestive system. To avoid the side effects of sudden increases in dietary fiber (eg, gas, cramping, bloating, and diarrhea), increase fiber gradually and be sure to drink plenty of fluids every day. Tips for Increasing Fiber Intake Whenever possible, choose whole grains over refined grains (eg, brown rice instead of white rice, whole-wheat bread instead of white bread). Include a variety of grains in your diet, such as wheat, rye, barley, oats, quinoa, and bulgur. Eat more vegetarian-based meals. Here are some ideas: black laureano burgers, eggplant lasagna, and veggie tofu stir-salvador. Choose high-fiber snacks, such as fruits, popcorn, whole-grain crackers, and nuts. Make whole-grain cereal or whole-grain toast part of your daily breakfast regime. When eating out, whether ordering a sandwich or dinner, ask for extra vegetables. When baking, replace part of the white flour with whole-wheat flour. Whole-wheat flour is particularly easy to incorporate into a recipe. High-Fiber Diet Eating Guide Food Category Foods Recommended Notes Grains Whole-grain breads, muffins, bagels, or geovanna bread [place] bread Whole-wheat crackers or crisp breads Whole-grain or bran cereals Oatmeal, oat bran, or grits Wheat germ Whole-wheat pasta and brown rice Read the ingredients list on food labels. Look for products that list whole as the first ingredient (eg, whole-wheat, whole oats). Choose cereals with at least 2 grams of fiber per serving. Vegetables All vegetables, especially asparagus, laureano sprouts, broccoli, Fritch sprouts, cabbage, carrots, cauliflower, celery, corn, greens, green beans, green pepper, onions, peas, potatoes (with skin), snow peas, spinach, squash, sweet potatoes, tomatoes, zucchini For maximum fiber intake, eat the peels of fruits and vegetablesjust be sure to wash them well first. Fruits All fruits, especially apples, berries, grapefruits, mangoes, nectarines, oranges, peaches, pears, dried fruits (figs, dates, prunes, raisins) Choose raw fruits and vegetables over juice, cooked, or cannedraw fruit has more fiber. Dried fruitis also a good source of fiber. Milk With the exception of yogurt containing inulin (a type of fiber), dairy foods provide little fiber. Add more fiber by topping your yogurt or cottage cheese with fresh fruit, whole grain or bran cereals, nuts, or seeds. Meats and Beans All beans and peas, especially Garbanzo beans, kidney beans, lentils, peterson beans, split peas, and ebrrios beans All nuts and seeds, especially almonds, peanuts, Pinnacle nuts, cashews, peanut butter, walnuts, sesame and sunflower seeds All meat, poultry, fish, and eggs Increase fiber in meat dishes by adding berrios beans, kidney beans, black-eyed peas, bran, or oatmeal. If you are following a low-fat diet, use nuts and seeds only in moderation. Fats and Oils All in moderation Fats and oils do not provide fiber Snacks, Sweets, and Condiments Fruit Nuts Popcorn, whole-wheat pretzels, or trail mix made with dried fruits, nuts, and seeds Cakes, breads, and cookies made with oatmeal or whole-wheat flour Most snack foods do not provide much fiber. Choose snacks with at least 2 grams of fiber per serving. Last Reviewed: August 2010 Kenya Billings MS, MPH, RD Updated: 09/19/2010 documented in this encounter History of Present Illness * Jesenia Grover RN - 04/13/2019 7:25 AM EDT accu check 113 documented in this encounter Advance Directives No Advanced Directives Records FoundDocuments on File Type Date Recorded Patient Senior Research Associate Expl anation Advance Directives and Living Will Power of Rail Car Driver Documents on File Type Date Recorded Patient Senior Research Associate Expl anation ACP-Advance Directive ACP-Power of Rail Car Driver Date Activated Date Inactivated Comments 03/24/2024 7:33 PM Date Activated Date Inactivated Comments 03/24/2024 7:33 PM Date Activated Date Inactivated Comments 03/24/2024 7:33 PM 03/29/2024 2:08 PM Date Activated Date Inactivated Comments 04/13/2024 1:23 PM 04/15/2024 2:29 PM Date Activated Date Inactivated Comments 03/24/2024 7:33 PM 03/29/2024 2:08 PM Summary Purpose Family History No Family History Records FoundNo Family History Records FoundNo Family History Records FoundNo Family History Records FoundNo Family History Records FoundNo Family History Records FoundNo Family History Records Found Reason for Referral Specialty Diagnoses / Procedures Referred By Contac t Referred To Contact Diagnoses Iron deficiency anemia due to chronic blood loss Blood loss anemia Procedures Follow-up with primary care provider Robert Velez MD [address] [address] Referral ID Status Reason Start Date Expiration Date V isits Requested Visits Authorized [id number] Pending Review 03/29/2024 03/29/2025 1 1 Specialty Diagnoses / Procedures Referred By Contac t Referred To Contact Procedures Adult diet Robert Velez MD [address] [address] Referral ID Status Reason Start Date Expiration Date V isits Requested Visits Authorized [id number] Pending Review 03/29/2024 03/29/2025 1 1 Additional Source Comments Reason for Visit (unrecogniz ed section and content) Status Reason Specialty Diagnoses / Procedures Re ferred By Contact Referred To Contact Diagnoses IRON DEFICIENCY ANEMIA (PAT PER ANES ON ADMIT) Procedures DC ESOPHAGOGASTRODUODENOSCOPY TRANSORAL DIAGNOSTIC DC COLONOSCOPY FLX DX W/COLLJ SPEC WHEN PFRMD EGD ESOPHAGOGASTRODUODENOSCOPY COLONOSCOPY DIAGNOSTIC Arthur Renetria MD [address] [place] [address] [facility] Status Reason Specialty Diagnoses / Procedures Re ferred By Contact Referred To Contact [facility] Diagnoses IMELDA (obstructive sleep apnea) Dyspnea Morbid obesity (HCC) RLS (restless legs syndrome) IMELDA on CPAP CVA (cerebral vascular accident) (HCC) Fatigue, unspecified type Essential hypertension Ataxia Memory dysfunction Chronic diastolic heart failure (HCC) Procedures DC POLYSOM 6/>YRS SLEEP W/CPAP 4/> ADDL MYRA ATTND CPAP TITRATION (DX 2008) Franny Aponte MD [address] [place] [address] [facility] [address] [place] [id number] Reason Comments Med Refill Reason Onset Date Comments Er Follow-up 07/15/2023 Reason Comments Dizziness Getting dizzy, possi yue passing out and then falls Reason Comments Shortness of Breath Dizziness Specialty Diagnoses / Procedures Referred By Lior bradley Referred To Contact Diagnoses Melena Dizziness SOB (shortness of breath) Robert Velez MD [address] [address] Referral ID Status Reason Start Date Expiration Date Visits Re quested Visits Authorized [id number] 1 Reason Comments New Patient transport running be hind; (from a facility) L arm pain s/p fall 04/13, XR Reason Comments Pre-op Exam Holter Monitor INFORMATION SOURCE (unrecogn ized section and content) DATE CREATED AUTHOR 04/29/2021 [facility] DATE CREATED AUTHOR AUTHOR'S ORGANIZ ATION 07/10/2023 [facility] DATE CREATED AUTHOR AUTHOR'S ORGANIZ ATION 03/26/2024 [facility] DATE CREATED AUTHOR AUTHOR'S ORGANIZ ATION 04/25/2024 [facility] DATE CREATED AUTHOR AUTHOR'S ORGANIZ ATION 05/16/[address] [facility] DATE CREATED AUTHOR AUTHOR'S ORGANIZ ATION 06/05/2024 [facility] DATE CREATED AUTHOR AUTHOR'S ORGANIZ ATION 06/17/2024 [facility] Care Teams (unrecognized sec tion and content) Final Expense Agent Relationship Specialty Start Date End Date Robert Velez MD [address] [address] PCP - General 11/27/13 Final Expense Agent Relationship Specialty Start Date End Date Robert Velez MD PCP - General Internal Medicine 04/29/12 Final Expense Agent Relationship Specialty Start Date End Date Robert Velez MD [facility] [address] [address] PCP - General 11/27/13 Final Expense Agent Relationship Specialty Start Date End Date Robert Velez MD [address] [place] [id number] PCP - General 11/27/13 Final Expense Agent Relationship Specialty Start Date End Date Robert Velez MD [address] [place] [id number] PCP - General 11/27/13 Final Expense Agent Relationship Specialty Start Date End Date Robert Velez MD [address] [place] [id number] PCP - General 11/27/13 Final Expense Agent Relationship Specialty Start Date End Date Robert Velez MD [address] [place] [id number] PCP - General 11/27/13 Final Expense Agent Relationship Specialty Start Date End Date Robert Velez MD [facility] [address] [address] PCP - General 11/27/13 Final Expense Agent Relationship Specialty Start Date End Date Robert Velez MD [facility] [address] [address] PCP - General 11/27/13 Final Expense Agent Relationship Specialty Start Date End Date Robert Velez MD [address] [place] [address] PCP - General 11/27/13 Final Expense Agent Relationship Specialty Start Date End Date Robert Velez MD [address] [address] PCP - General 11/27/13 Final Expense Agent Relationship Specialty Start Date End Date Robert Velez MD [address] [address] PCP - General 11/27/13 Final Expense Agent Relationship Specialty Start Date End Date Robert Velez MD [address] [address] PCP - General 11/27/13 Final Expense Agent Relationship Specialty Start Date End Date Robert Velez MD [address] [address] PCP - General 04/13/24 Final Expense Agent Relationship Specialty Start Date End Date Robert Velez MD [address] [address] PCP - General 04/13/24 Final Expense Agent Relationship Specialty Start Date End Date Robert Velez MD [address] [address] PCP - General 04/13/24 Final Expense Agent Relationship Specialty Start Date End Date Robert Velez MD [address] [address] PCP - General 04/13/24 Final Expense Agent Relationship Specialty Start Date End Date Robert Velez MD [address] [address] PCP - General 04/13/24 Final Expense Agent Relationship Specialty Start Date End Date Robert Velez MD [address] [address] PCP - General 04/13/24 Final Expense Agent Relationship Specialty Start Date End Date Robert Vleez MD [address] [address] PCP - General 04/13/24 Scheduled Active and Recently Administ ered Medications (unrecognized section and content) Medication Order 03/27/2024 03/28/2024 03/29/2024 atorvastatin (LIPITOR) tablet 40 mg 40 mg, oral, Nightly, First dose on Sat03/24/24 at 2200, Look-alike/sound-alike medication - verify indication for use. 2038 (Given - Provider: Aubree Quinn RN) 2142 (Given - Provider: Aubree Quinn RN) 2199 (Due) carvediloL (COREG) tablet 3.125 mg 3.125 mg, oral, 2 times daily, First dose on Sat03/24/24 at 2100, Hold for SBP <110 or HR <60 Give with meal or snack. Look-alike/sound-alike medication - verify indication for use. 1031 (Given - Provider: Mague Rowe RN)2038 (Given - Provider: Aubree Quinn RN) 0842 (Given - Provider: Zuri Montgomery, PRUDENCIO)2142 (Given - Provider: Aubree Quinn RN) 08 (Given - Provider: Zuri Montgomery, PRUDENCIO)2100 (Due) enoxaparin (LOVENOX) syringe 100 mg (CANCELED) 100 mg (rounded from 102.4 mg = 1 mg/kg 102.4 kg), subcutaneous, Every 12 hours, First dose on Sat03/26/24 at 1800, Discontinue when INR=2 or greater Look-alike/sound-alike medication - verify indication for use. 0550 (Given - Provider: Aubree Quinn, RN)1652 (Given - Provider: Criss Chao, RN)1800 (Canceled Entry - Provider: Criss Chao RN) 0531 (Given - Provider: Aubree Quinn RN) ferrous sulfate tablet 325 mg 325 mg, oral, Daily with breakfast, First dose on 03/28/24 at 1000, Give ferrous sulfate 2 hours before or 4 hours after antacids. 1000 (Not Given - Provider: Zuri Montgomery RN - Reason: Other - Comment: IV iron given) 0802 (Given - Provider: Zuri Montgomery RN) folic acid (FOLVITE) tablet 1,000 mcg 1,000 mcg, oral, Daily, First dose on Sat03/25/24 at 0900, Look-alike/sound-alike medication - verify indication for use. 1031 (Given - Provider: Mague Rowe RN) 0842 (Given - Provider: Zuri Montgomery RN) 0803 (Given - Provider: Zuri Montgomery RN) insulin lispro (HumaLOG) injection 1-4 Units 1-4 Units, subcutaneous, Nightly, First dose on Mi 03/26/24 at 2200, Bedtime hyperglycemia dosing. For blood glucose 201-250 mg/dL, give 1 unit. For blood glucose 251-300 mg/dL, give 2 units. For blood glucose 301-350 mg/dL, give 3 units. For blood glucose 351-400 mg/dL, give 4 units. Give even if NPO or meals skipped. Do NOT give more often than every 4 hours when NPO. Notify prescriber if blood glucose greater than 400 mg/dL. Look-alike/sound-alike medication - verify indication for use. Prime with 2 units of insulin prior to administration. Prandial/supplemental Insulin. Pre-filled pens stable 28 days at room temperature. Insulin lispro should be administered within 15 minutes before or immediately after a meal. 2200 (Not Given - Provider: Aubree Quinn RN - Reason: Order parameters not met) 2200 (Not Given - Provider: Aubree Quinn RN - Reason: Order parameters not met) 2200 (Due) insulin lispro (HumaLOG) injection 1-5 Units 1-5 Units, subcutaneous, 3 times daily with meals, First dose (after last modification) on Mi 03/26/24 at 1200, Daytime hyperglycemia dosing. For blood glucose 151-200 mg/dL, give 1 unit. For blood glucose 201-250 mg/dL, give 2 units. For blood glucose 251-300 mg/dL, give 3 units. For blood glucose 301-350 mg/dL, give 4 units. For blood glucose 351-400 mg/dL, give 5 units. Give even if NPO or meals skipped. Do NOT give more often than every 4 hours when NPO. Notify prescriber if blood glucose greater than 400 mg/dL. Look-alike/sound-alike medication - verify indication for use. Prime with 2 units of insulin prior to administration. Prandial/supplemental Insulin. Pre-filled pens stable 28 days at room temperature. Insulin lispro should be administered within 15 minutes before or immediately after a meal. 0800 (Not Given - Provider: Mague Rowe RN - Reason: Order parameters not met)1200 (Not Given - Provider: Criss Chao RN - Reason: Order parameters not met)1700 (Not Given - Provider: Criss Chao RN - Reason: Patient/family refused) 0800 (Not Given - Provider: Zuri Montgomery RN - Reason: Order parameters not met)1230 (Given - Provider: Zuri Montgomery RN)1700 (Not Given - Provider: Zuri Montgomery RN - Reason: Patient/family refused) 0800 (Not Given - Provider: Zuri Montgomery RN - Reason: Order parameters not met)1200 (Not Given - Provider: Zuri Montgomery RN - Reason: Patient/family refused - Comment: 186 patient had already eaten half of her food)1700 (Due) iron sucrose (VENOFER) IVPB 200 mg/110 mL in sodium chloride 0.9% (CMPD premix) (COMPLETED) 200 mg, intravenous, at 440 mL/hr, Administer over 15 Minutes, Daily, First dose on Sat03/25/24 at 1500, For 5 doses, Monitor patient for hypersensitivity reactions for at least 30 minutes after the infusion. AVOID the use of H1 antihistamines, such as diphenhydramine, as this may worsen hypersensitivity reactions. Have resuscitation equipment and medications available. 1207 (New Bag - Provider: Criss Chao RN)1222 (Stop Bag - Provider: Criss Chao RN) 1014 (New Bag - Provider: Zuri Montgomery RN)1020 (Paused - Provider: Zuri Montgomery RN)1022 (Restarted - Provider: Zuri Montgomery RN)1029 (Stop Bag - Provider: Zuri Montgomery RN) 0805 (New Bag - Provider: Zuri Montgomery RN)0820 (Stop Bag - Provider: Zuri Montgomery RN) levothyroxine (SYNTHROID, LEVOTHROID) tablet 150 mcg 150 mcg, oral, Daily, First dose on Sat03/25/24 at 0600, Look-alike/sound-alike medication. Verify indication for use Administer on empty stomach at least ONE hour before or TWO hours after food Enteral Feeding: For 7 days or less of tube feeding- do NOT hold tube feedings, after 7 days- hold tube feedings ONE hour before and ONE hour after administration DOES NOT APPLY TO NEONATES Monitor thyroid function tests weekly 0550 (Given - Provider: Aubree Quinn RN) 0531 (Given - Provider: Aubree Quinn RN) 0519 (Given - Provider: Nery Gonsalves RN) losartan (COZAAR) tablet 25 mg 25 mg, oral, Daily, First dose on Sat03/26/24 at 0930, Hold for SBP < 110 Look-alike/sound-alike medication - verify indication for use. 1031 (Given - Provider: Mague Rowe RN) 0842 (Given - Provider: Zuri Montgomery RN) 0802 (Given - Provider: Zuri Montgomery RN) pantoprazole (PROTONIX) EC tablet 40 mg 40 mg, oral, 2 times daily before meals, First dose on Sat03/26/24 at 1600, Look-alike/sound-alike medication - verify indication for use. If patient is receiving enteral feeding, consider alternative PPI or continue IV pantoprazole until the delayed-release tablet can be taken orally, Indication: Acute Upper GI Bleed/Positive Stool Occult Blood 0550 (Given - Provider: Aubree Quinn RN)1651 (Given - Provider: Criss Chao RN) 0530 (Given - Provider: Aubree Quinn RN)1739 (Given - Provider: Zuri Montgomery RN) 0519 (Given - Provider: Nery Gonsalves RN)1600 (Due) potassium chloride (KLOR-CON M 20) CR tablet 40 mEq (COMPLETED) 40 mEq, oral, Once, On Sat03/27/24 at 1315, For 1 dose, Do not crush or chew. 1335 (Given - Provider: Criss Chao RN) rOPINIRole (REQUIP) tablet 2 mg 2 mg, oral, Nightly, First dose on Sat03/24/24 at 2200, Look-alike/sound-alike medication - verify indication for use. 2038 (Given - Provider: Aubree Quinn RN) 2142 (Given - Provider: Aubree Quinn RN) 2199 (Due) sertraline (ZOLOFT) tablet 100 mg 100 mg, oral, Daily, First dose on Sat03/25/24 at 0900, Look-alike/sound-alike medication - verify indication for use. 1030 (Given - Provider: Mague Rowe RN) 0842 (Given - Provider: Zuri Montgomery RN) 0803 (Given - Provider: Zuri Montgomery RN) warfarin (COUMADIN) tablet 5 mg 5 mg, oral, User Specified (Once per day on Saturday), First dose (after last modification) on Sat03/26/24 at 1645, To be given on SPECIFIC DAYS Food-Drug Interaction Education Required Look-alike/sound-alike medication - verify indication for use Avoid intake of foods with large amounts of vitamin K Enteral Feeding: If patient is on tube feedings, avoid formulas containing soy protein Transition to oral diet may require decrease in warfarin dose, Target INR: Other, Hold warfarin & notify prescriber if INR greater than: 3 1745 (Given - Provider: Zuri Montgomery RN) 1600 (Due) warfarin (COUMADIN) tablet 7.5 mg 7.5 mg, oral, User Specified (Once per day on Saturday), First dose (after last modification) on Sat03/27/24 at 1600, To be given on SPECIFIC DAYS Food-Drug Interaction Education Required Look-alike/sound-alike medication - verify indication for use Avoid intake of foods with large amounts of vitamin K Enteral Feeding: If patient is on tube feedings, avoid formulas containing soy protein Transition to oral diet may require decrease in warfarin dose, Target INR: Other, Hold warfarin & notify prescriber if INR greater than: 3 1651 (Given - Provider: Criss Chao RN) PRN Medication Order 03/27/2024 03/28/2024 03/29/2024 dextrose (GLUTOSE) 40 % gel 15 g 15 g, oral, As needed, low blood sugar, blood glucose less than 70 mg/dL, Starting on Sat03/24/24 at 2032, If patient conscious and taking PO. If blood glucose is not greater than 70 mg/dL after initial treatment, repeat treatment. dextrose 5 % (D5W) infusion 100 mL/hr, intravenous, Continuous PRN, blood glucose less than 70 mg/dL, Starting on Sat03/24/24 at 2032, Use immediately following dextrose 50% or glucagon treatment for patients who are unconscious or NPO. Contact prescriber for additional orders. If blood glucose is not greater than 70 mg/dL after initial treatment, repeat treatment. dextrose 50 % in water (D50W) 50% solution 25 mL 25 mL, intravenous, As needed, low blood sugar, blood glucose less than 70 mg/dL and unconscious or NPO with IV access, Starting on Sat03/24/24 at 2032, Push over 1-3 minutes STAT. If conscious and not NPO, immediately follow with meal tray or high protein (7 grams) snack if tray not available. If NPO, initiate 5% dextrose in water at 100 mL/hr and contact prescriber for additional orders. If blood glucose is not greater than 70 mg/dL after initial treatment, repeat treatment. VESICANT (RED) Warning: HYPERTONIC solution. glucagon HCL injection 1 mg 1 mg, intramuscular, As needed, low blood sugar, blood glucose less than 70 mg/dL and unconscious or NPO without IV access., Starting on Sat03/24/24 at 2032, If conscious and not NPO, immediately follow with meal tray or high protein (7Grams) snack if tray not available. If NPO, initiate IV 5% Dextrose/Water at 100 mL/hr and contact prescriber for additional orders. If blood glucose is not greater than 70 mg/dL after initial treatment, repeat treatment. sodium chloride 0.9 % flush 10 mL 10 mL, intravenous, As needed, line care, Starting on Sat03/24/24 at 1711 0800 (Given - Provider: uZri Montgomery RN) sodium chloride 0.9 % flush bag 25 mL, intravenous, at 100 mL/hr, Administer over 15 Minutes, As needed, line care, line care after IVPB administration, Starting on Sat03/24/24 at 2033 1013 (New Bag - Provider: Zuri Montgomery, PRUDENCIO)1014 (Stop Bag - Provider: Zuri Montgomery RN)1028 (Stop Bag - Provider: Zuri Montgomery, RN) sodium chloride 0.9 % infusion 20 mL/hr, intravenous, Continuous PRN, to maintain patency of lines, Starting on Sat03/24/24 at 3 1037 (New Bag - Provider: Mague Rowe RN)1205 (New Bag - Provider: Criss Chao, RN)1306 (Stop Bag - Provider: Criss Chao RN) 0800 (Restarted - Provider: Zuri Montgomery, PRUDENCIO)1118 (Stop Bag - Provider: Zuri Montgomery, RN) FOR RECORDS PERTAINING TO PATIENTS WHO ARE OR HAVE BEEN ENROLLED IN A CHEMICAL DEPENDENCY/SUBSTANCEABUSE PROGRAM, SOME INFORMATION MAY BE OMITTED. This clinical summary was aggregated from multiple sources. Caution should be exercised in using it in the provision of clinical care. This summary normalizes information from multiple sources, and as a consequence, information in this document may materially change the coding, format and clinical context of patient data. In addition, data may be omitted in some cases. CLINICAL DECISIONS SHOULD BE BASED ON THE PRIMARY CLINICAL RECORDS. [facility]. provides no warranty or guarantee of the accuracy or completeness of information in this document.
[2024-06-17 14:40] LABS: Prothrombin Time 29.4 sec (9.0-11.6)
== END 2024-06-17 12:09 | disposition home or self-care (01) ==
LOC: LAB 12:08
PROVIDERS: Visit Provider Student in an Organized Health Care Education/Training Program
DX: Z79.01 Long term (current) use of anticoagulants (principal)
CPT/HCPCS: 36415; 85610